=== PATIENT | female | born 1965 | race Caucasian/White ===

== ENCOUNTER 2019-05-23 10:05 | Inpatient (IN) | payer MEDICARE, SELFPAY ==
[2019-05-23] VITALS (11 sets, daily range): BP systolic 124–138; BP diastolic 55–76; PULSE 79–94; RESP 16–20; TEMP 36.2–36.9; O2SAT 94–99; BMI 19.8
--- NOTE | ~2019-05-23 | XR_ITS ---
EXAMINATION: XR chest 2V DATE: 05/23/2019 12:27 INDICATION: Shortness of breath and cough TECHNIQUE: AP and lateral views of the chest are obtained. COMPARISON: 10/05/2017 FINDINGS: There are minimal airspace opacities of the right middle lobe. Calcified pulmonary nodules and calcified bilateral hilar and mediastinal lymph nodes are consistent with old granulomatous disea se. There is no pleural effusion or pneumothorax. The cardiomediastinal silhouette is normal. There i s mild thoracic spondylosis. IMPRESSION: 1. Right middle lobe airspace opacity, consistent with atelectasis versus pneumonia. Reviewed, dictated and finalized at location A. WARE ENGINEERING MANAGER IMPRESSION: 1. Right middle lobe airspace opacity, consistent with atelectasis versus pneum onia.
--- NOTE | ~2019-05-23 | CT_ITS ---
EXAMINATION: CT chest w con EXAM DATE: 05/24/2019 16:55 INDICATION: COPD, shortness of breath. Airspace disease. TECHNIQUE: Spiral CT of the chest following intravenous injection of 75 mL Omnipaque 350. Axial, cor onal and sagittal images were reviewed. Coronal maximum intensity pixel images of chest reviewed. T he dose-length product (DLP) for this examination was 130.42 mGy-cm. The exposure was tailored accor ding to patient size (auto mA exposure control), and iterative reconstruction (ASIR) was used as grecia tional dose reduction technique. Comparison is made to prior examination from 11/07/2017. FINDINGS: There is severe emphysema and moderate hyperinflation. There is persistent right infrahila r ovoid mass, probably chronic reactive lymph node with multiple calcifications in this and other nor mal-sized bilateral hilar and mediastinal lymph nodes, from prior granulomatous process. There is rig ht lower lobe scarring, which resolved pneumonia which was present on prior examination. There are n o pleural or pericardial effusions. Tracheobronchial tree is patent. No central pulmonary emboli. T here is no pneumothorax. Heart normal in size. There is mild coronary arterial calcification, art erial sclerosis. Upper abdomen is unremarkable. There is mild thoracic spondylosis without osteobl astic or osteolytic lesions identified. IMPRESSION: 1. Chronic post infectious sequela including enlarged right infrahilar lymph node. 2. Severe emphysema. Moderate hyperinflation. Reviewed, dictated and finalized at location A. H PLANER TENDER IMPRESSION: 1. Chronic post infectious sequela including enlarged right infrahilar lymph n ode. 2. Severe emphysema. Moderate hyperinflation.
--- NOTE | 2019-05-23 10:34 | ECG_ITS ---
Measurements Intervals [place] Rate: 78 P: 72 SD: 122 QRS: 87 QRSD: 91 T: 19 QT: 354 QTc: 405 Interpretive Statements SINUS RHYTHM FREQUENT ATRIAL PREMATURE COMPLEXES DELAYED PRECORDIAL R/S TRANSITION BORDERLINE ST-T WAVE ABNORMALITY- INF/LAT LEADS BASELINE ARTIFACT- I, II, III, AVR, AVL, AVF, V5-V6 ABNORMAL ECG Electronically Signed On 05-23-2019 11:10:21 ACCESS CLERK by Thad Rea D.O.
--- NOTE | 2019-05-23 11:09 | ED.SOB ---
HPI - SOB/Dyspnea General Chief Complaint: Shortness of Breath/Dyspnea Stated Complaint: sob Time Seen by Provider: 05/23/19 10:16 Source: patient and family Mode of arrival: ambulatory Limitations: no limitations History of Present Illness HPI Narrative: Pt is a 53 y/o female, with a H/O DM and COPD, who presents to the ED with c/o SOB that has worsened in the last week. Pt states that she has had a cold for the last week and she went to see her PCP, Dr. Morales today. While she was at her PCP's office, she had a breathing treatment that alleviated her SOB, but her PCP recommended she come to the ED for further care. Pt reports a persistent cough with no phlegm production. She states she has chronic orthopnea and she is normally on 6L home O2. Pt notes that she is not able to increase her O2 intake because her O2 tank does not go any higher. Pt has been using her nebulizer and inhaler at home with no relief. She also notes that her BS has been fluctuating between 300-21. She notes that she has been having recent low BS. Pt is normally able to walk around the house without being SOB and now she cannot walk more than 25 feet. Per daughter, pt has been undergoing a lot of stress with moving recently. Pt is around multiple dogs. She states that she had mal odorous urine last week, but she denies dysuria or frequency. Pt states that she quit smoking 6 months ago and recently started smoking again. She denies fever, chills, sweats, ABD pain, CP, chest pressure, or N/V. MD elicited complaint: shortness of breath Pertinent past history: COPD Onset (ago): week(s) (1) Timing: constant Exacerbating factors: lying flat and movement Relieving factors: nothing Known history of: COPD and diabetes Associated symptoms: cough Treatment prior to arrival: oxygen Related Data Home oxygen amount: other (6L home O2) Home Medications Medication Instructions Recorded Confirmed atorvastatin 40 mg tablet 40 mg PO DAILY 04/10/19 04/11/19 blood sugar diagnostic #10 each 04/10/19 04/11/19 fluticasone 250 mcg-salmeterol 50 1 inhalation INHALATION BID 04/10/19 04/11/19 mcg/dose blistr powdr for inhalation insulin aspart U-100 100 unit/mL 5 unit SUB-Q TID 04/10/19 04/11/19 (3 mL) subcutaneous pen insulin degludec 200 unit/mL (3 20 unit SUB-Q DAILY 04/10/19 04/11/19 mL) subcutaneous pen ipratropium 0.5 mg-albuterol 3 mg 3 ml INHALATION QID PRN 04/10/19 04/11/19 (2.5 mg base)/3 mL nebulization soln lancets 28 gauge #25 each 04/10/19 04/11/19 levothyroxine 100 mcg tablet 100 mcg PO DAILY 04/10/19 04/11/19 lisinopril 10 mg tablet 10 mg PO DAILY 04/10/19 04/11/19 pen needle, diabetic 33 gauge x #100 each 04/10/19 04/11/19 1/ trazodone 50 mg tablet 50 mg PO DAILY tablet 04/10/19 04/11/19 Allergies Allergy/AdvReac Type Severity Reaction Status Date / Time metformin AdvReac Intermediate Diarrhea Verified 05/23/19 10:20 Review of Systems Review of Systems: All systems reviewed & are unremarkable except as noted in HPI and below Constitutional: Constitutional: Denies chills, Denies fever(s) and Denies other (sweats) Cardiovascular: Cardiovascular: Denies chest pain, Reports orthopnea (chronic) and Denies other (chest pressure) Respiratory: Respiratory: Reports cough and Reports dyspnea Gastrointestinal: Gastrointestinal: Denies nausea and Denies vomiting Genitourinary: Genitourinary: Denies nocturia, Denies dysuria and Denies other (mal odorous urine) [facility] Past Medical History Medical History (Updated 05/23/19 @ 14:36 by Kamran Steen MD) Anxiety Arthritis Asthma Atypical chest pain Bilateral wrist pain Compression fracture COPD (chronic obstructive pulmonary disease) COPD exacerbation COPD with exacerbation Depression Ganglion cyst HLD (hyperlipidemia) HTN (hypertension) Hypoglycemia IDDM (insulin dependent diabetes mellitus) Knee fracture, right On home O2 Pain in left wrist Pilonidal cyst Pneumonia Smoking addiction
[2019-05-23] MEDS: IPRATROPIUM BR 0.02% INH SOLN 0.5 MG/2.5 ML VIAL INHALATION ×2 (11:51→19:16)
[2019-05-23] MEDS: ALBUTEROL SULFATE NEB 2.5 MG/0.5 ML INH 5 MG INHALATION ×2 (11:51→19:16)
[2019-05-23 12:08] LABS: Alveolar/Arterial O2 Gradient 180.5 mmHg; Base Excess ABG 0.2 mEq/l (+/-2.0); Carboxyhemoglobin 2.5 % THb (0-2.0); Fractional Inspired Oxygen 44 %; HCO3 ABG 26.5 mEq/l (22.0-26.0); Methemoglobin ABG 0.1 %THb (0-1.5); Oxygen Content ABG 17.2 %vol (16.0-22.0); Oxygen Saturation ABG 94.6 % (95.0-100.0); Oxyhemoglobin 92.6 % THb (90.0-100.0); PCO2 ABG 49.3 mmHg (35.0-45.0); PO2 FiO2 Ratio Arterial Blood 1.75 %; Reduced Hemoglobin 4.8 %THb (0-5.0); Total Hemoglobin 13.2 g/dL (12.0-18.0); pH ABG 7.348 (7.350-7.450)
[2019-05-23 12:09] LABS: Device NASAL CANNULA; Site Drawn LEFT BRACHIAL
[2019-05-23 12:12] LABS: Basophils Percent Auto 0.8 % (0.2-1.2); Eosinophils Absolute Auto 0.1 K/mm3 (0-0.3); Eosinophils Percent Auto 2.6 % (0-4.4); Hematocrit 42.5 % (37.0-47.0); Hemoglobin 13.6 g/dL (12.0-15.0); Immature Granulocyte Absolute 0.02 K/mm3 (0.00-0.031); Immature Granulocyte Percent A 0.4 % (0-0.5); Lymphocytes Absolute Auto 0.81 K/mm3 (0.9-3.2); Mean Corpuscular Hemoglobin 30.6 pg (26-34); Mean Corpuscular Volume 95.5 fl (80-100); Mean Platelet Volume 11.9 fl (7.4-10.4); Monocytes Absolute Auto 0.7 K/mm3 (0.1-0.6); Monocytes Percent Auto 14.2 % (2.6-8.5); Neutrophils Absolute Auto 3.4 K/mm3 (1.3-6.7); Platelet Count Result 153 k/mm3 (150-375); Red Blood Count 4.45 M/mm3 (4.2-5.4); Red Cell Distribution Width 12.3 % (11.5-14.5); White Blood Count 5.1 K/mm3 (4.5-10.0)
[2019-05-23 12:25] LABS: Blood Urea Nitrogen 13 mg/dL (7-17); Calcium 9.3 mg/dL (8.4-10.2); Carbon Dioxide 32 mmol/L (22-30); Chloride 100 mmol/L (98-107); Estimated Glomerular Filt Rate > 60; Glucose 110 mg/dL (65-105); Potassium 3.3 mmol/L (3.4-5.0); Sodium 141 mmol/L (137-145)
[2019-05-23] MEDS: methylPREDNISolone SOD SUCC 125 MG VIAL IV PUSH (13:35)
[2019-05-23 13:40] LABS: Lactic Acid Reflex 0.9 mmol/L (0.7-2.1)
--- NOTE | 2019-05-23 15:55 | ADMGEN ---
This patient, Beatrice Espinoza, was admitted to [facility] Surg Room 303-01. Patient/family oriented to hospital policies and general routines including ID bracelet, bed and alarms, visiting hours, pain management, procedures, bathroom and other care routines, personal items, smoking policy, room service/diet, and visiting hours. Valuables list has been completed. Information on how to activate the Rapid Response Team has been discussed. Patient/Family are encouraged to report perceived risks to care and to ask questions if they do not understand what they are told or what they should do.
[2019-05-23 17:55] LABS: Alveolar/Arterial O2 Gradient 157.8 mmHg; Base Excess ABG 1.9 mEq/l (+/-2.0); Carboxyhemoglobin 1.3 % THb (0-2.0); Device NASAL CANNULA; Fractional Inspired Oxygen 40 %; HCO3 ABG 28.1 mEq/l (22.0-26.0); Methemoglobin ABG 0.4 %THb (0-1.5); Modified Allen's Test Pass; Oxygen Content ABG 17.6 %vol (16.0-22.0); Oxygen Saturation ABG 93.4 % (95.0-100.0); Oxyhemoglobin 91.8 % THb (90.0-100.0); PO2 ABG 69.9 mmHg (80.0-100.0); PO2 FiO2 Ratio Arterial Blood 1.75 %; Reduced Hemoglobin 6.5 %THb (0-5.0); Site Drawn RIGHT RADIAL; Total Hemoglobin 13.6 g/dL (12.0-18.0); pH ABG 7.367 (7.350-7.450)
[2019-05-23] MEDS: methylPREDNISolone SOD SUCC 125 MG VIAL 60 MG IV PUSH (19:10)
[2019-05-23 19:18] LABS: Glucose Point of Care 302 (65-105)
--- NOTE | 2019-05-23 21:45 | PM.IMHP ---
H&P: HPI History of Present Illness Chief complaint: Shortness of breath. Narrative: Beatrice Espinoza is a 53 year old female smoker with COPD, chronic respiratory failure with hypoxia, and type 1 diabetes who presented to the emergency department earlier this morning from her primary care provider's office for evaluation of shortness of breath. She is on 6 liters nasal cannula at home, but goes on to say that sometime she is able to go out to the grocery store without even bring her oxygen. Over the past week or so, she and several members of her family have had upper respiratory symptoms. She notes mild sinus congestion, postnasal drip, and cough that is rarely productive. At time she coughs so hard that she feels as though she might pass out. She has also had progressive dyspnea on lesser and lesser exertion. She has used her nebulizer 3 times per day, but unfortunately continues to feel short of breath even when getting about the home. She made appointment today with Dr. Morales, and he was concerned about her respiratory status (patient reportedly in tripod position with labored breathing) and directed her to the emergency department. She has since received Solu-Medrol and nebulizers with some improvement. At the time my evaluation, she is able to speak in full sentences. She reports chills but has not had fever or sweats. She will occasionally have some chest heaviness 1 really short of breath, but this improves after nebulizers. She has not had nausea, vomiting, or diarrhea. Of note, she also reports that her glucose has been running as high as 300, but has been as low as 21 recently. Review of Systems Review of Systems: Narrative: Twelve systems were reviewed with pertinent positives and negatives as per HPI. No headache or neck ache. Upper respiratory symptoms as detailed above. She denies palpitations and racing heart. No orthopnea, PND, or edema. No history of venous thromboembolism. She reports that she is a brittle diabetic, with glucose is ranging between 21 and 300 over the past couple of weeks. She has not had blurry vision, polyuria, or polydipsia. Except as documented, all other systems were reviewed and are negative. [facility] Past Medical History Medical History (Updated 05/23/19 @ 22:36 by Zahraa Wood PA-C) Arthritis Chronic respiratory failure with hypoxia, on home oxygen therapy COPD with asthma Coronary artery disease With reported myocardial infarction in 1999 requiring stent. Depression with anxiety Hyperlipidemia Hypertension Hypothyroidism Insulin dependent diabetes mellitus Recent hemoglobin A1c was reportedly somewhere around 8. Diabetes is complicated by retinopathy and gastroparesis. Tobacco abuse Surgical History Surgical History (Updated 05/23/19 @ 22:33 by Zahraa Wood PA-C) Status post arthroscopy of right knee Status post section Family History Family History Mother Family history of alcoholism Family history of congestive heart failure, Onset Age: 70 Family history of osteoporosis Family history of chronic obstructive pulmonary disease Grandparent Family history of Alzheimer's disease, Onset Age: 90 Hypertension, Onset Age: 80 Sibling Hypertension, Onset Age: 53 Family history of alcoholism Family history of malignant neoplasm Patient's sister is in good health Father Hypertension, Onset Age: 79 Family history of thyroid disease Family history of cataracts Malignant neoplasm of prostate Other Diabetes mellitus Family history of arthritis Social History Social History (Updated 05/23/19 @ 22:33 by Zahraa Wood PA-C) Social History: The patient lives in [place] with her son and [id number]. She designates her ovvzrlgd-ef-sne, Michelle, as her surrogate decision maker and she wishes to be a full code. She has smoked up to 1 and half pa
[2019-05-23 22:37] LABS: Glucose Point of Care 437 (65-105)
[2019-05-24] VITALS (16 sets, daily range): BP systolic 96–143; BP diastolic 56–60; PULSE 65–115; RESP 18–22; TEMP 36.7–37.6; O2SAT 92–100
[2019-05-24] MEDS: POTASSIUM CHLORIDE 20 MEQ TABLET 40 MEQ PO (00:07)
[2019-05-24] MEDS: INSULIN ASPART (*BKC) 100 UNITS/ML 6 UNITS SUB-Q (00:08)
[2019-05-24] MEDS: CLONAZEPAM 0.5 MG TAB PO ×2 (00:08→21:08)
[2019-05-24] MEDS: ATORVASTATIN 40 MG TABLET PO ×2 (00:11→21:07)
[2019-05-24] MEDS: ALBUTEROL SULFATE NEB 2.5 MG/0.5 ML INH 5 MG INHALATION ×4 (01:28→20:12)
[2019-05-24] MEDS: IPRATROPIUM BR 0.02% INH SOLN 0.5 MG/2.5 ML VIAL INHALATION ×4 (01:28→20:12)
[2019-05-24] MEDS: LEVOTHYROXINE SODIUM 100 MCG TABLET PO ×2 (06:23→21:07)
[2019-05-24] MEDS: lisinopriL 10 MG TABLET PO ×2 (06:23→21:06)
[2019-05-24 06:25] LABS: Hematocrit 37.5 % (37.0-47.0); Hemoglobin 11.9 g/dL (12.0-15.0); Mean Corpuscular HGB Conc 31.7 g/dl (32-36); Mean Corpuscular Hemoglobin 30.4 pg (26-34); Mean Corpuscular Volume 95.7 fl (80-100); Mean Platelet Volume 11.4 fl (7.4-10.4); Platelet Count Result 149 k/mm3 (150-375); Red Blood Count 3.92 M/mm3 (4.2-5.4); Red Cell Distribution Width 12.3 % (11.5-14.5); White Blood Count 3.1 K/mm3 (4.5-10.0)
[2019-05-24 06:40] LABS: Blood Urea Nitrogen 23 mg/dL (7-17); Calcium 8.6 mg/dL (8.4-10.2); Carbon Dioxide 30 mmol/L (22-30); Chloride 100 mmol/L (98-107); Estimated CRCL calculation 82 ml/min; Estimated Glomerular Filt Rate > 60; Glucose 281 mg/dL (65-105); Magnesium 2.2 mg/dL (1.6-2.3); Potassium 4.3 mmol/L (3.4-5.0); Sodium 136 mmol/L (137-145)
[2019-05-24 08:15] LABS: Glucose Point of Care 288 (65-105)
[2019-05-24] MEDS: INSULIN GLARGINE (*BKC) 100 UNITS/ML 20 UNITS SUB-Q (09:07)
[2019-05-24] MEDS: INSULIN ASPART (*BKC) 100 UNITS/ML SUB-Q ×4 (09:08→18:04)
[2019-05-24] MEDS: predniSONE 20 MG TABLET 40 MG PO (09:15)
[2019-05-24 12:09] LABS: Glucose Point of Care 192 (65-105)
--- NOTE | 2019-05-24 12:26 | PM.CNPUL ---
Assessment and Plan Assessment and plan (1) COPD (chronic obstructive pulmonary disease): Qualifiers: COPD type: COPD with acute lower respiratory infection Qualified Code(s): J44.0 - Chronic obstructive pulmonary disease with (acute) lower respiratory infection Code(s): J44.9 - Chronic obstructive pulmonary disease, unspecified Status: Acute Assessment and Plan: COPD exacerbation due to recent URI and ongoing tobacco abuse. I don't see clear pneumonic infiltrates on CXR. Wonder whether this may be scar tissue. - I've ordered non contrast CT chest - agree with current treatment of antibiotics, systemic steroids and nebulized bronchodilators. - If CT chest shows no clear pneumonia, will consider discontinuing antibiotics as symptoms seem mostly viral. History of Present Illness History of Present Illness Consult date: 05/24/19 Reason for consult: dyspnea and cough Chief complaint: Shortness of breath. Narrative: 53 y/o female with COPD, 1 pack/day smoker, HTN, hypothyroidism presents with runny nose, increase dyspnea, cough productive of clear sputum and loose stools. Her grandson had URI symptoms about one week ago and then other members of the house developed same symptoms including her herself. Review of Systems Review of Systems: All systems reviewed & are unremarkable except as noted in HPI and below PMFSH Past Medical History Medical History (Updated 05/23/19 @ 22:36 by Zahraa Wood PA-C) Arthritis Chronic respiratory failure with hypoxia, on home oxygen therapy COPD with asthma Coronary artery disease With reported myocardial infarction in 1999 requiring stent. Depression with anxiety Hyperlipidemia Hypertension Hypothyroidism Insulin dependent diabetes mellitus Recent hemoglobin A1c was reportedly somewhere around 8. Diabetes is complicated by retinopathy and gastroparesis. Tobacco abuse Surgical History Surgical History (Updated 05/23/19 @ 22:33 by Zahraa Wood PA-C) Status post arthroscopy of right knee Status post section Family History Family History Mother Family history of alcoholism Family history of congestive heart failure, Onset Age: 70 Family history of osteoporosis Family history of chronic obstructive pulmonary disease Grandparent Family history of Alzheimer's disease, Onset Age: 90 Hypertension, Onset Age: 80 Sibling Hypertension, Onset Age: 53 Family history of alcoholism Family history of malignant neoplasm Patient's sister is in good health Father Hypertension, Onset Age: 79 Family history of thyroid disease Family history of cataracts Malignant neoplasm of prostate Other Diabetes mellitus Family history of arthritis Social History Social History (Updated 05/23/19 @ 22:33 by Zahraa Wood PA-C) Social History: The patient lives in [place] with her son and [id number]. She designates her wrumufwg-nl-gzo, Michelle, as her surrogate decision maker and she wishes to be a full code. She has smoked up to 1 and half packs of cigarettes per day for many years. She has quit for as long as 6 months, but picked it up again due to stress. No alcohol or drug abuse. Smoking packs per day: 1.5 Smoking cigarettes per day: 30.0 Years smoked: 37 Smoking pack-years: 55.50 Smoking status: Current every day smoker Tobacco type: cigarettes Second hand tobacco smoke exposure: Yes Alcohol intake: never Substance use: never Gender identity (if verbalized by the patient): Female Spiritual care concerns: No Agree to blood products: Yes Meds Home Medications and Allergies Home Medications Medication Instructions Recorded Confirmed Type albuterol sulfate 90 mcg/actuation 2 puff INHALATION Q4H #54 gm 03/18/19 05/23/19 Rx aerosol inhaler atorvastatin 40 mg tablet 40 mg PO HS 04/10/19
--- NOTE | 2019-05-24 16:21 | P.PNIM_ITS ---
Progress Note: A&P Assessment and Plan (1) COPD with exacerbation: Code(s): J44.1 - Chronic obstructive pulmonary disease with (acute) exacerbation Status: Acute Assessment and Plan: * 05/24/19 16:21 Patient is a 53-year-old male with history of COPD chronic respiratory failure on home oxygen patient is 6 L with exertion patient had been complaining of upper respiratory symptoms with cough congestion and shortness of breath and wheezing patient was seen by her primary physician and was sent to emergency department for further evaluation patient had ABG done showed hypoxia but there was no hypercapnia unfortunately patient still smokes patient was started on Solu-Medrol updraft be aided Pulmicort and Rocephin and azithromycin possible community-acquired pneumonia patient had history of type 1 diabetes and to prevent hyperglycemia patient is being treated with a low-dose prednisone will continue to monitor, patient denies any chest pain palpitation fever or chills (2) Community acquired pneumonia: Qualifiers: Laterality: right Lung location: middle lobe of lung Qualified Code(s): J18.9 - Pneumonia, unspecified organism Code(s): J18.9 - Pneumonia, unspecified organism Status: Acute Assessment and Plan: * She has been started on azithromycin and ceftriaxone empirically. * Sputum to be attempted for culture. (3) Tobacco abuse: Code(s): Z72.0 - Tobacco use Status: Acute Assessment and Plan: Exterminator Helper discussed with the patient to stop smoking and offered acute inpatient however patient refused (4) Acute and chronic respiratory failure: Code(s): J96.20 - Acute and chronic respiratory failure, unspecified whether with hypoxia or hypercapnia Status: Acute Assessment and Plan: * Now at baseline oxygen requirement. * Repeat ABG shows compensated hypercarbia. (5) Insulin dependent diabetes mellitus: Code(s): E11.9 - Type 2 diabetes mellitus without complications; Z79.4 - intermediate manager (current) use of insulin Status: Acute Assessment and Plan: * With hyperglycemia secondary to steroids. * Initiate sliding scale insulin, Accu-Cheks, and hypoglycemic protocol. * Continue basal insulin. (6) Hypokalemia: Code(s): E87.6 - Hypokalemia Status: Acute Assessment and Plan: * Will replace potassium and monitor. Time Spent With Patient Time with patient: 15 - 25 minutes Subjective Date/time seen: 05/24/19 16:21 Patient is a 53-year-old male with history of COPD chronic respiratory failure on home oxygen patient is 6 L with exertion patient had been complaining of upper respiratory symptoms with cough congestion and shortness of breath and wheezing patient was seen by her primary physician and was sent to emergency department for further evaluation patient had ABG done showed hypoxia but there was no hypercapnia unfortunately patient still smokes patient was started on Solu-Medrol updraft be aided Pulmicort and doxycycline to cover for atypicals, patient had history of type 1 diabetes and
--- NOTE | 2019-05-24 16:21 | PM.IMPN ---
Progress Note: A&P Assessment and Plan (1) COPD with exacerbation: Code(s): J44.1 - Chronic obstructive pulmonary disease with (acute) exacerbation Status: Acute Assessment and Plan: 05/24/19 16:21 Patient is a 53-year-old male with history of COPD chronic respiratory failure on home oxygen patient is 6 L with exertion patient had been complaining of upper respiratory symptoms with cough congestion and shortness of breath and wheezing patient was seen by her primary physician and was sent to emergency department for further evaluation patient had ABG done showed hypoxia but there was no hypercapnia unfortunately patient still smokes patient was started on Solu-Medrol updraft be aided Pulmicort and Rocephin and azithromycin possible community-acquired pneumonia patient had history of type 1 diabetes and to prevent hyperglycemia patient is being treated with a low-dose prednisone will continue to monitor, patient denies any chest pain palpitation fever or chills (2) Community acquired pneumonia: Qualifiers: Laterality: right Lung location: middle lobe of lung Qualified Code(s): J18.9 - Pneumonia, unspecified organism Code(s): J18.9 - Pneumonia, unspecified organism Status: Acute Assessment and Plan: She has been started on azithromycin and ceftriaxone empirically. Sputum to be attempted for culture. (3) Tobacco abuse: Code(s): Z72.0 - Tobacco use Status: Acute Assessment and Plan: Tooth Cutter Contact Wheel discussed with the patient to stop smoking and offered acute inpatient however patient refused (4) Acute and chronic respiratory failure: Code(s): J96.20 - Acute and chronic respiratory failure, unspecified whether with hypoxia or hypercapnia Status: Acute Assessment and Plan: Now at baseline oxygen requirement. Repeat ABG shows compensated hypercarbia. (5) Insulin dependent diabetes mellitus: Code(s): E11.9 - Type 2 diabetes mellitus without complications; Z79.4 - [facility] (current) use of insulin Status: Acute Assessment and Plan: With hyperglycemia secondary to steroids. Initiate sliding scale insulin, Accu-Cheks, and hypoglycemic protocol. Continue basal insulin. (6) Hypokalemia: Code(s): E87.6 - Hypokalemia Status: Acute Assessment and Plan: Will replace potassium and monitor. Time Spent With Patient Time with patient: 15 - 25 minutes Subjective Date/time seen: 05/24/19 16:21 Patient is a 53-year-old male with history of COPD chronic respiratory failure on home oxygen patient is 6 L with exertion patient had been complaining of upper respiratory symptoms with cough congestion and shortness of breath and wheezing patient was seen by her primary physician and was sent to emergency department for further evaluation patient had ABG done showed hypoxia but there was no hypercapnia unfortunately patient still smokes patient was started on Solu-Medrol updraft be aided Pulmicort and doxycycline to cover for atypicals, patient had history of type 1 diabetes and to prevent hyperglycemia patient is being treated with a low-dose prednisone will continue to monitor, patient denies any chest pain palpitation fever or chills Review of Systems Review of Systems: All systems reviewed & are unremarkable except as noted in HPI and below Exam Narrative: Exam Narrative: Patient appears chron
[2019-05-24] MEDS: BENZONATATE 100 MG CAPSULE 200 MG PO (18:06)
[2019-05-24 18:09] LABS: Glucose Point of Care 215 (65-105)
[2019-05-24] MEDS: BUDESONIDE RESPULE NEB 0.5 MG/2 ML AMP INHALATION (20:12)
[2019-05-24 21:15] LABS: Glucose Point of Care 272 (65-105)
[2019-05-25] VITALS (18 sets, daily range): BP systolic 117–125; BP diastolic 55–71; PULSE 61–85; RESP 20; TEMP 36.7–37.4; O2SAT 94–100
[2019-05-25] MEDS: ALBUTEROL SULFATE NEB 2.5 MG/0.5 ML INH 5 MG INHALATION ×4 (01:55→20:04)
[2019-05-25] MEDS: IPRATROPIUM BR 0.02% INH SOLN 0.5 MG/2.5 ML VIAL INHALATION ×4 (01:55→20:04)
[2019-05-25 06:18] LABS: Hematocrit 36.1 % (37.0-47.0); Hemoglobin 11.5 g/dL (12.0-15.0); Immature Platelet Fraction Pct 4.1 % (0.9-11.2); Mean Corpuscular HGB Conc 31.9 g/dl (32-36); Mean Corpuscular Hemoglobin 30.6 pg (26-34); Mean Platelet Volume 11.2 fl (7.4-10.4); Platelet Count Result 134 k/mm3 (150-375); Red Blood Count 3.76 M/mm3 (4.2-5.4); Red Cell Distribution Width 12.3 % (11.5-14.5); White Blood Count 3.8 K/mm3 (4.5-10.0)
[2019-05-25 06:44] LABS: Blood Urea Nitrogen 14 mg/dL (7-17); Calcium 8.4 mg/dL (8.4-10.2); Carbon Dioxide 35 mmol/L (22-30); Chloride 99 mmol/L (98-107); Estimated CRCL calculation 82 ml/min; Estimated Glomerular Filt Rate > 60; Glucose 145 mg/dL (65-105); Potassium 3.7 mmol/L (3.4-5.0); Sodium 138 mmol/L (137-145)
[2019-05-25] MEDS: BUDESONIDE RESPULE NEB 0.5 MG/2 ML AMP INHALATION ×2 (08:40→20:04)
[2019-05-25] MEDS: INSULIN ASPART (*BKC) 100 UNITS/ML SUB-Q ×3 (08:53→18:00)
[2019-05-25] MEDS: predniSONE 20 MG TABLET 40 MG PO (08:55)
[2019-05-25 08:56] LABS: Glucose Point of Care 82 (65-105)
[2019-05-25] MEDS: INSULIN GLARGINE (*BKC) 100 UNITS/ML 20 UNITS SUB-Q (08:57)
--- NOTE | 2019-05-25 10:59 | PM.PNPUL ---
Progress Note: A&P Assessment and Plan (1) COPD (chronic obstructive pulmonary disease): Qualifiers: COPD type: COPD with acute lower respiratory infection Qualified Code(s): J44.0 - Chronic obstructive pulmonary disease with (acute) lower respiratory infection Code(s): J44.9 - Chronic obstructive pulmonary disease, unspecified Status: Acute Assessment and Plan: COPD exacerbation due recent viral URI. No convincing evidence of acute bacterial pneumonia - Will discontinue antibiotics - continue sytemic steroids for seven days then discontinue without taper - continue nebulized pulmicort 0.5 mg bid - continue duonebs Q6h scheduled - PT/OT and patient will consider outpatient pulmonary rehab - needs to wear home O2 20/11 Time Spent With Patient Time with patient: 25 - 35 minutes Subjective Date/time seen: 05/25/19 10:59 Interval history: Pt is still short of breath with minimal exertion but denies productive cough, fever, chills or sweats. I viewed her CT chest and the RLL changes appear to be scarring from a pneumonia in October 2017 when compared to that CT scan. I don't see evidence of acute [place] Review of Systems Review of Systems: All systems reviewed & are unremarkable except as noted in HPI and below Exam Const: General: comfortable and no acute distress HENMT: Mouth: Yes moist mucous membranes Neck: Neck: supple and no JVD Resp: Auscultation: crackles (right posterior inspiratory) and diminished lung sounds Cardio: Rate: regular rate Rhythm: regular rhythm GI: Auscultation: normal bowel sounds Neuro: Speech: normal speech Extrem: General: normal to inspection, no edema and no pedal edema Psych: Mental Status: mental status grossly normal Affect: normal affect Objective Data Vital Signs Vital Signs: Vital Signs - 24 hr 05/24/19 12:00 05/24/19 14:00 05/24/19 14:10 Temperature 36.7 C Pulse Rate 72 102 H 80 Respiratory Rate 22 H 20 Blood Pressure 143/59 H Pulse Oximetry 94 05/24/19 16:00 05/24/19 20:00 05/24/19 20:13 Temperature Pulse Rate 72 71 69 Respiratory Rate 20 Blood Pressure Pulse Oximetry 95 05/24/19 20:28 05/24/19 21:39 05/25/19 00:00 Temperature 37.6 C H Pulse Rate 71 115 H 63 Respiratory Rate 20 20 Blood Pressure 96/56 L Pulse Oximetry 95 05/25/19 01:56 05/25/19 02:03 05/25/19 04:00 Temperature Pulse Rate 62 64 62 Respiratory Rate 20 20 Blood Pressure Pulse Oximetry 05/25/19 06:00 05/25/19 08:40 05/25/19 08:56 Temperature 37.4 C Pulse Rate 61 68 72 Respiratory Rate 20 20 20 Blood Pressure 119/63 Pulse Oximetry 100 94 Intake/Output Intake/Output: Intake & Output 05/22/19 05/23/19 05/24/19 05/25/19 23:59 23:59 23:59 23:59 Intake Total 1000 1770 300 Output Total 300 1800 450 Balance 700 -30 -150 Meds/Results Medications: Active Medications Generic Name Dose Route Start Last Admin Trade Name Freq PRN Reason Stop Dose Admin Acetaminophen 650 mg 05/23/19 14:06 Tylenol Tablet PO Q4H PRN Mild Pain (1-3) or Fever Albuterol 5 mg 05/23/19 20:00 05/25/19 08:39 Albuterol Sulf Neb 2.5mg/0.5ml INHALATION 5 mg Q6HRT PAULY Administration Atorvastatin Calcium 40 mg 05/23/19 23:40 05/24/19 21:07 Lipitor PO 40 mg HS PAULY Administration Budesonide 0.5 mg 05/24/19 20:00 05/25/19 08:40 Pulmicort Respule Neb INHALATION 0.5 mg Q12HRT PAULY Administration Clonazepam 0.5 mg 05/24/19 21:00 05/24/19 21:08 Klonopin Tablet PO 0.5 mg HS PAULY Administration Dextrose 12.5 gm 05/23/19 22:39 Dextrose 50% Syringe IV PUSH PRN PRN Hypoglycemia Protocol Glucagon 1 mg 05/23/19 22:39 Glucagon For Inj IM PRN PRN Hypoglycemia Protocol Glucose 15 gm 05/23/19 22:39 Glutose 15 PO PRN PRN Hypoglycemia Protocol Guaifenesin 600 mg 05/23/19 23:40 05/25/19 08:56 Mucinex 12
[2019-05-25 12:19] LABS: Glucose Point of Care 65 (65-105)
--- NOTE | 2019-05-25 12:39 | PM.IMPN ---
Progress Note: A&P Assessment and Plan (1) COPD with exacerbation: Code(s): J44.1 - Chronic obstructive pulmonary disease with (acute) exacerbation Status: Acute Assessment and Plan: Patient is a 53-year-old male with history of COPD chronic respiratory failure on home oxygen patient is 6 L with exertion patient had been complaining of upper respiratory symptoms with cough congestion and shortness of breath and wheezing patient was seen by her primary physician and was sent to emergency department for further evaluation patient had ABG done showed hypoxia but there was no hypercapnia unfortunately patient still smokes patient was started on Solu-Medrol updraft be aided Pulmicort and Rocephin and azithromycin possible community-acquired pneumonia patient has history of type 1 diabetes and to prevent hyperglycemia patient is being treated with a low-dose prednisone patient is seen by media manager does not suspect pneumonia antibiotics are stopped, recommended to continue prednisone total of 7 days, and have a PT OT evaluate the patient, patient is feeling little better compared to when she arrived see denies any chest pain not a short of breath as when she arrived denies any fever or chills (2) Community acquired pneumonia: Qualifiers: Laterality: right Lung location: middle lobe of lung Qualified Code(s): J18.9 - Pneumonia, unspecified organism Code(s): J18.9 - Pneumonia, unspecified organism Status: Acute Assessment and Plan: Patient seen by media manager does not suspect patient has a pneumonia most likely upper respiratory infection antibiotics were stopped (3) Tobacco abuse: Code(s): Z72.0 - Tobacco use Status: Acute Assessment and Plan: Feather Boner discussed with the patient to stop smoking and offered acute inpatient however patient refused (4) Acute and chronic respiratory failure: Code(s): J96.20 - Acute and chronic respiratory failure, unspecified whether with hypoxia or hypercapnia Status: Acute Assessment and Plan: Now at baseline oxygen requirement. Repeat ABG shows compensated hypercarbia. (5) Insulin dependent diabetes mellitus: Code(s): E11.9 - Type 2 diabetes mellitus without complications; Z79.4 - meat and seafood clerk (current) use of insulin Status: Acute Assessment and Plan: With hyperglycemia secondary to steroids. Initiate sliding scale insulin, Accu-Cheks, and hypoglycemic protocol. Continue basal insulin. (6) Hypokalemia: Code(s): E87.6 - Hypokalemia Status: Acute Assessment and Plan: Will replace potassium and monitor. Subjective Date/time seen: 05/25/19 12:39 05/24/19 16:21 Patient is a 53-year-old male with history of COPD chronic respiratory failure on home oxygen patient is 6 L with exertion patient had been complaining of upper respiratory symptoms with cough congestion and shortness of breath and wheezing patient was seen by her primary physician and was sent to emergency department for further evaluation patient had ABG done showed hypoxia but there was no hypercapnia unfortunately patient still smokes patient was started on Solu-Medrol updraft be aided Pulmicort and Rocephin and azithromycin possible community-acquired pneumonia patient has history of type 1 diabetes and to prevent hyperglycemia patient is being treated with a low-dose prednisone patient i
[2019-05-25 16:40] LABS: Glucose Point of Care 242 (65-105)
[2019-05-25] MEDS: CLONAZEPAM 0.5 MG TAB PO (20:54)
[2019-05-25] MEDS: GUAIFENESIN 200 MG/10 ML UDC 600 MG PO (20:54)
[2019-05-25] MEDS: lisinopriL 10 MG TABLET PO (20:54)
[2019-05-25] MEDS: ACETAMINOPHEN 325 MG TABLET 650 MG PO (20:54)
[2019-05-25] MEDS: LEVOTHYROXINE SODIUM 100 MCG TABLET PO (20:54)
[2019-05-25] MEDS: ATORVASTATIN 40 MG TABLET PO (20:55)
[2019-05-25 21:24] LABS: Glucose Point of Care 253 (65-105)
[2019-05-26] VITALS (20 sets, daily range): BP systolic 108–124; BP diastolic 62–70; PULSE 57–99; RESP 16–20; TEMP 36.6–37.1; O2SAT 86–100
[2019-05-26] MEDS: ALBUTEROL SULFATE NEB 2.5 MG/0.5 ML INH 5 MG INHALATION ×3 (02:04→15:01)
[2019-05-26] MEDS: IPRATROPIUM BR 0.02% INH SOLN 0.5 MG/2.5 ML VIAL INHALATION ×3 (02:05→15:00)
[2019-05-26 06:27] LABS: Hematocrit 36.2 % (37.0-47.0); Hemoglobin 11.6 g/dL (12.0-15.0); Immature Platelet Fraction Pct 4.4 % (0.9-11.2); Mean Corpuscular Hemoglobin 30.3 pg (26-34); Mean Corpuscular Volume 94.5 fl (80-100); Mean Platelet Volume 11.2 fl (7.4-10.4); Platelet Count Result 123 k/mm3 (150-375); Red Blood Count 3.83 M/mm3 (4.2-5.4); Red Cell Distribution Width 12.2 % (11.5-14.5); White Blood Count 3.3 K/mm3 (4.5-10.0)
[2019-05-26 06:39] LABS: Blood Urea Nitrogen 14 mg/dL (7-17); Calcium 8.4 mg/dL (8.4-10.2); Carbon Dioxide 37 mmol/L (22-30); Chloride 100 mmol/L (98-107); Estimated CRCL calculation 82 ml/min; Estimated Glomerular Filt Rate > 60; Glucose 156 mg/dL (65-105); Potassium 3.5 mmol/L (3.4-5.0); Sodium 140 mmol/L (137-145)
[2019-05-26 07:51] LABS: Glucose Point of Care 120 (65-105)
[2019-05-26] MEDS: GUAIFENESIN 200 MG/10 ML UDC 600 MG PO (08:32)
[2019-05-26] MEDS: PANTOPRAZOLE 40 MG TABLET PO (08:32)
[2019-05-26] MEDS: predniSONE 20 MG TABLET 40 MG PO (08:32)
[2019-05-26] MEDS: INSULIN GLARGINE (*BKC) 100 UNITS/ML 20 UNITS SUB-Q (08:35)
[2019-05-26] MEDS: POTASSIUM CHLORIDE 20 MEQ PACKET (FOR LIQUID) 40 MEQ PO (08:39)
[2019-05-26] MEDS: INSULIN ASPART (*BKC) 100 UNITS/ML SUB-Q ×4 (09:47→17:21)
[2019-05-26 12:59] LABS: Glucose Point of Care 96 (65-105)
--- NOTE | 2019-05-26 13:27 | PM.PNPUL ---
Progress Note: A&P Assessment and Plan (1) COPD (chronic obstructive pulmonary disease): Qualifiers: COPD type: COPD with acute lower respiratory infection Qualified Code(s): J44.0 - Chronic obstructive pulmonary disease with (acute) lower respiratory infection Code(s): J44.9 - Chronic obstructive pulmonary disease, unspecified Status: Acute Assessment and Plan: COPD exacerbation due recent viral URI. No convincing evidence of acute bacterial pneumonia -OK to go homne today. - off antibiotics - continue sytemic steroids for seven days total then discontinue without taper - continue nebulized pulmicort 0.5 mg bid - continue duonebs Q6h scheduled - PT/OT and patient; will consider outpatient pulmonary rehab - needs to wear home O2 20/11; home O2 evaluation today- -Her last name was Parrish, recently changed with divorce. Will look up old records i [facility]. (2) Chronic respiratory failure with hypoxia, on home oxygen therapy: Code(s): J96.11 - Chronic respiratory failure with hypoxia; Z99.81 - Dependence on supplemental oxygen Status: Acute Assessment and Plan: She was on 6 L/min before admission, and is on same now. She has now been in the office for a pulmonary visit in a while, last saw Dr. Peterson. Her sat is 96% sitting in bed wearing 6 L/min so this can be weaned. She says that she has O2 sat meter on her phone. I am not familiar with this type of oximeter. Will have a Home O2 eval before she leaves to see what she needs at rest and how much with exertion. She can follow up in 1-2 weeks in the office. Subjective Date/time seen: 05/26/19 13:27 Interval history: Pt is still short of breath with minimal exertion but denies productive cough, fever, chills or sweats. She feels better, and wants to go home. Her [id number] is a GRADUATE STUDIES DEAN, will assist with her care. CT chest shows RLL changes that appear to be scarring from a pneumonia in October 2017. There is no acute change. She is able to walk to the bathroom. On 6 L/min sat is running 92-96%. She may not need 6 L/min; will check Home O2 eval before she goes home. Review of Systems Review of Systems: All systems reviewed & are unremarkable except as noted in HPI and below Exam Const: General: comfortable and no acute distress HENMT: Mouth: Yes moist mucous membranes Neck: Neck: supple and no JVD Resp: Auscultation: no rhonchi, no wheezes and diminished lung sounds Other: crackles have resolved Cardio: Rate: regular rate Rhythm: regular rhythm Heart sounds: no murmurs GI: Auscultation: normal bowel sounds Neuro: Speech: normal speech Extrem: General: normal to inspection, no edema and no pedal edema Psych: Mental Status: mental status grossly normal Affect: normal affect Objective Data Vital Signs Vital Signs: Vital Signs - 24 hr 05/25/19 13:55 05/25/19 14:00 05/25/19 14:06 Temperature 36.7 C Pulse Rate 80 78 85 Respiratory Rate 20 20 20 Blood Pressure 117/55 L Pulse Oximetry 100 05/25/19 16:00 05/25/19 20:05 05/25/19 20:10 Temperature Pulse Rate 73 73 73 Respiratory Rate 20 20 Blood Pressure Pulse Oximetry 97 05/25/19 20:18 05/25/19 22:00 05/25/19 22:54 Temperature 36.8 C Pulse Rate 74 85 70 Respiratory Rate 20 20 Blood Pressure 125/71 Pulse Oximetry 95 05/26/19 00:00 05/26/19 02:05 05/26/19 02:11 Temperature Pulse Rate 66 60 63 Respiratory Rate 20 20 Blood Pressure Pulse Oximetry 05/26/19 04:00 05/26/19 06:00 05/26/19 08:27 Temperature 36.6 C Pulse Rate 71 70 57 L Respiratory Rate 20 16 Blood Pressure 124/68 108/62 Pulse Oximetry 100 99 05/26/19 08:38 05/26/19 08:49 Temperature Pulse Rate 68 63 Respiratory Rate 20 20 Blood Pressure Pulse Oximetry 95 Intake/Output Intake/Output: Intake & Output 05/23/19 05/24/19 05/25/19 05/26/19 23:59 23:59 23:59 23:59 Intake Total 1000 1770 1230 730 Output Total 300 1800 950
--- NOTE | 2019-05-26 16:07 | HOMEO2EVAL ---
Home Oxygen Evaluation RC: Home Oxygen (O2) Evaluation Start: 05/26/19 13:48 Freq: ONCE Status: Active Protocol: RPE Activity Type Activity Date Activity User E-Sign Co-Sign Detail Recorded Client Recorded Date Recorded By Document 05/26/19 15:48 KRM [email or web address] 05/26/19 16:07 KRM Document 05/26/19 15:49 [email or web address] [email or web address] 05/26/19 16:07 KRM Document 05/26/19 15:50 KRM [email or web address] 05/26/19 16:07 KRM Document 05/26/19 15:51 KRM [email or web address] 05/26/19 16:07 KRM Document 05/26/19 15:54 KRM [email or web address] 05/26/19 16:07 KRM Document 05/26/19 15:55 KRM [email or web address] 05/26/19 16:07 KRM Document 05/26/19 15:56 KRM [email or web address] 05/26/19 16:07 KRM Document 05/26/19 16:05 KRM [email or web address] 05/26/19 16:07 KRM 05/26/19 05/26/19 05/26/19 15:48 15:49 15:50 Home O2 Evaluation Test Phase Resting Resting Resting Oxygen Delivery Room Air Nasal Cannula Nasal Cannula Oxygen Flow Rate (L/min) 1 2 Pulse Oximetry (90-100 %) 86 L 86 L 87 L Pulse Rate (60-100 beats/min) 83 80 82 Activity Tolerance Ambulation Distance (feet) Treatment Charges O2 Evaluation 05/26/19 05/26/19 05/26/19 15:51 15:54 15:55 Home O2 Evaluation Test Phase Resting Exercise Exercise Oxygen Delivery Nasal Cannula Nasal Cannula Nasal Cannula Oxygen Flow Rate (L/min) 3 3 4 Pulse Oximetry (90-100 %) 91 87 L 87 L Pulse Rate (60-100 beats/min) 81 81 99 Activity Tolerance Good Good Ambulation Distance (feet) Treatment Charges 05/26/19 05/26/19 15:56 16:05 Home O2 Evaluation Test Phase Exercise Resting Oxygen Delivery Nasal Cannula Nasal Cannula Oxygen Flow Rate (L/min) 5 3 Pulse Oximetry (90-100 %) 98 91 Pulse Rate (60-100 beats/min) 89 88 Activity Tolerance Good Ambulation Distance (feet) 200 Treatment Charges
--- NOTE | 2019-05-26 16:17 | PCRCNOTE ---
HOME O2 EVALUATION DONE. O2 NEEDS DECREASED TO 3LPM AT REST AND 5 WITH ACTIVITY. PT. IS A CURRENT PT. OF [facility]. FAXED UPDATED ORDER TO [facility].
[2019-05-26 17:17] LABS: Glucose Point of Care 330 (65-105)
--- NOTE | 2019-05-26 17:27 | PM.DS ---
DS: Diagnosis Admitting Diagnosis Admitting Diagnosis: Chronic obstructive pulmonary disease with (acute) exacerbation Patient with hx of severe COPD and chronic respitory failure is requiring 3 L of oxygen at rest and 5 L oxygen with exertion Discharge Diagnosis (1) COPD with exacerbation: Code(s): J44.1 - Chronic obstructive pulmonary disease with (acute) exacerbation Status: Acute Assessment and Plan: Patient is a 53-year-old male with history of COPD chronic respiratory failure on home oxygen patient is 6 L with exertion patient had been complaining of upper respiratory symptoms with cough congestion and shortness of breath and wheezing patient was seen by her primary physician and was sent to emergency department for further evaluation patient had ABG done showed hypoxia but there was no hypercapnia unfortunately patient still smokes patient was started on Solu-Medrol updraft be aided Pulmicort and Rocephin and azithromycin possible community-acquired pneumonia patient has history of type 1 diabetes and to prevent hyperglycemia patient is being treated with a low-dose prednisone patient is seen by manager division does not suspect pneumonia antibiotics are stopped, recommended to continue prednisone total of 7 days, and have a PT OT evaluate the patient, patient is feeling little better compared to when she arrived see denies any chest pain not a short of breath as when she arrived denies any fever or chills (2) Community acquired pneumonia: Qualifiers: Laterality: right Lung location: middle lobe of lung Qualified Code(s): J18.9 - Pneumonia, unspecified organism Code(s): J18.9 - Pneumonia, unspecified organism Status: Acute Assessment and Plan: Patient seen by manager division does not suspect patient has a pneumonia most likely upper respiratory infection antibiotics were stopped (3) Tobacco abuse: Code(s): Z72.0 - Tobacco use Status: Acute Assessment and Plan: Software Packaging Engineer discussed with the patient to stop smoking and offered acute inpatient however patient refused (4) Acute and chronic respiratory failure: Code(s): J96.20 - Acute and chronic respiratory failure, unspecified whether with hypoxia or hypercapnia Status: Acute Assessment and Plan: Now at baseline oxygen requirement. Repeat ABG shows compensated hypercarbia. (5) Insulin dependent diabetes mellitus: Code(s): E11.9 - Type 2 diabetes mellitus without complications; Z79.4 - long term care pharmacist (current) use of insulin Status: Acute Assessment and Plan: With hyperglycemia secondary to steroids. Initiate sliding scale insulin, Accu-Cheks, and hypoglycemic protocol. Continue basal insulin. (6) Hypokalemia: Code(s): E87.6 - Hypokalemia Status: Acute Assessment and Plan: Will replace potassium and monitor. DS: Summary Hospital Course Reason for hospitalization: The patient is 53 years old female, who was transferred [place] [facility] [place]. The patient was in the ER of [facility] [place] with complaints of having shortness of breath, cough, and chills going on for the last few days. According to the patient, the patient was discharged from [facility] on 05/26/2019. The patient was given medication to take home, but according to the patient that she was taking medication, but she did not get jenise
--- NOTE | 2019-05-26 18:23 | PC.NURSE ---
Patient left at 1740 via wheel chair and POV. Patient received flu shot and was transported home by family.
== END 2019-05-26 17:40 | disposition home or self-care (01) | DRG 190 ==
LOC: ANHED 14:23 → ANH3MEDSUR 14:36
PROVIDERS: Physician Assistant; Admitting Provider Internal Medicine; Emergency Provider Emergency Medicine; PCP Internal Medicine; Visit Provider Family Medicine
DX: J44.1 Chronic obstructive pulmonary disease with (acute) exacerbation (principal); J96.21 Acute and chronic respiratory failure with hypoxia; J96.22 Acute and chronic respiratory failure with hypercapnia; J06.9 Acute upper respiratory infection, unspecified; E10.65 Type 1 diabetes mellitus with hyperglycemia; T38.0X5A Adverse effect of glucocorticoids and synthetic analogues, initial encounter; E10.319 Type 1 diabetes mellitus with unspecified diabetic retinopathy without macular edema; E87.6 Hypokalemia; E78.5 Hyperlipidemia, unspecified; I10 Essential (primary) hypertension; F41.8 Other specified anxiety disorders; E03.9 Hypothyroidism, unspecified; M19.90 Unspecified osteoarthritis, unspecified site; F17.210 Nicotine dependence, cigarettes, uncomplicated; Z23 Encounter for immunization; Z99.81 Dependence on supplemental oxygen; Z79.4 Long term (current) use of insulin; I25.2 Old myocardial infarction
CPT/HCPCS: 36415; 36600; 71046; 71260; 80048; 82375; 82805; 83050; 83605; 83735; 85025; 85027; 85055; 87040; 87804; 90471; 90686; 93005; 94618; 94640; 94668; 96365; 96375; 96376; 99285; A9270; G0008; G0378; J0456; J0696; J1815; J2930; J7512; Q9967

== ENCOUNTER 2019-05-27 22:15 | Emergency (ER) | payer MEDICARE, SELFPAY ==
[2019-05-27] VITALS (7 sets, daily range): BP systolic 122–186; BP diastolic 72–92; PULSE 86–118; RESP 20–24; TEMP 36.2–36.7; O2SAT 93–100
--- NOTE | ~2019-05-27 | XR_ITS ---
XR chest 1V portable 05/27/2019 22:57 Indication: Shortness of breath Procedure: AP portable chest Comparison: 05/23/2019 Findings: Heart size is normal. There is hyperinflation, compatible with emphysema. Bibasilar airspac e disease. Small pleural effusions. No pneumothorax. Heart size normal. There is evidence for chronic granulomatous disease. Impression: 1: Bibasilar airspace disease which may represent atelectasis, pneumonia or edema. 2: Emphysema. 3: Possible small effusions. Reviewed, dictated and finalized at location A. [facility] Impression: 1: Bibasilar airspace disease which may represent atelectasis, pneumonia or aftab ma. 2: Emphysema. 3: Possible small effusions.
--- NOTE | 2019-05-27 22:23 | ECG_ITS ---
Measurements Intervals [place] Rate: 96 P: [place]: 0 QRS: 93 QRSD: 82 T: 61 QT: 326 QTc: 413 Interpretive Statements SINUS RHYTHM BORDERLINE ST ABNORMALITY- INFERIOR LEADS BASELINE ARTIFACT- I, II, AVR, AVL, AVF, V1-V6 BORDERLINE ECG Electronically Signed On 05-28-2019 7:15:27 [employer]OLESALE DI[employer]OND BROKER by Thad Rea D.O.
[2019-05-27] MEDS: IPRATROPIUM 0.5 MG/ALBUTEROL SULFATE 2.5 MG AMPUL.NEB 3 ML INHALATION ×3 (22:26→23:06)
[2019-05-27] MEDS: methylPREDNISolone SOD SUCC 125 MG VIAL IV PUSH (22:26)
[2019-05-27 22:54] LABS: Basophils Absolute Auto 0.02 K/mm3 (0.00-0.10); Basophils Percent Auto 0.4 % (0.0-1.0); Eosinophils Absolute Auto 0.06 K/mm3 (0.02-0.50); Eosinophils Percent Auto 1.2 % (1.0-6.0); Hematocrit 40.6 % (35.0-49.0); Hemoglobin 13.4 g/dL (12.0-15.0); Immature Granulocyte Absolute 0.01 K/mm3 (0.00-0.00); Immature Granulocyte Percent A 0.2 % (0.0-0.0); Lymphocytes Absolute Auto 1.67 K/mm3 (1.10-4.50); Lymphocytes Percent Auto 33.9 % (18.0-42.0); Monocytes Absolute Auto 0.45 K/mm3 (0.10-0.90); Monocytes Percent Auto 9.1 % (2.0-11.0); Neutrophils Absolute Auto 2.7 K/mm3 (1.7-7.2); Neutrophils Percent Auto 55.2 % (50.0-70.0); Platelet Count Result 144 K/mm3 (150-420); Red Blood Count 4.32 M/mm3 (4.20-5.40); Red Cell Distribution Width 11.9 % (11.6-14.4); White Blood Count 4.9 K/mm3 (4.8-10.8)
[2019-05-27 22:57] LABS: HCO3 ABG 31.1 mmol/L (23-29); Oxygen Content ABG 19.4 %vol (16.0-22.0); Oxygen Saturation ABG 99.2 % (95-97); PCO2 ABG 64.1 mmHg (35-45); PO2 ABG 206.2 mmHg (80-90); Total Hemoglobin 13.9 g/dL
[2019-05-27 22:58] LABS: Modified Allen's Test Pass; Site Drawn LEFT RADIAL
[2019-05-27 22:59] LABS: Device NON-REBREATHER MASK
--- NOTE | 2019-05-27 23:06 | ED.SOB ---
HPI - SOB/Dyspnea General Chief Complaint: Shortness of Breath/Dyspnea Stated Complaint: amb Source: patient and EMS Mode of arrival: ambulatory Limitations: no limitations History of Present Illness HPI Narrative: 53-year-old female presents with increased shortness of breath has a history of COPD was brought in by EMS with difficulty of breathing was given nebulizer treatment with DuoNebs and started on a non-rebreather prior to arrival. Patient a short of breath with decreased breath sounds with some no audible wheezing no cough, with some chest tightness. Patient is a smoker and continues to smoke after she was discharged from [facility] on 05/26, of the patient was seen in the hospital arm for the last 4 to 5 days had a pulmonary consult. Patient is also a diabetic and on insulin. Denies some chest pain currently no fever or chills no diarrhea constipation no abdominal pain. Other patient was discharged with some her arm inhalers and oral steroids. MD elicited complaint: shortness of breath, cough and anxiety Pertinent past history: COPD Onset (ago): hour(s) Context: recent illness Severity: similar to previous episodes Exacerbating factors: coughing and inspiration Relieving factors: oxygen, rest and bronchodilators Known history of: COPD Associated symptoms: wheezing Treatment prior to arrival: oxygen and bronchodilator Related Data Home Medications Medication Instructions Recorded Confirmed atorvastatin 40 mg tablet 40 mg PO HS 04/10/19 05/27/19 blood sugar diagnostic #10 each 04/10/19 05/27/19 fluticasone 250 mcg-salmeterol 50 1 inhalation INHALATION BID 04/10/19 05/27/19 mcg/dose blistr powdr for inhalation insulin aspart U-100 100 unit/mL 5 unit SUB-Q TID 04/10/19 05/27/19 (3 mL) subcutaneous pen insulin degludec 200 unit/mL (3 20 unit SUB-Q DAILY 04/10/19 05/27/19 mL) subcutaneous pen ipratropium 0.5 mg-albuterol 3 mg 3 ml INHALATION TID PRN 04/10/19 05/27/19 (2.5 mg base)/3 mL nebulization soln lancets 28 gauge #25 each 04/10/19 05/27/19 levothyroxine 100 mcg tablet 100 mcg PO DAILY 04/10/19 05/27/19 lisinopril 10 mg tablet 10 mg PO HS 04/10/19 05/27/19 pen needle, diabetic 33 gauge x #100 each 04/10/19 05/27/19 1/4 trazodone 50 mg tablet 25 mg PO HS PRN tablet 04/10/19 05/27/19 clonazepam [Klonopin] 0.5 mg PO HS 05/23/19 05/27/19 Allergies Allergy/AdvReac Type Severity Reaction Status Date / Time metformin AdvReac Intermediate Diarrhea Verified 05/23/19 10:20 Review of Systems Review of Systems: All systems reviewed & are unremarkable except as noted in HPI and below PMFSH Past Medical History Medical History Arthritis Chronic respiratory failure with hypoxia, on home oxygen therapy COPD with asthma Coronary artery disease With reported myocardial infarction in 1999 requiring stent. Depression with anxiety Hyperlipidemia Hypertension Hypothyroidism Insulin dependent diabetes mellitus Recent hemoglobin A1c was reportedly somewhere around 8. Diabetes is complicated by retinopathy and gastroparesis. Tobacco abuse Surgical History Surgical History Status post arthroscopy of right knee Status post section Family History Family History Mother Family history of alcoholism Family history of congestive heart failure, Onset Age: 70 Family history of osteoporosis Family history of chronic obstructive pulmonary disease Grandparent Family history of Alzheimer's disease, Onset Age: 90 Hypertension, Onset Age: 80 Sibling Hypertension, Onset Age: 53 Family history of alcoholism Family history of malignant neoplasm Patient's sister is in good health Father Hypertension, Onset Age: 79 Family history of thyroid disease Family history of cataracts
--- NOTE | 2019-05-27 23:08 | PC.NURSE ---
Report to gopal BAUTISTA
--- NOTE | 2019-05-27 23:09 | PC.NURSE ---
Dr. Ge requesting to speak with hospitalist at [facility]. smoke jumper supervisor Silvia contacted and requested to have hospitalist contact [facility]. smoke jumper supervisor questioning why we are unable to keep patient at our facility and if we were full, this RN explained that patient needs a higher level of care that we are not able to provide. smoke jumper supervisor advised that patient is in respiratory distress and is minimally improving and will need at least an intermediate unit as requested by Dr. Ge. smoke jumper supervisor advised that patient would not be transfered unstable after being questioned about status of transfering patient.
[2019-05-27 23:10] LABS: BNP 48.1 pg/mL (0-100)
[2019-05-27] MEDS: LORAZEPAM INJ 2 MG/ML VIAL 0.5 MG IV PUSH (23:10)
[2019-05-27 23:15] LABS: Alanine Aminotransferase 29 U/L (14-59); Albumin Level 3.6 g/dL (3.4-5.0); Alkaline Phosphatase 91 U/L (46-116); Anion Gap 7.2 mmol/L (7-16); Aspartate Amino Transferase 21 U/L (15-37); Bilirubin,Total 0.3 mg/dL (0.00-1.00); Blood Urea Nitrogen 17 mg/dL (7-18); Calcium 8.7 mg/dL (8.5-10.1); Carbon Dioxide 36 mmol/L (21-32); Chloride 106 mmol/L (98-108); Estimated CRCL calculation 56 ml/min; Estimated Glomerular Filt Rate > 60; Glucose 217 mg/dL (70-99); Osmolality Calculated 308 mOsm/kg (285-295); Potassium 4.2 mmol/L (3.5-5.1); Sodium 145 mmol/L (136-145); Troponin I 0.04 ng/mL (0.00-0.056)
[2019-05-27 23:21] LABS: D Dimer 0.45 mg/L (0.19-0.50)
--- NOTE | 2019-05-27 23:21 | PC.NURSE ---
Dr. Ge speaking with Dr. RODRIGUEZ, hospitalist at [facility]. Dr. Rodriguez accepting, requests to observe patient for 30 minutes prior to transfer.
--- NOTE | 2019-05-27 23:29 | PCDIET ---
Pt. resting p given Ativan and 4th neb tx. Much improved lung air movement noted and pt. reports feeling less anxious and easier to breathe. VSS, Spo2 100% on simple mask c HR 107, STach on monitor. Pt. resting c eyes closed and occasional loose cough noted at this time.
--- NOTE | 2019-05-28 | PC.NURSE ---
Pt. continues to rest comfortably, no distress at this time, resting c eyes closed, call paged to [facility] for transfer. VSS.
--- NOTE | 2019-05-28 00:19 | PC.NURSE ---
Report given to [facility] for pt. transfer. PT. transferred stable condition and still reports feeling better and breathing much easier.
== END 2019-05-28 00:20 | disposition short-term general hospital (02) ==
PROVIDERS: Emergency Provider Emergency Medicine
DX: J44.1 Chronic obstructive pulmonary disease with (acute) exacerbation (principal); I25.10 Atherosclerotic heart disease of native coronary artery without angina pectoris; E78.5 Hyperlipidemia, unspecified; I10 Essential (primary) hypertension; E03.9 Hypothyroidism, unspecified; E11.9 Type 2 diabetes mellitus without complications; Z79.4 Long term (current) use of insulin; F17.200 Nicotine dependence, unspecified, uncomplicated
CPT/HCPCS: 36415; 36600; 71045; 80053; 82805; 83735; 83880; 84484; 85025; 85380; 93005; 96365; 96375; 99284; 99285; J0696; J2060; J2930

== ENCOUNTER 2019-05-28 01:34 | Inpatient (IN) | payer MEDICARE, MEDICAID, SELFPAY ==
[2019-05-28] VITALS (21 sets, daily range): BP systolic 109–139; BP diastolic 54–72; PULSE 67–103; RESP 20–22; TEMP 36.3–37.1; O2SAT 92–100; BMI 19.8
--- NOTE | ~2019-05-28 | XR_ITS ---
EXAMINATION: XR chest 2V DATE: 05/28/2019 09:13 INDICATION: Respiratory distress. TECHNIQUE: Frontal and lateral views of the chest were obtained. COMPARISON: Chest single view 05/27/2019, chest CT 05/24/2019 FINDINGS: The lungs are hyperexpanded, consistent with emphysema. There is mild scarring at the junct ion of right mid and lower lung zones. Calcified calcified bilateral lung nodules and calcified hilar lymph nodes are consistent with old granulomatous disease. No pleural effusion or pneumothorax. The heart size is normal. IMPRESSION: 1. Severe emphysema. Reviewed, dictated and finalized at location A. NTER MACHINE IMPRESSION: 1. Severe emphysema.
--- NOTE | 2019-05-28 01:10 | ADMGEN ---
This patient, Beatrice Espinoza, was admitted to IMU Room 231-01. Patient/family oriented to hospital policies and general routines including ID bracelet, bed and alarms, visiting hours, pain management, procedures, bathroom and other care routines, personal items, smoking policy, room service/diet, and visiting hours. Valuables list has been completed. Information on how to activate the Rapid Response Team has been discussed. Patient/Family are encouraged to report perceived risks to care and to ask questions if they do not understand what they are told or what they should do.
[2019-05-28] MEDS: IPRATROPIUM BR 0.02% INH SOLN 0.5 MG/2.5 ML VIAL INHALATION ×4 (02:12→20:40)
[2019-05-28] MEDS: ALBUTEROL SULFATE NEB 2.5 MG/0.5 ML INH INHALATION ×4 (02:13→20:39)
[2019-05-28 02:43] LABS: Hematocrit 37.6 % (37.0-47.0); Hemoglobin 12.3 g/dL (12.0-15.0); Mean Corpuscular HGB Conc 32.7 g/dl (32-36); Mean Corpuscular Hemoglobin 31.1 pg (26-34); Mean Corpuscular Volume 94.9 fl (80-100); Platelet Count Result 141 k/mm3 (150-375); Red Blood Count 3.96 M/mm3 (4.2-5.4); Red Cell Distribution Width 12.1 % (11.5-14.5); White Blood Count 7.5 K/mm3 (4.5-10.0)
[2019-05-28] MEDS: levoFLOXacin 500 MG/D5W 100 ML 500 MG/100 ML BAG 100 MG IVPB ×2 (02:50→23:35)
[2019-05-28 02:52] LABS: Blood Urea Nitrogen 20 mg/dL (7-17); Calcium 8.5 mg/dL (8.4-10.2); Carbon Dioxide 34 mmol/L (22-30); Chloride 99 mmol/L (98-107); Estimated CRCL calculation 82 ml/min; Estimated Glomerular Filt Rate > 60; Glucose 327 mg/dL (65-105); Potassium 4.4 mmol/L (3.4-5.0); Sodium 138 mmol/L (137-145)
--- NOTE | 2019-05-28 03:14 | HP_ITS ---
DATE OF SERVICE: CHIEF COMPLAINT: Shortness of breath. HISTORY OF PRESENT ILLNESS: The patient is 53 years old female, who was transferred from [facility]. The patient was in the ER of [facility] with complaints of having shortness of breath, cough, and chills going on for the last few days. According to the patient, the patient was discharged from [facility] on 05/26/2019. The patient was given medication to take home, but according to the patient that she was taking medication, but she did not get better, so she came to the emergency room of the [facility] where she was evaluated for shortness of breath and was later transferred to [facility] for further treatment. At the present time, the patient complained of having mild shortness of breath and cough. No fever, no chills. No chest pain. REVIEW OF SYSTEMS: Positive for shortness of breath and cough. All other 10 review of systems were reviewed with the patient and found to be negative. HOME MEDICATIONS: Include: 1. Atorvastatin. 2. Fluticasone. 3. Insulin. 4. Ipratropium inhaler. 5. . 6. Levothyroxine. 7. Lisinopril. 8. Trazodone. 9. Clonazepam. ALLERGIES: THE PATIENT IS ALLERGIC TO METFORMIN, IT CAUSES DIARRHEA. PAST MEDICAL HISTORY: 1. Arthritis. 2. COPD. 3. Asthma. 4. Coronary artery disease. 5. Depression. 6. Anxiety. 7. Hyperlipidemia. 8. Hypertension. 9. Hypothyroidism. 10. Insulin-dependent diabetes. SURGICAL HISTORY: Arthroscopy of the right knee and C section. FAMILY HISTORY: Mother is . Grand parents are . Sibling has hypertension. Father had hypertension. SOCIAL HISTORY: The patient lives in [place] with her son and [id number]. Smokes 1-1/2 pack per day for the last 20 years. She quit smoking about 6 months ago, but then starts using smoking again few days ago. No alcohol. PHYSICAL EXAMINATION: VITAL SIGNS: At the time of admission include blood pressure is 186/88, respiratory rate 22, temperature 36.7, pulse rate 96. Pulse ox 100% on 2L. HEENT: Pupils equally reacting to light. NECK: No JVD. No bruit. LUNGS: Air entry decreased. Expiratory wheezing present. HEART: S1 and S2. Rate and rhythm regular with no murmurs. ABDOMEN: Soft, nontender. Bowel sounds positive. No hepatosplenomegaly. EXTREMITIES: No cyanosis, clubbing, or edema. CLIENT SUPPORT ADMINISTRATOR: Alert and oriented x3. No neuro focal deficits. IMPORTANT LAB DATA: WBC count is 4.9, hemoglobin 13.8, platelet count is 144. CMP is pending. ABG shows 7.3 pH. Oxygen 206, CO2 is 64. Chest x-ray is not available for review at the present time. ASSESSMENT: 1. Acute exacerbation of chronic obstructive pulmonary disease. 2. Acute respiratory failure with hypoxia. 3. Bronchitis worse with pneumonia. 4. History of insulin-dependent diabetes. 5. History of hypertension. 6. History of smoking. PLAN: 1. Admit. 2. IV antibiotics, IV steroids. 3. Nebulizer treatment. 4. Oxygen. 5. Continue home medications. 6. IV antibiotics. 7. The patient should stay for more than 2 days in the hospital. 8. The patient is full code at the present time. 9. Further evaluation and treatment of the patient will be done according to the lab data available and recommended by specialist. Suzy I MT: Jan BLANK
--- NOTE | 2019-05-28 03:14 | HP_ITS ---
DATE OF SERVICE: CHIEF COMPLAINT: Shortness of breath. HISTORY OF PRESENT ILLNESS: The patient is 53 years old female, who was transferred from [facility]. The patient was in the ER of [facility] with complaints of having shortness of breath, cough, and chills going on for the last few days. According to the patient, the patient was discharged from [facility] on 05/26/2019. The patient was given medication to take home, but according to the patient that she was taking medication, but she did not get better, so she came to the emergency room of the [facility] where she was evaluated for shortness of breath and was later transferred to [facility] for further treatment. At the present time, the patient complained of having mild shortness of breath and cough. No fever, no chills. No chest pain. REVIEW OF SYSTEMS: Positive for shortness of breath and cough. All other 10 review of systems were reviewed with the patient and found to be negative. HOME MEDICATIONS: Include: 1. Atorvastatin. 2. Fluticasone. 3. Insulin. 4. Ipratropium inhaler. 5. . 6. Levothyroxine. 7. Lisinopril. 8. Trazodone. 9. Clonazepam. ALLERGIES: THE PATIENT IS ALLERGIC TO METFORMIN, IT CAUSES DIARRHEA. PAST MEDICAL HISTORY: 1. Arthritis. 2. COPD. 3. Asthma. 4. Coronary artery disease. 5. Depression. 6. Anxiety. 7. Hyperlipidemia. 8. Hypertension. 9. Hypothyroidism. 10. Insulin-dependent diabetes. SURGICAL HISTORY: Arthroscopy of the right knee and C section. FAMILY HISTORY: Mother is . Grand parents are . Sibling has hypertension. Father had hypertension. SOCIAL HISTORY: The patient lives in [place] with her son and [id number]. Smokes 1-1/2 pack per day for the last 20 years. She quit smoking about 6 months ago, but then starts using smoking again few days ago. No alcohol. PHYSICAL EXAMINATION: VITAL SIGNS: At the time of admission include blood pressure is 186/88, respiratory rate 22, temperature 36.7, pulse rate 96. Pulse ox 100% on 2L. HEENT: Pupils equally reacting to light. NECK: No JVD. No bruit. LUNGS: Air entry decreased. Expiratory wheezing present. HEART: S1 and S2. Rate and rhythm regular with no murmurs. ABDOMEN: Soft, nontender. Bowel sounds positive. No hepatosplenomegaly. EXTREMITIES: No cyanosis, clubbing, or edema. LOG RAFT WORKER: Alert and oriented x3. No neuro focal deficits. IMPORTANT LAB DATA: WBC count is 4.9, hemoglobin 13.8, platelet count is 144. CMP is pending. ABG shows 7.3 pH. Oxygen 206, CO2 is 64. Chest x-ray is not available for review at the present time. ASSESSMENT: 1. Acute exacerbation of chronic obstructive pulmonary disease. 2. Acute respiratory failure with hypoxia. 3. Bronchitis worse with pneumonia. 4. History of insulin-dependent diabetes. 5. History of hypertension. 6. History of smoking. PLAN: 1. Admit. 2. IV antibiotics, IV steroids. 3. Nebulizer treatment. 4. Oxygen. 5. Continue home medications. 6. IV antibiotics. 7. The patient should stay for more than 2 days in the hospital. 8. The patient is full code at the present time. 9. Further evaluation and treatment of the patient will be done according to the lab data available and recommended by specialist. Suzy I MT: Jan
[2019-05-28] MEDS: methylPREDNISolone SOD SUCC 125 MG VIAL IV PUSH (05:34)
[2019-05-28 08:53] LABS: Glucose Point of Care 394 (65-105)
[2019-05-28] MEDS: INSULIN ASPART (*BKC) 100 UNITS/ML SUB-Q ×2 (09:20→16:31)
[2019-05-28] MEDS: PANTOPRAZOLE 40 MG TABLET PO (09:20)
[2019-05-28 12:29] LABS: Glucose 482 mg/dL (65-105)
--- NOTE | 2019-05-28 12:38 | PM.IMPN ---
Progress Note: A&P Assessment and Plan (1) Insulin dependent diabetes mellitus: Code(s): E11.9 - Type 2 diabetes mellitus without complications; Z79.4 - emt intermediate (current) use of insulin Status: Acute Assessment and Plan: Sugars are runing high likley due to steroids reduce steroid dosing. Continue medium dose correcting sliding scale (2) Acute and chronic respiratory failure: Code(s): J96.20 - Acute and chronic respiratory failure, unspecified whether with hypoxia or hypercapnia Status: Acute Assessment and Plan: Pt is on oxygen continue to monitor (3) Chronic respiratory failure with hypoxia, on home oxygen therapy: Code(s): J96.11 - Chronic respiratory failure with hypoxia; Z99.81 - Dependence on supplemental oxygen Status: Acute Assessment and Plan: Pt has home oxygen and home nebulisers at home (4) Tobacco abuse: Code(s): Z72.0 - Tobacco use Status: Acute Assessment and Plan: Ongoing tobacco use, adviced to quit (5) COPD with exacerbation: Code(s): J44.1 - Chronic obstructive pulmonary disease with (acute) exacerbation Status: Acute Assessment and Plan: Cxr shows severe emphysema no pneumonia pt has readmitted with resp symptoms has a wet cough cover with iv levaquin. Subjective Date/time seen: 05/28/19 12:38 Interval history: Patient is a 53-year-old male with history of COPD chronic respiratory failure on home oxygen patient is 6 L with exertion patient had been complaining of upper respiratory symptoms with cough congestion and shortness of breath and wheezing patient, recent discharge. Transferred from [facility]. The patient was in the ER of [facility] with complaints of having shortness of breath, cough, and chills going on for the last few days. Review of Systems Respiratory: Respiratory: Reports chest congestion, Reports cough, Reports dyspnea, Reports dyspnea on exertion and Reports wheezing Exam Narrative: Exam Narrative: Narrative: Exam Narrative: Patient appears chronically ill older than her age Const: General: comfortable and no acute distress HENMT: General nose exam: Normal nares present Mouth: Yes moist mucous membranes Eyes: General: appearance normal, both eyes and all related structures Sclera: sclerae normal Neck: Neck: supple Resp: Other: Bilateral poor air entry with harsh breath sounds Cardio: Rate: regular rate Rhythm: regular rhythm GI: Auscultation: normal bowel sounds Skin: General skin exam: normal color and no rashes or lesions noted Neuro: Speech: normal speech Sensory Exam: normal sensation Extrem: General: normal to inspection Psych: Affect: Anxious affect present Objective Data Vital Signs Vital Signs: Vital Signs - 24 hr 05/28/19 00:50 05/28/19 00:58 05/28/19 02:00 Temperature 36.6 C Pulse Rate 103 H 99 82 Respiratory Rate 22 H Blood Pressure 123/58 L Pulse Oximetry 98 05/28/19 03:51 05/28/19 04:00 05/28/19 06:00 Temperature 36.5 C Pulse Rate 90 85 82 Respiratory Rate 20 Blood Pressure 109/72 Pulse Oximetry 100 05/28/19 08:00 05/28/19 08:22 05/28/19 08:35 Temperature 36.3 C L Pulse Rate 90 82 85 Respiratory Rate 22 H 20 20 Blood Pressure 139/71 Pulse Oximetry 99 05/28/19 10:00 Temperature Pulse Rate 92 Respiratory Rate Blood Pressure Pulse Oximetry Intake/Output Intake/Output: Intake & Output 05/25/19 05/26/19 05/27/19 05/28/19 23:59 23:59 23:59 23:59 Intake Total 700 Balance 700 Meds/Results Medications: Active Medications Generic Name Dose Route Start Last Admin Trade Name Freq PRN Reason Stop Dose Admin Albuterol 2.5 mg 05/28/19 02:00 05/28/19 08:22 Albuterol Sulf Neb 2.5mg/0.5ml INHALATION 2.5 mg Q6HRT PAULY Administration Dextrose 12.5 gm 05/28/19 01:22 Dextrose 50% Syringe IV PUSH PRN PRN Hypoglycemia
[2019-05-28 12:52] LABS: Glucose Point of Care > 500 (65-105)
[2019-05-28] MEDS: INSULIN ASPART (*BKC) 100 UNITS/ML 8 UNITS SUB-Q (13:04)
[2019-05-28 16:19] LABS: Glucose Point of Care 305 (65-105)
[2019-05-28] MEDS: methylPREDNISolone SOD SUCC 125 MG VIAL 60 MG IV PUSH ×2 (17:53→23:35)
[2019-05-28 20:39] LABS: Glucose Point of Care 352 (65-105)
[2019-05-28] MEDS: CLONAZEPAM 0.5 MG TAB PO (21:08)
[2019-05-28] MEDS: lisinopriL 10 MG TABLET PO (21:08)
[2019-05-28] MEDS: ATORVASTATIN 40 MG TABLET PO (21:08)
[2019-05-28] MEDS: INSULIN GLARGINE (*BKC) 100 UNITS/ML 20 UNITS SUB-Q (21:09)
[2019-05-29] VITALS (19 sets, daily range): BP systolic 117–151; BP diastolic 51–78; PULSE 59–88; RESP 18–20; TEMP 36.2–37.1; O2SAT 93–100
[2019-05-29] MEDS: ALBUTEROL SULFATE NEB 2.5 MG/0.5 ML INH INHALATION ×4 (02:35→21:10)
[2019-05-29] MEDS: IPRATROPIUM BR 0.02% INH SOLN 0.5 MG/2.5 ML VIAL INHALATION ×4 (02:35→21:10)
[2019-05-29] MEDS: methylPREDNISolone SOD SUCC 125 MG VIAL 60 MG IV PUSH ×2 (06:31→12:52)
[2019-05-29] MEDS: LEVOTHYROXINE SODIUM 100 MCG TABLET PO (06:32)
[2019-05-29 08:46] LABS: Glucose Point of Care 315 (65-105)
[2019-05-29] MEDS: PANTOPRAZOLE 40 MG TABLET PO (08:57)
[2019-05-29] MEDS: INSULIN ASPART (*BKC) 100 UNITS/ML SUB-Q (08:59)
[2019-05-29 13:01] LABS: Glucose Point of Care 463 (65-105)
[2019-05-29] MEDS: INSULIN ASPART (*BKC) 100 UNITS/ML 8 UNITS SUB-Q (13:14)
--- NOTE | 2019-05-29 16:54 | PM.IMPN ---
Progress Note: A&P Assessment and Plan (1) Insulin dependent diabetes mellitus: Code(s): E11.9 - Type 2 diabetes mellitus without complications; Z79.4 - intermediate project manager (current) use of insulin Status: Acute Assessment and Plan: Sugars are runing high likley due to steroids reduce steroid dosing. Continue medium dose correcting sliding scale (2) Acute and chronic respiratory failure: Code(s): J96.20 - Acute and chronic respiratory failure, unspecified whether with hypoxia or hypercapnia Status: Acute Assessment and Plan: Pt is on oxygen continue to monitor (3) Chronic respiratory failure with hypoxia, on home oxygen therapy: Code(s): J96.11 - Chronic respiratory failure with hypoxia; Z99.81 - Dependence on supplemental oxygen Status: Acute Assessment and Plan: Pt has home oxygen and home nebulisers at home (4) Tobacco abuse: Code(s): Z72.0 - Tobacco use Status: Acute Assessment and Plan: Ongoing tobacco use, adviced to quit (5) COPD with exacerbation: Code(s): J44.1 - Chronic obstructive pulmonary disease with (acute) exacerbation Status: Acute Assessment and Plan: Cxr shows severe emphysema no pneumonia pt has readmitted with resp symptoms has a wet cough cover with iv levaquin. Subjective Date/time seen: 05/29/19 16:54 Interval history: Patient is a 53-year-old male with history of COPD chronic respiratory failure on home oxygen patient is 6 L with exertion patient had been complaining of upper respiratory symptoms with cough congestion and shortness of breath and wheezing patient, recent discharge. Transferred from [facility]. The patient was in the ER of [facility] with complaints of having shortness of breath, cough, and chills going on for the last few days. Continue IV steroids, iv Abx and nebuliser treatments. Review of Systems Review of Systems: All systems reviewed & are unremarkable except as noted in HPI and below Cardiovascular: Cardiovascular: Reports dyspnea and Reports dyspnea on exertion Respiratory: Respiratory: Reports chest congestion, Reports cough, Reports dyspnea, Reports dyspnea on exertion and Reports wheezing Allergic/Immunologic: Allergic/Immunologic: Reports wheezing Exam Narrative: Exam Narrative: Narrative: Exam Narrative: Patient appears chronically ill older than her age Const: General: comfortable and no acute distress HENMT: General nose exam: Normal nares present Mouth: Yes moist mucous membranes Eyes: General: appearance normal, both eyes and all related structures Sclera: sclerae normal Neck: Neck: supple Resp: Other: Bilateral poor air entry with harsh breath sounds Cardio: Rate: regular rate Rhythm: regular rhythm GI: Auscultation: normal bowel sounds Skin: General skin exam: normal color and no rashes or lesions noted Neuro: Speech: normal speech Sensory Exam: normal sensation Extrem: General: normal to inspection Psych: Affect: Anxious affect present Objective Data Vital Signs Vital Signs: Vital Signs - 24 hr 05/28/19 18:00 05/28/19 19:47 05/28/19 20:00 Temperature 37.1 C Pulse Rate 74 87 82 Respiratory Rate 20 Blood Pressure 123/54 L Pulse Oximetry 100 93 05/28/19 20:41 05/28/19 20:54 05/28/19 22:00 Temperature Pulse Rate 89 84 86 Respiratory Rate 20 20 Blood Pressure Pulse Oximetry 92 05/29/19 00:00 05/29/19 01:41 05/29/19 02:35 Temperature 36.6 C Pulse Rate 67 63 64 Respiratory Rate 20 18 Blood Pressure 145/75 H Pulse Oximetry 98 05/29/19 02:44 05/29/19 03:26 05/29/19 03:29 Temperature 36.2 C L Pulse Rate 66 62 62 Respiratory Rate 18 20 Blood Pressure 151/69 H Pulse Oximetry 100 100 05/29/19 05:23 05/29/19 08:00 05/29/19 08:15 Temperature 36.6 C Pulse Rate 60 66 67 Respiratory Rate 20 20 Blood Pressure 117/53 L Pulse Oximetry 93 05/29/19
[2019-05-29 18:10] LABS: Glucose Point of Care > 500 (65-105)
[2019-05-29] MEDS: INSULIN ASPART (*BKC) 100 UNITS/ML 10 UNITS SUB-Q (18:32)
[2019-05-29 20:00] LABS: Glucose Point of Care 453 (65-105)
[2019-05-29] MEDS: INSULIN ASPART (*BKC) 100 UNITS/ML 6 UNITS SUB-Q (20:36)
[2019-05-29] MEDS: INSULIN GLARGINE (*BKC) 100 UNITS/ML 20 UNITS SUB-Q (20:37)
[2019-05-29] MEDS: ATORVASTATIN 40 MG TABLET PO (20:38)
[2019-05-29] MEDS: CLONAZEPAM 0.5 MG TAB PO (20:39)
[2019-05-29] MEDS: lisinopriL 10 MG TABLET PO (20:39)
[2019-05-29 21:07] LABS: Glucose Point of Care 414 (65-105)
[2019-05-30] VITALS (16 sets, daily range): BP systolic 138–163; BP diastolic 63–78; PULSE 52–93; RESP 16–20; TEMP 36.1–36.4; O2SAT 96–100
[2019-05-30] MEDS: methylPREDNISolone SOD SUCC 40 MG VIAL IV PUSH ×4 (00:08→22:10)
[2019-05-30] MEDS: levoFLOXacin 500 MG/D5W 100 ML 500 MG/100 ML BAG 100 MG IVPB (00:08)
[2019-05-30] MEDS: IPRATROPIUM BR 0.02% INH SOLN 0.5 MG/2.5 ML VIAL INHALATION ×4 (02:11→20:47)
[2019-05-30] MEDS: ALBUTEROL SULFATE NEB 2.5 MG/0.5 ML INH INHALATION ×4 (02:11→20:46)
[2019-05-30] MEDS: LEVOTHYROXINE SODIUM 100 MCG TABLET PO (06:00)
[2019-05-30 08:35] LABS: Glucose Point of Care 297 (65-105)
[2019-05-30] MEDS: PANTOPRAZOLE 40 MG TABLET PO (08:54)
[2019-05-30] MEDS: INSULIN ASPART (*BKC) 100 UNITS/ML SUB-Q ×3 (08:54→22:11)
[2019-05-30 13:03] LABS: Glucose Point of Care 323 (65-105)
--- NOTE | 2019-05-30 14:35 | PC.NURSE ---
This patient, Beatrice Espinoza, was transferred to [[id number]] on 05/30/19 at 1435. Personal belongings sent with patient. Belongings list checked and signed with receiving [ ]. Report given to [Sally RN]. Appropriate documentation sent with patient.
--- NOTE | 2019-05-30 14:37 | PC.NURSE ---
This patient, Beatrice Espinoza, was received from [facility] on 05/30/19 at 1437. Personal belongings list checked and signed. Patient/family oriented to unit policies and routines.
--- NOTE | 2019-05-30 16:29 | PM.IMPN ---
Progress Note: A&P Assessment and Plan (1) Insulin dependent diabetes mellitus: Code(s): E11.9 - Type 2 diabetes mellitus without complications; Z79.4 - superintendent container terminal (current) use of insulin Status: Acute Assessment and Plan: Sugars are runing high likley due to steroids, steroid dosing reduced last night. Continue medium dose correcting sliding scale, hopeful discharge tomorrow (2) Acute and chronic respiratory failure: Code(s): J96.20 - Acute and chronic respiratory failure, unspecified whether with hypoxia or hypercapnia Status: Acute Assessment and Plan: Pt is on oxygen continue to monitor back to her baseline. Hopeful discharge tomorrow. (3) Chronic respiratory failure with hypoxia, on home oxygen therapy: Code(s): J96.11 - Chronic respiratory failure with hypoxia; Z99.81 - Dependence on supplemental oxygen Status: Acute Assessment and Plan: Pt has home oxygen and home nebulisers at home (4) Tobacco abuse: Code(s): Z72.0 - Tobacco use Status: Acute Assessment and Plan: Ongoing tobacco use, adviced to quit (5) COPD with exacerbation: Code(s): J44.1 - Chronic obstructive pulmonary disease with (acute) exacerbation Status: Acute Assessment and Plan: Cxr shows severe emphysema no pneumonia pt has readmitted with resp symptoms has a wet cough cover with iv levaquin. Subjective Date/time seen: 05/30/19 16:29 Interval history: Patient is a 53-year-old male with history of COPD chronic respiratory failure on home oxygen patient is 6 L with exertion patient had been complaining of upper respiratory symptoms with cough congestion and shortness of breath and wheezing patient, recent discharge. Transferred from [facility]. The patient was in the ER of [facility] with complaints of having shortness of breath, cough, and chills going on for the last few days. Continue IV steroids, iv Abx and nebuliser treatments. Pt is improving down to 4 liters of oxyge which is her baseline Review of Systems Review of Systems: All systems reviewed & are unremarkable except as noted in HPI and below Respiratory: Respiratory: Reports cough, Reports excessive phlegm production, Reports dyspnea and Reports wheezing Exam Narrative: Exam Narrative: Narrative: Exam Narrative: Patient appears chronically ill older than her age Const: General: comfortable and no acute distress HENMT: General nose exam: Normal nares present Mouth: Yes moist mucous membranes Eyes: General: appearance normal, both eyes and all related structures Sclera: sclerae normal Neck: Neck: supple Resp: Other: Bilateral poor air entry no added sounds or wheezes Cardio: Rate: regular rate Rhythm: regular rhythm GI: Auscultation: normal bowel sounds Skin: General skin exam: normal color and no rashes or lesions noted Neuro: Speech: normal speech Sensory Exam: normal sensation Extrem: General: normal to inspection Psych: Affect: Anxious affect present Objective Data Vital Signs Vital Signs: Vital Signs - 24 hr 05/29/19 18:00 05/29/19 20:00 05/29/19 21:10 Temperature 36.9 C Pulse Rate 83 88 81 Respiratory Rate 20 18 Blood Pressure 127/51 L Pulse Oximetry 98 98 05/29/19 21:19 05/29/19 22:00 05/30/19 00:00 Temperature 36.4 C Pulse Rate 77 69 62 Respiratory Rate 18 20 Blood Pressure 139/63 Pulse Oximetry 100 05/30/19 02:00 05/30/19 02:11 05/30/19 02:22 Temperature Pulse Rate 67 80 93 Respiratory Rate 20 20 Blood Pressure Pulse Oximetry 05/30/19 03:56 05/30/19 06:00 05/30/19 08:00 Temperature 36.1 C L Pulse Rate 63 65 52 L Respiratory Rate 20 Blood Pressure 147/78 H Pulse Oximetry 100 100 05/30/19 08:07 05/30/19 09:28 05/30/19 09:37 Temperature 36.1 C L Pulse Rate 64 69 65 Respiratory Rate 20 20 20 Blood Pressure 163/71 H Pulse Oximetry 96 100 05/30/19
[2019-05-30] MEDS: INSULIN ASPART (*BKC) 100 UNITS/ML 10 UNITS SUB-Q (18:30)
[2019-05-30 18:59] LABS: Glucose Point of Care 435 (65-105)
[2019-05-30] MEDS: lisinopriL 10 MG TABLET PO (21:13)
[2019-05-30] MEDS: CLONAZEPAM 0.5 MG TAB PO (21:13)
[2019-05-30] MEDS: ATORVASTATIN 40 MG TABLET PO (21:13)
[2019-05-30] MEDS: INSULIN GLARGINE (*BKC) 100 UNITS/ML 20 UNITS SUB-Q (21:14)
[2019-05-30 21:26] LABS: Glucose Point of Care 355 (65-105)
[2019-05-31] VITALS (11 sets, daily range): BP systolic 130–157; BP diastolic 61–75; PULSE 51–88; RESP 18–20; TEMP 36.4–37.7; O2SAT 96–100
[2019-05-31] MEDS: levoFLOXacin 500 MG/D5W 100 ML 500 MG/100 ML BAG 100 MG IVPB (00:39)
[2019-05-31] MEDS: IPRATROPIUM BR 0.02% INH SOLN 0.5 MG/2.5 ML VIAL INHALATION ×3 (03:06→15:22)
[2019-05-31] MEDS: ALBUTEROL SULFATE NEB 2.5 MG/0.5 ML INH INHALATION ×3 (03:06→15:22)
[2019-05-31] MEDS: LEVOTHYROXINE SODIUM 100 MCG TABLET PO (05:51)
[2019-05-31] MEDS: methylPREDNISolone SOD SUCC 40 MG VIAL IV PUSH (05:51)
[2019-05-31 06:29] LABS: Hematocrit 36.8 % (37.0-47.0); Hemoglobin 12.2 g/dL (12.0-15.0); Mean Corpuscular HGB Conc 33.2 g/dl (32-36); Mean Corpuscular Hemoglobin 30.7 pg (26-34); Mean Corpuscular Volume 92.7 fl (80-100); Mean Platelet Volume 11.5 fl (7.4-10.4); Platelet Count Result 179 k/mm3 (150-375); Red Blood Count 3.97 M/mm3 (4.2-5.4); Red Cell Distribution Width 11.9 % (11.5-14.5); White Blood Count 7.7 K/mm3 (4.5-10.0)
[2019-05-31 06:38] LABS: Blood Urea Nitrogen 17 mg/dL (7-17); Calcium 8.5 mg/dL (8.4-10.2); Carbon Dioxide 32 mmol/L (22-30); Chloride 98 mmol/L (98-107); Estimated CRCL calculation 100 ml/min; Estimated Glomerular Filt Rate > 60; Glucose 244 mg/dL (65-105); Potassium 3.8 mmol/L (3.4-5.0); Sodium 136 mmol/L (137-145)
[2019-05-31] MEDS: PANTOPRAZOLE 40 MG TABLET PO (08:11)
[2019-05-31 08:46] LABS: Glucose Point of Care 218 (65-105)
[2019-05-31] MEDS: INSULIN ASPART (*BKC) 100 UNITS/ML SUB-Q ×2 (08:46→17:57)
--- NOTE | 2019-05-31 12:49 | PM.IMPN ---
Progress Note: A&P Assessment and Plan (1) Insulin dependent diabetes mellitus: Code(s): E11.9 - Type 2 diabetes mellitus without complications; Z79.4 - tank terminal gauger (current) use of insulin Status: Acute Assessment and Plan: Sugars are running high likely due to steroids. Continue medium dose correcting sliding scale, hopeful discharge sunday, chest still feels tight today (2) Acute and chronic respiratory failure: Code(s): J96.20 - Acute and chronic respiratory failure, unspecified whether with hypoxia or hypercapnia Status: Acute Assessment and Plan: Pt is on oxygen continue to monitor back to her baseline. Hopeful discharge sunday. (3) Chronic respiratory failure with hypoxia, on home oxygen therapy: Code(s): J96.11 - Chronic respiratory failure with hypoxia; Z99.81 - Dependence on supplemental oxygen Status: Acute Assessment and Plan: Pt has home oxygen and home nebulisers at home already (4) Tobacco abuse: Code(s): Z72.0 - Tobacco use Status: Acute Assessment and Plan: Ongoing tobacco use, adviced to quit (5) COPD with exacerbation: Code(s): J44.1 - Chronic obstructive pulmonary disease with (acute) exacerbation Status: Acute Assessment and Plan: Cxr shows severe emphysema no pneumonia pt has readmitted with resp symptoms has a wet cough cover with iv levaquin. Bc appear negative to date, pt covered as she had a wet cough on admission and chest congestion. Subjective Date/time seen: 05/31/19 12:49 Interval history: Patient is a 53-year-old male with history of COPD chronic respiratory failure on home oxygen patient is 6 L with exertion patient had been complaining of upper respiratory symptoms with cough congestion and shortness of breath and wheezing patient, recent discharge. Transferred from [facility]. The patient was in the ER of [facility] with complaints of having shortness of breath, cough, and chills going on for the last few days. Continue IV steroids, iv Abx and nebuliser treatments. Pt is improving down to 4 liters of oxyge which is her baseline, hopeful discharge tomorrow Review of Systems Review of Systems: All systems reviewed & are unremarkable except as noted in HPI and below Cardiovascular: Cardiovascular: Reports dyspnea and Reports dyspnea on exertion Respiratory: Respiratory: Reports cough, Reports dyspnea and Reports dyspnea on exertion Exam Narrative: Exam Narrative: Narrative: Exam Narrative: Patient appears chronically ill older than her age Const: General: comfortable and no acute distress HENMT: General nose exam: Normal nares present Mouth: Yes moist mucous membranes Eyes: General: appearance normal, both eyes and all related structures Sclera: sclerae normal Neck: Neck: supple Resp: Other: Bilateral poor air entry no added sounds or wheezes Cardio: Rate: regular rate Rhythm: regular rhythm GI: Auscultation: normal bowel sounds Skin: General skin exam: normal color and no rashes or lesions noted Neuro: Speech: normal speech Sensory Exam: normal sensation Extrem: General: normal to inspection Psych: Affect: Anxious affect present Objective Data Vital Signs Vital Signs: Vital Signs - 24 hr 05/30/19 14:13 05/30/19 14:22 05/30/19 20:48 Temperature Pulse Rate 89 92 87 Respiratory Rate 20 20 20 Blood Pressure Pulse Oximetry 97 05/30/19 20:58 05/31/19 00:00 05/31/19 03:06 Temperature 36.9 C Pulse Rate 86 72 88 Respiratory Rate 20 18 20 Blood Pressure 148/61 H Pulse Oximetry 96 05/31/19 03:17 05/31/19 06:04 05/31/19 09:42 Temperature 36.4 C Pulse Rate 86 51 L Respiratory Rate 20 20 Blood Pressure 157/75 H Pulse Oximetry 97 98 05/31/19 09:43 05/31/19 09:51 Temperature Pulse Rate 81 84 Respiratory Rate 20 20 Blood Pressure Pulse Oximetry Intake/Output Intake/Output: Intake
[2019-05-31] MEDS: methylPREDNISolone SOD SUCC 40 MG VIAL 20 MG IV PUSH ×2 (13:12→20:53)
[2019-05-31 13:20] LABS: Glucose Point of Care 426 (65-105)
[2019-05-31] MEDS: INSULIN ASPART (*BKC) 100 UNITS/ML 10 UNITS SUB-Q (13:46)
[2019-05-31 17:58] LABS: Glucose Point of Care 365 (65-105)
[2019-05-31 17:58] LABS: Glucose Point of Care 464 (65-105)
[2019-05-31] MEDS: lisinopriL 10 MG TABLET PO (20:52)
[2019-05-31] MEDS: CLONAZEPAM 0.5 MG TAB PO (20:52)
[2019-05-31] MEDS: ATORVASTATIN 40 MG TABLET PO (20:52)
[2019-05-31] MEDS: INSULIN GLARGINE (*BKC) 100 UNITS/ML 20 UNITS SUB-Q (20:54)
[2019-05-31 21:22] LABS: Glucose Point of Care 423 (65-105)
[2019-05-31] MEDS: INSULIN ASPART (*BKC) 100 UNITS/ML 6 UNITS SUB-Q (21:36)
--- NOTE | 2019-05-31 22:52 | PCRCNOTE ---
Pt refused tx, she was in shower checked X 3
[2019-06-01] VITALS (7 sets, daily range): BP systolic 154; BP diastolic 70; PULSE 72–97; RESP 16–20; TEMP 36.4; O2SAT 60–98
[2019-06-01] MEDS: levoFLOXacin 500 MG/D5W 100 ML 500 MG/100 ML BAG 100 MG IVPB (00:43)
[2019-06-01] MEDS: ALBUTEROL SULFATE NEB 2.5 MG/0.5 ML INH INHALATION ×3 (02:43→13:57)
[2019-06-01] MEDS: IPRATROPIUM BR 0.02% INH SOLN 0.5 MG/2.5 ML VIAL INHALATION ×3 (02:43→13:57)
[2019-06-01 05:17] LABS: Hematocrit 36.5 % (37.0-47.0); Hemoglobin 11.9 g/dL (12.0-15.0); Mean Corpuscular HGB Conc 32.6 g/dl (32-36); Mean Corpuscular Hemoglobin 30.5 pg (26-34); Mean Corpuscular Volume 93.6 fl (80-100); Mean Platelet Volume 11.8 fl (7.4-10.4); Platelet Count Result 178 k/mm3 (150-375); Red Cell Distribution Width 12.1 % (11.5-14.5); White Blood Count 7.5 K/mm3 (4.5-10.0)
[2019-06-01 05:35] LABS: Blood Urea Nitrogen 24 mg/dL (7-17); Calcium 8.5 mg/dL (8.4-10.2); Carbon Dioxide 32 mmol/L (22-30); Chloride 98 mmol/L (98-107); Estimated CRCL calculation 100 ml/min; Estimated Glomerular Filt Rate > 60; Glucose 344 mg/dL (65-105); Sodium 135 mmol/L (137-145)
[2019-06-01] MEDS: LEVOTHYROXINE SODIUM 100 MCG TABLET PO (05:52)
[2019-06-01] MEDS: methylPREDNISolone SOD SUCC 40 MG VIAL 20 MG IV PUSH (05:52)
[2019-06-01] MEDS: PANTOPRAZOLE 40 MG TABLET PO (08:19)
[2019-06-01] MEDS: INSULIN ASPART (*BKC) 100 UNITS/ML SUB-Q (08:22)
[2019-06-01 08:40] LABS: Glucose Point of Care 289 (65-105)
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
[2019-06-01 12:31] LABS: Glucose Point of Care 407 (65-105)
[2019-06-01] MEDS: INSULIN ASPART (*BKC) 100 UNITS/ML 10 UNITS SUB-Q (12:42)
== END 2019-06-01 15:02 | disposition home or self-care (01) | DRG 189 ==
LOC: ANHIMU 21:52 → ANH2MED 05-30 21:04 → ANHIMU 06-04 11:46
PROVIDERS: Admitting Provider Internal Medicine; PCP Internal Medicine; Visit Provider Family Medicine
DX: J96.21 Acute and chronic respiratory failure with hypoxia (principal); J43.9 Emphysema, unspecified; E11.9 Type 2 diabetes mellitus without complications; M19.90 Unspecified osteoarthritis, unspecified site; I25.10 Atherosclerotic heart disease of native coronary artery without angina pectoris; I10 Essential (primary) hypertension; E78.5 Hyperlipidemia, unspecified; E03.9 Hypothyroidism, unspecified; F41.8 Other specified anxiety disorders; F17.210 Nicotine dependence, cigarettes, uncomplicated; Z79.4 Long term (current) use of insulin; Z99.81 Dependence on supplemental oxygen
CPT/HCPCS: 36415; 71046; 80048; 82947; 85027; 87040; 94640; A9270; J1644; J1815; J1956; J2920; J2930

== ENCOUNTER 2019-06-14 13:10 | Emergency (ER) | payer MEDICARE, MEDICAID, SELFPAY ==
[2019-06-14] VITALS (9 sets, daily range): BP systolic 116–153; BP diastolic 64–85; PULSE 68–77; RESP 13–20; TEMP 36.3–36.8; O2SAT 91–100
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
--- NOTE | 2019-06-14 13:40 | PC.NURSE ---
Patient on face tent oxygen of 8 liters to provide 35% fiO2 per respiratory therapy
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
[2019-06-14 14:23] LABS: Base Excess ABG 1.8 mEq/l (+/-2.0); Carboxyhemoglobin 1.8 % THb (0-2.0); Fractional Inspired Oxygen 35 %; HCO3 ABG 27.7 mEq/l (22.0-26.0); Methemoglobin ABG 0.1 %THb (0-1.5); Oxygen Saturation ABG 96.8 % (95.0-100.0); Oxyhemoglobin 94.9 % THb (90.0-100.0); PCO2 ABG 48.2 mmHg (35.0-45.0); PO2 ABG 91.5 mmHg (80.0-100.0); PO2 FiO2 Ratio Arterial Blood 2.61 %; Reduced Hemoglobin 3.2 %THb (0-5.0); Total Hemoglobin 13.4 g/dL (12.0-18.0); pH ABG 7.377 (7.350-7.450)
[2019-06-14 14:24] LABS: Device OTHER DEVICE; Modified Allen's Test Pass; Site Drawn RIGHT RADIAL
[2019-06-14 14:27] LABS: Basophils Percent Auto 0.4 % (0.2-1.2); Eosinophils Percent Auto 0.8 % (0-4.4); Hematocrit 42.5 % (37.0-47.0); Hemoglobin 13.6 g/dL (12.0-15.0); Immature Granulocyte Absolute 0.02 K/mm3 (0.00-0.031); Immature Granulocyte Percent A 0.4 % (0-0.5); Immature Platelet Fraction Pct 3.9 % (0.9-11.2); Lymphocytes Absolute Auto 0.96 K/mm3 (0.9-3.2); Lymphocytes Percent Auto 19.1 % (18.3-44.2); Mean Corpuscular Hemoglobin 30.4 pg (26-34); Mean Corpuscular Volume 94.9 fl (80-100); Mean Platelet Volume 11.2 fl (7.4-10.4); Monocytes Absolute Auto 0.5 K/mm3 (0.1-0.6); Monocytes Percent Auto 9.8 % (2.6-8.5); Neutrophils Absolute Auto 3.5 K/mm3 (1.3-6.7); Neutrophils Percent Auto 69.5 % (45.5-73.1); Platelet Count Result 108 k/mm3 (150-375); Red Blood Count 4.48 M/mm3 (4.2-5.4); Red Cell Distribution Width 13.2 % (11.5-14.5)
[2019-06-14 14:37] LABS: Alanine Aminotransferase 26 U/L (4-35); Albumin Level 3.7 g/dL (3.5-5.1); Alkaline Phosphatase 99 U/L (38-126); Aspartate Amino Transferase 28 U/L (14-36); Bilirubin,Total 0.5 mg/dL (0.2-1.3); Blood Urea Nitrogen 14 mg/dL (7-17); Calcium 8.4 mg/dL (8.4-10.2); Carbon Dioxide 28 mmol/L (22-30); Chloride 99 mmol/L (98-107); Estimated CRCL calculation 82 ml/min; Estimated Glomerular Filt Rate > 60; Glucose 230 mg/dL (65-105); Potassium 3.8 mmol/L (3.4-5.0); Sodium 136 mmol/L (137-145)
[2019-06-14] MEDS: TETANUS,DIPHTHERIA,AC PERTUSSIS ADULT 0.5 ML (ADACEL) IM (14:58)
--- NOTE | 2019-06-14 15:49 | PC.NURSE ---
[facility] declined transfer - only ER to Er transfers [facility] declined transfer - No ALS truck [facility] accepted transfer/[facility]
== END 2019-06-14 16:27 | disposition short-term general hospital (02) ==
PROVIDERS: Emergency Provider General Practice; PCP Internal Medicine
DX: T20.212A Burn of second degree of left ear [any part, except ear drum], initial encounter (principal); T20.24XA Burn of second degree of nose (septum), initial encounter; T20.22XA Burn of second degree of lip(s), initial encounter; T31.0 Burns involving less than 10% of body surface; Z23 Encounter for immunization; F17.210 Nicotine dependence, cigarettes, uncomplicated; Z99.81 Dependence on supplemental oxygen; J43.9 Emphysema, unspecified; M19.90 Unspecified osteoarthritis, unspecified site; J96.11 Chronic respiratory failure with hypoxia; I25.10 Atherosclerotic heart disease of native coronary artery without angina pectoris; I25.2 Old myocardial infarction; Z95.5 Presence of coronary angioplasty implant and graft; E78.5 Hyperlipidemia, unspecified; I10 Essential (primary) hypertension; E03.9 Hypothyroidism, unspecified; E11.319 Type 2 diabetes mellitus with unspecified diabetic retinopathy without macular edema; E11.43 Type 2 diabetes mellitus with diabetic autonomic (poly)neuropathy; K31.84 Gastroparesis; Z79.4 Long term (current) use of insulin; F41.8 Other specified anxiety disorders; X04.XXXA Exposure to ignition of highly flammable material, initial encounter
CPT/HCPCS: 36415; 36600; 71045; 80053; 82375; 82805; 83050; 85025; 85055; 90471; 90715; 99285; A9270

== ENCOUNTER 2019-12-26 12:25 | Outpatient (CLI) | payer MEDICARE, SELFPAY ==
--- NOTE | ~2019-12-26 | US_ITS ---
EXAMINATION: US venous doppler [facility] DATE: 12/26/2019 13:10 INDICATION: Left lower limb swelling. TECHNIQUE: Grayscale ultrasound images without and with compression and Doppler ultrasound images of the left lower extremity veins were obtained. COMPARISON: None. FINDINGS: The visualized portions of left common femoral vein, profunda (deep) femoral vein, femoral vein, popl iteal vein, peroneal veins, posterior tibial veins, and greater saphenous vein outflow are patent. IMPRESSION: 1. No deep venous thrombosis. Reviewed, dictated and finalized at location B.
== END 2019-12-26 12:26 | disposition home or self-care (01) ==
PROVIDERS: PCP Internal Medicine; Visit Provider Internal Medicine
DX: M79.89 Other specified soft tissue disorders (principal)
CPT/HCPCS: 93971

== ENCOUNTER 2020-02-09 12:06 | Emergency (ER) | payer MEDICARE, SELFPAY ==
--- NOTE | ~2020-02-09 | XR_ITS ---
EXAMINATION: XR chest 2V DATE: 02/09/2020 13:55 INDICATION: Altered mental status. TECHNIQUE: Frontal and lateral views of the chest were obtained. COMPARISON: Chest single view 06/14/2019, chest CT 05/24/2019 FINDINGS: The lungs are hyperexpanded, consistent with emphysema. Calcified bilateral lung nodules an d calcified hilar and mediastinal lymph nodes are consistent with old granulomatous disease. No pleur al effusion or pneumothorax. The heart size is normal. IMPRESSION: 1. Emphysema. Reviewed, dictated and finalized at location A. IMPRESSION: 1. Emphysema.
[2020-02-09 12:10] VITALS: BP 136/71; PULSE 59; RESP 15; TEMP 36.4; O2SAT 96
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
--- NOTE | 2020-02-09 12:27 | ECG_ITS ---
Measurements Intervals [place] Rate: 58 P: 79 SC: 142 QRS: 91 QRSD: 105 T: 79 QT: 457 QTc: 449 Interpretive Statements SINUS BRADYCARDIA ATRIAL PREMATURE COMPLEXES RIGHT AXIS DEVIATION DELAYED PRECORDIAL R/S TRANSITION BORDERLINE T WAVE ABNORMALITY- HIGH LATERAL LEADS BASELINE ARTIFACT- I, II, III, AVR, AVL, AVF, V1-V6 BORDERLINE ECG Electronically Signed On 02-09-2020 13:28:46 CDT by Thad Rea D.O.
[2020-02-09 12:43] LABS: Basophils Absolute Auto 0.05 K/mm3 (0.00-0.10); Basophils Percent Auto 0.9 % (0.0-1.0); Eosinophils Absolute Auto 0.12 K/mm3 (0.02-0.50); Eosinophils Percent Auto 2.1 % (1.0-6.0); Hematocrit 51.3 % (35.0-49.0); Hemoglobin 16.5 g/dL (12.0-15.0); Immature Granulocyte Absolute 0.01 K/mm3 (0.00-0.00); Immature Granulocyte Percent A 0.2 % (0.0-0.0); Lymphocytes Absolute Auto 1.38 K/mm3 (1.10-4.50); Lymphocytes Percent Auto 23.7 % (18.0-42.0); Mean Corpuscular HGB Conc 32.2 g/dL (32.0-36.0); Mean Corpuscular Hemoglobin 30.7 pg (27.0-31.0); Mean Corpuscular Volume 95.4 fL (78.0-102.0); Mean Platelet Volume 11.5 fl (9.2-11.8); Monocytes Absolute Auto 0.37 K/mm3 (0.10-0.90); Monocytes Percent Auto 6.4 % (2.0-11.0); Neutrophils Absolute Auto 3.9 K/mm3 (1.7-7.2); Neutrophils Percent Auto 66.7 % (50.0-70.0); Platelet Count Result 166 K/mm3 (150-420); Red Blood Count 5.38 M/mm3 (4.20-5.40); Red Cell Distribution Width 12.2 % (11.6-14.4); White Blood Count 5.8 K/mm3 (4.8-10.8)
[2020-02-09 12:56] LABS: Add Urine Microscopic? YES; Appearance Urine Clear (Clear); Bilirubin Urine Negative (Negative); Blood Urine Negative (Negative); Color Urine Yellow (Yellow); Glucose Urine UA Trace (Negative); Ketones Urine Negative (Negative); Leukocyte Esterase Ur Trace (Negative); Nitrate Urine Negative (Negative); Protein Urine Trace (Negative); Specific Grav Ur 1.025 (1.010-1.020)
[2020-02-09 12:58] LABS: Glucose Point of Care 93 (65-105)
[2020-02-09 13:00] LABS: Alanine Aminotransferase 22 U/L (14-59); Albumin Level 3.5 g/dL (3.4-5.0); Alkaline Phosphatase 105 U/L (46-116); Anion Gap 5 mmol/L (8-16); Aspartate Amino Transferase 13 U/L (15-37); Bilirubin,Total 0.3 mg/dL (0.00-1.00); Blood Urea Nitrogen 15 mg/dL (7-18); Calcium 8.8 mg/dL (8.5-10.1); Carbon Dioxide 31 mmol/L (21-32); Chloride 106 mmol/L (98-108); Estimated Glomerular Filt Rate > 60; Glucose 74 mg/dL (70-99); Osmolality Calculated 293 mOsm/kg (285-295); Potassium 3.8 mmol/L (3.5-5.1); Sodium 142 mmol/L (136-145); Total Protein 6.9 g/dL (6.4-8.2); Troponin I 0.05 ng/mL (0.00-0.056)
[2020-02-09 13:03] LABS: Bacteria Urine None seen /hpf; RBC Urine 0-2 /hpf (0-2); Squamous Epithelial Cell Urine Rare /hpf (Few); WBC Urine 0-3 /hpf (0-3)
[2020-02-09 14:03] LABS: Glucose Point of Care 83 (65-105)
[2020-02-09 15:45] VITALS: BP 115/70; PULSE 60; O2SAT 100
[2020-02-09 15:46] LABS: Glucose Point of Care 115 (65-105)
[2020-02-09 16:10] VITALS: BP 108/59
== END 2020-02-09 16:10 | disposition home or self-care (01) ==
PROVIDERS: Emergency Provider Emergency Medicine; PCP Internal Medicine
DX: E11.649 Type 2 diabetes mellitus with hypoglycemia without coma (principal); Z79.4 Long term (current) use of insulin
CPT/HCPCS: 36415; 71046; 80053; 81001; 84484; 85025; 93005; 99284

== ENCOUNTER 2020-07-16 11:48 | Outpatient (CLI) | payer MEDICARE, SELFPAY | END 2020-07-16 11:49 | disposition home or self-care (01) | LOC: ANHCOVIDVC 11:48 | PROVIDERS: PCP Internal Medicine | DX: Z23 Encounter for immunization (principal) | CPT/HCPCS: 0001A; 91300 ==

== ENCOUNTER 2020-08-06 11:40 | Outpatient (CLI) | payer MEDICARE, SELFPAY | END 2020-08-06 11:41 | disposition home or self-care (01) | LOC: ANHCOVIDVC 11:40 | PROVIDERS: PCP Internal Medicine | DX: Z23 Encounter for immunization (principal) | CPT/HCPCS: 0002A; 91300 ==

== ENCOUNTER 2020-09-09 21:59 | Emergency (ER) | payer MEDICARE, SELFPAY ==
--- NOTE | ~2020-09-09 | CT_ITS ---
EXAMINATION: CT abdomen pelvis w con EXAM DATE: 09/09/2020 23:27 INDICATION: Right-sided abdominal pain. Symptoms one week. Nausea TECHNIQUE: Spiral CT of the abdomen and pelvis was performed following intravenous injection of 100 m L Omnipaque 350. Axial, coronal and sagittal images of the abdomen and pelvis were reviewed. The do se-length product (DLP) for this examination was 162.36 mGy-cm. The exposure was tailored according to patient size (auto mA exposure control), and iterative reconstruction (ASIR) was used as additiona l dose reduction technique. There is prior noncontrast PET/CT from 2018 for correlation FINDINGS: There is paucity of intra-abdominal fat which decreases sensitivity for acute intra-abdomin al processes. There is also generalized mild diffuse body wall edema and also intra-abdominal mesente heron edema. There is some induration in the left side of the abdominal subcutaneous fat, could be inje ction site. The liver, spleen, adrenal glands and pancreas are unremarkable. Gallbladder is unremarkable. No bi liary obstruction. Portal and splenic veins are patent. Kidneys enhance symmetrically. There is no hydronephrosis. The uterus is anteverted and morphologically normal. The bladder is unremarkable . There is no retroperitoneal or pelvic lymphadenopathy. There is moderate to severe aortic arteri osclerosis, proper extensive for patient's age. The iliac and common femoral arteries are relatively free of plaque. Probable identification of a normal appendix. There is no evidence of obstruction of this. 2 The sto mach and small bowel are unremarkable. There is moderate to large amount of colonic stool. No free intraperitoneal gas. The heart is normal in size. There are no pericardial or pleural effusions. There is moderate basilar emphysema. There are scattered basilar granulomata. Several small bilater al femoral bone islands. No suspicious bone findings. Compared to PET/CT 2018, generalized fat stran ding has increased. IMPRESSION: 1. Moderate to large amount of colonic stool, consider constipation. 2. Generalized fat stranding and posterior intra-abdominal fat limiting sensitivity. No acute findin gs suspected. 3. Moderate basilar emphysema. Reviewed, dictated and finalized at location G. IMPRESSION: 1. Moderate to large amount of colonic stool, consider constipation. 2. Generalized fat stranding and posterior intra-abdominal fat limiting sensit ivity. No acute findings suspected. 3. Moderate basilar emphysema.
[2020-09-09 22:01] VITALS: BP 135/80; PULSE 91; RESP 20; TEMP 37; O2SAT 94
[2020-09-09 22:33] VITALS: BP 123/83; O2SAT 97
[2020-09-09 22:47] LABS: Basophils Absolute Auto 0.1 K/mm3 (0.0-0.1); Basophils Percent Auto 0.9 % (0.2-1.2); Eosinophils Absolute Auto 0.1 K/mm3 (0-0.3); Eosinophils Percent Auto 1.1 % (0-4.4); Hematocrit 46.9 % (37.0-47.0); Hemoglobin 15.9 g/dL (12.0-15.0); Immature Granulocyte Absolute 0.02 K/mm3 (0.00-0.031); Immature Granulocyte Percent A 0.3 % (0-0.5); Lymphocytes Absolute Auto 1.45 K/mm3 (0.9-3.2); Lymphocytes Percent Auto 21.9 % (18.3-44.2); Mean Corpuscular HGB Conc 33.9 g/dl (32-36); Mean Corpuscular Hemoglobin 30.5 pg (26-34); Mean Corpuscular Volume 89.8 fl (80-100); Mean Platelet Volume 11.1 fl (7.4-10.4); Monocytes Absolute Auto 0.4 K/mm3 (0.1-0.6); Monocytes Percent Auto 6.3 % (2.6-8.5); Neutrophils Absolute Auto 4.6 K/mm3 (1.3-6.7); Neutrophils Percent Auto 69.5 % (45.5-73.1); Platelet Count Result 196 k/mm3 (150-375); Red Blood Count 5.22 M/mm3 (4.2-5.4); Red Cell Distribution Width 12.3 % (11.5-14.5); White Blood Count 6.6 K/mm3 (4.5-10.0)
[2020-09-09] MEDS: SODIUM CHLORIDE 0.9% IV 1,000 ML 999 ML IV CONT (22:52)
[2020-09-09] MEDS: ONDANSETRON INJ 4 MG/2 ML VIAL IV PUSH (22:52)
[2020-09-09] MEDS: KETOROLAC 30 MG/ML VIAL (*BKC) IV PUSH (22:55)
[2020-09-09] MEDS: MORPHINE SULFATE (*CRX) 4 MG/ML INJ IV PUSH (22:56)
--- NOTE | 2020-09-09 22:56 | PC.NURSE ---
pt unable to void at this time, urine cup at bedside
[2020-09-09 23:00] LABS: Alanine Aminotransferase 19 U/L (4-35); Albumin Level 4.4 g/dL (3.5-5.1); Alkaline Phosphatase 82 U/L (38-126); Anion Gap 2 mmol/L (8-16); Aspartate Amino Transferase 22 U/L (14-36); Bilirubin,Total 0.6 mg/dL (0.2-1.3); Blood Urea Nitrogen 13 mg/dL (7-17); Calcium 9.6 mg/dL (8.4-10.2); Carbon Dioxide 34 mmol/L (22-30); Chloride 98 mmol/L (98-107); Estimated CRCL calculation 90 ml/min; Estimated Glomerular Filt Rate > 60; Glucose 208 mg/dL (65-105); Lipase 13 U/L (23-300); Potassium 4.3 mmol/L (3.4-5.0); Sodium 134 mmol/L (137-145)
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
[2020-09-09 23:31] VITALS: BP 140/74
[2020-09-09 23:39] LABS: Add Urine Microscopic? YES; Appearance Urine Cloudy (Clear); Bacteria Urine Trace /hpf; Bilirubin Urine Negative (Negative); Blood Urine Negative (Negative); Color Urine Yellow (Yellow); Glucose Urine UA Negative (Negative); Ketones Urine Trace mg/dL (Negative); Leukocyte Esterase Ur 3+ LEU/UL (Negative); Mucus Urine Few /lpf; Nitrate Urine Negative (Negative); Protein Urine 1+ mg/dL (Negative); Specific Grav Ur 1.016 (1.001-1.035); Squamous Epithelial Cell Urine Many /hpf (Few); WBC Urine 51-75 /hpf
[2020-09-09 23:46] VITALS: BP 133/73; O2SAT 93
--- NOTE | 2020-09-09 23:51 | PC.NURSE ---
Respiratory to room at this time.
[2020-09-09] MEDS: ALBUTEROL SULFATE NEB 2.5 MG/0.5 ML INH 5 MG INHALATION (23:53)
[2020-09-09 23:54] VITALS: PULSE 74; RESP 20
[2020-09-10 00:01] VITALS: BP 155/90; O2SAT 100
[2020-09-10 00:16] VITALS: BP 141/72; O2SAT 96
[2020-09-10] MEDS: MAGNESIUM CITRATE 300 ML BTL PO (00:29)
[2020-09-10 00:35] VITALS: BP 182/76; PULSE 79; RESP 18; O2SAT 94
== END 2020-09-10 00:41 | disposition home or self-care (01) ==
PROVIDERS: Emergency Provider Emergency Medicine; PCP Internal Medicine
DX: N39.0 Urinary tract infection, site not specified (principal); K59.00 Constipation, unspecified; R10.84 Generalized abdominal pain; J96.11 Chronic respiratory failure with hypoxia; Z99.81 Dependence on supplemental oxygen; J44.9 Chronic obstructive pulmonary disease, unspecified; I25.10 Atherosclerotic heart disease of native coronary artery without angina pectoris; I25.2 Old myocardial infarction; E78.5 Hyperlipidemia, unspecified; I10 Essential (primary) hypertension; E03.9 Hypothyroidism, unspecified; F17.210 Nicotine dependence, cigarettes, uncomplicated; Z95.5 Presence of coronary angioplasty implant and graft; M19.90 Unspecified osteoarthritis, unspecified site
CPT/HCPCS: 36415; 74177; 80053; 81001; 83605; 83690; 85025; 87086; 94640; 96361; 96374; 96375; 99284; A9270; J1885; J2270; J2405; J7030; Q9967

== ENCOUNTER 2021-02-13 12:48 | Emergency (ER) | payer MEDICARE, SELFPAY ==
--- NOTE | ~2021-02-13 | CT_ITS ---
EXAMINATION: CT brain wo con DATE: 02/13/2021 13:28 INDICATION: Altered mental status TECHNIQUE: Computed tomography (CT) of the head was performed without intravenous contrast. The dose- length product was 605.33 mGy-cm. Automated exposure control and iterative reconstruction technique w ere employed. COMPARISON: CT dated 05/28/2016 FINDINGS: Subtle hypodensity right parietal lobe, most likely age-indeterminate infarction. No ventri culomegaly or midline shift. Basilar cisterns are patent. Paranasal sinuses and mastoids are pneumati zed. Midline sagittal images are unremarkable. IMPRESSION: 1. Subtle hypodensity right parietal lobe, suspicious for age-indeterminate infarction. Recommend cor relation with MRI. Reviewed, dictated and finalized at location A. IMPRESSION: 1. Subtle hypodensity right parietal lobe, suspicious for age-indeterminate inf arction. Recommend correlation with MRI.
--- NOTE | ~2021-02-13 | CT_ITS ---
EXAMINATION: CT facial bones wo con DATE: 02/13/2021 13:28 INDICATION: Facial contusion TECHNIQUE: Computed tomography (CT) of the facial bones was performed without intravenous contrast. T he dose-length product was 267.48 mGy-cm. COMPARISON: CT dated 12/25/2011 FINDINGS: There is an old nasal fractures. There is right frontal scalp hematoma. No acute fracture, subluxation or dislocation orbits are intact. Mild degenerative changes of the temporomandibular join ts. Rightward nasal septal deviation. There are bilateral xiao bullosa. Moderate cervical spondylos is. There is an old fracture of the left lamina papyracea. IMPRESSION: 1. No acute maxillofacial fracture. Reviewed, dictated and finalized at location A.
--- NOTE | ~2021-02-13 | XR_ITS ---
XR chest 1V portable 02/13/2021 13:28 Indication: Altered mental status Procedure: AP portable chest Comparison: Comparison to multiple prior studies sequentially, with oldest reviewed study dated 05/27. Findings: Heart size normal. There are multiple calcified granulomas of the lung and mediastinum. The lungs are hyperinflated which is consistent with, but not diagnostic of chronic obstructive pulmonar y disease. No focal air space disease, pulmonary edema, pleural effusion or suspected pneumothorax. Impression: 1: No acute cardiopulmonary disease. Reviewed, dictated and finalized at location A. Impression: 1: No acute cardiopulmonary disease.
--- NOTE | 2021-02-13 12:57 | ECG_ITS ---
Measurements Intervals [place] Rate: 65 P: 78 VT: 120 QRS: 88 QRSD: 98 T: -76 QT: 437 QTc: 455 Interpretive Statements SINUS RHYTHM ATRIAL PREMATURE COMPLEXES VOLTAGE CRITERIA FOR LVH ST-T WAVE ABNORMALITY IN INFERIOR LEADS- CONSIDER ISCHEMIA BASELINE ARTIFACT- I, II, III, V1-V6 ABNORMAL ECG Electronically Signed On 02-14-2021 7:47:48 CDT by Thad Rea D.O.
[2021-02-13] MEDS: SODIUM CHLORIDE 0.9% IV 1,000 ML 999 ML (12:59)
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
[2021-02-13 13:11] VITALS: BP 136/90; PULSE 66; RESP 20; TEMP 36.4; O2SAT 90
[2021-02-13 13:41] VITALS: BP 127/77; PULSE 55; RESP 20; O2SAT 95
[2021-02-13 13:58] LABS: Base Excess ABG 1.8 mmol/L (0-2); HCO3 ABG 27.5 mmol/L (23-29); Oxygen Content ABG 19.7 %vol (16.0-22.0); Oxygen Saturation ABG 92.5 % (95-97); Oxyhemoglobin 91.5 % (94-100); PCO2 ABG 46.5 mmHg (35-45); PO2 ABG 67.5 mmHg (80-90); Total Hemoglobin 15.3 g/dL (12.0-18.0); pH ABG 7.39 (7.35-7.45)
[2021-02-13 14:10] LABS: Glucose Point of Care 58 mg/dl (65-105)
[2021-02-13 14:10] LABS: Glucose Point of Care 50 mg/dl (65-105)
[2021-02-13 14:13] LABS: Basophils Absolute Auto 0.01 K/mm3 (0.00-0.10); Basophils Percent Auto 0.1 % (0.0-1.0); Eosinophils Absolute Auto 0.01 K/mm3 (0.02-0.50); Eosinophils Percent Auto 0.1 % (1.0-6.0); Hemoglobin 15.8 g/dL (12.0-15.0); Immature Granulocyte Absolute 0.04 K/mm3 (0.00-0.00); Immature Granulocyte Percent A 0.4 % (0.0-0.0); Lymphocytes Percent Auto 11.3 % (18.0-42.0); Mean Corpuscular HGB Conc 32.9 g/dL (32.0-36.0); Mean Corpuscular Hemoglobin 30.9 pg (27.0-31.0); Mean Corpuscular Volume 93.8 fL (78.0-102.0); Monocytes Absolute Auto 0.84 K/mm3 (0.10-0.90); Monocytes Percent Auto 8.7 % (2.0-11.0); Neutrophils Absolute Auto 7.7 K/mm3 (1.7-7.2); Neutrophils Percent Auto 79.4 % (50.0-70.0); Platelet Count Result 204 K/mm3 (150-420); Red Blood Count 5.12 M/mm3 (4.20-5.40); Red Cell Distribution Width 12.5 % (11.6-14.4); White Blood Count 9.7 K/mm3 (4.8-10.8)
[2021-02-13 14:15] LABS: Device ROOM AIR; Modified Allen's Test Pass; Site Drawn RIGHT RADIAL
[2021-02-13] MEDS: DEXTROSE 5%/0.9% SOD CHL 1,000 ML 150 ML IV CONT (14:25)
[2021-02-13 14:33] VITALS: BP 124/65; PULSE 68; RESP 22; O2SAT 100
[2021-02-13 14:36] LABS: INR 1.1; Prothrombin Time 11.4 Seconds (9.50-12.10)
[2021-02-13 14:49] LABS: Add Urine Microscopic? YES; Appearance Urine Clear (Clear); Bilirubin Urine 1+ (Negative); Blood Urine Negative (Negative); Color Urine Yellow (Yellow); Glucose Urine UA Trace (Negative); Ketones Urine 1+ (Negative); Leukocyte Esterase Ur 2+ LEU/UL (Negative); Nitrate Urine Negative (Negative); Protein Urine Trace (Negative); Specific Grav Ur 1.025 (1.010-1.020); Urobilinogen Urine 0.2 mg/dL (0.2-1.0)
[2021-02-13 14:54] LABS: Bacteria Urine 2+ /hpf; RBC Urine 0-2 /hpf (0-2); Squamous Epithelial Cell Urine None seen /hpf (Few); WBC Urine 51-75 /hpf (0-3)
[2021-02-13 14:54] LABS: Glucose Point of Care 94 mg/dl (65-105)
--- NOTE | 2021-02-13 14:56 | ED.AMS ---
HPI - Altered Mental Status General Source: EMS Mode of arrival: EMS Limitations: altered mental status History of Present Illness HPI narrative: 55-year-old woman with a history of type 1 diabetes and COPD with chronic respiratory failure brought to the emergency department after she was found at home barely responsive by police who were called to check on her dogs. Her blood sugar at the scene was 68. She was disheveled, incontinent of stool, and minimally responsive. She was able to only give her name and date of . Patient denies having chest pain, vomiting, shortness of breath, abdominal pain, fever, cough, cold symptoms and diarrhea. She cannot describe how she came to have contusions on her right brow and cheek. MD complaint: altered mental status Onset (ago): unknown Severity: severe Consistency of symptoms: waxing and waning Context: diabetes Associated symptoms: denies other symptoms Related Data Allergies Allergy/AdvReac Type Severity Reaction Status Date / Time metformin AdvReac Intermediate Diarrhea Verified 02/13/21 13:24 Review of Systems Review of Systems: All systems reviewed & are unremarkable except as noted in HPI and below ROS unobtainable: Yes other (Limited due to mental status.) Constitutional: Constitutional: Reports chills, Denies fever(s) and Reports weakness ENT: Denies nasal congestion and Denies sore throat Cardiovascular: Cardiovascular: Denies chest pain and Denies radiating jaw, neck or arm pain Respiratory: Respiratory: Denies cough and Denies dyspnea Gastrointestinal: Gastrointestinal: Denies abdominal pain, Denies diarrhea, Denies nausea and Denies vomiting Genitourinary: Genitourinary: Denies dysuria Musculoskeletal: Musculoskeletal: Denies back pain, Denies arthralgias and Denies joint swelling Integumentary/Breasts: Skin/Breast: Denies pruritus Neurologic: Denies syncope and Denies headache(s) [facility] Past Medical History Medical History (Updated 02/13/21 @ 22:52 by Pradeep Keenan MD) Arthritis Chronic respiratory failure with hypoxia, on home oxygen therapy COPD with asthma Coronary artery disease Reported myocardial infarction in 1999 requiring stent. Depression with anxiety Hyperlipidemia Hypertension Hypothyroidism Insulin dependent diabetes mellitus Complicated by diabetic retinopathy and gastroparesis. Hemoglobin A1c was 8.3% on 02/13/2021. Tobacco abuse Surgical History Surgical History Status post arthroscopy of right knee Status post section Family History Family History Mother Family history of alcoholism Family history of congestive heart failure, Onset Age: 70 Family history of osteoporosis Family history of chronic obstructive pulmonary disease Grandparent Family history of Alzheimer's disease, Onset Age: 90 Hypertension, Onset Age: 80 Sibling Hypertension, Onset Age: 53 Family history of alcoholism Family history of malignant neoplasm Patient's sister is in good health Father Hypertension, Onset Age: 79 Family history of thyroid disease Family history of cataracts Malignant neoplasm of prostate Other Diabetes mellitus Family history of arthritis Social History Social History (Updated 02/13/21 @ 22:45 by Zahraa Wood PA-C) Social History: Surrogate decision maker: Tiera Montgomery (sister) or Ho Espinoza (son). Code status: Full code. Smoking packs per day: 1.5 Smoking cigarettes per day: 30.0 Years smoked: 40 Smoking pack-years: 60.00 Smoking status: Current every day smoker Tobacco type: cigarettes Second hand tobacco smoke exposure: Yes Alcohol intake: never Substance use: never Additional living arrangements comments: Patient reports that she is currently living with her aunt though this cannot be verified. Additional
[2021-02-13 14:59] LABS: Alanine Aminotransferase 41 U/L (14-59); Albumin Level 3.2 g/dL (3.4-5.0); Alkaline Phosphatase 87 U/L (46-116); Anion Gap 11 mmol/L (8-16); Aspartate Amino Transferase 81 U/L (15-37); Bilirubin,Total 0.6 mg/dL (0.00-1.00); Blood Urea Nitrogen 47 mg/dL (7-18); CRP < 0.5 mg/dL (0.0-0.9); Calcium 8.8 mg/dL (8.5-10.1); Carbon Dioxide 30 mmol/L (21-32); Chloride 107 mmol/L (98-108); Estimated Glomerular Filt Rate > 60; Glucose 66 mg/dL (70-99); Lactic Acid Reflex 2.2 mmol/L (0.4-2.0); Osmolality Calculated 316 mOsm/kg (285-295); Potassium 3.8 mmol/L (3.5-5.1); Sodium 148 mmol/L (136-145); Total Protein 6.3 g/dL (6.4-8.2)
[2021-02-13 15:02] LABS: Troponin I 2124.7 ng/L (0.00-60.4)
[2021-02-13 15:06] LABS: Amphetamine Screen Urine Negative (Negative); Barbiturate Screen Urine Negative (Negative); Benzodiazepines Screen Urine Negative (Negative); Cannabinoid Screen Urine Negative (Negative); Cocaine Screen Urine Negative (Negative); Methadone Screen Urine Negative (Negative); Opiate Screen Urine Negative (Negative); Phencyclidine Screen Urine Negative (Negative)
--- NOTE | 2021-02-13 15:18 | ECG_ITS ---
Measurements Intervals Evans Rate: 77 P: 80 WV: 118 QRS: 90 QRSD: 93 T: -74 QT: 431 QTc: 491 Interpretive Statements SINUS RHYTHM WITH SHORT WV INTERVAL ATRIAL COUPLET AND ATRIAL PREMATURE COMPLEXES ST-T WAVE ABNORMALITY IN INFERIOR LEADS- CONSIDER ISCHEMIA BASELINE ARTIFACT- I, II, III, AVR, AVL, AVF, V1-V6 ABNORMAL ECG Electronically Signed On 02-14-2021 7:46:41 CDT by Thad Rea D.O.
[2021-02-13 15:30] VITALS: BP 118/56; PULSE 67; RESP 22; O2SAT 97
[2021-02-13] MEDS: ENOXAPARIN 40 MG/0.4 ML SYRINGE SUB-Q (15:35)
[2021-02-13] MEDS: ASPIRIN 81 MG CHEWABLE TABLET 324 MG PO (15:36)
[2021-02-13 15:46] LABS: SARS-CoV-2 RNA PCR Negative (Negative)
[2021-02-13 15:58] LABS: Glucose Point of Care 144 mg/dl (65-105)
[2021-02-13 16:23] LABS: Creatine Kinase > 1000 U/L (26-192)
[2021-02-13 16:30] VITALS: BP 98/56; PULSE 73; RESP 20; O2SAT 97
[2021-02-13 17:10] VITALS: BP 105/55; PULSE 65; RESP 20; TEMP 36.7; O2SAT 98
--- NOTE | 2021-02-13 17:11 | PC.NURSE ---
1700 NIH SCORE OF 2
[2021-02-13 17:12] LABS: Reflex Lactic Acid Yes or No Add Lactic
[2021-02-13 17:58] LABS: Lactic Acid 1.2 mmol/L (0.4-2.0)
== END 2021-02-13 17:51 | disposition short-term general hospital (02) ==
LOC: CHSED 12:52
PROVIDERS: Emergency Provider Emergency Medicine
DX: R94.02 Abnormal brain scan (principal); E16.2 Hypoglycemia, unspecified; I21.4 Non-ST elevation (NSTEMI) myocardial infarction; N30.00 Acute cystitis without hematuria; Z20.822 Contact with and (suspected) exposure to COVID-19; I10 Essential (primary) hypertension; E03.9 Hypothyroidism, unspecified; E10.9 Type 1 diabetes mellitus without complications; Z79.4 Long term (current) use of insulin; J44.9 Chronic obstructive pulmonary disease, unspecified; F17.200 Nicotine dependence, unspecified, uncomplicated
CPT/HCPCS: 36415; 36600; 70450; 70486; 71045; 80053; 80307; 81001; 82550; 82805; 82948; 83605; 84484; 85025; 85610; 85730; 86140; 87040; 87086; 87147; 87186; 93005; 96361; 96365; 96372; 99285; A9270; C9803; J0696; J1650; J7030; J7042; J7070; U0003; U0005

== ENCOUNTER 2021-02-13 18:31 | Inpatient (IN) | payer MEDICARE, SELFPAY ==
--- NOTE | ~2021-02-13 | MR_ITS ---
EXAMINATION: MR brain/brain stem wo/w con DATE: 02/15/2021 07:38 INDICATION: Cerebrovascular accident. TECHNIQUE: Magnetic resonance imaging (MRI) of the brain and brainstem was performed without and with 9 mL MultiHance intravenous contrast. Sequences included sagittal and axial T1-weighted FSE, axial d iffusion-weighted FS EPI, axial T2*-weighted GRE, axial T2-weighted FLAIR Propeller, and axial T2-rosmeary ghted Propeller. Postcontrast sequences included axial, sagittal, and coronal T1-weighted FSE. Appare nt diffusion coefficient (ADC) maps were created. COMPARISON: Head CT 02/13/2021 FINDINGS: There are scattered areas of nonspecific increased T2-weighted signal intensity in the cere bral white matter. There is no intracranial hemorrhage, acute infarction, or abnormal intracranial ma ss lesion. There is an old lacunar infarct in left thalamus. There is diffuse pachymeningeal enhancem ent. The ventricles are normal in size. The orbits are normal. There is mild mucosal thickening in th e ethmoid sinuses. The mastoid air cells are normal. IMPRESSION: 1. Old lacunar infarct in left thalamus. 2. Mild nonspecific cerebral white matter disease, which likely represents chronic small vessel ische claudia disease. 3. Diffuse pachymeningeal enhancement. This finding is most commonly secondary to prior lumbar punctu re or spine surgery and may persist for years. Less common etiologies include meningitis or intracran ial hypotension. Reviewed, dictated and finalized at location A. IMPRESSION: 1. Old lacunar infarct in left thalamus. 2. Mild nonspecific cerebral white matter disease, which likely represents property analyst brandt small vessel ischemic disease. 3. Diffuse pachymeningeal enhancement. This finding is most commonly secondary to prior lumbar puncture or spine surgery and may persist for years. Less commo n etiologies include meningitis or intracranial hypotension.
--- NOTE | ~2021-02-13 | US_ITS ---
EXAMINATION: US carotid duplex BI DATE: 02/14/2021 16:29 INDICATION: CVA TECHNIQUE: Grayscale, color Doppler, and pulsed Doppler images of the cervical carotid arteries were obtained. The degree of vessel stenosis is placed in one of the following categories: normal, <50%, 5 0-69%, >=70% but less than near-occlusion, near-occlusion, or total occlusion. Note that percent sten osis relative to normal distal artery lumen diameter is indirectly measured from velocity measurement s as described by Isma, et al. Radiology 2003; 229:340-346. Notes: Normal: Peak systolic velocity <125 centimeters/sec and no plaque <50%. Peak systolic velocity <125 ( EDV <40; ICA/CCA PSV ratio <2.0; used these factors only a tandem lesions or low cardiac output or co ntralateral disease) 50-69 %: PSV 125-230 (EDV 40-100; ratio 2-4) >= 70% but less than near occlusion: PSV greater than 230 (EDV > 100; ratio> 4.0) Near Occlusion: PSV that is variable; markedly narrowed lumen Occlusion: Absent flow on color/spectral Doppler and no lumen on dunn scale. COMPARISON: None. FINDINGS: RIGHT: The right common carotid artery (CCA) peak systolic velocity (PSV) is 56 cm/s. The right internal car otid artery (ICA) PSV is 93 cm/s. The right ICA end-diastolic velocity (EDV) is 18 cm/s. The right IC A/CCA PSV ratio is 1.7. The external carotid artery (ECA) PSV is 56 cm/s. There is antegrade flow in the right vertebral artery. LEFT: The left CCA PSV is 67 cm/s. The left ICA PSV is 93 cm/s. The left ICA EDV is 30 cm/s. The left ICA/C CA PSV ratio is 1.5. The ECA PSV is 127 cm/s. There is antegrade flow in the left vertebral artery. IMPRESSION: 1. Less than 50% stenosis in the right internal carotid artery by sonographic criteria. 2. Less than 50% stenosis in the left internal carotid artery by sonographic criteria. Reviewed, dictated and finalized at location B. IMPRESSION: 1. Less than 50% stenosis in the right internal carotid artery by sonographic tiffanie gutierrez. 2. Less than 50% stenosis in the left internal carotid artery by sonographic ludwin rider.
[2021-02-13 18:31] VITALS: O2SAT 99
[2021-02-13 18:40] VITALS: BP 111/58; PULSE 54; RESP 14; TEMP 33.4; O2SAT 99
--- NOTE | 2021-02-13 19:00 | PM.IMHP ---
H&P: HPI History of Present Illness Date/Time: 02/13/21 19:00 Chief Complaint: CVA, elevated troponin. Narrative: This is a 55-year-old female with chronic respiratory failure on home oxygen, COPD, hypothyroidism, and insulin-dependent diabetes who is being directly admitted to the IMU [place] [facility] [place] was found to have an elevated troponin and evidence suggestive of a right parietal lobe infarction on brain CT. The patient is confused and seems to be suffering from expressive aphasia. As such she is not able to provide an accurate history and thus the following history is supplemented via a review of her electronic medical records as well as discussions with her sister via phone. The patient was brought to the hospital after she was found minimally responsive in her home by police, who were called to do a welfare check as her dogs were reportedly running around the neighborhood unsupervised. EMS was summoned and on their arrival she had a glucose of 68, appeared disheveled, and was incontinent of stool. Her vital signs were stable on arrival to the emergency department. She was noted to have abrasions and contusions on the right side of her face and she was sent for imaging. Face CT showed no acute maxillofacial fracture however she was noted to have a subtle hypodensity in the right parietal lobe suspicious for age-indeterminate infarction. Chest x-ray showed no acute cardiopulmonary disease. Urine drug screen was negative. Significant labs include elevated sodium, BUN, troponin, and creatinine kinase. Transfer was initiated to [facility] for higher level of care including consultation with Neurology tomorrow. At the time my evaluation the patient is alert and attempts to answer questions and follow commands. She cannot provide any meaningful history. Review of Systems Review of Systems: A complete review of systems was attempted though extremely limited as the patient did not even remember being transferred to the hospital via ambulance. At this time she denies headache, vertigo, diplopia, fever, chills, sweats, chest pain, shortness of breath, nausea, abdominal pain, vomiting, diarrhea, and dysuria. She denies focal weakness and paresthesias. She does not recall how she thought the contusions and abrasions on the right side of her face. In fact she did not even remember the ambulance ride after being at the hospital for less than 30 minutes. [facility] Past Medical History Medical History Arthritis Chronic respiratory failure with hypoxia, on home oxygen therapy COPD with asthma Coronary artery disease Reported myocardial infarction in 1999 requiring stent. Depression with anxiety Hyperlipidemia Hypertension Hypothyroidism Insulin dependent diabetes mellitus Complicated by diabetic retinopathy and gastroparesis. Hemoglobin A1c was 8.3% on 02/13/2021. Tobacco abuse Surgical History Surgical History Status post arthroscopy of right knee Status post section Family History Family History Mother Family history of alcoholism Family history of congestive heart failure, Onset Age: 70 Family history of osteoporosis Family history of chronic obstructive pulmonary disease Grandparent Family history of Alzheimer's disease, Onset Age: 90 Hypertension, Onset Age: 80 Sibling Hypertension, Onset Age: 53 Family history of alcoholism Family history of malignant neoplasm Patient's sister is in good health Father Hypertension, Onset Age: 79 Family history of thyroid disease Family history of cataracts Malignant neoplasm of prostate Other Diabetes mellitus Family history of arthritis Social History Social History (Updated 02/13/21 @ 22:45 by Zahraa Wood PA-C)
[2021-02-13 19:03] LABS: Glucose Point of Care 185 mg/dl (65-105)
[2021-02-13 19:06] LABS: Basophils Percent Auto 0.2 % (0.2-1.2); Eosinophils Percent Auto 0.1 % (0-4.4); Hematocrit 46.2 % (37.0-47.0); Hemoglobin 15.1 g/dL (12.0-15.0); Immature Granulocyte Absolute 0.03 K/mm3 (0.00-0.031); Immature Granulocyte Percent A 0.3 % (0-0.5); Lymphocytes Absolute Auto 1.36 K/mm3 (0.9-3.2); Lymphocytes Percent Auto 13.3 % (18.3-44.2); Mean Corpuscular HGB Conc 32.7 g/dl (32-36); Mean Corpuscular Hemoglobin 31.1 pg (26-34); Mean Corpuscular Volume 95.1 fl (80-100); Mean Platelet Volume 10.7 fl (7.4-10.4); Monocytes Percent Auto 9.6 % (2.6-8.5); Neutrophils Absolute Auto 7.9 K/mm3 (1.3-6.7); Neutrophils Percent Auto 76.5 % (45.5-73.1); Platelet Count Result 195 k/mm3 (150-375); Red Blood Count 4.86 M/mm3 (4.2-5.4); Red Cell Distribution Width 12.7 % (11.5-14.5); White Blood Count 10.3 K/mm3 (4.5-10.0)
--- NOTE | 2021-02-13 19:14 | PC.NURSE ---
Patient admitted from [facility] at 18:16. Patient was unkempt and disoriented with slurred speech. Seizure precautions were initiated as well as vital signs and a blood glucose.
[2021-02-13 19:18] LABS: Alanine Aminotransferase 40 U/L (4-35); Albumin Level 3.8 g/dL (3.5-5.1); Alkaline Phosphatase 82 U/L (38-126); Anion Gap 5 mmol/L (8-16); Aspartate Amino Transferase 89 U/L (14-36); Bilirubin,Total 0.6 mg/dL (0.2-1.3); Blood Urea Nitrogen 48 mg/dL (7-17); Carbon Dioxide 31 mmol/L (22-30); Chloride 103 mmol/L (98-107); Creatine Kinase 882 U/L (30-135); Estimated Glomerular Filt Rate > 60; Glucose 206 mg/dL (65-110); Magnesium 1.9 mg/dL (1.6-2.3); Potassium 3.7 mmol/L (3.4-5.0); Sodium 139 mmol/L (137-145)
[2021-02-13 19:20] LABS: Ammonia < 9 umol/L (9-30)
[2021-02-13 19:34] VITALS: BP 103/55; PULSE 63; RESP 18; TEMP 36.8; O2SAT 99
[2021-02-13 20:00] VITALS: PULSE 63; O2SAT 100
[2021-02-13] MEDS: SODIUM CHLORIDE 0.45% 1,000 ML 100 ML IV CONT (20:37)
[2021-02-13 21:22] LABS: Free T4 Free Thyroxine Reflex 1.31 ng/dL (0.78-2.19)
[2021-02-13 21:49] LABS: Hemoglobin A1C 8.3 % (<5.7)
[2021-02-13 22:00] VITALS: PULSE 67
[2021-02-13 22:06] LABS: Troponin I 0.112 ng/mL (0.000-0.034)
[2021-02-13 22:29] LABS: Total Triiodothyronine (T3) 0.49 NG/ML (0.97-1.69)
[2021-02-13 22:33] VITALS: BMI 15.9
[2021-02-13 23:39] VITALS: BP 130/89; PULSE 79; RESP 20; TEMP 36.6; O2SAT 96
[2021-02-14] VITALS (21 sets, daily range): BP systolic 123–151; BP diastolic 57–70; PULSE 63–98; RESP 16–26; TEMP 36.3–36.8; O2SAT 68–100; BMI 18.0
[2021-02-14] MEDS: ALBUTEROL SULFATE NEB 2.5 MG/0.5 ML INH INHALATION (00:13)
[2021-02-14] MEDS: IPRATROPIUM BR 0.02% INH SOLN 0.5 MG/2.5 ML VIAL INHALATION (00:13)
[2021-02-14 01:07] LABS: Glucose Point of Care 163 mg/dl (65-105)
[2021-02-14 04:41] LABS: Hemoglobin 14.5 g/dL (12.0-15.0); Mean Corpuscular Hemoglobin 30.5 pg (26-34); Mean Corpuscular Volume 92.6 fl (80-100); Mean Platelet Volume 11.2 fl (7.4-10.4); Platelet Count Result 194 k/mm3 (150-375); Red Blood Count 4.75 M/mm3 (4.2-5.4); Red Cell Distribution Width 12.6 % (11.5-14.5); White Blood Count 8.2 K/mm3 (4.5-10.0)
[2021-02-14 04:53] LABS: Alanine Aminotransferase 39 U/L (4-35); Albumin Level 3.7 g/dL (3.5-5.1); Alkaline Phosphatase 78 U/L (38-126); Anion Gap 3 mmol/L (8-16); Aspartate Amino Transferase 73 U/L (14-36); Bilirubin,Total 0.5 mg/dL (0.2-1.3); Blood Urea Nitrogen 42 mg/dL (7-17); Calcium 8.9 mg/dL (8.4-10.2); Carbon Dioxide 33 mmol/L (22-30); Chloride 102 mmol/L (98-107); Cholesterol 139 mg/dL (0-200); Creatine Kinase 531 U/L (30-135); Estimated CRCL calculation 80 ml/min; Estimated Glomerular Filt Rate > 60; Glucose 151 mg/dL (65-110); HDL Direct 50 mg/dL; Potassium 3.6 mmol/L (3.4-5.0); Sodium 138 mmol/L (137-145); Triglycerides 138 mg/dL (<150)
[2021-02-14 05:03] LABS: LDL Cholesterol Direct 66 mg/dL
[2021-02-14 05:07] LABS: Troponin I 0.103 ng/mL (0.000-0.034)
[2021-02-14] MEDS: SODIUM CHLORIDE 0.9% IV 1,000 ML 100 ML IV CONT (06:38)
[2021-02-14] MEDS: ASPIRIN 81 MG ENTERIC TABLET PO (08:51)
[2021-02-14 09:46] LABS: Glucose Point of Care 116 mg/dl (65-105)
--- NOTE | 2021-02-14 11:05 | PM.IMPN ---
Progress Note: A&P Assessment and Plan (1) Encephalopathy: Code(s): G93.40 - Encephalopathy, unspecified Status: Acute Assessment and Plan: The patient presented to the emergency department at the [facility] [place] via [place] from home after she was found confused and disheveled at her home. She remains confused however some of this may very well be related to probable right parietal lobe infarction noted on brain CT. Last known normal was evening 02/10 from when anyone talked to her or when she last talked on the phone. Talked to Naseer Neurologist about starting Anticoagulation- He recommends ASA 81 mg daily and Lovenox 40 mg for DVT prophylaxis, then once patient is close to discharge will discontinue Lovenox and switch to Plavix for 6 weeks. Brain MRI, carotid Doppler ultrasounds which are pending Appreciate Neurology input. Bedside swallow was normal, regular diet and thin liquids. Initiate aspiration and fall precautions. Will Consult Speech for Aphasia and communication work up. Continue monitoring Neurochecks. (2) Cerebrovascular accident: Code(s): I63.9 - Cerebral infarction, unspecified Status: Acute Assessment and Plan: See encephalopathy (3) Elevated troponin: Code(s): R77.8 - Other specified abnormalities of plasma proteins Status: Acute Assessment and Plan: Elevated Troponins at 0.120- trending down to 0.103. Denies any chest pain. Telemetry showed NSR rate 66 bpm without any signs of arrhythmia. Compared EKG on arrival 02/13/21 to 05/23/19- showing short [place] interval, PAC couplets and ST-T wave abnormality consider ischemia I, II, III, AVR, AVL, AVF and V1-V6. Pending Echocardiogram results Will consult Cardiololgy to rule out acute cardiac issue. (4) Insulin dependent diabetes mellitus: Code(s): E11.9 - Type 2 diabetes mellitus without complications; Z79.4 - superintendent terminal (current) use of insulin Status: Chronic Assessment and Plan: She is a DM type 1 and son states she is Brittle with multiple issues with Hypoglycemia over the last few months with last episode 1-2 weeks ago with glucose of 34. HgbA1c 8.3%. Continue glucose checks ACHS. Initiate sliding scale insulin and hypoglycemic protocol. (5) Chronic respiratory failure with hypoxia, on home oxygen therapy: Code(s): J96.11 - Chronic respiratory failure with hypoxia; Z99.81 - Dependence on supplemental oxygen Status: Acute Assessment and Plan: She is at her baseline oxygen requirement with no evidence of COPD exacerbation. Son states the patient does still smoke and we will encourage smoking cessation when her mentation improves. (6) Hypertension: Code(s): I10 - Essential (primary) hypertension Status: Chronic Assessment and Plan: BP stable at this time while on IV fluids. Have not restarted home medications since the nurse has not finished her Med Rec. (7) Rhabdomyolysis: Code(s): M62.82 - Rhabdomyolysis Status: Acute Assessment and Plan: On exam she is dry with evidence of pre renal azotemia on labs thus she will be hydrated. CK was elevated >1000 and today with IV fluids improved to 531. Will decrease IV fluids at this time and monitor fluid status. Recheck CK in the AM. (8) Coronary artery disease: Code(s): I25.10 - Atherosclerotic heart disease of gal[place] coronary artery without angina pectoris Status: Chronic Assessment and Plan: Not complaining of Chest pain, but elevated troponins. Will talk to Cardiology about consultation. (9) Hypothyroidism: Code(s): E03.9 - Hypothyroidism, unspecified Status: Chronic Assessment and Plan: Continue levothyroxine (10) Tobacco abuse: Code(s): Z72.0 - Tobacco use Status: Acute (11) Elevated LFTs: Code(s): R79.89 - Other specified abnormal findings of blood chemistr
--- NOTE | 2021-02-14 14:00 | PCSTNOTE ---
Please refer to the Bedside Swallow Evaluation in the EMR. Please note, silent aspiration cannot be ruled out at bedside.
[2021-02-14 14:23] LABS: Glucose Point of Care 152 mg/dl (65-105)
[2021-02-14 18:07] LABS: Glucose Point of Care 154 mg/dl (65-105)
--- NOTE | 2021-02-14 18:36 | ECHO_ITS ---
Patient Info Name: Beatrice Espinoza Age: 55 years : 1965 Gender: Female Ht: 61 in Wt: 110 lbs BSA: 1.47 m2 HR: 68 bpm BP: 141 / 61 mmHg Heart Rhythm: Sinus Rhythm Exam Date: 02/14/2021 11:04 AM Exam Location: [facility] Pulmonary Patient Status: Inpatient Admit Date: 02/13/2021 Staff Ordering Physician: Zahraa Wood PA-C Grain Trader: Italo Vasquez RDCS, RT Attending Provider: Laura Trimble PA-C Referring Physician: Nina AVILA; Exam Type: CA echo doppler w bubble study Study Info Indications I63.219 - Cerebral infarction due to unspecified occlusion or stenosis of unspecified vertebral arteries Complete two-dimensional, color flow and Doppler transthoracic echocardiogram is performed. Strain analysis performed. Summary 1. Complete two-dimensional, color flow and Doppler transthoracic echocardiogram is performed. 2. Normal left and right ventricular systolic function. 3. No significant valvular abnormality. 4. 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 5. Evidence of color Doppler flow compatible with a shunt at the level of the atrial septum. 6. Agitated saline contrast positive for shunt. 7. Patent foramen ovale appears to be present based on the Doppler and saline contrast information. Left Ventricle Left ventricular chamber dimension is normal. Left ventricular systolic function is normal, estimated at 60-65%. The left ventricular diastolic function is normal. Right Ventricle Right ventricular chamber dimension is normal. Left Atria Left atrial chamber dimension is normal. Right Atria Right atrial chamber dimension is normal. Atrial Septum Suspected patent foramen ovale visualized by agitated saline imaging. Aortic Valve The aortic valve is normal. Pulmonic Valve The pulmonic valve is not well visualized. Mitral Valve The mitral valve has normal leaflets. Tricuspid Valve The tricuspid valve leaflets are normal. Pericardium/Pleural The pericardium appears normal. Aorta The aortic root size at the sinus of Valsalva is normal. Left Ventricular Outflow Tract Name Value Normal LVOT 2D LVOT Diameter 2.0 cm LVOT Doppler LVOT Peak Gradient 3 mmHg LVOT Mean Gradient 2 mmHg LVOT VTI 17 cm LVOT VTI/AV VTI Ratio 0.7 LVOT Stroke Volume 53 ml LVOT CO 3.3 l/min LVOT CI 2.3 l/min/m2 Mitral Valve Name Value Normal MV Doppler MV Decel [place] 495 cm/s2 MV PHT 45 ms MV Area (PHT) 4.9 cm2 4.0-5.0 MV Diastolic Function
[2021-02-14] MEDS: SODIUM CHLORIDE 0.9% IV 1,000 ML 50 ML IV CONT (18:37)
[2021-02-14] MEDS: SALINE 0.65% NAS SOLN 44 ML BTL 1 SPRAY NASAL (20:24)
[2021-02-14] MEDS: ATORVASTATIN 40 MG TABLET PO (20:24)
[2021-02-14] MEDS: DOCUSATE SODIUM 100 MG CAPSULE PO (20:24)
[2021-02-14] MEDS: clonazePAM (*CRX) 0.5 MG TABLET PO (20:29)
[2021-02-15] VITALS (18 sets, daily range): BP systolic 134–167; BP diastolic 63–80; PULSE 67–80; RESP 16–18; TEMP 36.3–36.8; O2SAT 92–100
[2021-02-15 00:08] LABS: Glucose Point of Care 257 mg/dl (65-105)
[2021-02-15 05:26] LABS: Basophils Percent Auto 0.3 % (0.2-1.2); Eosinophils Percent Auto 0.6 % (0-4.4); Hematocrit 38.5 % (37.0-47.0); Hemoglobin 12.7 g/dL (12.0-15.0); Immature Granulocyte Absolute 0.02 K/mm3 (0.00-0.031); Immature Granulocyte Percent A 0.3 % (0-0.5); Lymphocytes Absolute Auto 0.84 K/mm3 (0.9-3.2); Mean Corpuscular Volume 90.8 fl (80-100); Mean Platelet Volume 10.1 fl (7.4-10.4); Monocytes Absolute Auto 0.5 K/mm3 (0.1-0.6); Monocytes Percent Auto 8.2 % (2.6-8.5); Neutrophils Percent Auto 77.6 % (45.5-73.1); Platelet Count Result 166 k/mm3 (150-375); Red Blood Count 4.24 M/mm3 (4.2-5.4); Red Cell Distribution Width 12.2 % (11.5-14.5); White Blood Count 6.5 K/mm3 (4.5-10.0)
[2021-02-15 05:52] LABS: Alanine Aminotransferase 36 U/L (4-35); Albumin Level 2.9 g/dL (3.5-5.1); Alkaline Phosphatase 73 U/L (38-126); Anion Gap 3 mmol/L (8-16); Aspartate Amino Transferase 48 U/L (14-36); Bilirubin,Total 0.4 mg/dL (0.2-1.3); Blood Urea Nitrogen 20 mg/dL (7-17); Calcium 8.1 mg/dL (8.4-10.2); Carbon Dioxide 30 mmol/L (22-30); Chloride 108 mmol/L (98-107); Creatine Kinase 242 U/L (30-135); Estimated CRCL calculation 97 ml/min; Estimated Glomerular Filt Rate > 60; Glucose 225 mg/dL (65-110); Potassium 3.3 mmol/L (3.4-5.0); Sodium 141 mmol/L (137-145)
[2021-02-15] MEDS: LEVOTHYROXINE SODIUM 100 MCG TABLET PO (06:39)
[2021-02-15 07:14] LABS: Hepatitis B Surface Antigen Negative (Negative)
[2021-02-15 07:22] LABS: HAV RESULT Negative (Negative); Hepatitis B Core IgM Result Negative (Negative)
[2021-02-15 07:32] LABS: Hepatitis C Virus Antibody Negative (Negative)
[2021-02-15] MEDS: ASPIRIN 81 MG ENTERIC TABLET PO (08:17)
[2021-02-15] MEDS: ENOXAPARIN 40 MG/0.4 ML SYRINGE SUB-Q (08:17)
[2021-02-15] MEDS: DOCUSATE SODIUM 100 MG CAPSULE PO ×2 (08:17→20:40)
[2021-02-15] MEDS: ESCITALOPRAM OXALATE 10 MG TABLET PO (08:17)
--- NOTE | 2021-02-15 08:47 | PM.CNCAR ---
Assessment and Plan Assessment and plan (1) Rhabdomyolysis: Code(s): M62.82 - Rhabdomyolysis Status: Acute Assessment and Plan: 55-year-old female with past medical history of ? CAD; hypertension, type 1 diabetes mellitus, history of DKA, COPD with chronic respiratory failure on home oxygen, hypothyroidism, heavy tobacco abuse ; history of noncompliance. patient brought to hospital with altered mental status. She was found to have significantly elevated CK levels after being immobilized for an unknown duration of time . CK levels are trending downwards. She was also found to have minimal troponin elevation which is essentially flat and likely not related ACS . Patient does not have any ongoing symptoms of myocardial ischemia. Her echocardiogram showed normal LV systolic function; atrial septal aneurysm with right to left shunt. Patient's MRI shows old CVA. At this time, recommend antiplatelet treatment with either aspirin or clopidogrel. Patient's with atrial septal aneurysm with PFO are at higher risk for CVA. Her candidacy for percutaneous closure will need to be determined as an outpatient . She will also likely need outpatient CLINT for further delineation of the atrial septal defect , before consideration for any percutaneous closure. Patient was advised to follow up as an outpatient . Appointment will be made for her. (2) Insulin dependent diabetes mellitus: Code(s): E11.9 - Type 2 diabetes mellitus without complications; Z79.4 - residential (current) use of insulin Status: Chronic Assessment and Plan: Management as per primary team and Endocrinology. (3) Encephalopathy: Code(s): G93.40 - Encephalopathy, unspecified Status: Acute Assessment and Plan: Mental status has improved. (4) Cerebrovascular accident: Code(s): I63.9 - Cerebral infarction, unspecified Status: Acute Assessment and Plan: MRI shows old CVA. Incidental finding of atrial septal aneurysm with right to left shunt on echocardiogram. Management as an outpatient. (5) Chronic respiratory failure with hypoxia, on home oxygen therapy: Code(s): J96.11 - Chronic respiratory failure with hypoxia; Z99.81 - Dependence on supplemental oxygen Status: Acute Assessment and Plan: Supplemental oxygen. Smoking cessation. (6) Tobacco abuse: Code(s): Z72.0 - Tobacco use Status: Acute Assessment and Plan: Patient states that she has recently quit tobacco. She was advised to continue to abstain from smoking. History of Present Illness History of Present Illness Consult date/time: 02/15/21 08:47 DATE OF CONSULT: 02/15/2021 REASON FOR CONSULT: Elevated troponin, EKG changes, CVA REQUESTING PHYSICIAN:Laura Trimble PA-C CHIEF COMPLAINT: Brought with altered mental status HPI: 55-year-old female with past medical history of ? CAD; hypertension, type 1 diabetes mellitus, history of DKA, COPD with chronic respiratory failure on home oxygen, hypothyroidism, heavy tobacco abuse ; history of noncompliance. Patient was transferred from [facility] to [facility] on 02/13/2021 after she was found at home barely responsive by police who were called to check on her dogs. Her blood sugar at the scene was reportedly 68. She was reported to be disheveled, incontinent of stool, and minimally responsive. her mental status during hospitalization has improved. On evaluation today, patient was sitting upright in the chair. She denied any ongoing chest pain or shortness of breath at rest. At baseline, patient states that she gets short of breath with mild activity. She states that she is on 4 L of oxygen at home. She has not had regular follow-up with her physicians as an outpatient. She was last seen by me in April 2017 when she presented with chest pain. At that time, she had MPI which was negative for ischemia. Brain MRI flakita
[2021-02-15 09:32] LABS: Glucose Point of Care 200 mg/dl (65-105)
--- NOTE | 2021-02-15 10:56 | PCDIET ---
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 Nutrition Goal: Patient to meet estimated nutritional needs. Consult received. Goal in progress. Diet has advanced to regular, diabetic, with thin liquids. 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 Patient only eating small amounts of food here. Does not care for it and believes everything provided is low fat. 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 Agreeable to try peanut butter and jelly sandwich for lunch. Refuses all oral supplements and is not agreeable to try. Patient declined education at this time. Says she controls blood sugars on her own . Discussed that HgbA1C of 8.3% indicates blood glucose levels have been running higher than desirable. Last recorded weight is 47.6 kg which is stable with last review. Bowel Motility: No documented BM as of yet. Labs Reviewed: Glu (225), BUN (20), Cr (0.4), K (3.3), Alb (2.9), Oriana Ca (8.98) Meds Noted: Lipitor, Symbicort, Rocephin, Klonopin, Novolog, Colace, Synthroid, NS at 50mL/hr Additional Notes: Right lower eye with abrasion but no pressure sores documented. Will continue to monitor with same goal. Nutrition Monitoring and Evaluation: Follow up every 3 days.
[2021-02-15] MEDS: INSULIN ASPART (*BKC) 100 UNITS/ML SUB-Q ×2 (12:29→16:29)
[2021-02-15 13:11] LABS: Glucose Point of Care 249 mg/dl (65-105)
[2021-02-15] MEDS: POTASSIUM CHLORIDE 20 MEQ TABLET 40 MEQ PO (14:18)
--- NOTE | 2021-02-15 15:04 | PM.IMPN ---
Progress Note: A&P Assessment and Plan (1) Encephalopathy: Code(s): G93.40 - Encephalopathy, unspecified Status: Acute Assessment and Plan: The patient presented to the emergency department at the [facility] via EMS from home after she was found confused and disheveled at her home. She remains confused however is improving. Was originally thought to be related to probable right parietal lobe infarction noted on brain CT, however brain MRI shows the followin. Old lacunar infarct in left thalamus. 2. Mild nonspecific cerebral white matter disease, which likely represents chronic small vessel ischemic disease. 3. Diffuse pachymeningeal enhancement. This finding is most commonly secondary to prior lumbar puncture or spine surgery and may persist for years. Less common etiologies include meningitis or intracranial hypotension. Dr. Mcdaniels Neurologist was consulted yesterday and recommended starting Anticoagulation- He recommends ASA 81 mg daily and Lovenox 40 mg for DVT prophylaxis, then once patient is close to discharge will discontinue Lovenox and switch to Plavix for 6 weeks. Appreciate neuro recommendations pending brain MRI and persistent confusion. No signs of meningitis at this time. Carotid Doppler ultrasound negative Bedside swallow was normal, regular diet and thin liquids. Initiate aspiration and fall precautions. Will Consult Speech for Aphasia and communication work up. Continue monitoring Neurochecks. (2) Cerebrovascular accident: Code(s): I63.9 - Cerebral infarction, unspecified Status: Acute Assessment and Plan: See encephalopathy (3) Elevated troponin: Code(s): R77.8 - Other specified abnormalities of plasma proteins Status: Acute Assessment and Plan: Elevated Troponins at 0.120- trending down to 0.103. Denies any chest pain. Telemetry showed NSR rate 66 bpm without any signs of arrhythmia. Compared EKG on arrival 02/13/21 to 05/23/19- showing short ME interval, PAC couplets and ST-T wave abnormality consider ischemia I, II, III, AVR, AVL, AVF and V1-V6. Echocardiogram shows 1. Complete two-dimensional, color flow and Doppler transthoracic echocardiogram is performed. 2. Normal left and right ventricular systolic function. 3. No significant valvular abnormality. 4. 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 5. Evidence of color Doppler flow compatible with a shunt at the level of the atrial septum. 6. Agitated saline contrast positive for shunt. 7. Patent foramen ovale appears to be present based on the Doppler and saline contrast information. Cardiology Dr. Zarate recommends antiplatelet treatment with either aspirin or clopidogrel. Patient with atrial septal aneurysm with PFO are at higher risk for CVA. Her candidacy for percutaneous closure will need to be determined as an outpatient . She will also likely need outpatient CLINT for further delineation of the atrial septal defect , before consideration for any percutaneous closure. Patient was advised to follow up as an outpatient . Appointment will be made for her. (4) Insulin dependent diabetes mellitus: Code(s): E11.9 - Type 2 diabetes mellitus without complications; Z79.4 - half-way (current) use of insulin Status: Chronic Assessment and Plan: She is a DM type 1 and son states she is Brittle with multiple issues with Hypoglycemia over the last few months with last episode 1-2 weeks ago with glucose of 34. HgbA1c 8.3%. Continue glucose checks ACHS. Initiate sliding scale insulin and hypoglycemic protocol. (5) Chronic respiratory failure with hypoxia, on home oxygen therapy: Code(s): J96.11 - Chronic respiratory failure with hypoxia; Z99.81 - Dependence on supplemental oxygen Status: Acute Assessment and Plan: She is at her baseline oxygen requirement with no evidence of CO
--- NOTE | 2021-02-15 16:32 | WPDNEURCNPN ---
Assessment and Plan Additional Plan considering the month medical problem with no acute pathology on the CT scan of the head except the subtle hypodensity of the right parietal lobe MRI of the brain will be obtained while her medical problems are being taken care, and on the anticoagulation therapy in the past which considering the echocardiogram was okay but again after the MRI of the brain further adjustment will be made Consult date: 02/15/21 Time Seen: 12:00 HPI: Beatrice Espinoza is a 55 year old female has been admitted to the [facility] through the emergency room for the complaints of possible stroke with elevated troponin. Patient carries the a dish in diagnosis of 1. COPD home oxygen dependent for the chronic respiratory failure 2. Hypothyroidism 3. Insulin-dependent diabetes mellitus she was directly admitted to IMU from the emergency room after she was found with an elevated troponin and findings suggestive of a right parietal lobe infarction on the CT scan of the brain. Additionally patient has been noted leak confused with expressive aphasia and was unable to provide any accurate history she was found minimally responsive in her home by the police were called to do a welfare check as her dogs were reportedly running around the neighborhood unsupervised EMS was summoned and on the arrival she had a glucose of 68 appeared disheveled and incontinent of stool she was noted to have abrasions and contusions on the right side of her face and she was sent for imaging face CT scan revealed no acute maxillofacial fracture however she was found to have hypodensity in the right parietal lobe suspicion for undetermined age is stroke or else infarction she was found to have negative chest x-ray negative drug screen on the urine she was transferred to the [facility] for the higher level of care. Additional history of arthritis coronary artery disease with [place] in 1999 requiring stent placement, anxiety with depression, hypertension, hypothyroidism, and insulin-dependent diabetes mellitus which has been complicated by the retinopathy, gastroparesis and most recent hemoglobin A1c of 8.3 she also has history of tobacco abuse , addition she has undergone arthroscopy of the right knee, medications particularly included atorvastatin 40 mg daily clonazepam 0.5 mg HS with the cited low prime 10 mg daily insulin lisinopril. Her most recent lab are stable though her blood sugar is running high toxicology was negative, serology was negative as well for hepatitis and starts COVID her MRI documented left thalamic old infarct, no nonspecific white matter disease with diffuse patchy and 100s min which was attributed to the previous lumbar puncture or spine surgery but also could be compatible with meningitis or intracranial hypotension, echocardiogram documented redundant aneurysmal segment of the mid interatrial septum and Doppler flow with a shunt at the level of atrial septum agitated saline contrast was positive for shunt findings suggestive of the patent foramen ovale, Doppler study of the carotid with less than 50% stenosis Review of Systems Review of Systems: All systems reviewed & are unremarkable except as noted in HPI and below PMFSH Past Medical History Medical History Arthritis Chronic respiratory failure with hypoxia, on home oxygen therapy COPD with asthma Coronary artery disease Reported myocardial infarction in 1999 requiring stent. Depression with anxiety Hyperlipidemia Hypertension Hypothyroidism Insulin dependent diabetes mellitus Complicated by diabetic retinopathy and gastroparesis. Hemoglobin A1c was 8.3% on 02/13/2021. Tobacco abuse Surgical History Surgical History Status post arthroscopy of right knee Status post section Family History Family History Mother Family
[2021-02-15 17:13] LABS: Glucose Point of Care 288 mg/dl (65-105)
[2021-02-15 20:38] LABS: Glucose Point of Care 159 mg/dl (65-105)
[2021-02-15] MEDS: clonazePAM (*CRX) 0.5 MG TABLET PO (20:40)
[2021-02-15] MEDS: ATORVASTATIN 40 MG TABLET PO (20:40)
[2021-02-15] MEDS: INSULIN GLARGINE (*BKC) 100 UNITS/ML SUB-Q (20:40)
[2021-02-15] MEDS: lisinopriL 10 MG TABLET PO (20:40)
[2021-02-16] VITALS (14 sets, daily range): BP systolic 124–167; BP diastolic 67–90; PULSE 60–82; RESP 12–20; TEMP 36.4–37.1; O2SAT 91–100
[2021-02-16 05:17] LABS: Alanine Aminotransferase 31 U/L (4-35); Albumin Level 2.8 g/dL (3.5-5.1); Alkaline Phosphatase 72 U/L (38-126); Anion Gap 1 mmol/L (8-16); Aspartate Amino Transferase 38 U/L (14-36); Bilirubin,Total 0.4 mg/dL (0.2-1.3); Blood Urea Nitrogen 11 mg/dL (7-17); Calcium 8.1 mg/dL (8.4-10.2); Carbon Dioxide 31 mmol/L (22-30); Chloride 109 mmol/L (98-107); Creatine Kinase 153 U/L (30-135); Estimated CRCL calculation 124 ml/min; Estimated Glomerular Filt Rate > 60; Glucose 116 mg/dL (65-110); Potassium 3.7 mmol/L (3.4-5.0); Sodium 141 mmol/L (137-145)
[2021-02-16] MEDS: LEVOTHYROXINE SODIUM 100 MCG TABLET PO (05:53)
[2021-02-16 07:50] LABS: Glucose Point of Care 114 mg/dl (65-105)
[2021-02-16] MEDS: ESCITALOPRAM OXALATE 10 MG TABLET PO (08:15)
[2021-02-16] MEDS: ENOXAPARIN 40 MG/0.4 ML SYRINGE SUB-Q (08:15)
[2021-02-16] MEDS: ASPIRIN 81 MG ENTERIC TABLET PO (08:15)
[2021-02-16] MEDS: DOCUSATE SODIUM 100 MG CAPSULE PO ×2 (08:16→21:17)
[2021-02-16 09:02] LABS: Basophils Percent Auto 0.4 % (0.2-1.2); Eosinophils Absolute Auto 0.2 K/mm3 (0-0.3); Eosinophils Percent Auto 3.2 % (0-4.4); Hematocrit 41.5 % (37.0-47.0); Hemoglobin 13.8 g/dL (12.0-15.0); Immature Granulocyte Absolute 0.01 K/mm3 (0.00-0.031); Immature Granulocyte Percent A 0.2 % (0-0.5); Lymphocytes Absolute Auto 1.67 K/mm3 (0.9-3.2); Lymphocytes Percent Auto 35.6 % (18.3-44.2); Mean Corpuscular HGB Conc 33.3 g/dl (32-36); Mean Corpuscular Hemoglobin 30.5 pg (26-34); Mean Corpuscular Volume 91.8 fl (80-100); Mean Platelet Volume 10.4 fl (7.4-10.4); Monocytes Absolute Auto 0.5 K/mm3 (0.1-0.6); Neutrophils Absolute Auto 2.4 K/mm3 (1.3-6.7); Neutrophils Percent Auto 50.6 % (45.5-73.1); Platelet Count Result 171 k/mm3 (150-375); Red Blood Count 4.52 M/mm3 (4.2-5.4); Red Cell Distribution Width 12.1 % (11.5-14.5); White Blood Count 4.7 K/mm3 (4.5-10.0)
[2021-02-16 09:16] LABS: Lactic Acid Reflex 0.6 mmol/L (0.7-2.1)
[2021-02-16 09:21] LABS: CRP < 0.5 mg/dL (<1.0)
[2021-02-16 09:28] LABS: Ammonia < 9 umol/L (9-30)
[2021-02-16 10:36] LABS: Alveolar/Arterial O2 Gradient 126.8 mmHg; Base Excess ABG 3.9 mEq/l (+/-2.0); Fractional Inspired Oxygen 32 %; HCO3 ABG 29.5 mEq/l (22.0-26.0); Oxygen Content ABG 17.5 %vol (16.0-22.0); PCO2 ABG 47.8 mmHg (35.0-45.0); PO2 FiO2 Ratio Arterial Blood 1.42 %; Total Hemoglobin 14.9 g/dL (12.0-18.0); pH ABG 7.408 (7.350-7.450)
[2021-02-16 10:39] LABS: Modified Allen's Test Pass; Oxygen Saturation ABG 81.3 % (95.0-100.0); PO2 ABG 45.4 mmHg (80.0-100.0); Site Drawn RIGHT RADIAL
[2021-02-16 10:40] LABS: Device NASAL CANNULA
[2021-02-16] MEDS: FOLIC ACID 0.4 MG TABLET PO ×2 (11:30→11:31)
[2021-02-16] MEDS: THIAMINE HCL 100 MG TABLET PO ×2 (11:30→11:31)
[2021-02-16 13:25] LABS: Glucose Point of Care 164 mg/dl (65-105)
[2021-02-16] MEDS: guaiFENesin 12 HR 600 MG TABCR PO ×2 (16:19→21:17)
--- NOTE | 2021-02-16 16:31 | PM.IMPN ---
Progress Note: A&P Assessment and Plan (1) Encephalopathy: Code(s): G93.40 - Encephalopathy, unspecified Status: Acute Assessment and Plan: The patient presented to the emergency department at the [facility] via EMS from home after she was found confused and disheveled at her home. She remains confused however is improving. Was originally thought to be related to probable right parietal lobe infarction noted on brain CT, however brain MRI shows the followin. Old lacunar infarct in left thalamus. 2. Mild nonspecific cerebral white matter disease, which likely represents chronic small vessel ischemic disease. 3. Diffuse pachymeningeal enhancement. This finding is most commonly secondary to prior lumbar puncture or spine surgery and may persist for years. Less common etiologies include meningitis or intracranial hypotension. Dr. Mcdaniels Neurologist was consulted yesterday and recommended starting Anticoagulation- He recommends ASA 81 mg daily and Lovenox 40 mg for DVT prophylaxis, then once patient is close to discharge will discontinue Lovenox and switch to Plavix for 6 weeks. Appreciate neuro recommendations pending brain MRI and persistent confusion. No signs of meningitis at this time. Carotid Doppler ultrasound negative Bedside swallow was normal, regular diet and thin liquids. Initiate aspiration and fall precautions. Will Consult Speech for Aphasia and communication work up. Continue monitoring Neurochecks. -Dr Mcdaniels neurology reiterates no acute CVA. He is not concerned with the MRI findings. States pt should continue asa and 6 weeks of plavix on discharge. -Pt w/ positive blood cultures. While infection could be source of confusion, seems less likely with no fever, tachycardia, or leukocytosis. CRP also WNL. Will recheck labs and draw new blood cultures to rule out contamination. She is retaining some CO2 w/ PCO2 of 47.8, however this appears chronic and thought less likely to be causing AMS. PO2 was 45 however respiratory thought there was some venous blood in the sample which could have skewed results. Pt denies sob, lungs CTA bilaterally. She is on 2-4L NC throughout the day, unclear what her baseline is as she is an unreliable historian. (2) Elevated troponin: Code(s): R77.8 - Other specified abnormalities of plasma proteins Status: Acute Assessment and Plan: Elevated Troponins at 0.120- trending down to 0.103. Denies any chest pain. Telemetry showed NSR rate 66 bpm without any signs of arrhythmia. Compared EKG on arrival 02/13/21 to 05/23/19- showing short CO interval, PAC couplets and ST-T wave abnormality consider ischemia I, II, III, AVR, AVL, AVF and V1-V6. Echocardiogram shows 1. Complete two-dimensional, color flow and Doppler transthoracic echocardiogram is performed. 2. Normal left and right ventricular systolic function. 3. No significant valvular abnormality. 4. 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 5. Evidence of color Doppler flow compatible with a shunt at the level of the atrial septum. 6. Agitated saline contrast positive for shunt. 7. Patent foramen ovale appears to be present based on the Doppler and saline contrast information. Cardiology Dr. Zarate recommends antiplatelet treatment with either aspirin or clopidogrel. Patient with atrial septal aneurysm with PFO are at higher risk for CVA. Her candidacy for percutaneous closure will need to be determined as an outpatient . She will also likely need outpatient CLINT for further delineation of the atrial septal defect , before consideration for any percutaneous closure. Patient was advised to follow up as an outpatient . Appointment will be made for her. (3) Insulin dependent diabetes mellitus: Code(s): E11.9 - Type 2 diabetes mellitus without complications; Z79.4 - [facility]PC (current) use of insulin Status: Chronic
[2021-02-16 16:52] LABS: Glucose Point of Care 263 mg/dl (65-105)
[2021-02-16] MEDS: INSULIN ASPART (*BKC) 100 UNITS/ML SUB-Q (17:45)
[2021-02-16 20:38] LABS: Glucose Point of Care 155 mg/dl (65-105)
[2021-02-16] MEDS: lisinopriL 10 MG TABLET PO (21:17)
[2021-02-16] MEDS: ATORVASTATIN 40 MG TABLET PO (21:17)
[2021-02-16] MEDS: clonazePAM (*CRX) 0.5 MG TABLET PO (21:17)
[2021-02-16] MEDS: INSULIN GLARGINE (*BKC) 100 UNITS/ML SUB-Q (21:18)
[2021-02-17] VITALS (21 sets, daily range): BP systolic 107–129; BP diastolic 49–73; PULSE 57–92; RESP 14–20; TEMP 36.5–37.1; O2SAT 85–100
[2021-02-17 05:06] LABS: Hematocrit 38.9 % (37.0-47.0); Hemoglobin 13.1 g/dL (12.0-15.0); Mean Corpuscular HGB Conc 33.7 g/dl (32-36); Mean Corpuscular Hemoglobin 30.5 pg (26-34); Mean Corpuscular Volume 90.7 fl (80-100); Mean Platelet Volume 10.1 fl (7.4-10.4); Platelet Count Result 157 k/mm3 (150-375); Red Blood Count 4.29 M/mm3 (4.2-5.4); Red Cell Distribution Width 12.3 % (11.5-14.5); White Blood Count 4.5 K/mm3 (4.5-10.0)
[2021-02-17 05:22] LABS: Lactic Acid Reflex 0.6 mmol/L (0.7-2.1)
[2021-02-17 05:22] LABS: Alveolar/Arterial O2 Gradient 82.1 mmHg; Base Excess ABG 6.5 mEq/l (+/-2.0); Fractional Inspired Oxygen 36 %; HCO3 ABG 32.4 mEq/l (22.0-26.0); Oxygen Saturation ABG 98.2 % (95.0-100.0); Oxyhemoglobin 97.3 % THb (90.0-100.0); PCO2 ABG 51.4 mmHg (35.0-45.0); PO2 FiO2 Ratio Arterial Blood 3.19 %; Site Drawn RIGHT RADIAL; Total Hemoglobin 13.8 g/dL (12.0-18.0); pH ABG 7.417 (7.350-7.450)
[2021-02-17 05:23] LABS: Device NASAL CANNULA; Modified Allen's Test Pass
[2021-02-17 05:42] LABS: Anion Gap -2 mmol/L (8-16); Blood Urea Nitrogen 12 mg/dL (7-17); Calcium 8.4 mg/dL (8.4-10.2); Carbon Dioxide 38 mmol/L (22-30); Chloride 105 mmol/L (98-107); Estimated CRCL calculation 97 ml/min; Estimated Glomerular Filt Rate > 60; Glucose 44 mg/dL (65-110); Potassium 3.7 mmol/L (3.4-5.0); Sodium 141 mmol/L (137-145)
[2021-02-17] MEDS: GLUCOSE ORAL GEL 15 GM OF GLUCSE IN 37.5 GM TUBE PO (05:49)
[2021-02-17] MEDS: LEVOTHYROXINE SODIUM 100 MCG TABLET PO (05:49)
[2021-02-17 06:14] LABS: Glucose Point of Care 91 mg/dl (65-105)
[2021-02-17 07:32] LABS: Rapid Plasma Reagin Non-Reactive (NonReactive)
[2021-02-17 08:51] LABS: Glucose Point of Care 219 mg/dl (65-105)
[2021-02-17] MEDS: ENOXAPARIN 40 MG/0.4 ML SYRINGE SUB-Q (09:04)
[2021-02-17] MEDS: ESCITALOPRAM OXALATE 10 MG TABLET PO (09:04)
[2021-02-17] MEDS: ASPIRIN 81 MG ENTERIC TABLET PO (09:04)
[2021-02-17] MEDS: THIAMINE HCL 100 MG TABLET PO (09:04)
[2021-02-17] MEDS: FOLIC ACID 0.4 MG TABLET PO (09:04)
[2021-02-17] MEDS: INSULIN ASPART (*BKC) 100 UNITS/ML SUB-Q (09:06)
--- NOTE | 2021-02-17 10:49 | PCDIET ---
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 Nutrition Goal: Patient to meet estimated nutritional needs. Goal in progress. Patient consumed average of 70% of recorded meals from 02/15/21, but professional nursing assistant reports patient only ate a bite or two at breakfast today. Patient responds to most questions with ew or gross and is not convinced we are sending her regular food (believes everything is low fat). Wants to go home now. Revisited supplements and patient stated she would try only if chocolate flavor. Recommend adding Glucerna Shake (220kcal, 10g protein) TID for now and continuing diabetic diet. Last recorded weight is 47.6 kg which is unchanged. Bowel Motility: Last documented BM on 02/14/21 x 1. Labs Reviewed: Cr (0.4) Meds Noted: Thiamine, Synthroid, Prinivil, Lipitor, Symbicort, Klonopin, Colace, Folic Acid, Novolog, Atrovent Additional Notes: Bruising/abrasion to face. No other documented skin breakdown. Will continue to monitor with same goal. Nutrition Monitoring and Evaluation: Follow up every 5 days.
--- NOTE | 2021-02-17 11:32 | PC.NURSE ---
On 02/17/21, the student, [Torie Maurer], provided care and completed [facility] documentation on this patient. I have reviewed the student's documentation and agree with the findings.
--- NOTE | 2021-02-17 11:48 | PCPTNOTE ---
Patient stated that she was feeling tired this morning and would want to try again later. Nursing stated that her blood sugar was low. Will check back with pt after lunch.
[2021-02-17 12:38] LABS: Glucose Point of Care 91 mg/dl (65-105)
--- NOTE | 2021-02-17 14:46 | PM.IMPN ---
Progress Note: A&P Assessment and Plan (1) Encephalopathy: Code(s): G93.40 - Encephalopathy, unspecified Status: Acute Assessment and Plan: The patient presented to the emergency department at the [facility] via EMS from home after she was found confused and disheveled at her home. She remains confused however is improving. Was originally thought to be related to probable right parietal lobe infarction noted on brain CT, however brain MRI shows the followin. Old lacunar infarct in left thalamus. 2. Mild nonspecific cerebral white matter disease, which likely represents chronic small vessel ischemic disease. 3. Diffuse pachymeningeal enhancement. This finding is most commonly secondary to prior lumbar puncture or spine surgery and may persist for years. Less common etiologies include meningitis or intracranial hypotension. Dr. Mcdaniels Neurologist was consulted yesterday and recommended starting Anticoagulation- He recommends ASA 81 mg daily and Lovenox 40 mg for DVT prophylaxis, then once patient is close to discharge will discontinue Lovenox and switch to Plavix for 6 weeks. Appreciate neuro recommendations pending brain MRI and persistent confusion. No signs of meningitis at this time. Carotid Doppler ultrasound negative Bedside swallow was normal, regular diet and thin liquids. Initiate aspiration and fall precautions. Will Consult Speech for Aphasia and communication work up. Continue monitoring Neurochecks. -Dr Mcdaniels neurology reiterates no acute CVA. He is not concerned with the MRI findings. States pt should continue asa and 6 weeks of plavix on discharge. -Pt w/ positive blood cultures. While infection could be source of confusion, seems less likely with no fever, tachycardia, or leukocytosis. CRP also WNL. Will recheck labs and draw new blood cultures to rule out contamination. She is retaining some CO2 w/ PCO2 of 47.8, however this appears chronic and thought less likely to be causing AMS. PO2 was 45 however respiratory thought there was some venous blood in the sample which could have skewed results. Pt denies sob, lungs CTA bilaterally. She is on 2-4L NC throughout the day, unclear what her baseline is as she is an unreliable historian. 02/17/21 Repeat blood cultures preliminary report no growth. No fever, tachycardia, or leukocytosis. ABG chronic findings, stable from prior. Pt was noted to be hyperglycemic this morning at 44. Upon further chart review, she was also hypoglycemic on arrival to the ED at 66. She also saw her pcp in September and her Tresiba was increased by 8 units at that time. The following month October she saw him again and she reported her BS had dropped to 29 that morning but it looks as if her insulin dose was left the same. Pt could potentially be having recurrent hypoglycemic episodes overnight which could be contributing to her confusion. Will switch glucose monitoring to q4hr and stop Lantus. Continue to monitor glucose and mental status. (2) Elevated troponin: Code(s): R77.8 - Other specified abnormalities of plasma proteins Status: Acute Assessment and Plan: Elevated Troponins at 0.120- trending down to 0.103. Denies any chest pain. Telemetry showed NSR rate 66 bpm without any signs of arrhythmia. Compared EKG on arrival 02/13/21 to 05/23/19- showing short VT interval, PAC couplets and ST-T wave abnormality consider ischemia I, II, III, AVR, AVL, AVF and V1-V6. Echocardiogram shows 1. Complete two-dimensional, color flow and Doppler transthoracic echocardiogram is performed. 2. Normal left and right ventricular systolic function. 3. No significant valvular abnormality. 4. 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 5. Evidence of color Doppler flow compatible with a shunt at the level of the atrial septum. 6. Agitated saline contrast positive for shunt. 7. Patent foramen ovale appear
[2021-02-17 16:25] LABS: Glucose Point of Care 84 mg/dl (65-105)
[2021-02-17] MEDS: ATORVASTATIN 40 MG TABLET PO (20:34)
[2021-02-17] MEDS: DOCUSATE SODIUM 100 MG CAPSULE PO (20:34)
[2021-02-17] MEDS: clonazePAM (*CRX) 0.5 MG TABLET PO (20:34)
[2021-02-17] MEDS: lisinopriL 10 MG TABLET PO (20:35)
[2021-02-17] MEDS: SODIUM CHLORIDE NASAL GEL 14.1 GM 1 APPLIC NASAL (20:35)
[2021-02-17] MEDS: guaiFENesin 12 HR 600 MG TABCR PO (20:35)
[2021-02-18] VITALS (21 sets, daily range): BP systolic 109–141; BP diastolic 61–72; PULSE 61–79; RESP 16–24; TEMP 36.1–36.7; O2SAT 91–100
[2021-02-18] LABS: Glucose Point of Care 285 mg/dl (65-105)
[2021-02-18 00:20] LABS: Glucose Point of Care 336 mg/dl (65-105)
[2021-02-18 04:37] LABS: Glucose Point of Care 292 mg/dl (65-105)
[2021-02-18 05:03] LABS: Alveolar/Arterial O2 Gradient 79.8 mmHg; Base Excess ABG 6.4 mEq/l (+/-2.0); Fractional Inspired Oxygen 28 %; HCO3 ABG 32.8 mEq/l (22.0-26.0); Oxygen Content ABG 17.1 %vol (16.0-22.0); Oxygen Saturation ABG 88.3 % (95.0-100.0); Oxyhemoglobin 88.8 % THb (90.0-100.0); PCO2 ABG 54.5 mmHg (35.0-45.0); PO2 ABG 55.5 mmHg (80.0-100.0); PO2 FiO2 Ratio Arterial Blood 1.98 %; Total Hemoglobin 13.7 g/dL (12.0-18.0); pH ABG 7.397 (7.350-7.450)
[2021-02-18 05:04] LABS: Device NASAL CANNULA; Modified Allen's Test Pass; Site Drawn RIGHT RADIAL
[2021-02-18 05:32] LABS: Hemoglobin 12.9 g/dL (12.0-15.0); Mean Corpuscular HGB Conc 33.1 g/dl (32-36); Mean Corpuscular Hemoglobin 31.3 pg (26-34); Mean Corpuscular Volume 94.7 fl (80-100); Mean Platelet Volume 11.1 fl (7.4-10.4); Platelet Count Result 134 k/mm3 (150-375); Red Blood Count 4.12 M/mm3 (4.2-5.4); Red Cell Distribution Width 12.2 % (11.5-14.5); White Blood Count 5.1 K/mm3 (4.5-10.0)
[2021-02-18 05:48] LABS: Anion Gap 1 mmol/L (8-16); Blood Urea Nitrogen 15 mg/dL (7-17); Calcium 8.3 mg/dL (8.4-10.2); Carbon Dioxide 35 mmol/L (22-30); Chloride 101 mmol/L (98-107); Estimated CRCL calculation 89 ml/min; Estimated Glomerular Filt Rate > 60; Glucose 304 mg/dL (65-110); Potassium 4.1 mmol/L (3.4-5.0); Sodium 137 mmol/L (137-145)
[2021-02-18] MEDS: LEVOTHYROXINE SODIUM 100 MCG TABLET PO (06:27)
[2021-02-18 07:21] LABS: Add Urine Microscopic? YES; Appearance Urine Cloudy (Clear); Bilirubin Urine Negative (Negative); Blood Urine 1+ (Negative); Color Urine Yellow (Yellow); Glucose Urine UA 3+ mg/dL (Negative); Ketones Urine Trace mg/dL (Negative); Leukocyte Esterase Ur Negative LEU/UL (Negative); Mucus Urine Rare /lpf; Nitrate Urine Negative (Negative); Protein Urine Negative (Negative); RBC Urine 21-50 /hpf (0-2); Specific Grav Ur 1.027 (1.001-1.035); Squamous Epithelial Cell Urine Rare /hpf (Few); Urobilinogen Urine Negative mg/dL (<2.0)
[2021-02-18 07:52] LABS: Glucose Point of Care 314 mg/dl (65-105)
[2021-02-18] MEDS: INSULIN ASPART (*BKC) 100 UNITS/ML SUB-Q ×2 (08:45→18:17)
[2021-02-18] MEDS: ASPIRIN 81 MG ENTERIC TABLET PO (08:46)
[2021-02-18] MEDS: ENOXAPARIN 40 MG/0.4 ML SYRINGE SUB-Q (08:47)
[2021-02-18] MEDS: THIAMINE HCL 100 MG TABLET PO (08:47)
[2021-02-18] MEDS: ESCITALOPRAM OXALATE 10 MG TABLET PO (08:47)
[2021-02-18] MEDS: guaiFENesin 12 HR 600 MG TABCR PO ×2 (08:47→21:41)
[2021-02-18] MEDS: FOLIC ACID 0.4 MG TABLET PO (08:47)
[2021-02-18] MEDS: DOCUSATE SODIUM 100 MG CAPSULE PO ×2 (08:47→21:41)
--- NOTE | 2021-02-18 11:30 | PM.IMPN ---
Progress Note: A&P Assessment and Plan (1) Encephalopathy: Code(s): G93.40 - Encephalopathy, unspecified Status: Acute Assessment and Plan: The patient presented to the emergency department at the [facility] via EMS from home after she was found confused and disheveled at her home. She remains confused however is improving. Was originally thought to be related to probable right parietal lobe infarction noted on brain CT, however brain MRI shows the followin. Old lacunar infarct in left thalamus. 2. Mild nonspecific cerebral white matter disease, which likely represents chronic small vessel ischemic disease. 3. Diffuse pachymeningeal enhancement. This finding is most commonly secondary to prior lumbar puncture or spine surgery and may persist for years. Less common etiologies include meningitis or intracranial hypotension. Dr. Mcdaniels Neurologist was consulted yesterday and recommended starting Anticoagulation- He recommends ASA 81 mg daily and Lovenox 40 mg for DVT prophylaxis, then once patient is close to discharge will discontinue Lovenox and switch to Plavix for 6 weeks. Appreciate neuro recommendations pending brain MRI and persistent confusion. No signs of meningitis at this time. Carotid Doppler ultrasound negative Bedside swallow was normal, regular diet and thin liquids. Initiate aspiration and fall precautions. Will Consult Speech for Aphasia and communication work up. Continue monitoring Neurochecks. -Dr Mcdaniels neurology reiterates no acute CVA. He is not concerned with the MRI findings. States pt should continue asa and 6 weeks of plavix on discharge. -Pt w/ positive blood cultures. While infection could be source of confusion, seems less likely with no fever, tachycardia, or leukocytosis. CRP also WNL. Will recheck labs and draw new blood cultures to rule out contamination. She is retaining some CO2 w/ PCO2 of 47.8, however this appears chronic and thought less likely to be causing AMS. PO2 was 45 however respiratory thought there was some venous blood in the sample which could have skewed results. Pt denies sob, lungs CTA bilaterally. She is on 2-4L NC throughout the day, unclear what her baseline is as she is an unreliable historian. 02/17/21 Repeat blood cultures preliminary report no growth. No fever, tachycardia, or leukocytosis. ABG chronic findings, stable from prior. Pt was noted to be hyperglycemic this morning at 44. Upon further chart review, she was also hypoglycemic on arrival to the ED at 66. She also saw her pcp in September and her Tresiba was increased by 8 units at that time. The following month October she saw him again and she reported her BS had dropped to 29 that morning but it looks as if her insulin dose was left the same. Pt could potentially be having recurrent hypoglycemic episodes overnight which could be contributing to her confusion. Will switch glucose monitoring to q4hr and stop Lantus. Continue to monitor glucose and mental status. 02/18/21 Slightly less confused today, A/Ox2. Demanding to go home today. Her blood sugar did not drop below 84 last night after stopping her Lantus. I had an at length conversation this morning with Tierakrishna Montgomery, the patient's sister, who said this has happened many times over the years to Ms. Espinoza. She apparently has been having intermittent hypoglycemic episodes for many years and that at times she can be confused for up to 1-2 weeks after having an episode. She further notes that whenever this happens to this patient they call her confuzzled. The patient used to live with sister x7 years at which time her sister would monitor her medications and check her blood sugar every 4 hours. Approximately 1 year ago patient went to live alone after her and since that time her sister will facetime video chat her most days to make sure she is taking her medications appropriately. Sister further states th
[2021-02-18 11:57] LABS: Glucose Point of Care 166 mg/dl (65-105)
--- NOTE | 2021-02-18 15:56 | PC.NURSE ---
Addendum entered by Abbey Louis RN 02/18/21 16:16: Entered in error under wrong patient. Original Note: [id number] message left for JONES Borjas to telephone MICHELE Potter. Telephoned to notify of 7 beat run of V-Tach with rolling to left side.
[2021-02-18 16:30] LABS: Glucose Point of Care 309 mg/dl (65-105)
[2021-02-18 20:27] LABS: Glucose Point of Care 205 mg/dl (65-105)
[2021-02-18] MEDS: clonazePAM (*CRX) 0.5 MG TABLET PO (21:41)
[2021-02-18] MEDS: ATORVASTATIN 40 MG TABLET PO (21:41)
[2021-02-18] MEDS: lisinopriL 10 MG TABLET PO (21:42)
[2021-02-18] MEDS: SODIUM CHLORIDE NASAL GEL 14.1 GM 1 APPLIC NASAL (21:42)
[2021-02-19] VITALS (18 sets, daily range): BP systolic 105–142; BP diastolic 58–69; PULSE 56–97; RESP 16–23; TEMP 36.4–37.6; O2SAT 88–98
[2021-02-19 00:56] LABS: Glucose Point of Care 191 mg/dl (65-105)
[2021-02-19 04:44] LABS: Glucose Point of Care 221 mg/dl (65-105)
[2021-02-19 05:27] LABS: Alveolar/Arterial O2 Gradient 102.7 mmHg; Base Excess ABG 5.4 mEq/l (+/-2.0); Device OTHER DEVICE; Fractional Inspired Oxygen 32 %; Oxygen Content ABG 16.8 %vol (16.0-22.0); Oxygen Saturation ABG 93.4 % (95.0-100.0); Oxyhemoglobin 92.7 % THb (90.0-100.0); PCO2 ABG 49.6 mmHg (35.0-45.0); PO2 ABG 67.4 mmHg (80.0-100.0); PO2 FiO2 Ratio Arterial Blood 2.11 %; Site Drawn LEFT BRACHIAL; Total Hemoglobin 12.9 g/dL (12.0-18.0); pH ABG 7.414 (7.350-7.450)
[2021-02-19] MEDS: LEVOTHYROXINE SODIUM 100 MCG TABLET PO (06:40)
[2021-02-19 06:48] LABS: Hematocrit 37.3 % (37.0-47.0); Hemoglobin 12.3 g/dL (12.0-15.0); Immature Platelet Fraction Pct 5.2 % (0.9-11.2); Mean Corpuscular Hemoglobin 31.1 pg (26-34); Mean Corpuscular Volume 94.4 fl (80-100); Mean Platelet Volume 10.9 fl (7.4-10.4); Platelet Count Result 139 k/mm3 (150-375); Red Blood Count 3.95 M/mm3 (4.2-5.4)
[2021-02-19 07:01] LABS: Anion Gap -1 mmol/L (8-16); Blood Urea Nitrogen 15 mg/dL (7-17); Calcium 8.2 mg/dL (8.4-10.2); Carbon Dioxide 36 mmol/L (22-30); Chloride 101 mmol/L (98-107); Estimated CRCL calculation 111 ml/min; Estimated Glomerular Filt Rate > 60; Glucose 250 mg/dL (65-110); Potassium 4.2 mmol/L (3.4-5.0); Sodium 136 mmol/L (137-145)
[2021-02-19 08:24] LABS: Glucose Point of Care 256 mg/dl (65-105)
--- NOTE | 2021-02-19 09:01 | P.PNIM_ITS ---
Progress Note: A&P Assessment and Plan (1) Encephalopathy: Code(s): G93.40 - Encephalopathy, unspecified Status: Acute Assessment and Plan: The patient presented to the emergency department at the [facility] via EMS from home after she was found confused and disheveled at her home. * She remains confused however is improving. Was originally thought to be related to probable right parietal lobe infarction noted on brain CT, however brain MRI shows the followin. Old lacunar infarct in left thalamus. 2. Mild nonspecific cerebral white matter disease, which likely represents chronic small vessel ischemic disease. 3. Diffuse pachymeningeal enhancement. This finding is most commonly secondary to prior lumbar puncture or spine surgery and may persist for years. Less common etiologies include meningitis or intracranial hypotension. * Dr. Mcdaniels Neurologist was consulted yesterday and recommended starting Anticoagulation- He recommends ASA 81 mg daily and Lovenox 40 mg for DVT prophylaxis, then once patient is close to discharge will discontinue Lovenox and switch to Plavix for 6 weeks. Appreciate neuro recommendations pending brain MRI and persistent confusion. No signs of meningitis at this time. * Carotid Doppler ultrasound negative * Bedside swallow was normal, regular diet and thin liquids. Initiate aspiration and fall precautions. * Will Consult Speech for Aphasia and communication work up. * Continue monitoring Neurochecks. -Dr Mcdaniels neurology reiterates no acute CVA. He is not concerned with the MRI findings. States pt should continue asa and 6 weeks of plavix on discharge. -Pt w/ positive blood cultures. While infection could be source of confusion, seems less likely with no fever, tachycardia, or leukocytosis. CRP also WNL. Will recheck labs and draw new blood cultures to rule out contamination. She is retaining some CO2 w/ PCO2 of 47.8, however this appears chronic and thought less likely to be causing AMS. PO2 was 45 however respiratory thought there was some venous blood in the sample which could have skewed results. Pt denies sob, lungs CTA bilaterally. She is on 2-4L NC throughout the day, unclear what her baseline is as she is an unreliable historian. 02/17/21 Repeat blood cultures preliminary report no growth. No fever, tachycardia, or leukocytosis. ABG chronic findings, stable from prior. Pt was noted to be hy perglycemic this morning at 44. Upon further chart review, she was also hypoglycemic on arrival to the ED at 66. She also saw her pcp in September and her Tresiba was increased by 8 units at that time. The following month October she saw him again and she reported her BS had dropped to 29 that morning but it looks as if her insulin dose was left the same. Pt could potentially be having recurrent hypoglycemic episodes overnight which could be contributing to her confusion. Will switch glucose monitoring to q4hr and stop Lantus. Continue to monitor glucose and mental status. 02/18/21 Slightly less confused today, A/Ox2. Demanding to go home today. Her blood sugar did not drop below 84 last night after stopping her Lantus. I had an at length conversation this morning with Tiera Montgomery, the patient's sister, who said this has happened many times over the years to Ms. Espinoza. She apparently has been having intermittent hypoglycemic episodes for many years and that at times she can be confused for up to 1-2 weeks after having an episode. She further notes that whenever this happens to this patient they call her confuzzled. The patient used to live with sister x7 years at which time her sister would monitor her medicat
[2021-02-19] MEDS: DOCUSATE SODIUM 100 MG CAPSULE PO ×2 (09:23→19:42)
[2021-02-19] MEDS: ASPIRIN 81 MG ENTERIC TABLET PO (09:24)
[2021-02-19] MEDS: ESCITALOPRAM OXALATE 10 MG TABLET PO (09:24)
[2021-02-19] MEDS: THIAMINE HCL 100 MG TABLET PO (09:24)
[2021-02-19] MEDS: ENOXAPARIN 40 MG/0.4 ML SYRINGE SUB-Q (09:24)
[2021-02-19] MEDS: guaiFENesin 12 HR 600 MG TABCR PO ×2 (09:24→19:43)
[2021-02-19] MEDS: FOLIC ACID 0.4 MG TABLET PO (09:25)
[2021-02-19] MEDS: INSULIN ASPART (*BKC) 100 UNITS/ML SUB-Q ×2 (09:30→18:42)
[2021-02-19 12:16] LABS: Glucose Point of Care 206 mg/dl (65-105)
--- NOTE | 2021-02-19 18:05 | PC.NURSE ---
This patient, Beatrice Espinoza, was received from [ ] on 02/19/21 at 1805. Patient/family oriented to unit policies and routines
[2021-02-19 18:10] LABS: Glucose Point of Care 275 mg/dl (65-105)
--- NOTE | 2021-02-19 18:31 | PCDIET ---
This patient, Beatrice Espinoza, was transferred to [[facility] ] on 02/19/21 at 1747. Personal belongings sent with patient. Report given to [Alvina ]. Appropriate documentation sent with patient.
[2021-02-19] MEDS: clonazePAM (*CRX) 0.5 MG TABLET PO (19:41)
[2021-02-19] MEDS: ATORVASTATIN 40 MG TABLET PO (19:42)
[2021-02-19] MEDS: lisinopriL 10 MG TABLET PO (19:43)
[2021-02-19] MEDS: SODIUM CHLORIDE NASAL GEL 14.1 GM 1 APPLIC NASAL (19:43)
[2021-02-19 23:57] LABS: Glucose Point of Care 170 mg/dl (65-105)
[2021-02-20 05:21] VITALS: BP 139/80; PULSE 76; RESP 16; TEMP 36.4; O2SAT 95
[2021-02-20] MEDS: LEVOTHYROXINE SODIUM 100 MCG TABLET PO (06:40)
[2021-02-20 08:00] VITALS: O2SAT 93
[2021-02-20 08:06] VITALS: O2SAT 93
[2021-02-20 08:12] LABS: Glucose Point of Care 236 mg/dl (65-105)
[2021-02-20] MEDS: INSULIN ASPART (*BKC) 100 UNITS/ML SUB-Q (08:27)
[2021-02-20] MEDS: guaiFENesin 12 HR 600 MG TABCR PO (08:28)
[2021-02-20] MEDS: ESCITALOPRAM OXALATE 10 MG TABLET PO (08:28)
[2021-02-20] MEDS: ASPIRIN 81 MG ENTERIC TABLET PO (08:28)
[2021-02-20] MEDS: DOCUSATE SODIUM 100 MG CAPSULE PO (08:28)
[2021-02-20] MEDS: THIAMINE HCL 100 MG TABLET PO (08:28)
[2021-02-20] MEDS: FOLIC ACID 0.4 MG TABLET PO (08:28)
[2021-02-20] MEDS: ENOXAPARIN 40 MG/0.4 ML SYRINGE SUB-Q (08:29)
--- NOTE | 2021-02-20 10:41 | PM.DS ---
DS: Admitting Diagnosis Discharge Date 02/20/21 Admitting Diagnosis acute metabolic encephalopathy DS: Discharge Diagnosis Discharge Diagnosis (1) Encephalopathy: Code(s): G93.40 - Encephalopathy, unspecified Status: Acute Assessment and Plan: The patient presented to the emergency department at the [facility] via EMS from home after she was found confused and disheveled at her home. She remains confused however is improving. Was originally thought to be related to probable acute right parietal lobe infarction noted on brain CT, however brain MRI shows the followin. Old lacunar infarct in left thalamus. 2. Mild nonspecific cerebral white matter disease, which likely represents chronic small vessel ischemic disease. 3. Diffuse pachymeningeal enhancement. This finding is most commonly secondary to prior lumbar puncture or spine surgery and may persist for years. Less common etiologies include meningitis or intracranial hypotension. Dr. Mcdaniels Neurologist was consulted yesterday and recommended starting Anticoagulation- He recommends ASA 81 mg daily and Lovenox 40 mg for DVT prophylaxis, then once patient is close to discharge will discontinue Lovenox and switch to Plavix for 6 weeks. Appreciate neuro recommendations pending brain MRI and persistent confusion. No signs of meningitis at this time. Carotid Doppler ultrasound negative Bedside swallow was normal, regular diet and thin liquids. Initiate aspiration and fall precautions. Will Consult Speech for Aphasia and communication work up. Continue monitoring Neurochecks. -Dr Mcdaniels neurology reiterates no acute CVA. MRI with OLD lacunar infarct left thalamus. He is not concerned with the MRI findings. States pt should continue asa and 6 weeks of plavix on discharge. -Pt w/ positive blood cultures. While infection could be source of confusion, seems less likely with no fever, tachycardia, or leukocytosis. CRP also WNL. Will recheck labs and draw new blood cultures to rule out contamination. She is retaining some CO2 w/ PCO2 of 47.8, however this appears chronic and thought less likely to be causing AMS. PO2 was 45 however respiratory thought there was some venous blood in the sample which could have skewed results. Pt denies sob, lungs CTA bilaterally. She is on 2-4L NC throughout the day, unclear what her baseline is as she is an unreliable historian. 02/17/21 Repeat blood cultures preliminary report no growth. No fever, tachycardia, or leukocytosis. ABG chronic findings, stable from prior. Pt was noted to be hypoglycemic this morning at 44. Upon further chart review, she was also hypoglycemic on arrival to the ED at 66. She also saw her pcp in September and her Tresiba was increased by 8 units at that time. The following month October she saw him again and she reported her BS had dropped to 29 that morning but it looks as if her insulin dose was left the same. Pt could potentially be having recurrent hypoglycemic episodes overnight which could be contributing to her confusion. Will switch glucose monitoring to q4hr and stop Lantus. Continue to monitor glucose and mental status. 02/18/21 Slightly less confused today, A/Ox2. Demanding to go home today. Her blood sugar did not drop below 84 last night after stopping her Lantus. I had an at length conversation this morning with Tiera Montgomery, the patient's sister, who said this has happened many times over the years to Ms. Espinoza. She apparently has been having intermittent hypoglycemic episodes for many years and that at times she can be confused for up to 1-2 weeks after having an episode. She further notes that whenever this happens to this patient they call her confuzzled. The patient used to live with sister x7 years at which time her sister would monitor her medications and check her blood sugar every 4 hours. Approximately 1 year ago patient went to live alone after her
[2021-02-20 11:40] VITALS: PULSE 77; O2SAT 95
[2021-02-20 12:00] LABS: Glucose Point of Care 161 mg/dl (65-105)
[2021-02-20 12:02] VITALS: PULSE 76; O2SAT 92
[2021-02-20 12:04] VITALS: PULSE 75; O2SAT 94
== END 2021-02-20 14:45 | disposition home health service (06) | DRG 638 ==
LOC: ANHIMU 02-15 11:40 → ANH2MED 02-20 11:38 → ANHIMU 02-23 12:35
PROVIDERS: Internal Medicine; Physician Assistant; Admitting Provider Internal Medicine; PCP Internal Medicine; Visit Provider Physician Assistant
DX: E10.65 Type 1 diabetes mellitus with hyperglycemia (principal); J96.11 Chronic respiratory failure with hypoxia; M62.82 Rhabdomyolysis; R47.01 Aphasia; R64 Cachexia; Z68.1 Body mass index [BMI] 19.9 or less, adult; E10.649 Type 1 diabetes mellitus with hypoglycemia without coma; E10.319 Type 1 diabetes mellitus with unspecified diabetic retinopathy without macular edema; R79.89 Other specified abnormal findings of blood chemistry; E03.9 Hypothyroidism, unspecified; I25.10 Atherosclerotic heart disease of native coronary artery without angina pectoris; I10 Essential (primary) hypertension; J44.9 Chronic obstructive pulmonary disease, unspecified; M19.90 Unspecified osteoarthritis, unspecified site; F41.8 Other specified anxiety disorders; E78.5 Hyperlipidemia, unspecified; F17.210 Nicotine dependence, cigarettes, uncomplicated; Z79.4 Long term (current) use of insulin; Z99.81 Dependence on supplemental oxygen; I25.2 Old myocardial infarction; S00.81XA Abrasion of other part of head, initial encounter; S00.83XA Contusion of other part of head, initial encounter; X58.XXXA Exposure to other specified factors, initial encounter; E10.43 Type 1 diabetes mellitus with diabetic autonomic (poly)neuropathy; K31.84 Gastroparesis
CPT/HCPCS: 36415; 36600; 70553; 80048; 80053; 80061; 80074; 81001; 82140; 82550; 82607; 82805; 82948; 83036; 83605; 83735; 84145; 84439; 84443; 84480; 84484; 85025; 85027; 85055; 86140; 86592; 87040; 87086; 92507; 92523; 92610; 93306; 93880; 94618; 94640; 96375; 97110; 97116; 97162; 97166; 97530; 97535; A9270; A9577; J0696; J1650; J1815; J7030

== ENCOUNTER 2021-02-21 16:46 | Inpatient (IN) | payer MEDICARE, SELFPAY ==
[2021-02-21] VITALS (18 sets, daily range): BP systolic 92–118; BP diastolic 54–69; PULSE 66–79; RESP 14–31; TEMP 37.1; O2SAT 94–100
--- NOTE | ~2021-02-21 | XR_ITS ---
EXAMINATION: XR barium swallow modified DATE: 02/22/2021 09:26 INDICATION: Possible aspiration pneumonia TECHNIQUE: Modified barium esophagram was performed by myself to administered fluoroscopy, in conjun ction with speech pathologist who administered barium in varying consistencies as per speech patholog ist documentation. This was recorded on tape. A single fluoroscopic spot image was recorded. The DAP for this procedure was 1.192 Gycm2. Fluoroscopy exposure time was 1.6 minutes. FINDINGS: Oral stage: Adequate function. Pharyngeal phase: Adequate function. Laryngeal penetration: None. Aspiration: None. Laryngeal sensitivity: Present. IMPRESSION: Normal modified barium swallow. Please refer to speech pathologist findings and specific feeding recommendations. Reviewed, dictated and finalized at location A.
--- NOTE | ~2021-02-21 | CT_ITS ---
EXAMINATION: CT BRAIN W/O DATE: 02/21/2021 18:52 INDICATION: Altered mental status TECHNIQUE: Computed tomography (CT) of the head was performed without intravenous contrast. The dose- length product was 605.33 mGy-cm. The mA was adjusted according to patient size. Iterative reconstruc tion technique was employed. COMPARISON: No prior studies for comparison. FINDINGS: Normal brain parenchymal volume for age. Normal dunn-white differentiation. No acute intrac ranial hemorrhage, infarction, mass or mass effect. There is an old fracture deformity of the left la ayaka papyracea. Small chronic right parietal hypodensity, likely old infarction. No ventriculomegaly or midline shift. Midline sagittal images demonstrate a normal corpus callosum, c raniovertebral junction and sella turcica. Basilar cisterns are patent. Paranasal sinuses and mastoids are pneumatized. No depressed skull fractures. IMPRESSION: 1. No acute intracranial abnormality. No significant change. Reviewed, dictated and finalized at location A.
--- NOTE | ~2021-02-21 | XR_ITS ---
XR chest 1V portable 02/21/2021 18:45 Indication: Altered mental status. Dyspnea. Procedure: AP portable chest Comparison: Comparison to multiple prior studies sequentially, with oldest reviewed study dated 05/28. Findings: Patchy bilateral infiltrates of the mid and lower lung zones. Possible small effusions. No pneumothorax. No acute osseous abnormality. Heart size is normal. Impression: 1: Patchy bilateral infiltrates of the mid and lower lungs, compatible with pneumonia. Reviewed, dictated and finalized at location A. Impression: 1: Patchy bilateral infiltrates of the mid and lower lungs, compatible with pne umonia.
--- NOTE | ~2021-02-21 | MR_ITS ---
EXAMINATION: MR brain/brain stem wo/w con EXAM DATE: 02/22/2021 10:25 INDICATION: Persistent altered mental status. TECHNIQUE: Magnetic resonance imaging (MRI) of the brain/brain stem obtained without contrast. Sagit soy T1, axial diffusion, gradient echo (T2*), T1, T2, FLAIR sequences obtained. Patient was then inj ected with 9 cc intravenous Multihance contrast. Axial and coronal postcontrast T1 weighted sequences obtained. Comparison is made to prior examination from 02/15/2021. FINDINGS: There is mild microangiopathy. There are no areas of restricted diffusion to suggest acute infarction. There is no acute hemorrhage seen on the T2*, a hemosiderin sensitive sequence. No intr aparenchymal brain mass. The ventricles are normal in size. There are no extra-axial collections. F low voids are seen in the cerebral arteries on the T2-weighted sequences consistent with their expect ed patency. The orbits are unremarkable. Soft tissue is unremarkable. Previously seen in thin pachymeningeal enhancement is less conspicuous on this examination, has alton l appearance today and not likely clinically significant finding. There are no areas of abnormal enha ncement on the post contrast images. IMPRESSION: 1. Mild microangiopathy. 2. Normalization of previously suspected minimal thin pachymeningeal enhancement. Reviewed, dictated and finalized at location B. IMPRESSION: 1. Mild microangiopathy. 2. Normalization of previously suspected minimal thin pachymeningeal enhanceme nt.
--- NOTE | ~2021-02-21 | US_ITS ---
EXAMINATION: US venous doppler [facility] DATE: 02/22/2021 09:53 INDICATION: Lower limb swelling. TECHNIQUE: Grayscale ultrasound images without and with compression and Doppler ultrasound images of the bilateral lower extremity veins were obtained. COMPARISON: Ultrasound 12/26/2019 FINDINGS: The visualized portions of right common femoral vein, profunda (deep) femoral vein, femoral vein, pop liteal vein, peroneal veins, posterior tibial veins, and greater saphenous vein outflow are patent. The visualized portions of left common femoral vein, profunda femoral vein, femoral vein, popliteal v ein, peroneal veins, posterior tibial veins, and greater saphenous vein outflow are patent. IMPRESSION: 1. No deep venous thrombosis. Reviewed, dictated and finalized at location A.
[2021-02-21 16:55] LABS: Glucose Point of Care 290 mg/dl (65-105)
--- NOTE | 2021-02-21 17:28 | PCCCNOTE ---
Care Coordination spoke with pt. Pt's son Ho not present at this time, pt states she thinks he is coming. EMS brought her. Pt states she thinks she fell. She thinks her son Ho is calling [facility] to request a reconsideration for SNF. Pt unable to make decisions and said to talk with Ho when he arrives.
--- NOTE | 2021-02-21 17:59 | ECG_ITS ---
Measurements Intervals [place] Rate: 75 P: 61 UT: 141 QRS: 88 QRSD: 82 T: 30 QT: 396 QTc: 443 Interpretive Statements SINUS RHYTHM ATRIAL PREMATURE COMPLEXES BORDERLINE R WAVE PROGRESSION, ANTERIOR LEADS BORDERLINE ECG Electronically Signed On 02-21-2021 22:53:30 CDT by Thad Rea D.O.
[2021-02-21 18:24] LABS: Basophils Percent Auto 0.5 % (0.2-1.2); Eosinophils Percent Auto 0.5 % (0-4.4); Hematocrit 40.2 % (37.0-47.0); Hemoglobin 13.2 g/dL (12.0-15.0); Immature Granulocyte Absolute 0.02 K/mm3 (0.00-0.031); Immature Granulocyte Percent A 0.3 % (0-0.5); Lymphocytes Absolute Auto 1.26 K/mm3 (0.9-3.2); Lymphocytes Percent Auto 16.6 % (18.3-44.2); Mean Corpuscular HGB Conc 32.8 g/dl (32-36); Mean Corpuscular Hemoglobin 31.3 pg (26-34); Mean Corpuscular Volume 95.3 fl (80-100); Mean Platelet Volume 10.9 fl (7.4-10.4); Monocytes Percent Auto 13.3 % (2.6-8.5); Neutrophils Absolute Auto 5.2 K/mm3 (1.3-6.7); Neutrophils Percent Auto 68.8 % (45.5-73.1); Platelet Count Result 176 k/mm3 (150-375); Red Blood Count 4.22 M/mm3 (4.2-5.4); Red Cell Distribution Width 12.1 % (11.5-14.5); White Blood Count 7.6 K/mm3 (4.5-10.0)
--- NOTE | 2021-02-21 18:24 | PCCCNOTE ---
Spoke with son Ho [phone] who states his mother is to unstable to be at home alone and he feels she needs therapy somewhere. He requested facility close by so they can visit. Agreed to [facility] or anywhere close by. Ho states he has to go to work that we can talk with his finance Sonia [phone] about progress of care. Ho states he almost would like a 2nd opinion from her last admission as she has only been declining the last month. Spoke to about plan and he states he has just ordered tests and they have not been done yet therefore unsure if she will need admission.
--- NOTE | 2021-02-21 18:26 | ED.GENADULT ---
HPI - General Adult General Chief complaint: Altered Mental Status Stated complaint: AMS Time Seen by Provider: 02/21/21 17:30 Source: patient History of Present Illness HPI narrative: Patient is a 55 y/o female brought in by EMS for several altered mental status. Patient is not sure how long this has been going on. There is no known alleviating or exacerbating factor. She has no headache. She was recently admitted for stroke. She states that she is on home O2 for COPD. Related Data Home Medications Medication Instructions Recorded Confirmed escitalopram oxalate 10 mg PO DAILY 02/14/21 02/21/21 glucagon (human recombinant) 1 mg SUBCUT PRN PRN 02/14/21 02/21/21 Allergies Allergy/AdvReac Type Severity Reaction Status Date / Time metformin AdvReac Intermediate Diarrhea Verified 02/21/21 19:01 Review of Systems Constitutional: Constitutional: Denies chills, Denies fever(s), Denies headache(s) and Denies weakness Eyes: Eyes: Denies blurry vision ENT: Denies headache(s) and Denies neck pain Cardiovascular: Cardiovascular: Denies chest pain and Denies dyspnea Respiratory: Respiratory: Denies cough and Denies dyspnea Gastrointestinal: Gastrointestinal: Denies abdominal pain, Denies diarrhea, Denies nausea and Denies vomiting Genitourinary: Genitourinary: Denies hematuria and Denies dysuria Musculoskeletal: Musculoskeletal: Denies back pain and Denies neck pain Neurologic: Reports confusion, Denies headache(s) and Denies weakness PMF Past Medical History Medical History Arthritis Chronic respiratory failure with hypoxia, on home oxygen therapy COPD with asthma Coronary artery disease Reported myocardial infarction in 1999 requiring stent. Depression with anxiety Hyperlipidemia Hypertension Hypothyroidism Insulin dependent diabetes mellitus Complicated by diabetic retinopathy and gastroparesis. Hemoglobin A1c was 8.3% on 02/13/2021. Tobacco abuse Surgical History Surgical History Status post arthroscopy of right knee Status post section Family History Family History Mother Family history of alcoholism Family history of congestive heart failure, Onset Age: 70 Family history of osteoporosis Family history of chronic obstructive pulmonary disease Grandparent Family history of Alzheimer's disease, Onset Age: 90 Hypertension, Onset Age: 80 Sibling Hypertension, Onset Age: 53 Family history of alcoholism Family history of malignant neoplasm Patient's sister is in good health Father Hypertension, Onset Age: 79 Family history of thyroid disease Family history of cataracts Malignant neoplasm of prostate Other Diabetes mellitus Family history of arthritis Social History Social History (Updated 02/22/21 @ 02:56 by Janny Ledbetter DO) Social History: Surrogate decision maker: Tiera Montgomery (sister) or Ho Espinoza (son). Code status: Full code. Smoking packs per day: 1.5 Smoking cigarettes per day: 30.0 Years smoked: 40 Smoking pack-years: 60.00 Smoking status: Former smoker Tobacco type: cigarettes Second hand tobacco smoke exposure: Yes Alcohol intake: never Substance use: never Additional living arrangements comments: Patient lives at home alone. Additional occupation/education comments: Disabled. Spiritual care concerns: No Exam Const: General: no acute distress and ill appearing Orientation/consciousness: oriented to person and confusion HENMT: Head: normocephalic Ears: external ears normal General nose exam: Normal external nose present Eyes: General: appearance normal, both eyes and all related structures Conjunctivae: conjunctivae normal Neck: Neck: normal visual inspection and full ROM Chest: Chest palpation & inspect
[2021-02-21 18:32] LABS: Alanine Aminotransferase 25 U/L (4-35); Albumin Level 3.3 g/dL (3.5-5.1); Alkaline Phosphatase 90 U/L (38-126); Anion Gap 11 mmol/L (8-16); Aspartate Amino Transferase 20 U/L (14-36); Bilirubin,Total 0.7 mg/dL (0.2-1.3); Blood Urea Nitrogen 13 mg/dL (7-17); Calcium 8.9 mg/dL (8.4-10.2); Carbon Dioxide 25 mmol/L (22-30); Chloride 100 mmol/L (98-107); Estimated CRCL calculation 94 ml/min; Estimated Glomerular Filt Rate > 60; Glucose 325 mg/dL (65-110); Potassium 4.4 mmol/L (3.4-5.0); Sodium 136 mmol/L (137-145)
[2021-02-21 18:41] LABS: Alveolar/Arterial O2 Gradient 67.7 mmHg; Base Excess ABG 1.5 mEq/l (+/-2.0); Fractional Inspired Oxygen 28 %; HCO3 ABG 27.2 mEq/l (22.0-26.0); Oxygen Content ABG 17.5 %vol (16.0-22.0); Oxygen Saturation ABG 94.9 % (95.0-100.0); Oxyhemoglobin 93.9 % THb (90.0-100.0); PCO2 ABG 47.3 mmHg (35.0-45.0); PO2 ABG 76.1 mmHg (80.0-100.0); PO2 FiO2 Ratio Arterial Blood 2.72 %; Total Hemoglobin 13.2 g/dL (12.0-18.0); pH ABG 7.378 (7.350-7.450)
[2021-02-21 18:42] LABS: Site Drawn LEFT BRACHIAL
--- NOTE | 2021-02-21 18:42 | PCCCNOTE ---
Faxed request to [facility] for SNF emergency appeal [phone].
[2021-02-21 18:43] LABS: Device NASAL CANNULA
--- NOTE | 2021-02-21 18:55 | PCCCNOTE ---
Faxed referral to [facility].
--- NOTE | 2021-02-21 19:03 | PC.NURSE ---
Pt is alert to self. Pt keeps stating that the year is 1985 and does not know where she is. She will not open her eyes but responds verbally to her name and questions. Pt unable to follow 2 step commands.
[2021-02-21 19:23] LABS: Add Urine Microscopic? YES; Appearance Urine Cloudy (Clear); Bacteria Urine Trace /hpf; Bilirubin Urine Negative (Negative); Blood Urine 3+ (Negative); Color Urine Yellow (Yellow); Glucose Urine UA 3+ mg/dL (Negative); Ketones Urine 2+ mg/dL (Negative); Leukocyte Esterase Ur Negative LEU/UL (Negative); Mucus Urine Rare /lpf; Nitrate Urine Negative (Negative); Protein Urine Negative (Negative); RBC Urine 51-75 /hpf (0-2); Urobilinogen Urine Negative mg/dL (<2.0); WBC Urine 0-3 /hpf
[2021-02-21 19:28] LABS: Specific Grav Ur 1.032 (1.001-1.035)
[2021-02-21 19:36] LABS: HIV 1/2 Ab P24 Ag Result Negative (Negative)
[2021-02-21] MEDS: SODIUM CHLORIDE 0.9% IV 1,000 ML 999 ML IV CONT (19:39)
--- NOTE | 2021-02-21 19:39 | PC.NURSE ---
Assumed care of pt at this time, pt is alert and VSS. Discussed POC.
[2021-02-21 19:43] LABS: Amphetamine Screen Urine Negative (Negative); Barbiturate Screen Urine Negative (Negative); Benzodiazepines Screen Urine Negative (Negative); Cannabinoid Screen Urine Negative (Negative); Cocaine Screen Urine Negative (Negative); Methadone Screen Urine Negative (Negative); Opiate Screen Urine Negative (Negative); Phencyclidine Screen Urine Negative (Negative)
[2021-02-21 21:03] LABS: Glucose CSF 225 mg/dL (40-70); Total Protein CSF 49 mg/dL (12-60)
[2021-02-21 21:24] LABS: CSF source CSF
[2021-02-21 21:25] LABS: Appearance CSF Clear (Clear); Color CSF Colorless (Colorless); Nucleated Cell CSF 12 /uL (0-5); Red Blood Cell CSF 12 (0-2)
[2021-02-21 21:38] LABS: Lymphocytes CSF 80 % (40-80); Monocytes CSF 20 % (15-45); Neutrophils CSF 0 % (0-6)
[2021-02-21] MEDS: AMPICILLIN SULB 3 GM/NS 100 ML 3 GM/100 ML VIAL IVPB (22:45)
[2021-02-22] VITALS (14 sets, daily range): BP systolic 102–117; BP diastolic 48–53; PULSE 64–82; RESP 14–18; TEMP 36.1–36.8; O2SAT 94–98; BMI 17.7
--- NOTE | 2021-02-22 00:09 | ADMGEN ---
This patient, Beatrice Espinoza, was admitted to Medical Room 244-. Patient/family oriented to hospital policies and general routines including ID bracelet, bed and alarms, visiting hours, pain management, procedures, bathroom and other care routines, personal items, smoking policy, room service/diet, and visiting hours. Information on how to activate the Rapid Response Team has been discussed. Patient/Family are encouraged to report perceived risks to care and to ask questions if they do not understand what they are told or what they should do.
[2021-02-22] MEDS: SODIUM CHLORIDE 0.9% IV 1,000 ML 125 ML IV CONT ×2 (00:19→08:15)
--- NOTE | 2021-02-22 02:26 | PM.IMHP ---
H&P: HPI History of Present Illness Date/Time: 02/22/21 02:26 Chief Complaint: Altered mental status Narrative: The 55-year-old female with past medical history of CVA, chronic respiratory failure on home oxygen, COPD, hypothyroidism, and insulin-dependent diabetes who presented to the ER from home via EMS due to reported altered mental status. The patient had previously been at our facility 02/13/2021 through 02/20/2021 due to similar symptoms. The patient was initially thought to have possible CVA but MRI demonstrated old lacunar infarct in the left thalamus and nonspecific cerebral white matter disease. There was some diffuse parenchymal meningeal enhancement with Radiology commenting that it could be seen with prior lumbar puncture or spine surgery may persist for years. Less common etiologies include meningitis and intracranial hypotension. The patient was evaluated by Neurology during her last visit it was felt her imaging findings were not clinically significant. During her hospital stay she did have multiple episodes of hypoglycemia despite eliminating the patient's long-acting insulin therapy. Family had reported that the patient had difficult to control diabetes and required frequent Accu-Cheks and adjustments in insulin. She had previously lived with her sister who provided the scare but approximately 1 year ago the patient went to live alone. The patient has frequent episodes of hypoglycemia in the family reported the patient will sometimes in remain confused for 1-2 weeks after hypoglycemic events. Staff was concerned about the patient being discharged home alone and was concerned about patient being able to manage her own medications. Both rehab in correction placement were attempted however patient's insurance would not cover these facilities. Family did not have the financial capability to cover the facilities out of pocket. Thusly the patient was discharged home with home health and follow-up with [facility]. With communication to family that the patient should no longer be living alone or managing her own medications. The patient's son works 50 hours a week and patient's sister was talking to the patient via video chats. Patient's son was reportedly working out the logistics to provide more consistent care. Blood culture during her last hospitalization grew out coag-negative staph but repeat blood cultures were negative and the result was thought to be due to contamination. Patient's UA initially on presentation last time was thought to be suspicious for UTI but urine culture was also negative. She was evaluated by speech therapy and had a bedside swallow demonstrated no evidence of aspiration. She had a COVID PCR performed went was negative on 02/13/2021. Today when the patient presents to the ER the patient was again alert and oriented to person and place but did not know the year. Her current exam she is alert oriented to person, date of and fact that she is in the hospital. She does not know the month and states the years 2065. She does know the name of the president. She states that she was brought into the ER because they thought there were issues with her sugars. Patient's sugars were modestly high on arrival to the ER. She states that she took her insulin at home but she is on reliable historian. The exact symptoms patient was having that resulted in EMS being called her not available. The EMS run she does not present on the patient's chart. Patient's family did not arrive with her to the hospital and were reportedly on reachable. ER physician contacted the neurologist who recommended LP to look for AFB or fungal infection that could result in chronic infection. Lumbar puncture was largely unremarkable with colorless fluid, 12 RBCs, 12 nucleated cells and glucose of 225. No neutrophils were noted and total protein was normal. Patient's UA demonstrated significant glucose and 2+ ketones. Patient's serum glucos
[2021-02-22 02:55] LABS: EDCOVIDSCREEN Negative (Negative)
[2021-02-22] MEDS: ALBUTEROL SULFATE (*SP) AEROSOL 1 PUFF 2 PUFF INHALATION ×6 (03:43→23:57)
[2021-02-22] MEDS: LEVOTHYROXINE SODIUM 100 MCG TABLET PO (05:45)
[2021-02-22] MEDS: AMPICILLIN SULB 3 GM/NS 100 ML 3 GM/100 ML VIAL IVPB ×4 (05:45→23:17)
[2021-02-22] MEDS: CLOPIDOGREL BISULFATE 75 MG TABLET PO (07:59)
[2021-02-22] MEDS: ASPIRIN 81 MG ENTERIC TABLET PO (07:59)
[2021-02-22] MEDS: ESCITALOPRAM OXALATE 10 MG TABLET PO (07:59)
[2021-02-22 08:07] LABS: Glucose Point of Care 286 mg/dl (65-105)
[2021-02-22] MEDS: INSULIN ASPART (*BKC) 100 UNITS/ML SUB-Q ×2 (08:15→11:42)
--- NOTE | 2021-02-22 09:22 | PCSTNOTE ---
Please refer to the Modified Barium Swallow Evaluation in the EMR.
[2021-02-22 11:39] LABS: Glucose Point of Care 260 mg/dl (65-105)
--- NOTE | 2021-02-22 16:37 | WPDNEUROPN ---
Progress Note: A&P Additional Plan at present she is being treated for the possible pneumonia along with the concern about the aspiration her neurological examination otherwise is unchanged from the previous hospitalization and also the spinal fluid studies are not a consistent with any chronic infections and the radiology report has been reviewed and Subjective Date/time seen: 02/22/21 16:37 55 years old right-handed female has been readmitted to [facility] for the complaints of change in the mental status with the ongoing diagnosis of cerebrovascular accident 2. Chronic respiratory failure on home oxygen 3. COPD 4. Hypothyroidism 5. Insulin-dependent diabetes mellitus she presented to the ER via EMS due to the reported change in the mental status she was just admitted to hospital on 02/13 due to dural discharged on February 20, 2021 due to the similar symptom initial MRI revealed her to have old lacunar infarct in the left thalamus and nonspecific white matter disease along with the patchy parenchymal meningeal enhancement the radiology commencing that it could be seen with prior lumbar puncture spine surgery may persist for years and less common etiologies included meningitis or intracranial hypotension during the hospitalization last time she had multiple episodes of hypoglycemia despite element adding the long-acting insulin therapy patient's family had difficulties in controlling the diabetes required frequent Accu-Cheks and adjustment in the insulin but about a year ago patient went to live alone and she has frequent episodes of hypoglycemia patient's son works 50 hours a week and sister was talking to the patient via video chadts ER physician had consulted me I had advised the spinal tap the fluid was colorless 12 RBCs 12 nucleated cells and glucose of 225 but no neutrophils total protein in the CSF was normal serum glucose was 325. routine lab has revealed no leukocytosis hemoglobin is 13.2, continues to have high blood sugar UA normal, toxicology screen negative, and serologies negative for SARS-CoV-2, repeat MRI has shown mild microangiopathy normalization of previously suspected minimal thin patchy meningeal enhancement Review of Systems Review of Systems: All systems reviewed & are unremarkable except as noted in HPI and below Exam Narrative: examination revealed her to be awake alerted with thin body poor dentition head normocephalic with no cranial bruit ear nose throat examination normal neck supple with no cervical bruit no thyromegaly no lymphadenopathy heart regular with no murmur lungs clear to auscultation abdomen is soft with no organomegaly neurological is she is awake alert oriented x3 speech nor dysphasic not dysarthric pupils round regular feels the vision full extraocular full face symmetrical tongue midline motor examination revealed her to have generalized weakness in the upper and lower extremities with sluggish reflexes downgoing plantar responses Objective Data Vital Signs Vital Signs: Vital Signs - 24 hr 02/21/21 16:51 02/21/21 16:58 02/21/21 17:00 Temperature 37.1 C Pulse Rate 71 69 70 Respiratory Rate 15 16 17 Blood Pressure 95/61 L 95/61 L 92/55 L Pulse Oximetry 98 99 99 02/21/21 17:01 02/21/21 17:15 02/21/21 17:16 Temperature Pulse Rate 69 73 73 Respiratory Rate 14 31 H 21 H Blood Pressure 94/56 L Pulse Oximetry 99 99 99 02/21/21 17:30 02/21/21 17:31 02/21/21 17:45 Temperature Pulse Rate 76 70 69 Respiratory Rate 23 H 25 H 16 Blood Pressure 102/54 L 97/59 L Pulse Oximetry 99 99 100 02/21/21 17:46 02/21/21 18:21 02/21/21 18:30 Temperature Pulse Rate 69 74 76 Respiratory Rate 18 22 H 15 Blood Pressure Pulse Oximetry 99 97 94 02/21/21 18:52 02/21/21 19:22 02/21/21 20:35 Temperature Pulse Rate 66 68 73 Respiratory Rate 19 17 Blood Pressure 109/59 L 118/64 Pulse Oximetry 95 97 02/21/21 21:32 02/21/21 23:04 02/21/21 23:45 Temperature Pulse Rate 67 7
[2021-02-22 16:49] LABS: Glucose Point of Care 166 mg/dl (65-105)
--- NOTE | 2021-02-22 17:11 | PM.IMPN ---
Progress Note: A&P Assessment and Plan (1) Acute encephalopathy: Code(s): G93.40 - Encephalopathy, unspecified Status: Acute Assessment and Plan: Pt was admitted for AMS which seems to be improving but she continues to be dysphasic -MRI brain 02/15 showed: Diffuse pachymeningeal enhancement. This finding is most commonly secondary to prior lumbar puncture or spine surgery and may persist for years. Less common etiologies include meningitis or intracranial hypotension. She had no recent sx or LP at this time. When she came back to the ER with continued AMS she underwent an LP 02/21 which showed a few total nucleated cells and high protein. Further labs and gram stain are pending. I repeated the MRI today which showed resolution of this previous abnormality. -drug screen, cbc, cmp, UA, COVID, b12, tsh, RPR, blood culture show no cause for concern -doubt PNA causing her AMS but could be a factor -neurology consulted, await results of further testing. (2) Pneumonia: Qualifiers: Pneumonia type: due to unspecified organism Laterality: bilateral Lung location: unspecified part of lung Qualified Code(s): J18.9 - Pneumonia, unspecified organism Code(s): J18.9 - Pneumonia, unspecified organism Status: Acute Assessment and Plan: CXR showing patchy bilateral infiltrates of the mid and lower lungs, compatible with pneumonia -continue unasyn -pt unable to tell me if she has been having symptoms (3) Diabetes mellitus with hyperglycemia: Qualifiers: Diabetes mellitus type: type 2 Diabetes mellitus half-way insulin use: with terminal press operator use Qualified Code(s): E11.65 - Type 2 diabetes mellitus with hyperglycemia; Z79.4 - long term acute care registered nurse (current) use of insulin Code(s): E11.65 - Type 2 diabetes mellitus with hyperglycemia Status: Acute Assessment and Plan: Last glucose 166 -continue SSI -pt has a hx of hypoglycemia and will need help with medications at d/c (4) Chronic respiratory failure with hypoxia, on home oxygen therapy: Code(s): J96.11 - Chronic respiratory failure with hypoxia; Z99.81 - Dependence on supplemental oxygen Status: Acute Assessment and Plan: On home o2 settings (5) Multiple episodes of hypoglycemia: Code(s): E16.2 - Hypoglycemia, unspecified Status: Acute Assessment and Plan: Doing well during this stay -will need help with her medications after discharge (6) Vaginal discharge: Code(s): N89.8 - Other specified noninflammatory disorders of vagina Status: Acute Assessment and Plan: Noted by nursing staff -will consult PACKAGING MECHANIC -unable to perform thorough exam at bedside, will defer to PACKAGING MECHANIC and I appreciate their recommendations Additional Plan last stay Echo showed: Evidence of color Doppler flow compatible with a shunt at the level of the atrial septum. 6. Agitated saline contrast positive for shunt. 7. Patent foramen ovale appears to be present based on the Doppler and saline contrast information. LE u/s shows no DVT continue aspirin and plavix Time Spent With Patient Time with patient: 25 - 35 minutes Subjective Date/time seen: 02/22/21 17:11 Interval history: Pt is a 55 y/o female here for PNA and AMS. Pt was seen today and states she is having issues with her speech. She mentions that her words are not coming out right even though she knows what she wants to say. She has no neck pain, facial pain, cp, sob, weakness, numbness/tingling, abd pain or fevers. RN states pt has been having foul vaginal discharge. Pt denies such. Review of Systems Review of Systems: All systems reviewed & are unremarkable except as noted in HPI and below Exam Narrative: General: Well developed well nourished patient in NAD HEENT: normocephalic, ecchymosis to the right eye. dry mucus membranes Neck: supple in all directions. negative [place] Neuro: Alert and or
[2021-02-22] MEDS: ATORVASTATIN 40 MG TABLET PO (21:00)
[2021-02-22] MEDS: clonazePAM (*CRX) 0.5 MG TABLET PO (21:00)
[2021-02-22] MEDS: lisinopriL 10 MG TABLET PO (21:00)
[2021-02-22] MEDS: SODIUM CHLORIDE 0.9% IV 1,000 ML 75 ML IV CONT (21:00)
[2021-02-22 21:53] LABS: Glucose Point of Care 232 mg/dl (65-105)
[2021-02-23] VITALS (12 sets, daily range): BP systolic 117–154; BP diastolic 51–72; PULSE 61–78; RESP 18; TEMP 36.1–36.8; O2SAT 94–100; BMI 17.7
[2021-02-23] MEDS: ALBUTEROL SULFATE (*SP) AEROSOL 1 PUFF 2 PUFF INHALATION ×5 (04:02→20:23)
[2021-02-23 05:44] LABS: Hematocrit 34.9 % (37.0-47.0); Hemoglobin 11.5 g/dL (12.0-15.0); Mean Corpuscular Hemoglobin 30.6 pg (26-34); Mean Corpuscular Volume 92.8 fl (80-100); Platelet Count Result 166 k/mm3 (150-375); Red Blood Count 3.76 M/mm3 (4.2-5.4); Red Cell Distribution Width 12.3 % (11.5-14.5); White Blood Count 6.3 K/mm3 (4.5-10.0)
[2021-02-23 05:53] LABS: Anion Gap 10 mmol/L (8-16); Blood Urea Nitrogen 11 mg/dL (7-17); Calcium 8.3 mg/dL (8.4-10.2); Carbon Dioxide 22 mmol/L (22-30); Chloride 106 mmol/L (98-107); Estimated CRCL calculation 84 ml/min; Estimated Glomerular Filt Rate > 60; Glucose 297 mg/dL (65-110); Potassium 3.3 mmol/L (3.4-5.0); Sodium 138 mmol/L (137-145)
[2021-02-23] MEDS: AMPICILLIN SULB 3 GM/NS 100 ML 3 GM/100 ML VIAL IVPB ×3 (05:56→18:06)
[2021-02-23] MEDS: LEVOTHYROXINE SODIUM 100 MCG TABLET PO (05:56)
[2021-02-23 07:38] LABS: Glucose Point of Care 263 mg/dl (65-105)
[2021-02-23] MEDS: INSULIN ASPART (*BKC) 100 UNITS/ML SUB-Q ×3 (09:36→18:06)
[2021-02-23] MEDS: ESCITALOPRAM OXALATE 10 MG TABLET PO (09:38)
[2021-02-23] MEDS: ASPIRIN 81 MG ENTERIC TABLET PO (09:38)
[2021-02-23] MEDS: CLOPIDOGREL BISULFATE 75 MG TABLET PO (09:38)
[2021-02-23 11:14] LABS: Glucose Point of Care 294 mg/dl (65-105)
[2021-02-23] MEDS: SODIUM CHLORIDE 0.9% IV 1,000 ML 75 ML IV CONT (11:52)
--- NOTE | 2021-02-23 12:42 | WPDNEUROPN ---
Subjective Date/time seen: 02/23/21 12:42 Objective Data Vital Signs Vital Signs: Vital Signs - 24 hr 02/22/21 14:10 02/22/21 16:00 02/22/21 20:00 Temperature 36.3 C L Pulse Rate 66 68 67 Respiratory Rate 14 Blood Pressure 117/51 L Pulse Oximetry 98 94 02/22/21 20:08 02/22/21 20:18 02/22/21 23:59 Temperature 36.1 C L Pulse Rate 75 70 78 Respiratory Rate 18 Blood Pressure 112/48 L Pulse Oximetry 95 94 02/23/21 00:00 02/23/21 04:00 02/23/21 04:04 Temperature Pulse Rate 70 61 61 Respiratory Rate Blood Pressure Pulse Oximetry 02/23/21 04:23 02/23/21 08:00 02/23/21 08:25 Temperature 36.1 C L Pulse Rate 65 70 62 Respiratory Rate 18 Blood Pressure 117/51 L Pulse Oximetry 100 94 96 Intake/Output Intake/Output: Intake & Output 02/20/21 02/21/21 02/22/21 02/23/21 23:59 23:59 23:59 23:59 Intake Total 1100 2525 1390 Output Total 900 Balance 1100 1625 1390 Meds/Results Medications: Active Medications Generic Name Dose Route Start Last Admin Trade Name Freq PRN Reason Stop Dose Admin Albuterol 2 puff 02/22/21 04:00 02/23/21 11:30 Albuterol Sulfate (*Sp) Aerosol 1 Puff INHALATION 2 puff Q4HRT PAULY Administration Aspirin 81 mg 02/22/21 09:00 02/23/21 09:38 Aspirin 81 Mg Enteric Tablet PO 81 mg QAM PAULY Administration Atorvastatin Calcium 40 mg 02/22/21 21:00 02/22/21 21:00 Atorvastatin 40 Mg Tablet PO 40 mg HS PAULY Administration Budesonide/Formoterol Fumarate 2 puff 02/22/21 08:00 02/23/21 08:23 Budesonide/Form 80-4.5 Mcg (*Sp) INHALATION 2 puff Q12HRT PALUY Administration Clonazepam 0.5 mg 02/22/21 21:00 02/22/21 21:00 Clonazepam (*Crx) 0.5 Mg Tablet PO 0.5 mg HS PAULY Administration Clopidogrel Bisulfate 75 mg 02/22/21 09:00 02/23/21 09:38 Clopidogrel Bisulfate 75 Mg Tablet PO 75 mg DAILY PAULY Administration Dextrose 12.5 gm 02/22/21 02:23 Dextrose 50% 25 Gm/50 Ml Syringe IV PUSH PRN PRN Hypoglycemia Protocol Escitalopram Oxalate 10 mg 02/22/21 09:00 02/23/21 09:38 Escitalopram Oxalate 10 Mg Tablet PO 10 mg DAILY PAULY Administration Glucagon 1 mg 02/22/21 02:23 Glucagon For Inj 1 Mg Vial IM PRN PRN Hypoglycemia Protocol Glucose 15 gm 02/22/21 02:23 Glucose Oral Gel 15 Gm Of Glucse In 37.5 Gm Tube PO PRN PRN Hypoglycemia Protocol Ampicillin Sodium/Sulbactam Sodium 3 gm in 100 mls @ 200 mls/hr 02/22/21 06:00 02/23/21 11:45 Unasyn 3 Gm/Ns 100 Ml IVPB 200 mls/hr Q6H PAULY Administration Sodium Chloride 1,000 mls @ 75 mls/hr 02/21/21 22:45 02/23/21 11:52 Normal Saline Iv IV CONT 75 mls/hr .[id number] PAULY Administration Dextrose 1,000 mls @ 100 mls/hr 02/22/21 02:23 Dextrose 5% 1,000 Ml IVPB PRN PRN Hypoglycemia Protocol Insulin Aspart 3 - 6 units 02/22/21 08:00 02/23/21 11:46 Insulin Aspart (*Bkc) 100 Units/Ml SUB-Q 4 units TIDWM PAULY Administration Protocol Levothyroxine Sodium 100 mcg 02/22/21 06:30 02/23/21 05:56 Levothyroxine Sodium 100 Mcg Tablet PO 100 mcg DAILY@0630 PAULY Administration Lisinopril 10 mg 02/22/21 21:00 02/22/21 21:00 Lisinopril 10 Mg Tablet PO 10 mg HS PAULY Administration Radiology Results: ITS Impressions Chest X-Ray 02/21/21 18:50 Impression: 1: Patchy bilateral infiltrates of the mid and lower lungs, compatible with pneumonia. Head CT 02/21/21 19:00 IMPRESSION: 1. No acute intracranial abnormality. No significant change. Modified Barium Swallow 02/22/21 09:34 IMPRESSION: Normal modified barium swallow. Please refer to speech pathologist findings and specific feeding recommendations. Venous Doppler Study 02/22/21 09:54 IMPRESSION: 1. No deep venous thrombosis. Brain MRI 02/22/21 10:26 IMPRESSION: 1. Mild microangiopathy. 2. Normalization of previously suspected minimal t
--- NOTE | 2021-02-23 13:19 | WPDCN ---
Assessment and Plan Assessment and plan (1) Vaginal discharge: Code(s): N89.8 - Other specified noninflammatory disorders of vagina Status: Acute Assessment and Plan: most likely secondary to atrophic vagina and there may be a secondary infection based on the odor of the discharge. Vaginal swab for Wet prep, gonorrhea chlamydia and bacteria performed today. She would benefit in the future from vaginal estrogen if she is able to use this. I will treat with doxycycline empirically for nonspecific vaginitis. I anticipate this will help with the discharge and odor. will await further treatment based on the culture results. Pap smear was performed today patient did not tolerate it well. HPI Data of Consult Date/Time: 02/23/21 13:19 Requesting Physician: Azul Bullard PA-C Primary Care Provider: Fernando Morales MD Consult Narrative Narrative: Beatrice Espinoza is a 55 year old menopausal female admitted for altered mental status.Her history is also significant for poor control diabetes. During this admission a nurse had visualize a large amount of discharge vaginally. The patient states she has had a discharge for approximately 6 days. She does have vaginal itching. She has not been sexually active in over 6 years. She denies ever doing hormone replacement therapy. She states her last Pap smear was many years ago. She denies lower pelvic pain or discomfort. She denied vaginal bleeding. She had a CT of the abdomen pelvis in August which are reviewed and there were no concerning findings with the pelvic organs. Review of Systems Review of Systems: All systems reviewed & are unremarkable except as noted in HPI and below Constitutional: Constitutional: Reports as per HPI and Reports no additional constitutional complaints Cardiovascular: Cardiovascular: Reports no additional cardiovascular complaints Respiratory: Respiratory: Reports no additional respiratory complaints Gastrointestinal: Gastrointestinal: Reports no additional gastrointestinal complaints Genitourinary: Genitourinary: Reports no additional female genitourinary complaints, Reports vaginal discharge, Reports vaginal odor and Reports vaginal pruritus Musculoskeletal: Musculoskeletal: Reports no additional musculoskeletal complaints Psychiatric: Psychiatric: Reports no additional psychiatric complaints PMFSH Past Medical History Medical History Arthritis Chronic respiratory failure with hypoxia, on home oxygen therapy COPD with asthma Coronary artery disease Reported myocardial infarction in 1999 requiring stent. Depression with anxiety Hyperlipidemia Hypertension Hypothyroidism Insulin dependent diabetes mellitus Complicated by diabetic retinopathy and gastroparesis. Hemoglobin A1c was 8.3% on 02/13/2021. Tobacco abuse Surgical History Surgical History Status post arthroscopy of right knee Status post section Family History Family History Mother Family history of alcoholism Family history of congestive heart failure, Onset Age: 70 Family history of osteoporosis Family history of chronic obstructive pulmonary disease Grandparent Family history of Alzheimer's disease, Onset Age: 90 Hypertension, Onset Age: 80 Sibling Hypertension, Onset Age: 53 Family history of alcoholism Family history of malignant neoplasm Patient's sister is in good health Father Hypertension, Onset Age: 79 Family history of thyroid disease Family history of cataracts Malignant neoplasm of prostate Other Diabetes mellitus Family history of arthritis Social History Social History Social History: Surrogate decision maker: Tiera Montgomery (sister) or Ho Espinoza (son
--- NOTE | 2021-02-23 13:39 | PC.NURSE ---
pt's son, Ho, called wanting an update. I answered his questions including but not limited to pt's current status and rehab v. acute care facilities.
--- NOTE | 2021-02-23 14:43 | PM.IMPN ---
Progress Note: A&P Assessment and Plan (1) Acute encephalopathy: Code(s): G93.40 - Encephalopathy, unspecified Status: Acute Assessment and Plan: Pt was admitted for AMS which seems to be improving but she continues to be dysphasic -MRI brain 02/15 showed: Diffuse pachymeningeal enhancement. This finding is most commonly secondary to prior lumbar puncture or spine surgery and may persist for years. Less common etiologies include meningitis or intracranial hypotension. She had no recent sx or LP at this time. When she came back to the ER with continued AMS she underwent an LP 02/21 which showed a few total nucleated cells and high protein. Further labs and gram stain are pending. I repeated the MRI today which showed resolution of this previous abnormality. -drug screen, cbc, cmp, UA, COVID, b12, tsh, RPR, blood culture show no cause for concern -doubt PNA causing her AMS but could be a factor -neurology consulted, await results of further testing. patient remains clinically stable discussed with neurologist patient had a spinal tap and there was no significant pathology or source of infection will continue to monitor patient is waiting for placement pending insurance authorization, patient wants to go home has no new complaint (2) Pneumonia: Qualifiers: Laterality: bilateral Lung location: unspecified part of lung Pneumonia type: due to unspecified organism Qualified Code(s): J18.9 - Pneumonia, unspecified organism Code(s): J18.9 - Pneumonia, unspecified organism Status: Acute Assessment and Plan: CXR showing patchy bilateral infiltrates of the mid and lower lungs, compatible with pneumonia -continue unasyn -pt unable to tell me if she has been having symptoms (3) Diabetes mellitus with hyperglycemia: Qualifiers: Diabetes mellitus ad terminal makeup operator insulin use: with ad terminal makeup operator use Diabetes mellitus type: type 2 Qualified Code(s): E11.65 - Type 2 diabetes mellitus with hyperglycemia; Z79.4 - ad terminal makeup operator (current) use of insulin Code(s): E11.65 - Type 2 diabetes mellitus with hyperglycemia Status: Acute Assessment and Plan: Last glucose 166 -continue SSI -pt has a hx of hypoglycemia and will need help with medications at d/c (4) Chronic respiratory failure with hypoxia, on home oxygen therapy: Code(s): J96.11 - Chronic respiratory failure with hypoxia; Z99.81 - Dependence on supplemental oxygen Status: Acute Assessment and Plan: On home o2 settings (5) Multiple episodes of hypoglycemia: Code(s): E16.2 - Hypoglycemia, unspecified Status: Acute Assessment and Plan: Doing well during this stay -will need help with her medications after discharge (6) Vaginal discharge: Code(s): N89.8 - Other specified noninflammatory disorders of vagina Status: Acute Assessment and Plan: Noted by nursing staff -will consult EMBOSSING TOOLSETTER -unable to perform thorough exam at bedside, will defer to EMBOSSING TOOLSETTER and I appreciate their recommendations Additional Plan last stay Echo showed: Evidence of color Doppler flow compatible with a shunt at the level of the atrial septum. 6. Agitated saline contrast positive for shunt. 7. Patent foramen ovale appears to be present based on the Doppler and saline contrast information. LE u/s shows no DVT continue aspirin and plavix Subjective Date/time seen: 02/23/21 14:43 Pt was admitted for AMS which seems to be improving but she continues to be dysphasic -MRI brain 02/15 showed: Diffuse pachymeningeal enhancement. This finding is most commonly secondary to prior lumbar puncture or spine surgery and may persist for years. Less common etiologies include meningitis or intracranial hypotension. She had no recent sx or LP at this time. When she came back to the ER with continued AMS she underwent an LP 02/21 which showed a few total nucleated cells and high protein. Further
--- NOTE | 2021-02-23 16:23 | WPDNEUROPN ---
Progress Note: A&P Additional Plan home today, his spinal fluid studies normal Subjective Date/time seen: 02/23/21 16:23 55 years old right-handed female was admitted to [facility] through the emergency room for the complaints of increasing confusion with history of documented abnormal MRI raising the possibility of the patchy involvement of the meningitis secondary to unclear etiology patient brought to the emergency room for further evaluation his spinal tap was done in the emergency room to make sure there is no evidence of chronic inflammation or carcinomatosis, repeat MRI revealed the normalization the previously suspected minimal thin patchy meningeal enhancement only micro angiopathy was documented, his spinal fluid were crystal clear with only 12 RBCs 12 nucleated cells 0 neutrophils 80% lymphocyte 80% monocytes and glucose were 225 with protein only 49 patient has been feeling well, considering that we do not need to intervene any further patient will be discharged today we discussed with Dr. Gutierres Objective Data Vital Signs Vital Signs: Vital Signs - 24 hr 02/22/21 20:00 02/22/21 20:08 02/22/21 20:18 Temperature 36.1 C L Pulse Rate 67 75 70 Respiratory Rate 18 Blood Pressure 112/48 L Pulse Oximetry 94 95 94 02/22/21 23:59 02/23/21 00:00 02/23/21 04:00 Temperature Pulse Rate 78 70 61 Respiratory Rate Blood Pressure Pulse Oximetry 02/23/21 04:04 02/23/21 04:23 02/23/21 08:00 Temperature 36.1 C L Pulse Rate 61 65 70 Respiratory Rate 18 Blood Pressure 117/51 L Pulse Oximetry 100 94 02/23/21 08:25 02/23/21 14:00 Temperature 36.6 C Pulse Rate 62 74 Respiratory Rate 18 Blood Pressure 138/62 Pulse Oximetry 96 100 Intake/Output Intake/Output: Intake & Output 02/20/21 02/21/21 02/22/21 02/23/21 23:59 23:59 23:59 23:59 Intake Total 1100 2525 1390 Output Total 900 525 Balance 1100 1625 865 Meds/Results Medications: Active Medications Generic Name Dose Route Start Last Admin Trade Name Freq PRN Reason Stop Dose Admin Albuterol 2 puff 02/22/21 04:00 02/23/21 15:41 Albuterol Sulfate (*Sp) Aerosol 1 Puff INHALATION 2 puff Q4HRT PAULY Administration Aspirin 81 mg 02/22/21 09:00 02/23/21 09:38 Aspirin 81 Mg Enteric Tablet PO 81 mg QAM PAULY Administration Atorvastatin Calcium 40 mg 02/22/21 21:00 02/22/21 21:00 Atorvastatin 40 Mg Tablet PO 40 mg HS PAULY Administration Budesonide/Formoterol Fumarate 2 puff 02/22/21 08:00 02/23/21 08:23 Budesonide/Form 80-4.5 Mcg (*Sp) INHALATION 2 puff Q12HRT PAULY Administration Clonazepam 0.5 mg 02/22/21 21:00 02/22/21 21:00 Clonazepam (*Crx) 0.5 Mg Tablet PO 0.5 mg HS PAULY Administration Clopidogrel Bisulfate 75 mg 02/22/21 09:00 02/23/21 09:38 Clopidogrel Bisulfate 75 Mg Tablet PO 75 mg DAILY PAULY Administration Dextrose 12.5 gm 02/22/21 02:23 Dextrose 50% 25 Gm/50 Ml Syringe IV PUSH PRN PRN Hypoglycemia Protocol Doxycycline Hyclate 100 mg 02/23/21 21:00 Doxycycline Hyclate 100 Mg Tablet PO Q12HR PAULY Escitalopram Oxalate 10 mg 02/22/21 09:00 02/23/21 09:38 Escitalopram Oxalate 10 Mg Tablet PO 10 mg DAILY PAULY Administration Glucagon 1 mg 02/22/21 02:23 Glucagon For Inj 1 Mg Vial IM PRN PRN Hypoglycemia Protocol Glucose 15 gm 02/22/21 02:23 Glucose Oral Gel 15 Gm Of Glucse In 37.5 Gm Tube PO PRN PRN Hypoglycemia Protocol Ampicillin Sodium/Sulbactam Sodium 3 gm in 100 mls @ 200 mls/hr 02/22/21 06:00 02/23/21 11:45 Unasyn 3 Gm/Ns 100 Ml IVPB 200 mls/hr Q6H PAULY Administration Sodium Chloride 1,000 mls @ 75 mls/hr 02/21/21 22:45 02/23/21 11:52 Normal Saline Iv IV CONT 75 mls/hr .[id number] PAULY Administration Dextrose 1,000 mls @ 100 mls/hr 02/22/21 02:23 Dextrose 5% 1,000 Ml IVPB PRN PRN Hypoglycemia Protocol Insulin Aspart 3 - 6
[2021-02-23 16:32] LABS: Glucose Point of Care 257 mg/dl (65-105)
[2021-02-23] MEDS: ATORVASTATIN 40 MG TABLET PO (21:19)
[2021-02-23] MEDS: clonazePAM (*CRX) 0.5 MG TABLET PO (21:19)
[2021-02-23] MEDS: DOXYCYCLINE HYCLATE 100 MG TABLET PO (21:19)
[2021-02-23] MEDS: lisinopriL 10 MG TABLET PO (21:20)
[2021-02-24] VITALS (9 sets, daily range): BP systolic 116–131; BP diastolic 56–71; PULSE 69–84; RESP 18–20; TEMP 36.6; O2SAT 93–99
[2021-02-24] MEDS: ALBUTEROL SULFATE (*SP) AEROSOL 1 PUFF 2 PUFF INHALATION ×5 (00:39→16:04)
[2021-02-24] MEDS: AMPICILLIN SULB 3 GM/NS 100 ML 3 GM/100 ML VIAL IVPB ×3 (00:52→11:14)
[2021-02-24] MEDS: INSULIN ASPART (*BKC) 100 UNITS/ML 8 UNITS SUB-Q (01:09)
[2021-02-24 01:13] LABS: Glucose Point of Care 340 mg/dl (65-105)
[2021-02-24 01:14] LABS: Glucose Point of Care 344 mg/dl (65-105)
[2021-02-24] MEDS: SODIUM CHLORIDE 0.9% IV 1,000 ML 75 ML IV CONT (06:10)
[2021-02-24] MEDS: LEVOTHYROXINE SODIUM 100 MCG TABLET PO (06:11)
[2021-02-24 08:10] LABS: Glucose Point of Care 242 mg/dl (65-105)
[2021-02-24] MEDS: INSULIN ASPART (*BKC) 100 UNITS/ML SUB-Q ×3 (08:23→16:49)
[2021-02-24] MEDS: DOXYCYCLINE HYCLATE 100 MG TABLET PO (08:24)
[2021-02-24] MEDS: ESCITALOPRAM OXALATE 10 MG TABLET PO (08:24)
[2021-02-24] MEDS: ASPIRIN 81 MG ENTERIC TABLET PO (08:24)
[2021-02-24] MEDS: CLOPIDOGREL BISULFATE 75 MG TABLET PO (08:24)
[2021-02-24 08:41] LABS: Basophils Percent Auto 0.8 % (0.2-1.2); Eosinophils Absolute Auto 0.2 K/mm3 (0-0.3); Eosinophils Percent Auto 3.1 % (0-4.4); Hematocrit 35.2 % (37.0-47.0); Hemoglobin 11.9 g/dL (12.0-15.0); Immature Granulocyte Absolute 0.02 K/mm3 (0.00-0.031); Immature Granulocyte Percent A 0.4 % (0-0.5); Lymphocytes Absolute Auto 1.26 K/mm3 (0.9-3.2); Lymphocytes Percent Auto 24.5 % (18.3-44.2); Mean Corpuscular HGB Conc 33.8 g/dl (32-36); Mean Corpuscular Hemoglobin 31.2 pg (26-34); Mean Corpuscular Volume 92.4 fl (80-100); Mean Platelet Volume 10.3 fl (7.4-10.4); Monocytes Absolute Auto 0.5 K/mm3 (0.1-0.6); Monocytes Percent Auto 9.9 % (2.6-8.5); Neutrophils Absolute Auto 3.2 K/mm3 (1.3-6.7); Neutrophils Percent Auto 61.3 % (45.5-73.1); Platelet Count Result 159 k/mm3 (150-375); Red Blood Count 3.81 M/mm3 (4.2-5.4); Red Cell Distribution Width 12.5 % (11.5-14.5); White Blood Count 5.2 K/mm3 (4.5-10.0)
[2021-02-24 08:58] LABS: Anion Gap 4 mmol/L (8-16); Blood Urea Nitrogen 5 mg/dL (7-17); Calcium 7.7 mg/dL (8.4-10.2); Carbon Dioxide 28 mmol/L (22-30); Chloride 105 mmol/L (98-107); Estimated CRCL calculation 107 ml/min; Estimated Glomerular Filt Rate > 60; Glucose 267 mg/dL (65-110); Potassium 3.3 mmol/L (3.4-5.0); Sodium 137 mmol/L (137-145)
--- NOTE | 2021-02-24 10:45 | P.CDI_ITS ---
CDI Query Clarification Request -Acute Encephalopathy has been documented Please clarify type of encephalopathy: * Metabolic * Toxic * Hepatic * Hypertensive * Other * Unable to determine <Candice Renteria RN - Last Filed: 02/24/21 10:47> Clarified Diagnosis (1) Acute encephalopathy: Code(s): G93.40 - Encephalopathy, unspecified <Candice Renteria RN - Last Filed: 02/24/21 10:47> Status: Acute <Candice Renteria RN - Last Filed: 02/24/21 10:47> Assessment and Plan: Acute encephalopathy most likely 2/2 metabolic <Scottie Astorga MD - Last Filed: 02/27/21 12:30>
[2021-02-24 11:48] LABS: Glucose Point of Care 224 mg/dl (65-105)
--- NOTE | 2021-02-24 11:56 | WPDNEUROPN ---
Progress Note: A&P Additional Plan her MRI on February 15, 2021 had documented old lacunar infarct left thalamus with patchy meningeal irritation which has cleared on the repeat MRI on February 22, 2021 Doppler study of the veins is normal and x-ray chest February 21, 2021 documented patchy bilateral infiltration a bit and lower lungs compatible with pneumonia for which she is being treated and treatment will be continued as such Subjective Date/time seen: 02/24/21 11:[age] years old right-handed female admitted to [facility] through the emergency room for the complaints of increasing confusion with history of documented abnormal MRI raising the possibility of patchy involvement of the meningitis is spinal tap was done in the emergency room which revealed no evidence of abnormal cytology or chronic infection patient had routine blood workup is not significant, PTT and INR are normal low as the APTT chemistry revealed her to have only potassium of 3.3 sugar 225 calcium 7.7 UA with 3+ E glucose and spinal fluid studies are not remarkable also MRI documented clearance of the patchy meningitis Review of Systems Review of Systems: All systems reviewed & are unremarkable except as noted in HPI and below Exam Narrative: remains awake alert though obviously chronically ill head normocephalic with no cranial bruits neck supple with no meningeal signs ear nose throat examination normal heart regular with no murmur lungs clear with no rhonchi or crepitation abdomen is soft and neurologic she is awake alert follow the verbal commands there is no focal motor deficit reflexes sluggish but symmetrical plantars are downgoing Objective Data Vital Signs Vital Signs: Vital Signs - 24 hr 02/23/21 12:00 02/23/21 14:00 02/23/21 16:00 Temperature 36.6 C Pulse Rate 75 74 77 Respiratory Rate 18 Blood Pressure 138/62 Pulse Oximetry 100 02/23/21 19:56 02/23/21 20:07 02/23/21 20:27 Temperature 36.8 C Pulse Rate 78 74 Respiratory Rate 18 Blood Pressure 154/72 H Pulse Oximetry 100 94 96 02/24/21 00:00 02/24/21 03:54 02/24/21 04:00 Temperature 36.6 C Pulse Rate 80 74 73 Respiratory Rate 18 Blood Pressure 116/56 L Pulse Oximetry 99 02/24/21 08:28 02/24/21 08:46 Temperature Pulse Rate Respiratory Rate Blood Pressure Pulse Oximetry 93 93 Intake/Output Intake/Output: Intake & Output 02/21/21 02/22/21 02/23/21 02/24/21 23:59 23:59 23:59 23:59 Intake Total 1100 2525 2320 1490 Output Total 256 606 9819 Balance 1100 1625 1495 190 Meds/Results Medications: Active Medications Generic Name Dose Route Start Last Admin Trade Name Freq PRN Reason Stop Dose Admin Albuterol 2 puff 02/22/21 04:00 02/24/21 08:45 Albuterol Sulfate (*Sp) Aerosol 1 Puff INHALATION 2 puff Q4HRT PAULY Administration Aspirin 81 mg 02/22/21 09:00 02/24/21 08:24 Aspirin 81 Mg Enteric Tablet PO 81 mg QAM PAULY Administration Atorvastatin Calcium 40 mg 02/22/21 21:00 02/23/21 21:19 Atorvastatin 40 Mg Tablet PO 40 mg HS PAULY Administration Budesonide/Formoterol Fumarate 2 puff 02/22/21 08:00 02/24/21 08:45 Budesonide/Form 80-4.5 Mcg (*Sp) INHALATION 2 puff Q12HRT PAULY Administration Clonazepam 0.5 mg 02/22/21 21:00 02/23/21 21:19 Clonazepam (*Crx) 0.5 Mg Tablet PO 0.5 mg HS PAULY Administration Clopidogrel Bisulfate 75 mg 02/22/21 09:00 02/24/21 08:24 Clopidogrel Bisulfate 75 Mg Tablet PO 75 mg DAILY PAULY Administration Dextrose 12.5 gm 02/22/21 02:23 Dextrose 50% 25 Gm/50 Ml Syringe IV PUSH PRN PRN Hypoglycemia Protocol Doxycycline Hyclate 100 mg 02/23/21 21:00 02/24/21 08:24 Doxycycline Hyclate 100 Mg Tablet PO 100 mg Q12HR PAULY Administration Escitalopram Oxalate 10 mg 02/22/21 09:00 02/24/21 08:24 Escitalopram Oxalate 10 Mg Tablet PO 10 mg DAILY PAULY Administration Glucagon 1 mg 02/22/21 02:23 Glucagon For Inj 1
--- NOTE | 2021-02-24 14:19 | PM.DS ---
DS: Admitting Diagnosis Discharge Date 02/24/2021 Admitting Diagnosis Chief Complaint: Altered mental status DS: Discharge Diagnosis Discharge Diagnosis (1) Acute encephalopathy: Code(s): G93.40 - Encephalopathy, unspecified Status: Acute Assessment and Plan: Pt was admitted for AMS which seems to be improving but she continues to be dysphasic -MRI brain 02/15 showed: Diffuse pachymeningeal enhancement. This finding is most commonly secondary to prior lumbar puncture or spine surgery and may persist for years. Less common etiologies include meningitis or intracranial hypotension. She had no recent sx or LP at this time. When she came back to the ER with continued AMS she underwent an LP 02/21 which showed a few total nucleated cells and high protein. Further labs and gram stain are pending. I repeated the MRI today which showed resolution of this previous abnormality. -drug screen, cbc, cmp, UA, COVID, b12, tsh, RPR, blood culture show no cause for concern -doubt PNA causing her AMS but could be a factor -neurology consulted, await results of further testing. patient remains clinically stable discussed with neurologist patient had a spinal tap and there was no significant pathology or source of infection will continue to monitor patient is waiting for placement pending insurance authorization, patient wants to go home has no new complaint (2) Pneumonia: Qualifiers: Pneumonia type: due to unspecified organism Laterality: bilateral Lung location: unspecified part of lung Qualified Code(s): J18.9 - Pneumonia, unspecified organism Code(s): J18.9 - Pneumonia, unspecified organism Status: Acute Assessment and Plan: CXR showing patchy bilateral infiltrates of the mid and lower lungs, compatible with pneumonia -continue unasyn -pt unable to tell me if she has been having symptoms (3) Diabetes mellitus with hyperglycemia: Qualifiers: Diabetes mellitus type: type 2 Diabetes mellitus terminal clerk insulin use: with terminal clerk use Qualified Code(s): E11.65 - Type 2 diabetes mellitus with hyperglycemia; Z79.4 - senior care (current) use of insulin Code(s): E11.65 - Type 2 diabetes mellitus with hyperglycemia Status: Acute Assessment and Plan: Last glucose 166 -continue SSI -pt has a hx of hypoglycemia and will need help with medications at d/c (4) Chronic respiratory failure with hypoxia, on home oxygen therapy: Code(s): J96.11 - Chronic respiratory failure with hypoxia; Z99.81 - Dependence on supplemental oxygen Status: Acute Assessment and Plan: On home o2 settings (5) Multiple episodes of hypoglycemia: Code(s): E16.2 - Hypoglycemia, unspecified Status: Acute Assessment and Plan: Doing well during this stay -will need help with her medications after discharge (6) Vaginal discharge: Code(s): N89.8 - Other specified noninflammatory disorders of vagina Status: Acute Assessment and Plan: Noted by nursing staff -will consult ACID PUMP OPERATOR -unable to perform thorough exam at bedside, will defer to ACID PUMP OPERATOR and I appreciate their recommendations DS: Summary Hospital Course Reason for hospitalization: Chief Complaint: Altered mental status Narrative: The 55-year-old female with past medical history of CVA, chronic respiratory failure on home oxygen, COPD, hypothyroidism, and insulin-dependent diabetes who presented to the ER from home via EMS due to reported altered mental status. The patient had previously been at our facility 02/13/2021 through 02/20/2021 due to similar symptoms. The patient was initially thought to have possible CVA but MRI demonstrated old lacunar infarct in the left thalamus and nonspecific cerebral white matter disease. There was some diffuse parenchymal meningeal enhancement with Radiology commenting that it could be seen with prior lumbar puncture or spine surgery may per
[2021-02-24 15:05] LABS: EDCOVIDSCREEN Negative (Negative)
--- NOTE | 2021-02-24 15:47 | PM.GYNPNOP ---
STATE APPELLATE CLERK - A/P Assessment and plan (1) Vaginal discharge: Code(s): N89.8 - Other specified noninflammatory disorders of vagina Status: Acute Assessment and Plan: Recommend her to be sent home with Doxycycline 100mg po q 12 hour for 7 days upon discharge. Time Spent With Patient Time: Total time spent is greater than 50% in coordination of care (as documented) at patient's floor/unit and/or counseling patient: Time with patient: less than 15 minutes STATE APPELLATE CLERK- PN:Subj Post-Op Subjective Date/time seen: 02/24/21 15:47 Interval history: Pt is a 55 y/o female here for PNA and AMS. Pt was seen today and states she is having issues with her speech. She mentions that her words are not coming out right even though she knows what she wants to say. She has no neck pain, facial pain, cp, sob, weakness, numbness/tingling, abd pain or fevers. RN states pt has been having foul vaginal discharge. Pt denies such. I performed on the patient today the correct swabs that were sent for vaginitis, wet preg, gc/chl. The swabs collected from yesterday were not the right swabs. Patient tolerated well. STATE APPELLATE CLERK - PN: Obj Data Vital Signs Vital Signs: Vital Signs - 24 hr 02/23/21 16:00 02/23/21 19:56 02/23/21 20:07 Temperature 98.3 F Pulse Rate 77 78 74 Respiratory Rate 18 Blood Pressure 154/72 H Pulse Oximetry 100 94 02/23/21 20:27 02/24/21 00:00 02/24/21 03:54 Temperature 98 F Pulse Rate 80 74 Respiratory Rate 18 Blood Pressure 116/56 L Pulse Oximetry 96 99 02/24/21 04:00 02/24/21 08:00 02/24/21 08:28 Temperature Pulse Rate 73 69 Respiratory Rate Blood Pressure Pulse Oximetry 93 02/24/21 08:46 02/24/21 12:00 02/24/21 13:50 Temperature 98 F Pulse Rate 84 71 Respiratory Rate 20 Blood Pressure 131/71 Pulse Oximetry 93 99 Intake/Output Intake/Output: Intake & Output 02/21/21 02/22/21 02/23/21 02/24/21 23:59 23:59 23:59 23:59 Intake Total 1100 2525 2320 1590 Output Total 614 283 3628 Balance 1100 1625 1495 290 Meds/Results Medications: Active Medications Generic Name Dose Route Start Last Admin Trade Name Freq PRN Reason Stop Dose Admin Albuterol 2 puff 02/22/21 04:00 02/24/21 13:55 Albuterol Sulfate (*Sp) Aerosol 1 Puff INHALATION 2 puff Q4HRT PAULY Administration Aspirin 81 mg 02/22/21 09:00 02/24/21 08:24 Aspirin 81 Mg Enteric Tablet PO 81 mg QAM PAULY Administration Atorvastatin Calcium 40 mg 02/22/21 21:00 02/23/21 21:19 Atorvastatin 40 Mg Tablet PO 40 mg HS PAULY Administration Budesonide/Formoterol Fumarate 2 puff 02/22/21 08:00 02/24/21 08:45 Budesonide/Form 80-4.5 Mcg (*Sp) INHALATION 2 puff Q12HRT PAULY Administration Clonazepam 0.5 mg 02/22/21 21:00 02/23/21 21:19 Clonazepam (*Crx) 0.5 Mg Tablet PO 0.5 mg HS PAULY Administration Clopidogrel Bisulfate 75 mg 02/22/21 09:00 02/24/21 08:24 Clopidogrel Bisulfate 75 Mg Tablet PO 75 mg DAILY PAULY Administration Dextrose 12.5 gm 02/22/21 02:23 Dextrose 50% 25 Gm/50 Ml Syringe IV PUSH PRN PRN Hypoglycemia Protocol Doxycycline Hyclate 100 mg 02/23/21 21:00 02/24/21 08:24 Doxycycline Hyclate 100 Mg Tablet PO 100 mg Q12HR PAULY Administration Escitalopram Oxalate 10 mg 02/22/21 09:00 02/24/21 08:24 Escitalopram Oxalate 10 Mg Tablet PO 10 mg DAILY PAULY Administration Glucagon 1 mg 02/22/21 02:23 Glucagon For Inj 1 Mg Vial IM PRN PRN Hypoglycemia Protocol Glucose 15 gm 02/22/21 02:23 Glucose Oral Gel 15 Gm Of Glucse In 37.5 Gm Tube PO PRN PRN Hypoglycemia Protocol Ampicillin Sodium/Sulbactam Sodium 3 gm in 100 mls @ 200 mls/hr 02/22/21 06:00 02/24/21 11:44 Unasyn 3 Gm/Ns 100 Ml IVPB Infused Q6H PAULY Infusion Sodium Chloride 1,000 mls @ 75 mls/hr 02/21/21 22:45 02/24/21 06:10 Normal Saline Iv IV CONT 75 mls/hr .[id number] PAULY Administration Dextros
[2021-02-24 16:28] LABS: Glucose Point of Care 224 mg/dl (65-105)
[2021-02-25 10:35] LABS: Herpes Simplex Type 1 DNA PCR Detected (Not Detected); Herpes Simplex Type 2 DNA PCR Not Detected (Not Detected)
[2021-02-25 13:06] LABS: VDRL Quantitative CSF Nonreactive (Nonreactive)
[2021-02-25 23:53] LABS: Cryptococcus Antigen Not Detected (Not Detected); Cryptococcus Specimen Source CSF
[2021-03-02 14:40] LABS: Albumin, CSF 22.5 mg/dL (8.0-42.0); Albumin, Serum 3.2 g/dL (3.5-5.2); IgG Index, CSF 0.45 (<0.66); IgG, CSF 2.6 mg/dL (0.8-7.7); Immunoglobulin G, Serum 826 mg/dL (600-1640); Myelin Basic Protein, CSF <2.0 mcg/L (2.0-4.0)
== END 2021-02-24 19:10 | DRG 194 ==
LOC: ANHED 18:42 → ANH2MED 23:17
PROVIDERS: Obstetrics & Gynecology; Physician Assistant; Admitting Provider Internal Medicine; Emergency Provider Emergency Medicine; PCP Internal Medicine; Visit Provider Family Medicine
DX: J18.9 Pneumonia, unspecified organism (principal); J96.11 Chronic respiratory failure with hypoxia; J44.0 Chronic obstructive pulmonary disease with (acute) lower respiratory infection; G93.40 Encephalopathy, unspecified; Z20.822 Contact with and (suspected) exposure to COVID-19; E11.65 Type 2 diabetes mellitus with hyperglycemia; E11.43 Type 2 diabetes mellitus with diabetic autonomic (poly)neuropathy; E11.319 Type 2 diabetes mellitus with unspecified diabetic retinopathy without macular edema; K31.84 Gastroparesis; N89.8 Other specified noninflammatory disorders of vagina; I10 Essential (primary) hypertension; E03.9 Hypothyroidism, unspecified; I25.10 Atherosclerotic heart disease of native coronary artery without angina pectoris; F41.8 Other specified anxiety disorders; E78.5 Hyperlipidemia, unspecified; I25.2 Old myocardial infarction; Z78.0 Asymptomatic menopausal state; Z79.4 Long term (current) use of insulin; Z79.899 Other long term (current) drug therapy; Z86.73 Personal history of transient ischemic attack (TIA), and cerebral infarction without residual deficits; Z87.891 Personal history of nicotine dependence; Z95.5 Presence of coronary angioplasty implant and graft; Z99.81 Dependence on supplemental oxygen
CPT/HCPCS: 36415; 36600; 62270; 70450; 70553; 71045; 80048; 80053; 80307; 81001; 82040; 82042; 82784; 82805; 82945; 82948; 83873; 83916; 84157; 85025; 85027; 86403; 86592; 86703; 87015; 87040; 87070; 87075; 87102; 87116; 87205; 87206; 87426; 87491; 87529; 87591; 87808; 89051; 92611; 93005; 93970; 94640; 96361; 96365; 96366; 97110; 97162; 97165; 97535; 99285; A9270; A9577; C9803; G0378; G0432; J0295; J1815; J7030

== ENCOUNTER 2021-03-08 07:58 | Inpatient (IN) | payer MEDICARE, SELFPAY ==
[2021-03-08] VITALS (14 sets, daily range): BP systolic 85–116; BP diastolic 43–73; PULSE 60–94; RESP 13–27; TEMP 36–36.9; O2SAT 98–100; BMI 17.3
--- NOTE | ~2021-03-08 | CT_ITS ---
EXAMINATION: CT brain wo con DATE: 03/08/2021 08:56 INDICATION: Altered mental status. TECHNIQUE: Computed tomography (CT) of the head was performed without intravenous contrast. The mA wa s adjusted according to patient size. Iterative reconstruction technique was employed. The dose-lengt h product was 529.67 mGy-cm. COMPARISON: Head CT 02/21/2021, brain MRI 02/22/2021 FINDINGS: There are scattered areas of low attenuation in the cerebral white matter. There is no intr acranial hemorrhage, acute infarction, or abnormal intracranial mass lesion. The ventricles are alton l in size. There is an old blowout fracture of medial wall of left orbit. The mastoid air cells are n ormal. IMPRESSION: 1. Stable mild nonspecific cerebral white matter disease, which likely represents chronic small vesse l ischemic disease. Reviewed, dictated and finalized at location A. RVISOR DISPLAY FABRICATION IMPRESSION: 1. Stable mild nonspecific cerebral white matter disease, which likely represen ts chronic small vessel ischemic disease.
--- NOTE | ~2021-03-08 | US_ITS ---
EXAMINATION: US abdomen limited EXAM DATE: 03/08/2021 17:48 INDICATION: Elevated liver function tests. TECHNIQUE: Multiple grayscale and Doppler images of the abdomen right upper quadrant were obtained (b y a technologist who performed the scan) and subsequently reviewed. There is no prior study for vidal farr. FINDINGS: The pancreatic head and body are normal in appearance. The pancreatic tail is not visualized. The l iver has normal echogenicity and contour. There are no focal liver lesions identified. There is no evidence of intrahepatic biliary duct dilation. Portal venous flow was seen in the hepatopedal, nor mal direction and has normal Doppler waveform. No right-sided hydronephrosis. Common bile duct measures 4 mm, which is normal. The gallbladder wall is normal in thickness, with ex pected amount of distention. No sonographic evidence of pericholecystic fluid. There is no cholelit hiases. Technologist performing exam reports patient did not demonstrate sonographic Vasquez's sign. Please note that this sign is less reliable in patients who have received pain medication. IMPRESSION: Unremarkable abdominal ultrasound exam. Reviewed, dictated and finalized at location A. A BUTTER FILTER OPERATOR
--- NOTE | ~2021-03-08 | XR_ITS ---
EXAMINATION: XR chest 1V INDICATION: Transient alteration of awareness TECHNIQUE: AP view of the chest is obtained. COMPARISON: 02/21/2021 FINDINGS: The lungs are free of acute opacities. There is no pleural effusion or pneumothorax. The ca rdiomediastinal silhouette is normal. Calcified pulmonary nodules and calcified bilateral hilar and m ediastinal lymph nodes are consistent with old granulomatous disease. IMPRESSION: 1. No acute cardiopulmonary abnormality. Reviewed, dictated and finalized at location B. GER CAR
[2021-03-08 08:08] LABS: Glucose Point of Care > 500 mg/dl (65-105)
--- NOTE | 2021-03-08 08:17 | ECG_ITS ---
Measurements Intervals [place] Rate: 90 P: 92 RI: 125 QRS: 91 QRSD: 93 T: -2 QT: 356 QTc: 437 Interpretive Statements SINUS RHYTHM RIGHT AXIS DEVIATION ST-T WAVE ABNORMALITY IN INFERIOR LEADS- CONSIDER ISCHEMIA BASELINE ARTIFACT- I, II, III, AVR, AVF, V1-V6 ABNORMAL ECG Electronically Signed On 03-08-2021 8:37:25 COLOR MAKING SUPERVISOR by Thad Rea D.O.
[2021-03-08] MEDS: SODIUM CHLORIDE 0.9% IV 1,000 ML 999 ML IV CONT ×4 (08:38→15:20)
[2021-03-08 08:40] LABS: Alveolar/Arterial O2 Gradient 72.8 mmHg; Base Excess ABG -14.2 mEq/l (+/-2.0); Carboxyhemoglobin 0.2 % THb (0-2.0); Fractional Inspired Oxygen 28 %; HCO3 ABG 12.1 mEq/l (22.0-26.0); Methemoglobin ABG 0.4 %THb (0-1.5); Oxygen Content ABG 16.3 %vol (16.0-22.0); Oxygen Saturation ABG 95.6 % (95.0-100.0); Oxyhemoglobin 95.2 % THb (90.0-100.0); PCO2 ABG 30.1 mmHg (35.0-45.0); PO2 ABG 91.3 mmHg (80.0-100.0); PO2 FiO2 Ratio Arterial Blood 3.26 %; Reduced Hemoglobin 4.2 %THb (0-5.0); Total Hemoglobin 12.1 g/dL (12.0-18.0)
[2021-03-08 08:41] LABS: Basophils Percent Auto 0.3 % (0.2-1.2); Hemoglobin 12.1 g/dL (12.0-15.0); Immature Granulocyte Absolute 0.08 K/mm3 (0.00-0.031); Immature Granulocyte Percent A 0.8 % (0-0.5); Lymphocytes Absolute Auto 0.71 K/mm3 (0.9-3.2); Lymphocytes Percent Auto 7.2 % (18.3-44.2); Mean Corpuscular Hemoglobin 30.6 pg (26-34); Mean Corpuscular Volume 98.5 fl (80-100); Mean Platelet Volume 11.5 fl (7.4-10.4); Monocytes Absolute Auto 0.7 K/mm3 (0.1-0.6); Monocytes Percent Auto 6.6 % (2.6-8.5); Neutrophils Absolute Auto 8.5 K/mm3 (1.3-6.7); Neutrophils Percent Auto 85.1 % (45.5-73.1); Platelet Count Result 322 k/mm3 (150-375); Red Blood Count 3.96 M/mm3 (4.2-5.4); Red Cell Distribution Width 14.1 % (11.5-14.5); White Blood Count 9.9 K/mm3 (4.5-10.0)
[2021-03-08 08:42] LABS: pH ABG 7.222 (7.350-7.450)
[2021-03-08 08:43] LABS: Device NASAL CANNULA; Site Drawn LEFT BRACHIAL
[2021-03-08 08:46] LABS: Lactic Acid Reflex 1.6 mmol/L (0.7-2.1)
[2021-03-08 08:47] LABS: Ammonia < 9 umol/L (9-30); Ethanol < 10 mg/dL (<10)
[2021-03-08 08:51] LABS: Prothrombin Time 13.1 Seconds (11.1-14.7)
[2021-03-08 08:52] LABS: Partial Thromboplastin Time 21.5 SECONDS (22.3-36.8)
[2021-03-08 09:16] LABS: Troponin I 0.014 ng/mL (0.000-0.034)
[2021-03-08 09:27] LABS: Alanine Aminotransferase 83 U/L (4-35); Albumin Level 3.4 g/dL (3.5-5.1); Alkaline Phosphatase 197 U/L (38-126); Anion Gap 28 mmol/L (8-16); Aspartate Amino Transferase 74 U/L (14-36); Bilirubin,Total 0.5 mg/dL (0.2-1.3); Blood Urea Nitrogen 29 mg/dL (7-17); Calcium 8.8 mg/dL (8.4-10.2); Carbon Dioxide 13 mmol/L (22-30); Chloride 97 mmol/L (98-107); Estimated Glomerular Filt Rate 52; Magnesium 2.1 mg/dL (1.6-2.3); Potassium 5.6 mmol/L (3.4-5.0); Sodium 138 mmol/L (137-145)
[2021-03-08 09:31] LABS: Glucose 797 mg/dL (65-110)
[2021-03-08 09:38] LABS: Add Urine Microscopic? YES; Appearance Urine Cloudy (Clear); Bilirubin Urine Negative (Negative); Blood Urine 3+ (Negative); Color Urine Yellow (Yellow); Glucose Urine UA 3+ mg/dL (Negative); Ketones Urine 1+ mg/dL (Negative); Leukocyte Esterase Ur Negative LEU/UL (Negative); Mucus Urine Rare /lpf; Nitrate Urine Negative (Negative); Protein Urine 2+ mg/dL (Negative); RBC Urine >75 /hpf (0-2); Specific Grav Ur 1.018 (1.001-1.035); Squamous Epithelial Cell Urine Occasional /hpf (Few); Urobilinogen Urine Negative mg/dL (<2.0); WBC Urine 16-20 /hpf
[2021-03-08] MEDS: INSULIN HUMAN REGULAR (*BKC) 100 UNITS/ML IV PUSH (09:56)
[2021-03-08 09:57] LABS: Phosphorus 6.4 mg/dL (2.5-4.5)
[2021-03-08] MEDS: INSULIN HUMAN REGULAR (*BKC) 100 UNITS in SODIUM CHLORIDE 0.9% IV 99 ML 14.7 UNITS IV CONT (10:00)
--- NOTE | 2021-03-08 10:55 | ED.AMS ---
HPI - Altered Mental Status General Chief Complaint: Altered Mental Status Stated Complaint: AMS, low BP Time Seen by Provider: 03/08/21 08:00 Source: EMS Mode of arrival: EMS Limitations: altered mental status History of Present Illness HPI narrative: This is a 55 year old female with Diabetes Mellitus, hypothyroid, hypertension who presents for evaluation of altered mental status. Patient was found by EMS reponsive to verbal stimuli. She was also found to have blood sugar greater than 500. Patient has been in and out of the hospital over the past month for confusion and altered mental status. It is suspected she may have had a stroke per EMS so she was sent rehab. Related Data Home Medications Medication Instructions Recorded Confirmed escitalopram oxalate 10 mg PO DAILY 02/14/21 02/21/21 glucagon (human recombinant) 1 mg SUBCUT PRN PRN 02/14/21 02/21/21 acyclovir 800 mg PO DAILY 03/08/21 acyclovir 800 mg PO QID 03/08/21 aspirin [Adult Aspirin EC Low 03/08/21 Strength] Allergies Allergy/AdvReac Type Severity Reaction Status Date / Time metformin AdvReac Intermediate Diarrhea Verified 03/08/21 08:13 Review of Systems Review of Systems: ROS unobtainable: Yes unobtainable due to mental status PMFSH Past Medical History Medical History Arthritis Chronic respiratory failure with hypoxia, on home oxygen therapy COPD with asthma Coronary artery disease Reported myocardial infarction in 1999 requiring stent. Depression with anxiety Hyperlipidemia Hypertension Hypothyroidism Insulin dependent diabetes mellitus Complicated by diabetic retinopathy and gastroparesis. Hemoglobin A1c was 8.3% on 02/13/2021. Tobacco abuse Surgical History Surgical History Status post arthroscopy of right knee Status post section Family History Family History Mother Family history of alcoholism Family history of congestive heart failure, Onset Age: 70 Family history of osteoporosis Family history of chronic obstructive pulmonary disease Grandparent Family history of Alzheimer's disease, Onset Age: 90 Hypertension, Onset Age: 80 Sibling Hypertension, Onset Age: 53 Family history of alcoholism Family history of malignant neoplasm Patient's sister is in good health Father Hypertension, Onset Age: 79 Family history of thyroid disease Family history of cataracts Malignant neoplasm of prostate Other Diabetes mellitus Family history of arthritis Social History Social History (Updated 03/08/21 @ 15:00 by Lexy Bhatt NP) Social History: Surrogate decision maker: Tiera Montgomery (sister) or Ho Espinoza (son). Patient currently in a rehab facility. Code status: Full code. Smoking packs per day: 1.5 Smoking cigarettes per day: 30.0 Years smoked: 40 Smoking pack-years: 60.00 Smoking status: Unknown if ever smoked Tobacco type: cigarettes Second hand tobacco smoke exposure: Yes Alcohol intake: unknown Substance use: unknown Substance use type: does not use Additional living arrangements comments: Patient lives at home alone. Additional occupation/education comments: Disabled. Spiritual care concerns: No Exam Const: General: no acute distress and ill appearing Nutritional Appearance: thin Limitations: altered mental status HENMT: Head: normocephalic and atraumatic Face and sinus: face symmetric Eyes: Pupils: Equal, round and reactive pupils present Resp: Effort & Inspection: normal respiratory effort and no retractions Auscultation: clear to auscultation bilaterally Cardio: Rate: regular rate Rhythm: regular rhythm Heart sounds: no murmurs GI: GI Palp: Yes Soft to palpation, No Tenderness to palpation present (GI) and No Guarding d
[2021-03-08 11:05] LABS: Glucose Point of Care > 500 mg/dl (65-105)
[2021-03-08 12:07] LABS: Glucose Point of Care 410 mg/dl (65-105)
[2021-03-08] MEDS: SODIUM CHLORIDE 0.9% IV 1,000 ML 150 ML IV CONT (12:24)
[2021-03-08 13:03] LABS: Hemoglobin A1C 8.9 % (<5.7)
[2021-03-08 13:09] LABS: Glucose Point of Care 462 mg/dl (65-105)
--- NOTE | 2021-03-08 13:41 | ADMGEN ---
This patient, Beatrice Espinoza, was admitted to Intensive Care Unit-5. Patient/family oriented to hospital policies and general routines including ID bracelet, bed and alarms, visiting hours, pain management, procedures, bathroom and other care routines, personal items, smoking policy, room service/diet, and visiting hours. Information on how to activate the Rapid Response Team has been discussed. Patient/Family are encouraged to report perceived risks to care and to ask questions if they do not understand what they are told or what they should do.
[2021-03-08 14:15] LABS: Glucose Point of Care 367 mg/dl (65-105)
--- NOTE | 2021-03-08 14:50 | PM.IMHP ---
H&P: HPI History of Present Illness Date/Time: 03/08/21 14:50 this is a 55-year-old female patient who has a history of diabetes, hypothyroidism and hypertension. The patient came to the emergency room to be evaluated for altered mental status. Patient was found by EMS to be responsive after verbal stimuli. Patient's blood sugar was over 500. (The patient was just discharged from here on 02/24/2021 with her chief complaint of altered mental status she had a drug screen and COVID and blood cultures that show no cause for concern. Neurology saw the patient at that time. She also had MRI that showed diffuse pachymeningeal enhancement. This prompted a lumbar puncture and a repeat MRI showed resolution of the abnormal results last MRI. The patient was discharged to [facility]) The patient's pH was noted to be 7.222 under ABG with a CO2 of 30.1. Potassium 5.6. Creatinine 1.1. BUN 29. GFR 52. Her blood sugar was noted to be 797. It is now down at 367. hemoglobin A1c was 8.9. Be help was 14.7. Anion gap is 28. The patient was given IV fluids, IV insulin and started on the DKA protocol. The accounts clerk had been consulted and the patient was admitted to intensive care unit as inpatient on the date of service of 03/08/2021. Chief Complaint: Lethargy Review of Systems Review of Systems: ROS unobtainable: Yes unobtainable due to mental status PMFSH Past Medical History Medical History Arthritis Chronic respiratory failure with hypoxia, on home oxygen therapy COPD with asthma Coronary artery disease Reported myocardial infarction in 1999 requiring stent. Depression with anxiety Hyperlipidemia Hypertension Hypothyroidism Insulin dependent diabetes mellitus Complicated by diabetic retinopathy and gastroparesis. Hemoglobin A1c was 8.3% on 02/13/2021. Tobacco abuse Surgical History Surgical History Status post arthroscopy of right knee Status post section Family History Family History Mother Family history of alcoholism Family history of congestive heart failure, Onset Age: 70 Family history of osteoporosis Family history of chronic obstructive pulmonary disease Grandparent Family history of Alzheimer's disease, Onset Age: 90 Hypertension, Onset Age: 80 Sibling Hypertension, Onset Age: 53 Family history of alcoholism Family history of malignant neoplasm Patient's sister is in good health Father Hypertension, Onset Age: 79 Family history of thyroid disease Family history of cataracts Malignant neoplasm of prostate Other Diabetes mellitus Family history of arthritis Social History Social History (Updated 03/08/21 @ 15:00 by Lexy Bhatt NP) Social History: Surrogate decision maker: Tiera Montgomery (sister) or Ho Espinoza (son). Patient currently in a rehab facility. Code status: Full code. Smoking packs per day: 1.5 Smoking cigarettes per day: 30.0 Years smoked: 40 Smoking pack-years: 60.00 Smoking status: Unknown if ever smoked Tobacco type: cigarettes Second hand tobacco smoke exposure: Yes Alcohol intake: unknown Substance use: unknown Substance use type: does not use Additional living arrangements comments: Patient lives at home alone. Additional occupation/education comments: Disabled. Spiritual care concerns: No Meds Home Medications and Allergies Home Medications Medication Instructions Recorded Confirmed Type atorvastatin 40 mg tablet 40 mg PO HS #90 tablet 06/07/20 02/21/21 Rx budesonide-formoterol HFA 80 2 puff INHALATION Q12H #10.2 gm 08/23/20 02/21/21 Rx mcg-4.5 mcg/actuation aerosol inhaler clonazepam 0.5 mg tablet 0.5 mg PO HS #30 tablet 09/28/20 02/21/21 Rx levothyroxine 100 mcg tablet 100 mcg PO DAILY #90
[2021-03-08 15:12] LABS: Glucose Point of Care 373 mg/dl (65-105)
--- NOTE | 2021-03-08 15:19 | WPDCNINT ---
Assessment and Plan Assessment and plan (1) DKA (diabetic ketoacidosis): Code(s): E11.10 - Type 2 diabetes mellitus with ketoacidosis without coma Status: Acute Assessment and Plan: Patient presented from the [facility] with altered mental status, hyperglycemia with blood sugars in the ED of 797 with elevated beta hydroxybutyrate, a anion gap of 28 and CO2 of 13. -was given 3 L of IV fluids, started on insulin infusion -on my examination her mucous membranes were dry, will give additional IV fluid bolus -may have ice chips if awake -otherwise NPO (2) Acute encephalopathy: Code(s): G93.40 - Encephalopathy, unspecified Status: Acute Assessment and Plan: Encephalopathy could be related to DKA, herpes encephalitis as her CSF herpes PCR was positive on 02/21/2021 -continue acyclovir IV -will monitor mental status once DKA resolved (3) Hypothyroidism: Code(s): E03.9 - Hypothyroidism, unspecified Status: Chronic Assessment and Plan: Continue levothyroxine (4) Elevated LFTs: Code(s): R79.89 - Other specified abnormal findings of blood chemistry Status: Acute Assessment and Plan: Could be related to hypovolemia, will obtain hepatitis panel, and right upper quadrant ultrasound (5) Insulin dependent diabetes mellitus: Code(s): E11.9 - Type 2 diabetes mellitus without complications; Z79.4 - shelter (current) use of insulin Status: Chronic Assessment and Plan: -hemoglobin A1c on this admission is 8.9 Patient on insulin at snf Additional Plan Code status: Full code Critical care time spent: 42 minutes This dictation may have been done utilizing a voice recognition system. Attempts have been made to correct errors. However, there may be uncorrected grammatical, spelling, and recognition errors present. Due to a high probability of clinically significant, life threatening deterioration, the patient required my highest level of preparedness to intervene emergently and I personally spent this critical care time directly and personally managing the patient. This critical care time included obtaining a history; examining the patient; pulse oximetry; ordering and review of studies; arranging urgent treatment with development of a management plan; evaluation of patient's response to treatment; frequent reassessment; and discussions with other providers. It was exclusive of separately billable procedures and treating other patients and teaching time. Please see Assessment and Plan section and the rest of the note for further information on patient assessment and treatment [employer] Turning [employer] Consult Note Consult date: 03/08/21 HPI: Beatrice Espinoza is a 55 year old female with past medical history of chronic respiratory failure on home oxygen, history of COPD, coronary artery disease status post NM in 1999 requiring a stent, history of depression and anxiety, hyperlipidemia, essential hypertension, hypothyroidism, diabetes presented the ED on 03/08/2021 with altered mental status. In the ED patient was found to have a blood sugar of 797, with an anion gap of 28, CO2 of 13 and a beta hydroxybutyrate of 14.70. Patient has elevated LFTs, hemoglobin A1c of 8.9, lactic of 1.6. Patient was given 3 L IV fluid bolus in the ED and started on insulin infusion and transfer the ICU for further management. Patient was recently admitted to the hospital and discharged on 02/24/2021 for altered mental status and was found to have CSF PCR positive for herpes and was started on acyclovir at the snf. Patient seen and examined the ICU, opens her eyes to name, gives one-word answers, denies any chest pain, shortness of breath, abdominal pain, nausea vomiting at this time. Blood pressures are borderline, will give additional IV fluid bolus. Urine is dark colored, patient's heart rate is in the 60s and she is on room air with 100% FiO2 Review of Systems Review of Syst
[2021-03-08 15:33] LABS: Anion Gap 10 mmol/L (8-16); Blood Urea Nitrogen 28 mg/dL (7-17); Calcium 8.1 mg/dL (8.4-10.2); Carbon Dioxide 23 mmol/L (22-30); Chloride 109 mmol/L (98-107); Estimated CRCL calculation 57 ml/min; Estimated Glomerular Filt Rate > 60; Glucose 334 mg/dL (65-110); Potassium 3.6 mmol/L (3.4-5.0); Sodium 142 mmol/L (137-145)
[2021-03-08] MEDS: INSULIN HUMAN REGULAR (*BKC) 100 UNITS in SODIUM CHLORIDE 0.9% IV 99 ML 14.9 UNITS IV CONT (16:10)
[2021-03-08 16:15] LABS: Glucose Point of Care 309 mg/dl (65-105)
[2021-03-08 16:36] LABS: Hepatitis B Surface Antigen Negative (Negative)
[2021-03-08 16:41] LABS: HAV RESULT Negative (Negative); Hepatitis B Core IgM Result Negative (Negative)
[2021-03-08 16:53] LABS: Hepatitis C Virus Antibody Negative (Negative)
[2021-03-08 17:14] LABS: Glucose Point of Care 218 mg/dl (65-105)
[2021-03-08 17:52] LABS: Anion Gap 4 mmol/L (8-16); Blood Urea Nitrogen 27 mg/dL (7-17); Calcium 7.9 mg/dL (8.4-10.2); Carbon Dioxide 26 mmol/L (22-30); Chloride 112 mmol/L (98-107); Estimated CRCL calculation 67 ml/min; Estimated Glomerular Filt Rate > 60; Glucose 207 mg/dL (65-110); Potassium 3.4 mmol/L (3.4-5.0); Sodium 142 mmol/L (137-145)
[2021-03-08 18:09] LABS: Glucose Point of Care 210 mg/dl (65-105)
[2021-03-08] MEDS: INSULIN GLARGINE (*BKC) 100 UNITS/ML 35 UNITS SUB-Q (18:36)
[2021-03-08] MEDS: ENOXAPARIN 40 MG/0.4 ML SYRINGE SUB-Q (20:48)
[2021-03-08 23:06] LABS: Glucose Point of Care 85 mg/dl (65-105)
[2021-03-09] VITALS (31 sets, daily range): BP systolic 78–141; BP diastolic 45–76; PULSE 64–83; RESP 12–18; TEMP 34.6–37; O2SAT 95–100; BMI 19.0
[2021-03-09 01:23] LABS: Glucose Point of Care 149 mg/dl (65-105)
[2021-03-09 01:23] LABS: Glucose Point of Care < 20 mg/dl (65-105)
[2021-03-09] MEDS: SODIUM CHLORIDE 0.9% IV 1,000 ML 999 ML IV CONT (01:26)
[2021-03-09 01:39] LABS: Basophils Percent Auto 0.4 % (0.2-1.2); Eosinophils Percent Auto 0.2 % (0-4.4); Hematocrit 32.4 % (37.0-47.0); Hemoglobin 10.7 g/dL (12.0-15.0); Immature Granulocyte Absolute 0.06 K/mm3 (0.00-0.031); Immature Granulocyte Percent A 0.5 % (0-0.5); Lymphocytes Absolute Auto 1.39 K/mm3 (0.9-3.2); Lymphocytes Percent Auto 12.6 % (18.3-44.2); Mean Corpuscular Hemoglobin 31.1 pg (26-34); Mean Corpuscular Volume 94.2 fl (80-100); Mean Platelet Volume 10.6 fl (7.4-10.4); Monocytes Absolute Auto 1.4 K/mm3 (0.1-0.6); Neutrophils Absolute Auto 8.1 K/mm3 (1.3-6.7); Neutrophils Percent Auto 73.3 % (45.5-73.1); Platelet Count Result 243 k/mm3 (150-375); Red Blood Count 3.44 M/mm3 (4.2-5.4); Red Cell Distribution Width 14.6 % (11.5-14.5)
[2021-03-09 01:50] LABS: Lactic Acid Reflex 0.7 mmol/L (0.7-2.1)
--- NOTE | 2021-03-09 01:51 | PC.NURSE ---
0050Temp noted 94.1 axillary. Patient cool to touch. Karl hugger applied.
--- NOTE | 2021-03-09 01:54 | PC.NURSE ---
0105 blood glucose checked and glucometer read lo . 1 amp of d50 given ivp and stat labs ordered. 0120 blood glucose re check at 149 0125 bp 74/45 1 liter of NS bolus started. 0130 Temp sensing luo inserted 0140 Dr. Carroll updated on patient condition. new orders received
[2021-03-09 02:22] LABS: Glucose Point of Care 101 mg/dl (65-105)
[2021-03-09 02:33] LABS: Alanine Aminotransferase 58 U/L (4-35); Albumin Level 2.2 g/dL (3.5-5.1); Alkaline Phosphatase 126 U/L (38-126); Anion Gap 3 mmol/L (8-16); Aspartate Amino Transferase 38 U/L (14-36); Bilirubin,Total 0.3 mg/dL (0.2-1.3); Blood Urea Nitrogen 27 mg/dL (7-17); CRP 0.7 mg/dL (<1.0); Calcium 7.5 mg/dL (8.4-10.2); Carbon Dioxide 29 mmol/L (22-30); Chloride 112 mmol/L (98-107); Estimated CRCL calculation 82 ml/min; Estimated Glomerular Filt Rate > 60; Glucose 126 mg/dL (65-110); Lactate Dehydrogenase 446 U/L (313-618); Lipase 19 U/L (23-300); Magnesium 1.7 mg/dL (1.6-2.3); Phosphorus 2.7 mg/dL (2.5-4.5); Potassium 2.9 mmol/L (3.4-5.0); Sodium 144 mmol/L (137-145)
[2021-03-09 02:53] LABS: Glucose Point of Care 68 mg/dl (65-105)
[2021-03-09] MEDS: DEXTROSE 5% 1,000 ML 1,000 ML 100 ML IVPB ×2 (03:02→13:40)
[2021-03-09 03:35] LABS: Glucose Point of Care 117 mg/dl (65-105)
--- NOTE | 2021-03-09 03:48 | PC.NURSE ---
0335 Dr. Carroll informed of decreased urine output and accuchek of 68. orders received.
[2021-03-09] MEDS: hetaSTARCH 6%/NACL 500 ML 250 ML IV CONT (04:04)
[2021-03-09 04:20] LABS: Glucose Point of Care 110 mg/dl (65-105)
[2021-03-09 05:01] LABS: Glucose Point of Care 108 mg/dl (65-105)
[2021-03-09 06:07] LABS: Glucose Point of Care 96 mg/dl (65-105)
[2021-03-09 06:53] LABS: Glucose Point of Care 95 mg/dl (65-105)
[2021-03-09 08:03] LABS: Glucose Point of Care 93 mg/dl (65-105)
[2021-03-09] MEDS: FLUTICASONE/SALMETEROL 115-21 MCG INHALER 1 PUFF 2 PUFF INHALATION ×2 (09:08→19:48)
--- NOTE | 2021-03-09 09:35 | WPDINTPN ---
Progress Note: A&P Assessment and Plan (1) Hypoglycemia: Code(s): E16.2 - Hypoglycemia, unspecified Status: Acute Assessment and Plan: Patient was transition to long-acting insulin and sliding scale insulin -currently on dextrose 5% infusion -continue to monitor blood sugars closely (2) DKA (diabetic ketoacidosis): Code(s): E11.10 - Type 2 diabetes mellitus with ketoacidosis without coma Status: Acute Assessment and Plan: Patient presented from the shelter with altered mental status, hyperglycemia with blood sugars in the ED of 797 with elevated beta hydroxybutyrate, a anion gap of 28 and CO2 of 13. -was given adequate IV fluids, was on insulin infusion which was transitioned to long-acting insulin and sliding scale insulin after the anion gap closed. -will start diabetic diet -hemoglobin A1c is 8.9 this admission (3) Acute encephalopathy: Code(s): G93.40 - Encephalopathy, unspecified Status: Acute Assessment and Plan: Encephalopathy could be related to DKA, herpes encephalitis as her CSF herpes PCR was positive on 02/21/2021 -continue acyclovir IV -patient is more awake, continues to give one-word answers to questions, according the bedside RN this is her baseline according to the shelter and her son (4) Hypothyroidism: Code(s): E03.9 - Hypothyroidism, unspecified Status: Chronic Assessment and Plan: Continue levothyroxine (5) Elevated LFTs: Code(s): R79.89 - Other specified abnormal findings of blood chemistry Status: Acute Assessment and Plan: LFTs improving, -right upper quadrant ultrasound was unremarkable -hepatitis panel was negative (6) Insulin dependent diabetes mellitus: Code(s): E11.9 - Type 2 diabetes mellitus without complications; Z79.4 - care home (current) use of insulin Status: Chronic Assessment and Plan: -hemoglobin A1c on this admission is 8.9 Patient on sliding scale insulin at shelter Additional Plan Code status: Full code Critical care time spent: 33 minutes This dictation may have been done utilizing a voice recognition system. Attempts have been made to correct errors. However, there may be uncorrected grammatical, spelling, and recognition errors present. Due to a high probability of clinically significant, life threatening deterioration, the patient required my highest level of preparedness to intervene emergently and I personally spent this critical care time directly and personally managing the patient. This critical care time included obtaining a history; examining the patient; pulse oximetry; ordering and review of studies; arranging urgent treatment with development of a management plan; evaluation of patient's response to treatment; frequent reassessment; and discussions with other providers. It was exclusive of separately billable procedures and treating other patients and teaching time. Please see Assessment and Plan section and the rest of the note for further information on patient assessment and treatment Subjective Date/time seen: 03/09/21 09:35 Interval history: Reason for consult: DKA, altered mental status 03/09/2021: Patient seen and examined the ICU, is pain hypoglycemic overnight requiring D5 infusion. Opens her eyes, gives one-word answers to questions. Denies any chest pain, shortness of with abdominal pain, nausea, vomiting. States she is not hungry when asked. Hemodynamically stable, patient was transition to long-acting insulin and sliding scale insulin after which she was found to be hypoglycemic. Patient is afebrile, urine output is low, potassium was 2.9 lactic acid is 0.7 and LFTs trending down Review of Systems Review of Systems: All systems reviewed & are unremarkable except as noted in HPI and below Exam Const: General: comfortable and no acute distress HENMT: Mouth: Yes dry mucous membranes Eyes: Sclera: sclerae normal Pupils:
[2021-03-09 09:42] LABS: Glucose Point of Care 88 mg/dl (65-105)
[2021-03-09 11:37] LABS: Glucose Point of Care 138 mg/dl (65-105)
[2021-03-09 12:22] LABS: Glucose Point of Care 158 mg/dl (65-105)
[2021-03-09 14:20] LABS: Glucose Point of Care 182 mg/dl (65-105)
[2021-03-09] MEDS: DEXTROSE 5% 1,000 ML 1,000 ML 50 ML IV CONT (14:30)
[2021-03-09 17:51] LABS: Glucose Point of Care 131 mg/dl (65-105)
[2021-03-09] MEDS: ATORVASTATIN 40 MG TABLET PO (20:07)
[2021-03-09] MEDS: ENOXAPARIN 40 MG/0.4 ML SYRINGE SUB-Q (20:07)
[2021-03-09 20:58] LABS: Glucose Point of Care 105 mg/dl (65-105)
[2021-03-09 22:27] LABS: Glucose Point of Care 111 mg/dl (65-105)
[2021-03-10] VITALS (18 sets, daily range): BP systolic 120–164; BP diastolic 64–91; PULSE 75–95; RESP 15–21; TEMP 36.6–37.5; O2SAT 88–97
[2021-03-10 00:15] LABS: Glucose Point of Care 108 mg/dl (65-105)
[2021-03-10 02:20] LABS: Glucose Point of Care 87 mg/dl (65-105)
[2021-03-10 04:01] LABS: Glucose Point of Care 81 mg/dl (65-105)
[2021-03-10 05:09] LABS: Basophils Percent Auto 0.2 % (0.2-1.2); Eosinophils Percent Auto 0.6 % (0-4.4); Hematocrit 29.5 % (37.0-47.0); Hemoglobin 9.9 g/dL (12.0-15.0); Immature Granulocyte Absolute 0.01 K/mm3 (0.00-0.031); Immature Granulocyte Percent A 0.2 % (0-0.5); Lymphocytes Absolute Auto 0.76 K/mm3 (0.9-3.2); Lymphocytes Percent Auto 13.9 % (18.3-44.2); Mean Corpuscular HGB Conc 33.6 g/dl (32-36); Mean Corpuscular Hemoglobin 30.8 pg (26-34); Mean Corpuscular Volume 91.9 fl (80-100); Mean Platelet Volume 10.1 fl (7.4-10.4); Monocytes Absolute Auto 0.6 K/mm3 (0.1-0.6); Monocytes Percent Auto 11.6 % (2.6-8.5); Neutrophils Percent Auto 73.5 % (45.5-73.1); Platelet Count Result 166 k/mm3 (150-375); Red Blood Count 3.21 M/mm3 (4.2-5.4); Red Cell Distribution Width 14.3 % (11.5-14.5); White Blood Count 5.5 K/mm3 (4.5-10.0)
[2021-03-10 05:21] LABS: Alanine Aminotransferase 38 U/L (4-35); Albumin Level 1.9 g/dL (3.5-5.1); Alkaline Phosphatase 109 U/L (38-126); Anion Gap 1 mmol/L (8-16); Aspartate Amino Transferase 42 U/L (14-36); Bilirubin,Total 0.2 mg/dL (0.2-1.3); Blood Urea Nitrogen 22 mg/dL (7-17); Calcium 7.5 mg/dL (8.4-10.2); Carbon Dioxide 26 mmol/L (22-30); Chloride 109 mmol/L (98-107); Estimated CRCL calculation 56 ml/min; Estimated Glomerular Filt Rate > 60; Glucose 108 mg/dL (65-110); Magnesium 1.4 mg/dL (1.6-2.3); Phosphorus 2.7 mg/dL (2.5-4.5); Potassium 3.3 mmol/L (3.4-5.0); Sodium 136 mmol/L (137-145)
[2021-03-10 05:22] LABS: Ammonia < 9 umol/L (9-30)
[2021-03-10] MEDS: LEVOTHYROXINE SODIUM 100 MCG TABLET PO (05:44)
[2021-03-10 05:52] LABS: Glucose Point of Care 100 mg/dl (65-105)
[2021-03-10] MEDS: FLUTICASONE/SALMETEROL 115-21 MCG INHALER 1 PUFF 2 PUFF INHALATION ×2 (08:01→20:05)
[2021-03-10] MEDS: MAGNESIUM SULF 2 GM/WATER 50ML 2 GM/50 ML BAG IVPB (08:19)
[2021-03-10] MEDS: ASPIRIN 81 MG ENTERIC TABLET PO (09:19)
[2021-03-10] MEDS: ESCITALOPRAM OXALATE 10 MG TABLET PO (09:19)
[2021-03-10] MEDS: CLOPIDOGREL BISULFATE 75 MG TABLET PO (09:19)
[2021-03-10 10:40] LABS: Glucose Point of Care 89 mg/dl (65-105)
[2021-03-10 11:00] LABS: Glucose Point of Care 138 mg/dl (65-105)
--- NOTE | 2021-03-10 11:25 | WPDINTPN ---
Progress Note: A&P Assessment and Plan (1) Hypoglycemia: Code(s): E16.2 - Hypoglycemia, unspecified Status: Acute Assessment and Plan: Patient was transition to long-acting insulin and sliding scale insulin -currently on dextrose 5% infusion at 50 mL per hour -continue to monitor blood sugars closely (2) DKA (diabetic ketoacidosis): Code(s): E11.10 - Type 2 diabetes mellitus with ketoacidosis without coma Status: Acute Assessment and Plan: Patient [facility] from the [facility] with altered mental status, hyperglycemia with blood sugars in the ED of 797 with elevated beta hydroxybutyrate, a anion gap of 28 and CO2 of 13. -was given adequate IV fluids, was on insulin infusion which was transitioned to long-acting insulin and sliding scale insulin after the anion gap closed. -will start diabetic diet -hemoglobin A1c is 8.9 this admission (3) Acute encephalopathy: Code(s): G93.40 - Encephalopathy, unspecified Status: Acute Assessment and Plan: Encephalopathy could be related to DKA, herpes encephalitis as her CSF herpes PCR was positive on 02/21/2021 -continue acyclovir IV -encephalopathy improving daily, patient is more awake, able to hold a small conversation. according the bedside RN this is her baseline according to the [facility] and her son (4) Hypothyroidism: Code(s): E03.9 - Hypothyroidism, unspecified Status: Chronic Assessment and Plan: Continue levothyroxine (5) Elevated LFTs: Code(s): R79.89 - Other specified abnormal findings of blood chemistry Status: Acute Assessment and Plan: LFTs improving, -right upper quadrant ultrasound was unremarkable -hepatitis panel was negative (6) Insulin dependent diabetes mellitus: Code(s): E11.9 - Type 2 diabetes mellitus without complications; Z79.4 - terminal superintendent (current) use of insulin Status: Chronic Assessment and Plan: -hemoglobin A1c on this admission is 8.9 Patient on sliding scale insulin at [facility] Additional Plan Code status: Full code Critical care time spent: 32 minutes This dictation may have been done utilizing a voice recognition system. Attempts have been made to correct errors. However, there may be uncorrected grammatical, spelling, and recognition errors present. Due to a high probability of clinically significant, life threatening deterioration, the patient required my highest level of preparedness to intervene emergently and I personally spent this critical care time directly and personally managing the patient. This critical care time included obtaining a history; examining the patient; pulse oximetry; ordering and review of studies; arranging urgent treatment with development of a management plan; evaluation of patient's response to treatment; frequent reassessment; and discussions with other providers. It was exclusive of separately billable procedures and treating other patients and teaching time. Please see Assessment and Plan section and the rest of the note for further information on patient assessment and treatment Subjective Date/time seen: 03/10/21 11:25 Interval history: Reason for consult: DKA, altered mental status 03/10/2021: Patient seen and examined the ICU, remains on D5 infusion at 50 mL/hour. More awake this morning and able to have a short conversation. Denies any chest pain, shortness of with abdominal pain, nausea, vomiting. She is not hungry. Hemodynamically stable, patient was transition to long-acting insulin and sliding scale insulin after which she was found to be hypoglycemic. Patient is afebrile, urine output is low, potassium was 3.5 and LFTs trending down Review of Systems Review of Systems: All systems reviewed & are unremarkable except as noted in HPI and below Exam Const: General: comfortable and no acute distress HENMT: Mouth: Yes dry mucous membranes Eyes: Sclera: sclerae normal Pupils: Equal,
--- NOTE | 2021-03-10 11:45 | PCFNICU ---
ICU Rounding Note: Pt current nutrition is diabetic consistent carbohydrate diet. Last recorded weight is 49.5 kg. Bowel Motility: No BM documented. Labs Reviewed: Hgb 9.9, Hct 29.5, Alb 1.9, Na 136, K 3.3, BUN 22 Meds Noted: Lipitor, Plavix, Lovenox, Lexapro, Glucagon, Synthroid, Prinivil Skin: No skin breakdown at this time. WNL. Additional Notes: Patient appears to be slightly more awake and aware than previously. Still slightly confused. She has a decreased appetite but no issues chewing or swallowing.Takes medications with no issues. Patient is down grading to IMU. Following daily in ICU rounds. Assessing/reassessing every 3 days.
[2021-03-10] MEDS: DEXTROSE 5% 1,000 ML 1,000 ML 50 ML IV CONT (12:17)
[2021-03-10 12:26] LABS: Glucose Point of Care 142 mg/dl (65-105)
[2021-03-10 15:24] LABS: Glucose Point of Care 138 mg/dl (65-105)
[2021-03-10 17:43] LABS: Glucose Point of Care 139 mg/dl (65-105)
[2021-03-10 19:15] LABS: Glucose Point of Care 146 mg/dl (65-105)
[2021-03-10] MEDS: ENOXAPARIN 40 MG/0.4 ML SYRINGE SUB-Q (20:16)
[2021-03-10] MEDS: lisinopriL 10 MG TABLET PO (20:16)
[2021-03-10] MEDS: ATORVASTATIN 40 MG TABLET PO (20:16)
[2021-03-10 22:09] LABS: Glucose Point of Care 286 mg/dl (65-105)
[2021-03-11] VITALS (12 sets, daily range): BP systolic 140–159; BP diastolic 73–80; PULSE 75–87; RESP 15–28; TEMP 36.4–37.4; O2SAT 94–98; BMI 20.8
[2021-03-11 00:39] LABS: Glucose Point of Care 346 mg/dl (65-105)
[2021-03-11 02:38] LABS: Glucose Point of Care 365 mg/dl (65-105)
[2021-03-11] MEDS: INSULIN ASPART (*BKC) 100 UNITS/ML SUB-Q ×3 (03:30→08:54)
[2021-03-11 04:26] LABS: Basophils Percent Auto 0.2 % (0.2-1.2); Eosinophils Percent Auto 0.2 % (0-4.4); Hematocrit 30.2 % (37.0-47.0); Hemoglobin 10.5 g/dL (12.0-15.0); Immature Granulocyte Absolute 0.01 K/mm3 (0.00-0.031); Immature Granulocyte Percent A 0.2 % (0-0.5); Lymphocytes Percent Auto 17.4 % (18.3-44.2); Mean Corpuscular HGB Conc 34.8 g/dl (32-36); Mean Corpuscular Hemoglobin 32.1 pg (26-34); Mean Corpuscular Volume 92.4 fl (80-100); Monocytes Absolute Auto 0.5 K/mm3 (0.1-0.6); Monocytes Percent Auto 12.9 % (2.6-8.5); Neutrophils Absolute Auto 2.8 K/mm3 (1.3-6.7); Neutrophils Percent Auto 69.1 % (45.5-73.1); Platelet Count Result 148 k/mm3 (150-375); Red Blood Count 3.27 M/mm3 (4.2-5.4); Red Cell Distribution Width 13.9 % (11.5-14.5)
[2021-03-11 04:41] LABS: Alanine Aminotransferase 42 U/L (4-35); Albumin Level 2.1 g/dL (3.5-5.1); Alkaline Phosphatase 126 U/L (38-126); Anion Gap 1 mmol/L (8-16); Aspartate Amino Transferase 63 U/L (14-36); Bilirubin,Total 0.4 mg/dL (0.2-1.3); Blood Urea Nitrogen 25 mg/dL (7-17); Calcium 7.6 mg/dL (8.4-10.2); Carbon Dioxide 27 mmol/L (22-30); Chloride 104 mmol/L (98-107); Estimated CRCL calculation 45 ml/min; Estimated Glomerular Filt Rate > 60; Glucose 362 mg/dL (65-110); Magnesium 1.9 mg/dL (1.6-2.3); Phosphorus 2.9 mg/dL (2.5-4.5); Potassium 4.2 mmol/L (3.4-5.0); Sodium 132 mmol/L (137-145)
[2021-03-11] MEDS: LEVOTHYROXINE SODIUM 100 MCG TABLET PO (05:13)
[2021-03-11 05:24] LABS: Glucose Point of Care 303 mg/dl (65-105)
--- NOTE | 2021-03-11 07:37 | PCNSR ---
On 03/11/21, the student, Sherrell Michaels, provided care and completed [facility] documentation on this patient. I have reviewed the student's documentation and agree with the findings.
[2021-03-11] MEDS: FLUTICASONE/SALMETEROL 115-21 MCG INHALER 1 PUFF 2 PUFF INHALATION ×2 (08:04→21:05)
[2021-03-11 08:05] LABS: Glucose Point of Care 223 mg/dl (65-105)
[2021-03-11] MEDS: CLOPIDOGREL BISULFATE 75 MG TABLET PO (08:54)
[2021-03-11] MEDS: ASPIRIN 81 MG ENTERIC TABLET PO (08:54)
[2021-03-11] MEDS: ESCITALOPRAM OXALATE 10 MG TABLET PO (08:54)
--- NOTE | 2021-03-11 10:44 | PCNFU ---
Nutrition Follow-Up Complete: Inadequate Oral Intake as related to AMS as evidenced by poor po intake reported. Goal: Meet estimated nutritional needs Progressing towards goal. We will continue current goal. Pt current nutrition is DBCC. Last recorded weight is 48.4 kg, up from 44.1 kg on admit. Bowel Motility:+BM reported 03/11 Labs Reviewed:Cr 0.6,BUN 23, Na 132, Alb 2.1, Hct 31.4,Hgb 10.2 Meds Noted:Advair,Lipitor,Plavix, Lovenox, Lexapro, Synthroid, Advair. Skin: Stage 2 PU-medical sacrum. Additional Notes: Nutrition follow up. Patient has advanced to a diabetic diet today, oral intake improving. She did eat breakfast today. Diet supplements of Glucerna shakes have been added 220 kcals and 10 gms protein. Po intake continues to be encouraged. Monitoring: RD will monitor every 3 days.
--- NOTE | 2021-03-11 10:47 | PM.IMPN ---
Progress Note: A&P Assessment and Plan (1) Hypoglycemia: Code(s): E16.2 - Hypoglycemia, unspecified Status: Acute Assessment and Plan: RESOLVED -patient is off D5 infusion -transition her to oral sliding scale insulin only and that she takes at the longterm -appetite has improved -continue to monitor blood sugars closely (2) DKA (diabetic ketoacidosis): Code(s): E11.10 - Type 2 diabetes mellitus with ketoacidosis without coma Status: Acute Assessment and Plan: RESOLVED Patient presented from the longterm with altered mental status, hyperglycemia with blood sugars in the ED of 797 with elevated beta hydroxybutyrate, a anion gap of 28 and CO2 of 13. -was given adequate IV fluids, was on insulin infusion which was transitioned to long-acting insulin and sliding scale insulin after the anion gap closed. -will start diabetic diet -hemoglobin A1c is 8.9 this admission (3) Acute encephalopathy: Code(s): G93.40 - Encephalopathy, unspecified Status: Acute Assessment and Plan: IMPROVED Encephalopathy could be related to DKA, herpes encephalitis as her CSF herpes PCR was positive on 02/21/2021 -continue acyclovir IV -encephalopathy improving daily, patient is more awake, able to hold a small conversation. according the bedside RN this is her baseline according to the longterm and her son (4) Hypothyroidism: Code(s): E03.9 - Hypothyroidism, unspecified Status: Chronic Assessment and Plan: Continue levothyroxine (5) Elevated LFTs: Code(s): R79.89 - Other specified abnormal findings of blood chemistry Status: Acute Assessment and Plan: LFTs improving, -right upper quadrant ultrasound was unremarkable -hepatitis panel was negative (6) Insulin dependent diabetes mellitus: Code(s): E11.9 - Type 2 diabetes mellitus without complications; Z79.4 - superintendent [employer] (current) use of insulin Status: Chronic Assessment and Plan: -hemoglobin A1c on this admission is 8.9 Patient on sliding scale insulin at longterm Additional Plan Patient is a full code Subjective Date/time seen: 03/11/21 10:47 Interval history: Patient was admitted for diabetic ketoacidosis, altered mental status, thereafter developed hypoglycemia 03/11/2021: Patient seen examined, is awake, alert able to answer questions. Her appetite has improved, patient is off high D5 infusion. Blood sugars in elevated, currently on sliding scale insulin. Urine output has been adequate, patient is afebrile. Blood and urine cultures are negative Review of Systems Review of Systems: All systems reviewed & are unremarkable except as noted in HPI and below Exam Const: General: comfortable and no acute distress HENMT: Mouth: Yes moist mucous membranes Eyes: Sclera: sclerae normal Pupils: Equal, round and reactive pupils present Neck: Neck: supple Thyroid: thyroid normal Lymphatic: lymphadenopathy not noted Resp: Effort & Inspection: normal respiratory effort Auscultation: clear to auscultation bilaterally and diminished lung sounds Cardio: Rate: regular rate Rhythm: regular rhythm GI: Inspection: non-distended GI Palp: Yes Soft to palpation and No Tenderness to palpation present (GI) Auscultation: normal bowel sounds : Other: Braun catheter in place Urinary Catheter: Urinary Catheter: patent and draining Skin: General skin exam: normal color and no rashes or lesions noted Neuro: Cranial nerves: Yes Equal, round and reactive pupils present Other: Patient is awake, alert, answers to questions appropriately, moves all extremities hands and spontaneously Extrem: General: normal to inspection, no edema and no pedal edema Psych: Mental Status: mental status grossly normal Objective Data Vital Signs Vital Signs: Vital Signs - 24 hr 03/10/21 12:00 03/10/21 14:00 03/10/21 16:00 Temperature 99.1 F 99.2 F 98.9 F Pulse Rate 84 83 83 Respirato
[2021-03-11 12:03] LABS: Glucose Point of Care 123 mg/dl (65-105)
--- NOTE | 2021-03-11 15:54 | PC.NURSE ---
This patient, Beatrice Espinoza, was transferred to [ ] on 03/11/21 at 1545. Personal belongings sent with patient. Report given to Oanh BAUTISTA. Appropriate documentation sent with patient.
[2021-03-11 16:31] LABS: Glucose Point of Care 181 mg/dl (65-105)
[2021-03-11 20:24] LABS: Glucose Point of Care 319 mg/dl (65-105)
[2021-03-11] MEDS: INSULIN GLARGINE (*BKC) 100 UNITS/ML 8 UNITS SUB-Q (20:42)
[2021-03-11] MEDS: ENOXAPARIN 40 MG/0.4 ML SYRINGE SUB-Q (20:42)
[2021-03-11] MEDS: ATORVASTATIN 40 MG TABLET PO (20:42)
[2021-03-11] MEDS: lisinopriL 10 MG TABLET PO (20:42)
[2021-03-12] VITALS (8 sets, daily range): BP systolic 145–165; BP diastolic 69–79; PULSE 68–87; RESP 12–18; TEMP 36.6–37.1; O2SAT 91–97
[2021-03-12] MEDS: LEVOTHYROXINE SODIUM 100 MCG TABLET PO (05:47)
[2021-03-12 07:51] LABS: Glucose Point of Care 123 mg/dl (65-105)
[2021-03-12] MEDS: CLOPIDOGREL BISULFATE 75 MG TABLET PO (09:57)
[2021-03-12] MEDS: ESCITALOPRAM OXALATE 10 MG TABLET PO (09:57)
[2021-03-12] MEDS: ASPIRIN 81 MG ENTERIC TABLET PO (09:57)
[2021-03-12] MEDS: FLUTICASONE/SALMETEROL 115-21 MCG INHALER 1 PUFF 2 PUFF INHALATION ×2 (10:21→20:22)
--- NOTE | 2021-03-12 12:24 | PM.IMPN ---
Progress Note: A&P Assessment and Plan (1) Hypoglycemia: Code(s): E16.2 - Hypoglycemia, unspecified Status: Acute Assessment and Plan: RESOLVED -patient is off D5 infusion -transition her to oral sliding scale insulin only and that she takes at the [facility] -appetite has improved -continue to monitor blood sugars closely 03/12/2021 Interval history: patient is a resident of [facility] kinesiology internship emergency depart with elevated blood sugars over 700 and was in DKA, patient was started on patient was started on IV insulin infusion and since then patient blood sugar trended down as he acutely became hypoglycemic and was corrected the D10, no patient blood sugar the more close to target patient was seen by inclusion paraeducator recommended to start the patient on Lantus 8 units q.day at bedtime, unfortunately due to cerebral injury patient is not able to provide detailed review of symptom, will continue patient and monitor patient blood sugar remains stable will discharge the patient back to [facility]. (2) DKA (diabetic ketoacidosis): Code(s): E11.10 - Type 2 diabetes mellitus with ketoacidosis without coma Status: Acute Assessment and Plan: RESOLVED Patient presented from the [facility] with altered mental status, hyperglycemia with blood sugars in the ED of 797 with elevated beta hydroxybutyrate, a anion gap of 28 and CO2 of 13. -was given adequate IV fluids, was on insulin infusion which was transitioned to long-acting insulin and sliding scale insulin after the anion gap closed. -will start diabetic diet -hemoglobin A1c is 8.9 this admission (3) Acute encephalopathy: Code(s): G93.40 - Encephalopathy, unspecified Status: Acute Assessment and Plan: IMPROVED Encephalopathy could be related to DKA, herpes encephalitis as her CSF herpes PCR was positive on 02/21/2021 -continue acyclovir IV -encephalopathy improving daily, patient is more awake, able to hold a small conversation. according the bedside RN this is her baseline according to the [facility] and her son (4) Hypothyroidism: Code(s): E03.9 - Hypothyroidism, unspecified Status: Chronic Assessment and Plan: Continue levothyroxine (5) Elevated LFTs: Code(s): R79.89 - Other specified abnormal findings of blood chemistry Status: Acute Assessment and Plan: LFTs improving, -right upper quadrant ultrasound was unremarkable -hepatitis panel was negative (6) Insulin dependent diabetes mellitus: Code(s): E11.9 - Type 2 diabetes mellitus without complications; Z79.4 - assisted (current) use of insulin Status: Chronic Assessment and Plan: -hemoglobin A1c on this admission is 8.9 Patient on sliding scale insulin at [facility] Additional Plan Patient is a full code Subjective Date/time seen: 03/12/21 12:24 HPI this is a 55-year-old female patient who has a history of diabetes, hypothyroidism and hypertension. The patient came to the emergency room to be evaluated for altered mental status. Patient was found by EMS to be responsive after verbal stimuli. Patient's blood sugar was over 500. (The patient was just discharged from here on 02/24/2021 with her chief complaint of altered mental status she had a drug screen and COVID and blood cultures that show no cause for concern. Neurology saw the patient at that time. She also had MRI that showed diffuse pachymeningeal enhancement. This prompted a lumbar puncture and a repeat MRI showed resolution of the abnormal results last MRI. The patient was discharged to [facility] rehab facility). 03/12/2021 Interval history: patient is a resident of [facility] kinesiology internship emergency depart with elevated blood sugars over 700 and was in DKA, patient was started on patient was started on IV insulin infusion and since then patient blood sugar trended down as he acutely became hypoglycemic and was corrected the D10, no patient blood sugar t
[2021-03-12 12:26] LABS: Glucose Point of Care 148 mg/dl (65-105)
[2021-03-12 16:39] LABS: Glucose Point of Care 175 mg/dl (65-105)
[2021-03-12 20:20] LABS: Glucose Point of Care 195 mg/dl (65-105)
[2021-03-12] MEDS: ENOXAPARIN 40 MG/0.4 ML SYRINGE SUB-Q (20:49)
[2021-03-12] MEDS: lisinopriL 10 MG TABLET PO (20:49)
[2021-03-12] MEDS: ATORVASTATIN 40 MG TABLET PO (20:49)
[2021-03-12] MEDS: INSULIN GLARGINE (*BKC) 100 UNITS/ML 8 UNITS SUB-Q (20:50)
[2021-03-13 05:42] VITALS: BP 159/81; PULSE 70; RESP 16; TEMP 36.6; O2SAT 95
[2021-03-13] MEDS: LEVOTHYROXINE SODIUM 100 MCG TABLET PO (05:50)
[2021-03-13 06:12] LABS: Anion Gap 1 mmol/L (8-16); Blood Urea Nitrogen 12 mg/dL (7-17); Calcium 8.1 mg/dL (8.4-10.2); Carbon Dioxide 33 mmol/L (22-30); Chloride 102 mmol/L (98-107); Estimated CRCL calculation 56 ml/min; Estimated Glomerular Filt Rate > 60; Glucose 100 mg/dL (65-110); Magnesium 1.5 mg/dL (1.6-2.3); Potassium 3.5 mmol/L (3.4-5.0); Sodium 136 mmol/L (137-145)
[2021-03-13 08:03] LABS: Glucose Point of Care 90 mg/dl (65-105)
[2021-03-13] MEDS: ASPIRIN 81 MG ENTERIC TABLET PO (08:13)
[2021-03-13] MEDS: CLOPIDOGREL BISULFATE 75 MG TABLET PO (08:13)
[2021-03-13] MEDS: ESCITALOPRAM OXALATE 10 MG TABLET PO (08:13)
[2021-03-13] MEDS: MAGNESIUM SULF 2 GM/WATER 50ML 2 GM/50 ML BAG IVPB (08:31)
[2021-03-13] MEDS: POTASSIUM CHLORIDE 20 MEQ TABLET 40 MEQ PO (08:31)
[2021-03-13 09:29] VITALS: PULSE 73; RESP 18; O2SAT 96
[2021-03-13] MEDS: FLUTICASONE/SALMETEROL 115-21 MCG INHALER 1 PUFF 2 PUFF INHALATION ×2 (09:29→21:03)
[2021-03-13 12:03] LABS: Glucose Point of Care 182 mg/dl (65-105)
--- NOTE | 2021-03-13 12:57 | PM.IMPN ---
Progress Note: A&P Assessment and Plan (1) Hypoglycemia: Code(s): E16.2 - Hypoglycemia, unspecified Status: Acute Assessment and Plan: RESOLVED -patient is off D5 infusion -transition her to oral sliding scale insulin only and that she takes at the [facility] -appetite has improved -continue to monitor blood sugars closely 03/12/2021 Interval history: patient is a resident of [facility] planner intern emergency depart with elevated blood sugars over 700 and was in DKA, patient was started on patient was started on IV insulin infusion and since then patient blood sugar trended down as he acutely became hypoglycemic and was corrected the D10, no patient blood sugar the more close to target patient was seen by instrument mechanic weapons system recommended to start the patient on Lantus 8 units q.day at bedtime, unfortunately due to cerebral injury patient is not able to provide detailed review of symptom, will continue patient and monitor patient blood sugar remains stable will discharge the patient back to [facility]. 03/13/2021 Interval history: patient remains clinically stable has no new complaints, sugars are close to target on current regimen will continue present management, will discussed with social service tomorrow for discharge planning. (2) DKA (diabetic ketoacidosis): Code(s): E11.10 - Type 2 diabetes mellitus with ketoacidosis without coma Status: Acute Assessment and Plan: RESOLVED Patient presented from the [facility] with altered mental status, hyperglycemia with blood sugars in the ED of 797 with elevated beta hydroxybutyrate, a anion gap of 28 and CO2 of 13. -was given adequate IV fluids, was on insulin infusion which was transitioned to long-acting insulin and sliding scale insulin after the anion gap closed. -will start diabetic diet -hemoglobin A1c is 8.9 this admission (3) Acute encephalopathy: Code(s): G93.40 - Encephalopathy, unspecified Status: Acute Assessment and Plan: IMPROVED Encephalopathy could be related to DKA, herpes encephalitis as her CSF herpes PCR was positive on 02/21/2021 -continue acyclovir IV -encephalopathy improving daily, patient is more awake, able to hold a small conversation. according the bedside RN this is her baseline according to the [facility] and her son (4) Hypothyroidism: Code(s): E03.9 - Hypothyroidism, unspecified Status: Chronic Assessment and Plan: Continue levothyroxine (5) Elevated LFTs: Code(s): R79.89 - Other specified abnormal findings of blood chemistry Status: Acute Assessment and Plan: LFTs improving, -right upper quadrant ultrasound was unremarkable -hepatitis panel was negative (6) Insulin dependent diabetes mellitus: Code(s): E11.9 - Type 2 diabetes mellitus without complications; Z79.4 - longterm (current) use of insulin Status: Chronic Assessment and Plan: -hemoglobin A1c on this admission is 8.9 Patient on [facility] insulin at [facility] Additional Plan Patient is a full code Subjective Date/time seen: 03/13/21 12:57 03/12/2021 Interval history: patient is a resident of [facility] planner intern emergency depart with elevated blood sugars over 700 and was in DKA, patient was started on patient was started on IV insulin infusion and since then patient blood sugar trended down as he acutely became hypoglycemic and was corrected the D10, no patient blood sugar the more close to target patient was seen by instrument mechanic weapons system recommended to start the patient on Lantus 8 units q.day at bedtime, unfortunately due to cerebral injury patient is not able to provide detailed review of symptom, will continue patient and monitor patient blood sugar remains stable will discharge the patient back to [facility]. 03/13/2021 Interval history: patient remains clinically stable has no new complaints, sugars are close to target on current regimen will continue present management, will dis
[2021-03-13 13:00] VITALS: BP 168/84; PULSE 90; RESP 16; TEMP 37; O2SAT 91
--- NOTE | 2021-03-13 13:59 | PCOTNOTE ---
Attempted to see pt 3x for occupational therapy, however at each time pt was asleep and would not open her eyes when therapist said her name, would not awake during tactile cueing/sternal rubbing. Pt repeatedly stated to give her a few minutes and that it was too early despite therapist educating pt on benefits and purpose of continued therapy and orienting pt that it was almost lunch time during 1st attempt. RN states that pt has been sleeping all day and not sure if its because she is not eating all her meals. Will continue per POC duration/frequency tomorrow.
--- NOTE | 2021-03-13 14:38 | PCPTNOTE ---
pt refused physical therapy for today. Cont per POC tomorrow
[2021-03-13] MEDS: INSULIN ASPART (*BKC) 100 UNITS/ML SUB-Q (17:14)
[2021-03-13 17:20] LABS: Glucose Point of Care 245 mg/dl (65-105)
[2021-03-13 20:00] VITALS: PULSE 90; RESP 16; O2SAT 93
[2021-03-13 21:05] VITALS: BP 159/79; PULSE 90; RESP 16; TEMP 36.6; O2SAT 93
[2021-03-13] MEDS: lisinopriL 10 MG TABLET PO (21:13)
[2021-03-13] MEDS: ATORVASTATIN 40 MG TABLET PO (21:13)
[2021-03-13] MEDS: ENOXAPARIN 40 MG/0.4 ML SYRINGE SUB-Q (21:13)
[2021-03-13 21:16] LABS: Glucose Point of Care 290 mg/dl (65-105)
[2021-03-13] MEDS: INSULIN GLARGINE (*BKC) 100 UNITS/ML 8 UNITS SUB-Q (21:17)
[2021-03-14 04:55] VITALS: BP 145/78; PULSE 73; RESP 17; TEMP 36.6; O2SAT 98
[2021-03-14] MEDS: LEVOTHYROXINE SODIUM 100 MCG TABLET PO (05:56)
[2021-03-14 07:06] LABS: Anion Gap 0 mmol/L (8-16); Blood Urea Nitrogen 10 mg/dL (7-17); Calcium 7.9 mg/dL (8.4-10.2); Carbon Dioxide 34 mmol/L (22-30); Chloride 98 mmol/L (98-107); Estimated CRCL calculation 63 ml/min; Estimated Glomerular Filt Rate > 60; Glucose 237 mg/dL (65-110); Magnesium 1.7 mg/dL (1.6-2.3); Potassium 3.8 mmol/L (3.4-5.0); Sodium 132 mmol/L (137-145)
[2021-03-14] MEDS: FLUTICASONE/SALMETEROL 115-21 MCG INHALER 1 PUFF 2 PUFF INHALATION (07:47)
[2021-03-14 07:48] LABS: Glucose Point of Care 237 mg/dl (65-105)
[2021-03-14] MEDS: INSULIN ASPART (*BKC) 100 UNITS/ML SUB-Q ×2 (08:31→12:08)
[2021-03-14] MEDS: ESCITALOPRAM OXALATE 10 MG TABLET PO (08:35)
[2021-03-14] MEDS: CLOPIDOGREL BISULFATE 75 MG TABLET PO (08:35)
[2021-03-14] MEDS: ASPIRIN 81 MG ENTERIC TABLET PO (08:35)
--- NOTE | 2021-03-14 09:59 | PM.DS ---
DS: Admitting Diagnosis Discharge Date 03/14/2021 Admitting Diagnosis Lethargic DS: Discharge Diagnosis Discharge Diagnosis (1) Hypoglycemia: Code(s): E16.2 - Hypoglycemia, unspecified Status: Acute Assessment and Plan: RESOLVED -patient is off D5 infusion -transition her to oral sliding scale insulin only and that she takes at the skilled nursing -appetite has improved -continue to monitor blood sugars closely 03/12/2021 Interval history: patient is a resident of skilled nursing sports broadcasting internship emergency depart with elevated blood sugars over 700 and was in DKA, patient was started on patient was started on IV insulin infusion and since then patient blood sugar trended down as he acutely became hypoglycemic and was corrected the D10, no patient blood sugar the more close to target patient was seen by community educator recommended to start the patient on Lantus 8 units q.day at bedtime, unfortunately due to cerebral injury patient is not able to provide detailed review of symptom, will continue patient and monitor patient blood sugar remains stable will discharge the patient back to skilled nursing. 03/13/2021 Interval history: patient remains clinically stable has no new complaints, sugars are close to target on current regimen will continue present management, will discussed with social service tomorrow for discharge planning. (2) DKA (diabetic ketoacidosis): Code(s): E11.10 - Type 2 diabetes mellitus with ketoacidosis without coma Status: Acute Assessment and Plan: RESOLVED Patient presented from the skilled nursing with altered mental status, hyperglycemia with blood sugars in the ED of 797 with elevated beta hydroxybutyrate, a anion gap of 28 and CO2 of 13. -was given adequate IV fluids, was on insulin infusion which was transitioned to long-acting insulin and sliding scale insulin after the anion gap closed. -will start diabetic diet -hemoglobin A1c is 8.9 this admission (3) Acute encephalopathy: Code(s): G93.40 - Encephalopathy, unspecified Status: Acute Assessment and Plan: IMPROVED Encephalopathy could be related to DKA, herpes encephalitis as her CSF herpes PCR was positive on 02/21/2021 -continue acyclovir IV -encephalopathy improving daily, patient is more awake, able to hold a small conversation. according the bedside RN this is her baseline according to the skilled nursing and her son (4) Hypothyroidism: Code(s): E03.9 - Hypothyroidism, unspecified Status: Chronic Assessment and Plan: Continue levothyroxine (5) Elevated LFTs: Code(s): R79.89 - Other specified abnormal findings of blood chemistry Status: Acute Assessment and Plan: LFTs improving, -right upper quadrant ultrasound was unremarkable -hepatitis panel was negative (6) Insulin dependent diabetes mellitus: Code(s): E11.9 - Type 2 diabetes mellitus without complications; Z79.4 - prison (current) use of insulin Status: Chronic Assessment and Plan: -hemoglobin A1c on this admission is 8.9 Patient on sliding scale insulin at skilled nursing DS: Summary Hospital Course Reason for hospitalization: this is a 55-year-old female patient who has a history of diabetes, hypothyroidism and hypertension. The patient came to the emergency room to be evaluated for altered mental status. Patient was found by EMS to be responsive after verbal stimuli. Patient's blood sugar was over 500. (The patient was just discharged from here on 02/24/2021 with her chief complaint of altered mental status she had a drug screen and COVID and blood cultures that show no cause for concern. Neurology saw the patient at that time. She also had MRI that showed diffuse pachymeningeal enhancement. This prompted a lumbar puncture and a repeat MRI showed resolution of the abnormal results last MRI. The patient was discharged to skilled nursing rehab facility) The patient's pH was noted to be 7.222 under ABG wit
[2021-03-14 12:15] LABS: Glucose Point of Care 214 mg/dl (65-105)
[2021-03-14 14:00] VITALS: BP 141/72; PULSE 75; RESP 16; TEMP 36.6; O2SAT 96
--- NOTE | 2021-03-14 15:55 | PCOTNOTE ---
Attempted to see patient this pm, however patient declined. Pt sleeping upon entering and declined upon awakening stating, Later. Pt reported feeling agitated with interruptions. Pt not seen for this reason.
[2021-03-14 16:52] LABS: Glucose Point of Care 189 mg/dl (65-105)
== END 2021-03-14 17:10 | DRG 637 ==
LOC: ANHED 08:09 → ANHICU 12:49 → ANH3MED 03-14 09:58 → ANHICU 03-16 14:24
PROVIDERS: Internal Medicine; Nurse Practitioner; Admitting Provider Internal Medicine; Emergency Provider General Practice; PCP Internal Medicine; Visit Provider Family Medicine
DX: E11.10 Type 2 diabetes mellitus with ketoacidosis without coma (principal); B00.4 Herpesviral encephalitis; J96.11 Chronic respiratory failure with hypoxia; G93.40 Encephalopathy, unspecified; F32.1 Major depressive disorder, single episode, moderate; Z99.81 Dependence on supplemental oxygen; E11.319 Type 2 diabetes mellitus with unspecified diabetic retinopathy without macular edema; E11.43 Type 2 diabetes mellitus with diabetic autonomic (poly)neuropathy; K31.84 Gastroparesis; E11.649 Type 2 diabetes mellitus with hypoglycemia without coma; J44.9 Chronic obstructive pulmonary disease, unspecified; F17.210 Nicotine dependence, cigarettes, uncomplicated; I25.10 Atherosclerotic heart disease of native coronary artery without angina pectoris; I25.2 Old myocardial infarction; F41.8 Other specified anxiety disorders; E78.5 Hyperlipidemia, unspecified; I10 Essential (primary) hypertension; E03.9 Hypothyroidism, unspecified; R79.89 Other specified abnormal findings of blood chemistry; Z79.4 Long term (current) use of insulin; Z79.82 Long term (current) use of aspirin; Z79.899 Other long term (current) drug therapy; Z95.5 Presence of coronary angioplasty implant and graft
CPT/HCPCS: 36415; 36600; 51702; 70450; 71045; 76705; 80048; 80053; 80074; 80307; 81001; 82010; 82140; 82375; 82728; 82805; 82948; 83036; 83050; 83605; 83615; 83690; 83735; 84100; 84443; 84484; 85025; 85610; 85730; 86140; 87040; 87086; 93005; 94640; 96361; 96365; 96366; 97110; 97162; 97165; 97535; 99285; A9270; J0133; J1650; J1815; J3475; J3480; J7030; J7070

== ENCOUNTER 2021-03-24 06:08 | Inpatient (IN) | payer MEDICARE, MEDICAID, SELFPAY ==
[2021-03-24] VITALS (28 sets, daily range): BP systolic 91–139; BP diastolic 52–75; PULSE 48–97; RESP 14–20; TEMP 33.7–37.5; O2SAT 91–100; BMI 18.8
--- NOTE | ~2021-03-24 | XR_ITS ---
EXAMINATION: XR chest 1V portable INDICATION: Weakness, hypoglycemia TECHNIQUE: Portable AP chest at 0651 hours COMPARISON: 03/08/2021 FINDINGS: The lungs are free of acute opacities. There is no pleural effusion or pneumothorax. Calcif ied pulmonary nodules and calcified bilateral hilar lymph nodes are consistent with old granulomatous disease. IMPRESSION: 1. No acute cardiopulmonary abnormality. Reviewed, dictated and finalized at location A. [employer]
--- NOTE | 2021-03-24 06:16 | PC.NURSE ---
ED blood sugar 191.
[2021-03-24 06:18] LABS: Glucose Point of Care 191 mg/dl (65-105)
--- NOTE | 2021-03-24 06:19 | PC.NURSE ---
Warm blankets and bear hugger applied to pt at this time.
--- NOTE | 2021-03-24 06:35 | ECG_ITS ---
Measurements Intervals [place] Rate: 59 P: 69 MS: 119 QRS: 85 QRSD: 97 T: 57 QT: 461 QTc: 459 Interpretive Statements SINUS BRADYCARDIA WITH SINUS ARRHYTHMIA FREQUENT ATRIAL PREMATURE COMPLEXES DELAYED PRECORDIAL R/S TRANSITION BORDERLINE T WAVE ABNORMALITY- ANTERIOR LEADS BASELINE ARTIFACT- I, II, III, AVR, AVL, AVF, V1-V6 ABNORMAL ECG Electronically Signed On 03-24-2021 7:39:35 DELINQUENT TAX COLLECTOR by Thad Rea D.O.
[2021-03-24 07:05] LABS: Glucose Point of Care 145 mg/dl (65-105)
--- NOTE | 2021-03-24 07:07 | ED.RECABL ---
HPI - Recheck/Abnormal Lab/Rx General Chief Complaint: Recheck/Abnormal Lab/Rx Stated Complaint: hypoglycemia Time Seen by Provider: 03/24/21 06:13 Source: patient, EMS, RN notes reviewed and old records reviewed Mode of arrival: EMS Limitations: dementia History of Present Illness HPI narrative: This is a 55 year old female with history of DM, hypothyroid, acute encephalopathy who presents via EMS for evaluation of hypoglycemia. EMS states they were called because patient found to have BS of 30. She was given glucagon 1 mg IM but her Blood sugar did not increase. EMS found patient to have BS of 29 so they started d10 IV infusion. Her blood sugar increased to 300. On arrival to ER patient was found to be hypothermia. She is oriented to person and she denies any complaints other being cold. Patient was recently hospitalized for acute encephalopathy with HSV . Her mental status is much improved from that hospitalization. Related Data Home Medications Medication Instructions Recorded Confirmed escitalopram oxalate 10 mg PO DAILY 02/14/21 03/08/21 glucagon (human recombinant) 1 mg SUBCUT PRN PRN 02/14/21 03/08/21 acyclovir 800 mg PO DAILY 03/08/21 03/08/21 acyclovir 800 mg PO QID 03/08/21 03/08/21 Allergies Allergy/AdvReac Type Severity Reaction Status Date / Time metformin AdvReac Intermediate Diarrhea Verified 03/24/21 06:28 Review of Systems Review of Systems: All systems reviewed & are unremarkable except as noted in HPI and below PMFSH Past Medical History Medical History Arthritis Chronic respiratory failure with hypoxia, on home oxygen therapy COPD with asthma Coronary artery disease Reported myocardial infarction in 1999 requiring stent. Depression with anxiety Hyperlipidemia Hypertension Hypothyroidism Insulin dependent diabetes mellitus Complicated by diabetic retinopathy and gastroparesis. Hemoglobin A1c was 8.3% on 02/13/2021. Tobacco abuse Surgical History Surgical History Status post arthroscopy of right knee Status post section Family History Family History Mother Family history of alcoholism Family history of congestive heart failure, Onset Age: 70 Family history of osteoporosis Family history of chronic obstructive pulmonary disease Grandparent Family history of Alzheimer's disease, Onset Age: 90 Hypertension, Onset Age: 80 Sibling Hypertension, Onset Age: 53 Family history of alcoholism Family history of malignant neoplasm Patient's sister is in good health Father Hypertension, Onset Age: 79 Family history of thyroid disease Family history of cataracts Malignant neoplasm of prostate Other Diabetes mellitus Family history of arthritis Social History Social History (Updated 03/08/21 @ 15:00 by Lexy Bhatt NP) Social History: Surrogate decision maker: Tierakrishna Montgomery (sister) or Ho Espinoza (son). Patient currently in a rehab facility. Code status: Full code. Smoking packs per day: 1.5 Smoking cigarettes per day: 30.0 Years smoked: 40 Smoking pack-years: 60.00 Smoking status: Unknown if ever smoked Tobacco type: cigarettes Second hand tobacco smoke exposure: Yes Alcohol intake: unknown Substance use: unknown Substance use type: does not use Additional living arrangements comments: Patient lives at home alone. Additional occupation/education comments: Disabled. Spiritual care concerns: No Exam Const: General: no acute distress and alert HENMT: Head: normocephalic and atraumatic Face and sinus: face symmetric Eyes: Pupils: Equal, round and reactive pupils present EOM: EOMs intact bilaterally Resp: Effort & Inspection: normal respiratory effort and no retractions Auscultation: clear to auscu
[2021-03-24 07:23] LABS: Basophils Percent Auto 0.7 % (0.2-1.2); Eosinophils Percent Auto 0.6 % (0-4.4); Hematocrit 32.7 % (37.0-47.0); Hemoglobin 10.9 g/dL (12.0-15.0); Immature Granulocyte Absolute 0.03 K/mm3 (0.00-0.031); Immature Granulocyte Percent A 0.6 % (0-0.5); Lymphocytes Absolute Auto 0.98 K/mm3 (0.9-3.2); Lymphocytes Percent Auto 18.4 % (18.3-44.2); Mean Corpuscular HGB Conc 33.3 g/dl (32-36); Mean Corpuscular Hemoglobin 32.3 pg (26-34); Mean Platelet Volume 10.1 fl (7.4-10.4); Monocytes Absolute Auto 0.6 K/mm3 (0.1-0.6); Monocytes Percent Auto 10.5 % (2.6-8.5); Neutrophils Absolute Auto 3.7 K/mm3 (1.3-6.7); Neutrophils Percent Auto 69.2 % (45.5-73.1); Platelet Count Result 220 k/mm3 (150-375); Red Blood Count 3.37 M/mm3 (4.2-5.4); Red Cell Distribution Width 16.8 % (11.5-14.5); White Blood Count 5.3 K/mm3 (4.5-10.0)
[2021-03-24 07:27] LABS: Add Urine Microscopic? YES; Appearance Urine Cloudy (Clear); Bacteria Urine Trace /hpf; Bilirubin Urine Negative (Negative); Blood Urine Negative (Negative); Calcium Oxalate Crystals Urine Present /hpf; Color Urine Amber (Yellow); Glucose Urine UA 3+ mg/dL (Negative); Ketones Urine Negative (Negative); Leukocyte Esterase Ur Negative LEU/UL (Negative); Mucus Urine Rare /lpf; Nitrate Urine Positive (Negative); Protein Urine Negative (Negative); Specific Grav Ur 1.016 (1.001-1.035); Squamous Epithelial Cell Urine Occasional /hpf (Few)
[2021-03-24 07:33] LABS: Lactic Acid Reflex 1.7 mmol/L (0.7-2.1)
[2021-03-24 07:35] LABS: Alanine Aminotransferase 50 U/L (4-35); Alkaline Phosphatase 136 U/L (38-126); Aspartate Amino Transferase 40 U/L (14-36); Bilirubin,Total 0.5 mg/dL (0.2-1.3); Blood Urea Nitrogen 12 mg/dL (7-17); Calcium 8.5 mg/dL (8.4-10.2); Carbon Dioxide > 40 mmol/L (22-30); Chloride 99 mmol/L (98-107); Estimated Glomerular Filt Rate > 60; Glucose 132 mg/dL (65-110); Sodium 139 mmol/L (137-145)
[2021-03-24 07:59] LABS: Alveolar/Arterial O2 Gradient 35.4 mmHg; Base Excess ABG 6.7 mEq/l (+/-2.0); Fractional Inspired Oxygen 28 %; HCO3 ABG 31.5 mEq/l (22.0-26.0); Oxygen Content ABG 15.7 %vol (16.0-22.0); Oxygen Saturation ABG 98.1 % (95.0-100.0); Oxyhemoglobin 96.7 % THb (90.0-100.0); PCO2 ABG 46.4 mmHg (35.0-45.0); PO2 ABG 109.5 mmHg (80.0-100.0); PO2 FiO2 Ratio Arterial Blood 3.91 %; Total Hemoglobin 11.4 g/dL (12.0-18.0)
[2021-03-24 08:00] LABS: Site Drawn LEFT RADIAL
[2021-03-24 08:01] LABS: Device NASAL CANNULA; Liters per Minute 1.5 LPM; Modified Allen's Test Pass
[2021-03-24 08:07] LABS: Glucose Point of Care 110 mg/dl (65-105)
[2021-03-24 09:02] LABS: Free T4 Free Thyroxine Reflex 0.91 ng/dL (0.78-2.19)
--- NOTE | 2021-03-24 09:45 | ADMGEN ---
This patient, Beatrice Espinoza, was admitted to IMU Room 206-02 at 0935. Patient/family oriented to hospital policies and general routines including ID bracelet, bed and alarms, visiting hours, pain management, procedures, bathroom and other care routines, personal items, smoking policy, room service/diet, and visiting hours. Information on how to activate the Rapid Response Team has been discussed. Patient/Family are encouraged to report perceived risks to care and to ask questions if they do not understand what they are told or what they should do.
[2021-03-24 10:14] LABS: Total Triiodothyronine (T3) 1.01 NG/ML (0.97-1.69)
[2021-03-24 10:16] LABS: Glucose Point of Care 320 mg/dl (65-105)
[2021-03-24] MEDS: SODIUM CHLORIDE 0.9% IV 1,000 ML 125 ML IV CONT ×2 (12:27→15:29)
[2021-03-24 12:31] LABS: Glucose Point of Care 474 mg/dl (65-105)
[2021-03-24 13:28] LABS: Anion Gap 0 mmol/L (8-16); Blood Urea Nitrogen 17 mg/dL (7-17); Calcium 8.4 mg/dL (8.4-10.2); Carbon Dioxide 36 mmol/L (22-30); Chloride 97 mmol/L (98-107); Estimated CRCL calculation 81 ml/min; Estimated Glomerular Filt Rate > 60; Glucose 560 mg/dL (65-110); Potassium 4.5 mmol/L (3.4-5.0); Sodium 133 mmol/L (137-145)
--- NOTE | 2021-03-24 13:50 | PM.IMHP ---
H&P: HPI History of Present Illness Date/Time: 03/24/21 13:50 Chief Complaint: Hypoglycemia. Narrative: This is a 55-year-old female with insulin-dependent diabetes, chronic respiratory failure on oxygen, COPD, and hypothyroidism who presented to the emergency department earlier today via EMS from a a local rehab facility for further treatment and evaluation of hypoglycemia. She is known to the hospitalist service and this will be her 4th admission in the last 5 weeks or so. Initially she was admitted on 02/13/2021 for evaluation of encephalopathy felt to be of metabolic etiology with recurrent issues with hypoglycemia. A brain MRI at that time demonstrated an old lacunar infarct in the left thalamus with nonspecific cerebral white matter disease and no acute findings. There was some diffuse parenchymal meningeal enhancement and the radiologist commented that could be seen with prior lumbar puncture or spine surgery and may persist for years with less common etiologies to include meningitis and intracranial hypotension. She was evaluated by Neurology who felt the imaging findings were not clinically significant. Throughout her stay she had recurrent episodes of hypoglycemia and family members report that this is not unusual for the patient and that it is also not unusual for her to remain confused for upwards of 1 to 2 weeks after hypoglycemic events. She was readmitted to the hospital a little over 24 hours after discharge, once again with altered mental status. Lumbar puncture was largely unremarkable with 12 nucleated cells and a repeat brain MRI showed resolution of previous abnormality and she was discharged to rehab on doxycycline and metronidazole for possible aspiration pneumonia and malodorous vaginal discharge (positive for Trichomonas). Sometime thereafter CSF herpes simplex 1 PCR came back positive and she was started on acyclovir. She was once again admitted to the hospital on 03/08/2021 with diabetic ketoacidosis and was discharged back to rehab on 03/14/2021. It is my understanding that she has been participating in therapy however this morning she was once again found to be confused with a glucose of 30. She was given glucagon 1 mg IM without improvement and she was then started on a D10 infusion per EMS. On arrival to the ED her glucose was 300 and she was alert and seemed to be close to her baseline. Temperature in the emergency department was as low as 92.6 ? F and she has since been started on a Karl Hugger admitted to IMU for closer monitoring. At the time my evaluation she is alert and oriented x2 however she is not a great historian and does not really remember why she was brought to the hospital today however she is whom is a it is probably related to her glucose. She has no complaints at the time my evaluation and she specifically denies headache, fever, chills, sweats, chest pain, shortness of breath, nausea, vomiting, diarrhea, and dysuria. Review of Systems Review of Systems: Twelve systems were reviewed. She is not the best historian and seems to have short-term memory loss thus the reliability of such is questionable. Except as documented above all systems were reviewed and are negative. [facility] Past Medical History Medical History Arthritis Chronic respiratory failure with hypoxia, on home oxygen therapy COPD with asthma Coronary artery disease Reported myocardial infarction in 1999 requiring stent. 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 Hemoglobin A1c was 8.3% on 02/13/2021. Tobacco abuse Surgical History Surgical History Status post arthroscopy of right knee Status post section Family History Family History (Reviewed 03/24/21 @ 14:20 by Zahraa Wood PA-C
[2021-03-24] MEDS: INSULIN ASPART (*BKC) 100 UNITS/ML 8 UNITS SUB-Q (13:58)
[2021-03-24 15:18] LABS: Glucose Point of Care 372 mg/dl (65-105)
[2021-03-24] MEDS: ALBUTEROL SULFATE (*SP) AEROSOL 1 PUFF 2 PUFF INHALATION ×2 (15:39→21:15)
[2021-03-24 17:08] LABS: Glucose Point of Care 383 mg/dl (65-105)
[2021-03-24] MEDS: INSULIN ASPART (*BKC) 100 UNITS/ML SUB-Q (17:08)
[2021-03-24 20:06] LABS: Glucose Point of Care 200 mg/dl (65-105)
[2021-03-24] MEDS: FLUTICASONE/SALMETEROL 45-21 MCG INHALER 1 PUFF 2 PUFF INHALATION (21:14)
[2021-03-24] MEDS: clonazePAM (*CRX) 0.5 MG TABLET PO (21:28)
[2021-03-24] MEDS: lisinopriL 10 MG TABLET PO (21:29)
[2021-03-24] MEDS: INSULIN GLARGINE (*BKC) 100 UNITS/ML 10 UNITS SUB-Q (21:29)
[2021-03-24] MEDS: ATORVASTATIN 40 MG TABLET PO (21:39)
[2021-03-25] VITALS (10 sets, daily range): BP systolic 120–160; BP diastolic 57–74; PULSE 63–92; RESP 16–22; TEMP 36–36.9; O2SAT 91–96
[2021-03-25] MEDS: ALBUTEROL SULFATE (*SP) AEROSOL 1 PUFF 2 PUFF INHALATION ×5 (00:01→21:11)
[2021-03-25 02:51] LABS: Glucose Point of Care 64 mg/dl (65-105)
[2021-03-25 03:22] LABS: Glucose Point of Care 74 mg/dl (65-105)
[2021-03-25 05:04] LABS: Hematocrit 27.6 % (37.0-47.0); Hemoglobin 9.2 g/dL (12.0-15.0); Mean Corpuscular HGB Conc 33.3 g/dl (32-36); Mean Corpuscular Hemoglobin 32.5 pg (26-34); Mean Corpuscular Volume 97.5 fl (80-100); Mean Platelet Volume 10.3 fl (7.4-10.4); Platelet Count Result 187 k/mm3 (150-375); Red Blood Count 2.83 M/mm3 (4.2-5.4); Red Cell Distribution Width 17.3 % (11.5-14.5); White Blood Count 4.8 K/mm3 (4.5-10.0)
[2021-03-25 05:08] LABS: Glucose Point of Care 128 mg/dl (65-105)
[2021-03-25 05:16] LABS: Alanine Aminotransferase 35 U/L (4-35); Albumin Level 2.4 g/dL (3.5-5.1); Alkaline Phosphatase 101 U/L (38-126); Anion Gap 0 mmol/L (8-16); Aspartate Amino Transferase 37 U/L (14-36); Bilirubin,Total 0.3 mg/dL (0.2-1.3); Blood Urea Nitrogen 14 mg/dL (7-17); Calcium 8.1 mg/dL (8.4-10.2); Carbon Dioxide 33 mmol/L (22-30); Chloride 103 mmol/L (98-107); Estimated CRCL calculation 126 ml/min; Estimated Glomerular Filt Rate > 60; Glucose 123 mg/dL (65-110); Magnesium 1.6 mg/dL (1.6-2.3); Potassium 3.3 mmol/L (3.4-5.0); Sodium 136 mmol/L (137-145)
[2021-03-25] MEDS: FLUTICASONE/SALMETEROL 45-21 MCG INHALER 1 PUFF 2 PUFF INHALATION ×2 (08:41→21:11)
[2021-03-25] MEDS: LEVOTHYROXINE SODIUM 100 MCG TABLET PO (08:42)
[2021-03-25] MEDS: ASPIRIN 81 MG ENTERIC TABLET PO (08:42)
[2021-03-25] MEDS: ESCITALOPRAM OXALATE 10 MG TABLET PO (08:43)
[2021-03-25] MEDS: CLOPIDOGREL BISULFATE 75 MG TABLET PO (08:43)
[2021-03-25 09:48] LABS: Glucose Point of Care 86 mg/dl (65-105)
[2021-03-25 12:49] LABS: Glucose Point of Care 246 mg/dl (65-105)
[2021-03-25] MEDS: INSULIN ASPART (*BKC) 100 UNITS/ML SUB-Q ×2 (12:57→17:46)
--- NOTE | 2021-03-25 15:36 | PM.IMPN ---
Progress Note: A&P Assessment and Plan (1) Hypoglycemia: Code(s): E16.2 - Hypoglycemia, unspecified Status: Acute Assessment and Plan: 03/25/2021 Interval history: patient is well known to me I had discharge the patient recently and patient was treated the DKA not see presented with hypoglycemia most likely secondary to poor p.o. intake, patient was treated for hypoglycemia her blood sugar climb to 500, it is now trending will continue to monitor with low-dose sliding scale and Lantus 10 units daily, patient has poor appetite resulting in hypoglycemia, will continue to monitor. (2) Hypothermia: Qualifiers: Encounter type: initial encounter Qualified Code(s): T68.XXXA - Hypothermia, initial encounter Code(s): T68.XXXA - Hypothermia, initial encounter Status: Acute (3) Abnormal urinalysis: Code(s): R82.90 - Unspecified abnormal findings in urine Status: Acute (4) Normocytic anemia: Code(s): D64.9 - Anemia, unspecified Status: Acute (5) Elevated LFTs: Code(s): R79.89 - Other specified abnormal findings of blood chemistry Status: Acute (6) Insulin dependent diabetes mellitus: Code(s): E11.9 - Type 2 diabetes mellitus without complications; Z79.4 - exterminator termite (current) use of insulin Status: Chronic (7) Hypertension: Code(s): I10 - Essential (primary) hypertension Status: Chronic (8) Hypothyroidism: Code(s): E03.9 - Hypothyroidism, unspecified Status: Chronic (9) Cognitive impairment: Code(s): R41.89 - Other symptoms and signs involving cognitive functions and awareness Status: Acute Additional Plan The patient was brought in today as she was found with decreased levels of consciousness and a glucose of around 30. Despite receiving glucagon she remained hypoglycemic and was started on D10 by EMS. Since she has been admitted to the hospital her glucose has been creeping up and in fact got up to 560 this afternoon. She has been started on sliding scale insulin and we will monitor her glucose closely as she is a brittle diabetic. For now we will continue Lantus 10 units at bedtime though I think I will ask the nurses to check her glucose in the rivet thrower hours to ensure that she is not dropping. She was placed on a Karl Hugger for a brief period of time given hypothermia but that has since corrected. While she does have an abnormal urinalysis I doubt that she is septic and she was probably hypothermic due to her hypoglycemic episode. Her lactic acid level was within normal limits. Blood cultures have been obtained and are pending. We will continue with ceftriaxone, pending urine culture as her urinalysis is abnormal. Her hemoglobin and hematocrit are stable on review of previous labs. LFTs are also mildly elevated but this has been a trend and they appear stable as well. Blood pressures were reviewed and they were soft earlier this morning but have improved with IV fluids. Her antihypertensives will be reviewed and resumed as appropriate. Continue levothyroxine and check TSH. 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 03/25/2021 Interval history: patient is well known to me I had discharge the patient recently and patient was treated the DKA not see presented with hypoglycemia most likely secondary to poor p.o. intake, patient was treated for hypoglycemia her blood sugar climb to 500, it is now trending will continue to monitor with low-dose sliding scale and Lantus 10 units daily, patient has poor appetite resulting in hypoglycemia, will continue to monitor. Subjective Date/time seen: 03/25/21 15:36 03/25/2021 Interval history: patient is well known to me I had discharge the patient recently and patient was treated the DKA not see presented with hypoglycemia most likely secondary to poor p.o. intake, patient was treated for hypoglycem
[2021-03-25 17:03] LABS: Glucose Point of Care 280 mg/dl (65-105)
[2021-03-25] MEDS: POTASSIUM CHLORIDE 20 MEQ PACKET (FOR LIQUID) 40 MEQ PO (17:45)
[2021-03-25] MEDS: MAGNESIUM OXIDE 400 MG TABLET PO (17:45)
--- NOTE | 2021-03-25 18:35 | PC.NURSE ---
This patient, Beatrice Espinoza, was transferred to [[id number]] on 03/25/21 at 1835. Personal belongings sent with patient. Report given to [Shandra BAUTISTA]. Appropriate documentation sent with patient.
--- NOTE | 2021-03-25 18:40 | PC.NURSE ---
pt transferred in to room 257 via bed, oriented to new room and environment, reviewed plan of care, pt resting comfortably
[2021-03-25] MEDS: INSULIN GLARGINE (*BKC) 100 UNITS/ML 10 UNITS SUB-Q (21:01)
[2021-03-25] MEDS: clonazePAM (*CRX) 0.5 MG TABLET PO (21:03)
[2021-03-25] MEDS: lisinopriL 10 MG TABLET PO (21:03)
[2021-03-25] MEDS: ATORVASTATIN 40 MG TABLET PO (21:03)
[2021-03-25 21:11] LABS: Glucose Point of Care 177 mg/dl (65-105)
[2021-03-26] MEDS: ALBUTEROL SULFATE (*SP) AEROSOL 1 PUFF 2 PUFF INHALATION ×6 (01:12→19:59)
[2021-03-26 05:18] VITALS: BMI 18.8
[2021-03-26] MEDS: LEVOTHYROXINE SODIUM 100 MCG TABLET PO (05:57)
[2021-03-26 06:31] VITALS: BP 140/83; PULSE 70; RESP 16; TEMP 36.8; O2SAT 97
--- NOTE | 2021-03-26 06:44 | PCNSR ---
On 03/26/21, the student, Sherrell Michaels, provided care and completed [facility] documentation on this patient. I have reviewed the student's documentation and agree with the findings.
[2021-03-26 08:00] VITALS: BP 144/76; PULSE 88; RESP 18; TEMP 36.7; O2SAT 94
[2021-03-26] MEDS: FLUTICASONE/SALMETEROL 45-21 MCG INHALER 1 PUFF 2 PUFF INHALATION ×2 (08:17→20:00)
[2021-03-26 08:27] LABS: Glucose Point of Care 131 mg/dl (65-105)
[2021-03-26] MEDS: MAGNESIUM OXIDE 400 MG TABLET PO (09:23)
[2021-03-26] MEDS: CLOPIDOGREL BISULFATE 75 MG TABLET PO (09:23)
[2021-03-26] MEDS: ASPIRIN 81 MG ENTERIC TABLET PO (09:23)
[2021-03-26] MEDS: ESCITALOPRAM OXALATE 10 MG TABLET PO (09:23)
[2021-03-26 09:32] LABS: Hematocrit 29.5 % (37.0-47.0); Hemoglobin 10.1 g/dL (12.0-15.0); Mean Corpuscular HGB Conc 34.2 g/dl (32-36); Mean Corpuscular Hemoglobin 33.6 pg (26-34); Mean Platelet Volume 9.6 fl (7.4-10.4); Platelet Count Result 178 k/mm3 (150-375); Red Blood Count 3.01 M/mm3 (4.2-5.4); Red Cell Distribution Width 17.4 % (11.5-14.5); White Blood Count 4.1 K/mm3 (4.5-10.0)
[2021-03-26 10:15] LABS: Anion Gap -1 mmol/L (8-16); Blood Urea Nitrogen 7 mg/dL (7-17); Calcium 8.4 mg/dL (8.4-10.2); Carbon Dioxide 33 mmol/L (22-30); Chloride 99 mmol/L (98-107); Estimated CRCL calculation 118 ml/min; Estimated Glomerular Filt Rate > 60; Glucose 172 mg/dL (65-110); Magnesium 1.8 mg/dL (1.6-2.3); Potassium 4.1 mmol/L (3.4-5.0); Sodium 131 mmol/L (137-145)
[2021-03-26 11:46] LABS: Glucose Point of Care 193 mg/dl (65-105)
--- NOTE | 2021-03-26 13:18 | PM.IMPN ---
Progress Note: A&P Assessment and Plan (1) Hypoglycemia: Code(s): E16.2 - Hypoglycemia, unspecified Status: Acute Assessment and Plan: 03/25/2021 Interval history: patient is well known to me I had discharge the patient recently and patient was treated the DKA not see presented with hypoglycemia most likely secondary to poor p.o. intake, patient was treated for hypoglycemia her blood sugar climb to 500, it is now trending will continue to monitor with low-dose sliding scale and Lantus 10 units daily, patient has poor appetite resulting in hypoglycemia, will continue to monitor. 03/26/2021 Interval history:Patient remains clinically stable has no new complaints, her blood sugars a close to target, patient with cerebral injury will not be able to manage her blood sugar and will need a nursing help with her insulin, will discuss with the lawn care worker further recommendation and management. (2) Hypothermia: Qualifiers: Encounter type: initial encounter Qualified Code(s): T68.XXXA - Hypothermia, initial encounter Code(s): T68.XXXA - Hypothermia, initial encounter Status: Acute (3) Abnormal urinalysis: Code(s): R82.90 - Unspecified abnormal findings in urine Status: Acute (4) Normocytic anemia: Code(s): D64.9 - Anemia, unspecified Status: Acute (5) Elevated LFTs: Code(s): R79.89 - Other specified abnormal findings of blood chemistry Status: Acute (6) Insulin dependent diabetes mellitus: Code(s): E11.9 - Type 2 diabetes mellitus without complications; Z79.4 - strategy associate (current) use of insulin Status: Chronic (7) Hypertension: Code(s): I10 - Essential (primary) hypertension Status: Chronic (8) Hypothyroidism: Code(s): E03.9 - Hypothyroidism, unspecified Status: Chronic (9) Cognitive impairment: Code(s): R41.89 - Other symptoms and signs involving cognitive functions and awareness Status: Acute Subjective Date/time seen: 03/26/21 13:18 03/25/2021 Interval history: patient is well known to me I had discharge the patient recently and patient was treated the DKA not see presented with hypoglycemia most likely secondary to poor p.o. intake, patient was treated for hypoglycemia her blood sugar climb to 500, it is now trending will continue to monitor with low-dose sliding scale and Lantus 10 units daily, patient has poor appetite resulting in hypoglycemia, will continue to monitor. 03/26/2021 Interval history:Patient remains clinically stable has no new complaints, her blood sugars a close to target, patient with cerebral injury will not be able to manage her blood sugar and will need a nursing help with her insulin, will discuss with the lawn care worker further recommendation and management. Exam Narrative: Patient is comfortable, NAD HEENT: eyes are clear and none icteric LUNGS: normal respiratory effort ABD: not distended Lower extremities: no edema SKIN: nonjaundiced Neuro: grossly intact. Objective Data Vital Signs Vital Signs: Vital Signs - 24 hr 03/25/21 16:00 03/25/21 21:30 03/26/21 06:31 Temperature 98.4 F 97.3 F L 98.2 F Pulse Rate 84 82 70 Respiratory Rate 22 H 20 16 Blood Pressure 120/67 160/74 H 140/83 Pulse Oximetry 94 95 97 Intake/Output Intake/Output: Intake & Output 03/23/21 03/24/21 03/25/21 03/26/21 23:59 23:59 23:59 23:59 Intake Total 2550 810 580 Output Total 775 1000 1500 Balance 6158 -375 -122 Meds/Results Medications: Active Medications Generic Name Dose Route Start Last Admin Trade Name Freq PRN Reason Stop Dose Admin Albuterol 2 puff 03/24/21 16:00 03/26/21 11:27 Albuterol Sulfate (*Sp) Aerosol 1 Puff INHALATION 2 puff Q4HRT PAULY Administration Aspirin 81 mg 03/25/21 09:00 03/26/21 09:23 Aspirin 81 Mg Enteric Tablet PO 81 mg QAM PAULY Administration Atorvastatin Calcium 40 mg 03/24/21 21:00
[2021-03-26 16:00] VITALS: BP 144/76; PULSE 88; RESP 18; TEMP 36.7; O2SAT 94
[2021-03-26 16:31] LABS: Glucose Point of Care 290 mg/dl (65-105)
[2021-03-26] MEDS: INSULIN ASPART (*BKC) 100 UNITS/ML SUB-Q (17:08)
[2021-03-26 20:16] VITALS: BP 130/55; PULSE 86; RESP 18; TEMP 36.8; O2SAT 98
[2021-03-26] MEDS: INSULIN GLARGINE (*BKC) 100 UNITS/ML 10 UNITS SUB-Q (20:55)
[2021-03-26] MEDS: clonazePAM (*CRX) 0.5 MG TABLET PO (20:55)
[2021-03-26] MEDS: ATORVASTATIN 40 MG TABLET PO (20:55)
[2021-03-26] MEDS: lisinopriL 10 MG TABLET PO (20:56)
[2021-03-26 21:29] LABS: Glucose Point of Care 238 mg/dl (65-105)
[2021-03-26 23:46] VITALS: BP 140/81; PULSE 78; RESP 16; TEMP 36.4; O2SAT 96
[2021-03-27] MEDS: ALBUTEROL SULFATE (*SP) AEROSOL 1 PUFF 2 PUFF INHALATION ×7 (00:49→21:02)
[2021-03-27 04:13] VITALS: BP 129/72; PULSE 65; RESP 18; TEMP 36; O2SAT 98
[2021-03-27 05:29] LABS: Hematocrit 30.6 % (37.0-47.0); Hemoglobin 10.2 g/dL (12.0-15.0); Mean Corpuscular HGB Conc 33.3 g/dl (32-36); Mean Corpuscular Hemoglobin 32.7 pg (26-34); Mean Corpuscular Volume 98.1 fl (80-100); Platelet Count Result 194 k/mm3 (150-375); Red Blood Count 3.12 M/mm3 (4.2-5.4); Red Cell Distribution Width 17.6 % (11.5-14.5); White Blood Count 4.1 K/mm3 (4.5-10.0)
[2021-03-27 05:49] LABS: Anion Gap 3 mmol/L (8-16); Blood Urea Nitrogen 17 mg/dL (7-17); Calcium 8.4 mg/dL (8.4-10.2); Carbon Dioxide 31 mmol/L (22-30); Chloride 99 mmol/L (98-107); Estimated CRCL calculation 110 ml/min; Estimated Glomerular Filt Rate > 60; Glucose 170 mg/dL (65-110); Magnesium 1.9 mg/dL (1.6-2.3); Potassium 3.6 mmol/L (3.4-5.0); Sodium 133 mmol/L (137-145)
[2021-03-27] MEDS: LEVOTHYROXINE SODIUM 100 MCG TABLET PO (06:39)
[2021-03-27] MEDS: FLUTICASONE/SALMETEROL 45-21 MCG INHALER 1 PUFF 2 PUFF INHALATION ×2 (07:44→21:02)
[2021-03-27 07:49] LABS: Glucose Point of Care 167 mg/dl (65-105)
[2021-03-27] MEDS: ESCITALOPRAM OXALATE 10 MG TABLET PO (08:23)
[2021-03-27] MEDS: ASPIRIN 81 MG ENTERIC TABLET PO (08:23)
[2021-03-27] MEDS: MAGNESIUM OXIDE 400 MG TABLET PO (08:23)
[2021-03-27] MEDS: CLOPIDOGREL BISULFATE 75 MG TABLET PO (08:24)
--- NOTE | 2021-03-27 09:59 | PCOTNOTE ---
Attempted to see patient at this time for skilled OT session. Patient asleep upon entry and easily aroused with call of name. Patient states she is tired and asks WING if session could be trialed again later. Patient declined participation in therapy at this time. Will attempt to see patient a second time if able. Continue per OT POC.
--- NOTE | 2021-03-27 11:35 | PM.IMPN ---
Progress Note: A&P Assessment and Plan (1) Hypoglycemia: Code(s): E16.2 - Hypoglycemia, unspecified Status: Acute Assessment and Plan: 03/27/21 11:35 03/25/2021 Interval history: patient is well known to me I had discharge the patient recently and patient was treated the DKA not see presented with hypoglycemia most likely secondary to poor p.o. intake, patient was treated for hypoglycemia her blood sugar climb to 500, it is now trending will continue to monitor with low-dose sliding scale and Lantus 10 units daily, patient has poor appetite resulting in hypoglycemia, will continue to monitor. 03/26/2021 Interval history:Patient remains clinically stable has no new complaints, her blood sugars a close to target, patient with cerebral injury will not be able to manage her blood sugar and will need a nursing help with her insulin, will discuss with the long term care phlebotomist further recommendation and management. 03/27/2021 Interval history:Patient remains clinically stable has no new complaints, her blood sugars a close to target, patient with cerebral injury will not be able to manage her blood sugar and will need a nursing help with her insulin, as this is her 2nd or 3rd admission due to uncontrolled diabetes, will discuss with the long term care phlebotomist further recommendation and management. (2) Hypothermia: Qualifiers: Encounter type: initial encounter Qualified Code(s): T68.XXXA - Hypothermia, initial encounter Code(s): T68.XXXA - Hypothermia, initial encounter Status: Acute (3) Abnormal urinalysis: Code(s): R82.90 - Unspecified abnormal findings in urine Status: Acute (4) Normocytic anemia: Code(s): D64.9 - Anemia, unspecified Status: Acute (5) Elevated LFTs: Code(s): R79.89 - Other specified abnormal findings of blood chemistry Status: Acute (6) Insulin dependent diabetes mellitus: Code(s): E11.9 - Type 2 diabetes mellitus without complications; Z79.4 - [facility] (current) use of insulin Status: Chronic (7) Hypertension: Code(s): I10 - Essential (primary) hypertension Status: Chronic (8) Hypothyroidism: Code(s): E03.9 - Hypothyroidism, unspecified Status: Chronic (9) Cognitive impairment: Code(s): R41.89 - Other symptoms and signs involving cognitive functions and awareness Status: Acute Additional Plan The patient was brought in today as she was found with decreased levels of consciousness and a glucose of around 30. Despite receiving glucagon she remained hypoglycemic and was started on D10 by EMS. Since she has been admitted to the hospital her glucose has been creeping up and in fact got up to 560 this afternoon. She has been started on sliding scale insulin and we will monitor her glucose closely as she is a brittle diabetic. For now we will continue Lantus 10 units at bedtime though I think I will ask the nurses to check her glucose in the log operations coordinator hours to ensure that she is not dropping. She was placed on a Karl Hugger for a brief period of time given hypothermia but that has since corrected. While she does have an abnormal urinalysis I doubt that she is septic and she was probably hypothermic due to her hypoglycemic episode. Her lactic acid level was within normal limits. Blood cultures have been obtained and are pending. We will continue with ceftriaxone, pending urine culture as her urinalysis is abnormal. Her hemoglobin and hematocrit are stable on review of previous labs. LFTs are also mildly elevated but this has been a trend and they appear stable as well. Blood pressures were reviewed and they were soft earlier this morning but have improved with IV fluids. Her antihypertensives will be reviewed and resumed as appropriate. Continue levothyroxine and check TSH. 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
[2021-03-27 12:04] LABS: Glucose Point of Care 294 mg/dl (65-105)
[2021-03-27 12:06] LABS: Glucose Point of Care 317 mg/dl (65-105)
[2021-03-27] MEDS: INSULIN ASPART (*BKC) 100 UNITS/ML SUB-Q ×2 (12:12→17:27)
[2021-03-27 16:00] VITALS: BP 114/64; PULSE 83; RESP 18; TEMP 37.2; O2SAT 95
[2021-03-27 16:37] LABS: Glucose Point of Care 209 mg/dl (65-105)
[2021-03-27 20:11] VITALS: BP 136/71; PULSE 80; RESP 18; TEMP 36.8; O2SAT 93
[2021-03-27] MEDS: INSULIN GLARGINE (*BKC) 100 UNITS/ML 10 UNITS SUB-Q (20:42)
[2021-03-27] MEDS: ATORVASTATIN 40 MG TABLET PO (20:43)
[2021-03-27] MEDS: lisinopriL 10 MG TABLET PO (20:43)
[2021-03-27] MEDS: clonazePAM (*CRX) 0.5 MG TABLET PO (20:44)
[2021-03-27 21:22] VITALS: O2SAT 97
[2021-03-27 21:36] LABS: Glucose Point of Care 241 mg/dl (65-105)
[2021-03-28] MEDS: ALBUTEROL SULFATE (*SP) AEROSOL 1 PUFF 2 PUFF INHALATION ×7 (00:34→23:04)
[2021-03-28 04:29] VITALS: BP 119/68; PULSE 50; RESP 18; TEMP 36.7; O2SAT 98
[2021-03-28 06:12] LABS: Hemoglobin 10.9 g/dL (12.0-15.0); Mean Corpuscular HGB Conc 34.1 g/dl (32-36); Mean Corpuscular Hemoglobin 33.5 pg (26-34); Mean Corpuscular Volume 98.5 fl (80-100); Mean Platelet Volume 9.7 fl (7.4-10.4); Platelet Count Result 216 k/mm3 (150-375); Red Blood Count 3.25 M/mm3 (4.2-5.4); Red Cell Distribution Width 17.4 % (11.5-14.5); White Blood Count 3.8 K/mm3 (4.5-10.0)
[2021-03-28 06:40] LABS: Anion Gap 2 mmol/L (8-16); Blood Urea Nitrogen 17 mg/dL (7-17); Calcium 8.7 mg/dL (8.4-10.2); Carbon Dioxide 32 mmol/L (22-30); Chloride 101 mmol/L (98-107); Estimated CRCL calculation 103 ml/min; Estimated Glomerular Filt Rate > 60; Glucose 45 mg/dL (65-110); Potassium 3.4 mmol/L (3.4-5.0); Sodium 135 mmol/L (137-145)
[2021-03-28] MEDS: DEXTROSE 50% 25 GM/50 ML SYRINGE IV PUSH (06:42)
[2021-03-28] MEDS: LEVOTHYROXINE SODIUM 100 MCG TABLET PO (06:49)
[2021-03-28 07:24] LABS: Glucose Point of Care 112 mg/dl (65-105)
[2021-03-28] MEDS: ASPIRIN 81 MG ENTERIC TABLET PO (07:53)
[2021-03-28] MEDS: ESCITALOPRAM OXALATE 10 MG TABLET PO (07:53)
[2021-03-28] MEDS: MAGNESIUM OXIDE 400 MG TABLET PO (07:53)
[2021-03-28] MEDS: CLOPIDOGREL BISULFATE 75 MG TABLET PO (07:54)
[2021-03-28] MEDS: FLUTICASONE/SALMETEROL 45-21 MCG INHALER 1 PUFF 2 PUFF INHALATION ×2 (09:28→21:08)
[2021-03-28 11:55] LABS: Glucose Point of Care 294 mg/dl (65-105)
[2021-03-28] MEDS: INSULIN ASPART (*BKC) 100 UNITS/ML SUB-Q ×2 (11:59→16:36)
--- NOTE | 2021-03-28 13:50 | PM.IMPN ---
Progress Note: A&P Assessment and Plan (1) Hypoglycemia: Code(s): E16.2 - Hypoglycemia, unspecified Status: Acute Assessment and Plan: 03/28/21 13:50 03/25/2021 Interval history: patient is well known to me I had discharge the patient recently and patient was treated the DKA not see presented with hypoglycemia most likely secondary to poor p.o. intake, patient was treated for hypoglycemia her blood sugar climb to 500, it is now trending will continue to monitor with low-dose sliding scale and Lantus 10 units daily, patient has poor appetite resulting in hypoglycemia, will continue to monitor. 03/26/2021 Interval history:Patient remains clinically stable has no new complaints, her blood sugars a close to target, patient with cerebral injury will not be able to manage her blood sugar and will need a nursing help with her insulin, will discuss with the career agent further recommendation and management. 03/27/2021 Interval history:Patient remains clinically stable has no new complaints, her blood sugars a close to target, patient with cerebral injury will not be able to manage her blood sugar and will need a nursing help with her insulin, as this is her 2nd or 3rd admission due to uncontrolled diabetes, will discuss with the career agent further recommendation and management. 03/28/2021 Interval history:Patient remains clinically stable has no new complaints, her blood sugars a close to target, however this monrning her blood sugar was low, patient with cerebral injury will not be able to manage her blood sugar and will need a nursing help with her insulin, as this is her 2nd or 3rd admission due to uncontrolled diabetes, today I spoke with her son Ho and gave updaes, will discuss with the career agent further recommendation and management. (2) Hypothermia: Qualifiers: Encounter type: initial encounter Qualified Code(s): T68.XXXA - Hypothermia, initial encounter Code(s): T68.XXXA - Hypothermia, initial encounter Status: Acute (3) Abnormal urinalysis: Code(s): R82.90 - Unspecified abnormal findings in urine Status: Acute (4) Normocytic anemia: Code(s): D64.9 - Anemia, unspecified Status: Acute (5) Elevated LFTs: Code(s): R79.89 - Other specified abnormal findings of blood chemistry Status: Acute (6) Insulin dependent diabetes mellitus: Code(s): E11.9 - Type 2 diabetes mellitus without complications; Z79.4 - [facility] (current) use of insulin Status: Chronic (7) Hypertension: Code(s): I10 - Essential (primary) hypertension Status: Chronic (8) Hypothyroidism: Code(s): E03.9 - Hypothyroidism, unspecified Status: Chronic (9) Cognitive impairment: Code(s): R41.89 - Other symptoms and signs involving cognitive functions and awareness Status: Acute Subjective Date/time seen: 03/28/21 13:50 03/25/2021 Interval history: patient is well known to me I had discharge the patient recently and patient was treated the DKA not see presented with hypoglycemia most likely secondary to poor p.o. intake, patient was treated for hypoglycemia her blood sugar climb to 500, it is now trending will continue to monitor with low-dose sliding scale and Lantus 10 units daily, patient has poor appetite resulting in hypoglycemia, will continue to monitor. 03/26/2021 Interval history:Patient remains clinically stable has no new complaints, her blood sugars a close to target, patient with cerebral injury will not be able to manage her blood sugar and will need a nursing help with her insulin, will discuss with the career agent further recommendation and management. 03/27/2021 Interval history:Patient remains clinically stable has no new complaints, her blood sugars a close to target, patient with cerebral injury will not be able to manage her blood sugar and will need a nursing help with her insulin, as this is h
[2021-03-28 14:08] VITALS: BP 110/64; PULSE 88; RESP 16; TEMP 36.8; O2SAT 96
[2021-03-28 16:29] LABS: Glucose Point of Care 311 mg/dl (65-105)
[2021-03-28 21:11] VITALS: PULSE 86; RESP 20
[2021-03-28 21:38] VITALS: BP 102/60; PULSE 73; RESP 16; TEMP 37; O2SAT 96
[2021-03-28] MEDS: clonazePAM (*CRX) 0.5 MG TABLET PO (22:01)
[2021-03-28] MEDS: ATORVASTATIN 40 MG TABLET PO (22:01)
[2021-03-28] MEDS: INSULIN GLARGINE (*BKC) 100 UNITS/ML 10 UNITS SUB-Q (22:03)
[2021-03-28 22:10] LABS: Glucose Point of Care 243 mg/dl (65-105)
[2021-03-28 23:05] VITALS: PULSE 82; RESP 18
[2021-03-29] MEDS: ALBUTEROL SULFATE (*SP) AEROSOL 1 PUFF 2 PUFF INHALATION ×5 (03:05→20:17)
[2021-03-29 04:50] VITALS: BP 135/55; PULSE 56; RESP 16; TEMP 36.7; O2SAT 96
[2021-03-29 06:31] LABS: Glucose Point of Care 160 mg/dl (65-105)
[2021-03-29] MEDS: LEVOTHYROXINE SODIUM 100 MCG TABLET PO (06:38)
[2021-03-29 07:49] LABS: Glucose Point of Care 125 mg/dl (65-105)
[2021-03-29] MEDS: ESCITALOPRAM OXALATE 10 MG TABLET PO (09:14)
[2021-03-29] MEDS: MAGNESIUM OXIDE 400 MG TABLET PO (09:14)
[2021-03-29] MEDS: ASPIRIN 81 MG ENTERIC TABLET PO (09:14)
[2021-03-29] MEDS: CLOPIDOGREL BISULFATE 75 MG TABLET PO (09:14)
--- NOTE | 2021-03-29 10:34 | PCRCNOTE ---
Window of time for administration has passed. See next scheduled administration.
--- NOTE | 2021-03-29 10:59 | PM.IMPN ---
Progress Note: A&P Assessment and Plan (1) Hypoglycemia: Code(s): E16.2 - Hypoglycemia, unspecified Status: Acute Assessment and Plan: 03/25/2021 Interval history: patient is well known to me I had discharge the patient recently and patient was treated the DKA not see presented with hypoglycemia most likely secondary to poor p.o. intake, patient was treated for hypoglycemia her blood sugar climb to 500, it is now trending will continue to monitor with low-dose sliding scale and Lantus 10 units daily, patient has poor appetite resulting in hypoglycemia, will continue to monitor. 03/26/2021 Interval history:Patient remains clinically stable has no new complaints, her blood sugars a close to target, patient with cerebral injury will not be able to manage her blood sugar and will need a nursing help with her insulin, will discuss with the coronary care unit nurse further recommendation and management. 03/27/2021 Interval history:Patient remains clinically stable has no new complaints, her blood sugars a close to target, patient with cerebral injury will not be able to manage her blood sugar and will need a nursing help with her insulin, as this is her 2nd or 3rd admission due to uncontrolled diabetes, will discuss with the coronary care unit nurse further recommendation and management. 03/28/2021 Interval history:Patient remains clinically stable has no new complaints, her blood sugars a close to target, however this monrning her blood sugar was low, patient with cerebral injury will not be able to manage her blood sugar and will need a nursing help with her insulin, as this is her 2nd or 3rd admission due to uncontrolled diabetes, today I spoke with her son Ho and gave updaes, will discuss with the coronary care unit nurse further recommendation and management. 03/29/2021 Interval history : pt is still very confused ? unsure if this is her baseline. ? early dementia related to recent herpes encephalitis or dementia secondary to frequent hypoglycemia episodes, sugars still low at 45 (2) Hypothermia: Qualifiers: Encounter type: initial encounter Qualified Code(s): T68.XXXA - Hypothermia, initial encounter Code(s): T68.XXXA - Hypothermia, initial encounter Status: Resolved (3) Abnormal urinalysis: Code(s): R82.90 - Unspecified abnormal findings in urine Status: Acute (4) Normocytic anemia: Code(s): D64.9 - Anemia, unspecified Status: Acute (5) Elevated LFTs: Code(s): R79.89 - Other specified abnormal findings of blood chemistry Status: Acute (6) Insulin dependent diabetes mellitus: Code(s): E11.9 - Type 2 diabetes mellitus without complications; Z79.4 - termite treater (current) use of insulin Status: Chronic (7) Hypertension: Code(s): I10 - Essential (primary) hypertension Status: Chronic (8) Hypothyroidism: Code(s): E03.9 - Hypothyroidism, unspecified Status: Chronic (9) Cognitive impairment: Code(s): R41.89 - Other symptoms and signs involving cognitive functions and awareness Status: Acute Subjective Date/time seen: 03/29/21 10:59 Interval history: 55-year-old female with insulin-dependent diabetes, chronic respiratory failure on oxygen, COPD, and hypothyroidism who presented to the emergency department earlier today via EMS from a a local rehab facility for further treatment and evaluation of hypoglycemia. She is known to the hospitalist service and this will be her 4th admission in the last 5 weeks or so. Initially she was admitted on 02/13/2021 for evaluation of encephalopathy felt to be of metabolic etiology with recurrent issues with hypoglycemia. A brain MRI at that time demonstrated an old lacunar infarct in the left thalamus with nonspecific cerebral white matter disease and no acute findings. PT is still very confused in the hospital. eating better in the room, but disorientedx3. Review of Systems Review of Systems:
[2021-03-29 11:25] LABS: Glucose Point of Care 380 mg/dl (65-105)
[2021-03-29] MEDS: INSULIN ASPART (*BKC) 100 UNITS/ML SUB-Q (11:38)
[2021-03-29] MEDS: FLUTICASONE/SALMETEROL 45-21 MCG INHALER 1 PUFF 2 PUFF INHALATION ×2 (13:03→20:17)
[2021-03-29 14:00] VITALS: BP 125/71; PULSE 74; RESP 20; TEMP 37.1; O2SAT 100
--- NOTE | 2021-03-29 15:47 | PCOTNOTE ---
On 03/29/21, the student, [Elizabeth SÁNCHEZ ], provided care and completed [facility] documentation on this patient. I have reviewed the student's documentation and agree with the findings.
[2021-03-29 16:47] LABS: Glucose Point of Care 171 mg/dl (65-105)
[2021-03-29] MEDS: ATORVASTATIN 40 MG TABLET PO (20:32)
[2021-03-29] MEDS: lisinopriL 10 MG TABLET PO (20:32)
[2021-03-29] MEDS: clonazePAM (*CRX) 0.5 MG TABLET PO (20:33)
[2021-03-29] MEDS: INSULIN GLARGINE (*BKC) 100 UNITS/ML 10 UNITS SUB-Q (20:33)
[2021-03-29 21:01] VITALS: BP 128/53; PULSE 73; RESP 14; TEMP 36.6; O2SAT 95
[2021-03-29 22:02] LABS: Glucose Point of Care 422 mg/dl (65-105)
[2021-03-30] MEDS: ALBUTEROL SULFATE (*SP) AEROSOL 1 PUFF 2 PUFF INHALATION ×6 (00:10→23:46)
[2021-03-30 00:13] VITALS: O2SAT 97
[2021-03-30 00:16] LABS: Glucose Point of Care 240 mg/dl (65-105)
[2021-03-30 05:50] VITALS: BP 109/62; PULSE 59; RESP 16; TEMP 36.3; O2SAT 95
[2021-03-30] MEDS: LEVOTHYROXINE SODIUM 100 MCG TABLET PO (06:39)
[2021-03-30 07:45] LABS: Glucose Point of Care 72 mg/dl (65-105)
--- NOTE | 2021-03-30 08:19 | PM.IMPN ---
Progress Note: A&P Assessment and Plan (1) Hypoglycemia: Code(s): E16.2 - Hypoglycemia, unspecified Status: Acute Assessment and Plan: 03/25/2021 Interval history: patient is well known to me I had discharge the patient recently and patient was treated the DKA not see presented with hypoglycemia most likely secondary to poor p.o. intake, patient was treated for hypoglycemia her blood sugar climb to 500, it is now trending will continue to monitor with low-dose sliding scale and Lantus 10 units daily, patient has poor appetite resulting in hypoglycemia, will continue to monitor. 03/26/2021 Interval history:Patient remains clinically stable has no new complaints, her blood sugars a close to target, patient with cerebral injury will not be able to manage her blood sugar and will need a nursing help with her insulin, will discuss with the client care coordinator further recommendation and management. 03/27/2021 Interval history:Patient remains clinically stable has no new complaints, her blood sugars a close to target, patient with cerebral injury will not be able to manage her blood sugar and will need a nursing help with her insulin, as this is her 2nd or 3rd admission due to uncontrolled diabetes, will discuss with the client care coordinator further recommendation and management. 03/28/2021 Interval history:Patient remains clinically stable has no new complaints, her blood sugars a close to target, however this monrning her blood sugar was low, patient with cerebral injury will not be able to manage her blood sugar and will need a nursing help with her insulin, as this is her 2nd or 3rd admission due to uncontrolled diabetes, today I spoke with her son Ho and gave updaes, will discuss with the client care coordinator further recommendation and management. 03/29/2021 Interval history : pt is still very confused ? unsure if this is her baseline. ? early dementia related to recent herpes encephalitis or dementia secondary to frequent hypoglycemia episodes, sugars still low at 45. 03/30/2021. Interval history: Patient remains clinically stable. She is awake alert oriented to self. She requested discharge home. Her blood sugars are monitored and have been on the high side today. Fasting blood sugar was 109. Accu-Cheks are in the 340-368 range. (2) Hypothermia: Qualifiers: Encounter type: initial encounter Qualified Code(s): T68.XXXA - Hypothermia, initial encounter Code(s): T68.XXXA - Hypothermia, initial encounter Status: Resolved Assessment and Plan: Hypothermia is likely the sign of for hypoglycemia. This is currently resolved. (3) Abnormal urinalysis: Code(s): R82.90 - Unspecified abnormal findings in urine Status: Acute Assessment and Plan: Patient was appropriately started on Rocephin. Urine culture grew E coli sensitive to ceftriaxone. Continue dose if in. (4) Normocytic anemia: Code(s): D64.9 - Anemia, unspecified Status: Acute Assessment and Plan: Macrocytic anemia mild and well tolerated. Check B12 and folate level. Hemoglobin is stable at 11 today (5) Elevated LFTs: Code(s): R79.89 - Other specified abnormal findings of blood chemistry Status: Acute Assessment and Plan: Mild elevation of liver function tests, currently trending toward normal. Continue clinical monitoring. (6) Insulin dependent diabetes mellitus: Code(s): E11.9 - Type 2 diabetes mellitus without complications; Z79.4 - group home (current) use of insulin Status: Chronic Assessment and Plan: Patient with recurrent severe hypoglycemia and issues at self managing blood sugars at home. Currently of blood sugars are in the 300 range in we are up titrating her insulin. Currently patient being evaluated for discharge to acute rehabilitation. Given her challenges, she will likely need him to manage her blood sugars upon discharge. (7) Hypertension: Co
[2021-03-30] MEDS: FLUTICASONE/SALMETEROL 45-21 MCG INHALER 1 PUFF 2 PUFF INHALATION ×2 (08:43→23:46)
[2021-03-30 08:48] LABS: Basophils Absolute Auto 0.1 K/mm3 (0.0-0.1); Eosinophils Absolute Auto 0.2 K/mm3 (0-0.3); Eosinophils Percent Auto 4.1 % (0-4.4); Hematocrit 33.2 % (37.0-47.0); Immature Granulocyte Absolute 0.02 K/mm3 (0.00-0.031); Immature Granulocyte Percent A 0.4 % (0-0.5); Lymphocytes Absolute Auto 1.49 K/mm3 (0.9-3.2); Lymphocytes Percent Auto 30.5 % (18.3-44.2); Mean Corpuscular HGB Conc 33.1 g/dl (32-36); Mean Corpuscular Hemoglobin 33.2 pg (26-34); Mean Corpuscular Volume 100.3 fl (80-100); Mean Platelet Volume 9.7 fl (7.4-10.4); Monocytes Absolute Auto 0.6 K/mm3 (0.1-0.6); Monocytes Percent Auto 11.3 % (2.6-8.5); Neutrophils Absolute Auto 2.6 K/mm3 (1.3-6.7); Neutrophils Percent Auto 52.7 % (45.5-73.1); Platelet Count Result 240 k/mm3 (150-375); Red Blood Count 3.31 M/mm3 (4.2-5.4); Red Cell Distribution Width 17.8 % (11.5-14.5); White Blood Count 4.9 K/mm3 (4.5-10.0)
[2021-03-30 09:03] LABS: Anion Gap 2 mmol/L (8-16); Blood Urea Nitrogen 18 mg/dL (7-17); Calcium 8.8 mg/dL (8.4-10.2); Carbon Dioxide 35 mmol/L (22-30); Chloride 99 mmol/L (98-107); Estimated CRCL calculation 80 ml/min; Estimated Glomerular Filt Rate > 60; Glucose 109 mg/dL (65-110); Potassium 3.8 mmol/L (3.4-5.0); Sodium 136 mmol/L (137-145)
[2021-03-30] MEDS: CLOPIDOGREL BISULFATE 75 MG TABLET PO (09:42)
[2021-03-30] MEDS: MAGNESIUM OXIDE 400 MG TABLET PO (09:42)
[2021-03-30] MEDS: ESCITALOPRAM OXALATE 10 MG TABLET PO (09:42)
[2021-03-30] MEDS: ASPIRIN 81 MG ENTERIC TABLET PO (09:42)
[2021-03-30 09:50] VITALS: O2SAT 95
[2021-03-30 11:39] LABS: Glucose Point of Care 349 mg/dl (65-105)
[2021-03-30 11:47] LABS: Glucose Point of Care 340 mg/dl (65-105)
[2021-03-30] MEDS: INSULIN ASPART (*BKC) 100 UNITS/ML SUB-Q ×2 (11:50→16:53)
[2021-03-30 14:00] VITALS: BP 102/57; PULSE 82; RESP 16; TEMP 36.8; O2SAT 98
--- NOTE | 2021-03-30 15:50 | WPDNEURCNPN ---
Assessment and Plan Additional Plan 1. Diabetic neuropathy with autonomic dysfunction 2. Recurrent hypoglycemic episode 3. 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 Insulin-dependent diabetes mellitus 3. Chronic respiratory failure for which she is on oxygen 3. COPD 4. Hypothyroidism Review of Systems Review of Systems: All systems reviewed & are unremarkable except as noted in HPI and below PMFSH Past Medical History Medical History Arthritis Chronic respiratory failure with hypoxia, on home oxygen therapy COPD with asthma Coronary artery disease Reported myocardial infarction in 1999 requiring stent. 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 Hemoglobin A1c was 8.3% on 02/13/2021. Tobacco abuse Surgical History Surgical History Status post arthroscopy of right knee Status post section Family History Family History Mother Family history of alcoholism Family history of congestive heart failure, Onset Age: 70 Family history of osteoporosis Family history of chronic obstructive pulmonary disease Grandparent Family history of Alzheimer's disease, Onset Age: 90 Hypertension, Onset Age: 80 Sibling Hypertension, Onset Age: 53 Family history of alcoholism Family history of malignant neoplasm Patient's sister is in good health Father Hypertension, Onset Age: 79 Family history of thyroid disease Family history of cataracts Malignant neoplasm of prostate Other Diabetes mellitus Family history of arthritis Social History Social History Social History: Surrogate decision maker: Tiera Montgomery (sister) or Ho Espinoza (son). Code status: Full code. Smoking packs per day: 1.5 Smoking cigarettes per day: 30.0 Years smoked: 40 Smoking pack-years: 60.00 Smoking status: Former smoker Tobacco type: cigarettes Second hand tobacco smoke exposure: Yes Alcohol intake: unknown Substance use: unknown Substance use type: does not use Additional living arrangements comments: The patient lives in her own home in [place] though she is currently undergoing rehab. Additional occupation/education comments: Disabled. Spiritual care concerns: No Meds Home Medications and Allergies Home Medications Medication Instructions Recorded Confirmed Type atorvastatin 40 mg tablet 40 mg PO HS #90 tablet 06/07/20 03/24/21 Rx clonazepam 0.5 mg tablet 0.5 mg PO HS #30 tablet 09/28/20 03/24/21 Rx levothyroxine 100 mcg tablet 100 mcg PO DAILY #90 tablet 10/22/20 03/24/21 Rx lisinopril 10 mg tablet 10 mg PO HS #90 tablet 10/22/20 03/24/21 Rx escitalopram oxalate 10 mg PO DAILY 02/14/21 03/24/21 History glucagon (human recombinant) 1 mg SUBCUT PRN PRN 02/14/21 03/24/21 History aspirin 81 mg PO QAM 90 Days #90 tablet 02/20/21 03/24/21 Rx clopidogrel 75 mg PO DAILY #90 tablet 02/20/21 03/24/21 Rx albuterol sulfate 90 mcg/actuation 2 puff INHALATION Q4H #54 g 02/21/21 03/24/21 Rx aerosol inhaler insulin lispro 100 unit/mL See Protocol SUBCUT TID #15 ml MDD 02/21/21 03/24/21 Rx subcutaneous pen 30 acyclovir 800 mg PO USEASDIRECTD 03/08/21 03/08/21 History insulin aspart U-100 [[place]ossman
[2021-03-30 16:53] LABS: Glucose Point of Care 368 mg/dl (65-105)
[2021-03-30] MEDS: clonazePAM (*CRX) 0.5 MG TABLET PO (21:43)
[2021-03-30] MEDS: ATORVASTATIN 40 MG TABLET PO (21:43)
[2021-03-30] MEDS: INSULIN GLARGINE (*BKC) 100 UNITS/ML 12 UNITS SUB-Q (21:51)
[2021-03-30] MEDS: lisinopriL 10 MG TABLET PO (21:56)
[2021-03-30 22:00] VITALS: BP 152/71; PULSE 69; RESP 16; TEMP 36.4; O2SAT 98
[2021-03-30 23:32] LABS: Glucose Point of Care 350 mg/dl (65-105)
[2021-03-30 23:47] VITALS: PULSE 68; O2SAT 98
[2021-03-31 04:20] LABS: Glucose Point of Care 198 mg/dl (65-105)
[2021-03-31 06:00] VITALS: BP 108/61; PULSE 59; RESP 16; TEMP 36.4; O2SAT 97
[2021-03-31] MEDS: LEVOTHYROXINE SODIUM 100 MCG TABLET PO (06:15)
[2021-03-31 06:22] LABS: Hematocrit 29.8 % (37.0-47.0); Mean Corpuscular HGB Conc 33.6 g/dl (32-36); Mean Corpuscular Hemoglobin 33.7 pg (26-34); Mean Corpuscular Volume 100.3 fl (80-100); Mean Platelet Volume 10.2 fl (7.4-10.4); Platelet Count Result 218 k/mm3 (150-375); Red Blood Count 2.97 M/mm3 (4.2-5.4); Red Cell Distribution Width 17.3 % (11.5-14.5); White Blood Count 3.7 K/mm3 (4.5-10.0)
--- NOTE | 2021-03-31 06:25 | PCRCNOTE ---
Pt did not receive 04:00 inhaler. RT not available to administer due to other priorities in the hospital.
[2021-03-31 06:45] LABS: Anion Gap 4 mmol/L (8-16); Blood Urea Nitrogen 20 mg/dL (7-17); Calcium 8.5 mg/dL (8.4-10.2); Carbon Dioxide 29 mmol/L (22-30); Chloride 101 mmol/L (98-107); Estimated CRCL calculation 102 ml/min; Estimated Glomerular Filt Rate > 60; Glucose 162 mg/dL (65-110); Potassium 3.8 mmol/L (3.4-5.0); Sodium 134 mmol/L (137-145)
[2021-03-31 08:01] LABS: Glucose Point of Care 120 mg/dl (65-105)
[2021-03-31] MEDS: MAGNESIUM OXIDE 400 MG TABLET PO (08:32)
[2021-03-31] MEDS: CLOPIDOGREL BISULFATE 75 MG TABLET PO (08:32)
[2021-03-31] MEDS: ASPIRIN 81 MG ENTERIC TABLET PO (08:32)
[2021-03-31] MEDS: ESCITALOPRAM OXALATE 10 MG TABLET PO (08:32)
[2021-03-31] MEDS: ALBUTEROL SULFATE (*SP) AEROSOL 1 PUFF 2 PUFF INHALATION ×3 (09:51→17:18)
[2021-03-31] MEDS: FLUTICASONE/SALMETEROL 45-21 MCG INHALER 1 PUFF 2 PUFF INHALATION (09:51)
[2021-03-31 09:55] VITALS: O2SAT 97
[2021-03-31 11:19] LABS: Glucose Point of Care 356 mg/dl (65-105)
[2021-03-31] MEDS: INSULIN ASPART (*BKC) 100 UNITS/ML SUB-Q ×2 (12:26→17:00)
--- NOTE | 2021-03-31 13:13 | PCNFU ---
Nutrition Follow-Up Complete: Increased protein needs related to wound as evidenced by stage III medial spine thoracic pressure ulcer Goal: Pt. to meet estimated nutritional needs. Patient is progressing towards goal. We will continue current goal. Pt current nutrition is DBCC with Ash BID and Glucerna shakes BID. Last recorded weight is 39.1 kg down from 39.4 kg 03/30. Bowel Motility:Last BM documented 03/24. Patient is reporting BM on 03/29 per EMR. Labs Reviewed: Na 134, Cr 0.3,BUN 20, Glu 162, Hct 29.8,Hgb 10.0 Meds Noted:Advair, NovoLog, Lexapro, Lipitor, Proventil, Rocephin Skin: stage 3 PU-Medical spine, Deep Tissue-Matteo Hips. Additional Notes: Patient remains on a DBCC diet with Ash BID and Glucerna shakes BID. Oral Intake has been greater than 75% of meals. Agree with diet orders. Monitoring: Monitor pt. labs, medications, weight and oral intake every 5 days.
--- NOTE | 2021-03-31 13:45 | PM.IMPN ---
Progress Note: A&P Assessment and Plan (1) Hypoglycemia: Code(s): E16.2 - Hypoglycemia, unspecified Status: Acute Assessment and Plan: 03/25/2021 Interval history: patient is well known to me I had discharge the patient recently and patient was treated the DKA not see presented with hypoglycemia most likely secondary to poor p.o. intake, patient was treated for hypoglycemia her blood sugar climb to 500, it is now trending will continue to monitor with low-dose sliding scale and Lantus 10 units daily, patient has poor appetite resulting in hypoglycemia, will continue to monitor. 03/26/2021 Interval history:Patient remains clinically stable has no new complaints, her blood sugars a close to target, patient with cerebral injury will not be able to manage her blood sugar and will need a nursing help with her insulin, will discuss with the intensive care medicine specialist further recommendation and management. 03/27/2021 Interval history:Patient remains clinically stable has no new complaints, her blood sugars a close to target, patient with cerebral injury will not be able to manage her blood sugar and will need a nursing help with her insulin, as this is her 2nd or 3rd admission due to uncontrolled diabetes, will discuss with the intensive care medicine specialist further recommendation and management. 03/28/2021 Interval history:Patient remains clinically stable has no new complaints, her blood sugars a close to target, however this monrning her blood sugar was low, patient with cerebral injury will not be able to manage her blood sugar and will need a nursing help with her insulin, as this is her 2nd or 3rd admission due to uncontrolled diabetes, today I spoke with her son Ho and gave updaes, will discuss with the intensive care medicine specialist further recommendation and management. 03/29/2021 Interval history : pt is still very confused ? unsure if this is her baseline. ? early dementia related to recent herpes encephalitis or dementia secondary to frequent hypoglycemia episodes, sugars still low at 45. 03/30/2021. Interval history: Patient remains clinically stable. She is awake alert oriented to self. She requested discharge home. Her blood sugars are monitored and have been on the high side today. Fasting blood sugar was 109. Accu-Cheks are in the 340-368 range. 03/31/2021. Interval history. Improvement of blood sugars today. Unfortunately patient remains confused, oriented to self only. She has risk worsen to return home and take care of her dogs. Blood sugar control is improving. To improve fasting blood sugar was 62. Fingerstick in the 120-356 range. (2) Hypothermia: Qualifiers: Encounter type: initial encounter Qualified Code(s): T68.XXXA - Hypothermia, initial encounter Code(s): T68.XXXA - Hypothermia, initial encounter Status: Resolved Assessment and Plan: Hypothermia was likely secondary to her hypoglycemia. This is currently resolved. (3) Abnormal urinalysis: Code(s): R82.90 - Unspecified abnormal findings in urine Status: Acute Assessment and Plan: Patient was appropriately started on Rocephin. Urine culture grew E coli sensitive to ceftriaxone. Continue rocephin. (4) Normocytic anemia: Code(s): D64.9 - Anemia, unspecified Status: Acute Assessment and Plan: Macrocytic anemia mild and well tolerated. Check B12 and folate level. Hemoglobin is stable at 11 today (5) Elevated LFTs: Code(s): R79.89 - Other specified abnormal findings of blood chemistry Status: Acute Assessment and Plan: Mild elevation of liver function tests, currently trending toward normal. Continue clinical monitoring. (6) Insulin dependent diabetes mellitus: Code(s): E11.9 - Type 2 diabetes mellitus without complications; Z79.4 - prison (current) use of insulin Status: Chronic Assessment and Plan: Patient with recurrent severe hypoglycemia and issues at self managi
[2021-03-31 14:20] VITALS: BP 122/61; PULSE 88; RESP 16; TEMP 36.7; O2SAT 95
--- NOTE | 2021-03-31 14:44 | WPDNEUROPN ---
Progress Note: A&P Additional Plan continue the medical treatment as such will benefit from the physical therapy Subjective Date/time seen: 03/31/21 14:44 follow-up with autonomic neuropathy, autonomic neuropathy and recurrent hypoglycemia in addition to the white matter disease Review of Systems Review of Systems: All systems reviewed & are unremarkable except as noted in HPI and below Exam Const: General: in distress, anxious, confusion and ill appearing Nutritional Appearance: average body habitus Orientation/consciousness: oriented to person Limitations: physical limitations HENMT: Head: normal to inspection and normocephalic Ears: hearing grossly normal bilaterally General nose exam: Normal external nose present Face and sinus: normal facial exam Mouth: Yes Normal oral and palatal mucosa present Eyes: General: appearance normal, both eyes and all related structures Visual Higginbotham: normal visual higginbotham by confrontation Alignment and Position: alignment normal Periorbital: periorbital findings normal Eyelids: eyelids normal Conjunctivae: conjunctivae normal Sclera: sclerae normal Cornea: corneas normal Pupils: Equal, round and reactive pupils present Neck: Neck: full ROM, no lymphadenopathy and no meningeal signs Resp: Effort & Inspection: normal respiratory effort Auscultation: clear to auscultation bilaterally Cardio: Jugular venous distension: no JVD Rate: regular rate Rhythm: regular rhythm GI: GI Palp: Yes Soft to palpation Skin: General skin exam: no rashes or lesions noted Neuro: General: oriented to person and oriented to place Cranial nerves: Yes CN's II-XII intact bilaterally Cognition (Neuro): normal cognition Gait exam (Neuro): Unable to assess gait Motor exam (neuro): Pronator motor function not present, No tremor noted and Abnormal motor strength present ( decreased generally) Sensory Exam: normal sensation Deep tendon reflexes (DTR's): Right triceps reflex intensity grade: 1+, Left triceps reflex intensity grade: 1+, Rt Biceps (C5, C6): 1+, Left biceps reflex intensity grade: 1+, Right brachioradialis reflex intensity grade: 1+, Left brachioradialis reflex intensity grade: 1+, Right patellar reflex intensity grade: 1+, Left patellar reflex intensity grade: 1+, Right ankle reflex intensity grade: 1+ and Left ankle reflex intensity grade: 1+ Plantar Reflex Responses: downgoing: bilateral Coordination: [id number] test normal Psych: Appearance: disheveled Speech and movement: Slowed speech present (Psych) Affect: Labile affect present and Sad affect present Attitude: Guarded attititude/behavior present Thought process: Circumstantial thought process present Thought content: Yes Normal thought content present Insight: Fair insight present (Psych) Judgement: Fair judgement present (Psych) Objective Data Vital Signs Vital Signs: Vital Signs - 24 hr 03/30/21 22:00 03/30/21 23:47 03/31/21 06:00 Temperature 36.4 C L 36.4 C L Pulse Rate 69 68 59 L Respiratory Rate 16 16 Blood Pressure 152/71 H 108/61 Pulse Oximetry 98 98 97 03/31/21 09:55 Temperature Pulse Rate Respiratory Rate Blood Pressure Pulse Oximetry 97 Intake/Output Intake/Output: Intake & Output 03/28/21 03/29/21 03/30/21 03/31/21 23:59 23:59 23:59 23:59 Intake Total 1410 1350 1700 1010 Output Total 1450 1150 1000 Balance -40 200 1700 10 Meds/Results Medications: Active Medications Generic Name Dose Route Start Last Admin Trade Name Freq PRN Reason Stop Dose Admin Albuterol 2 puff 03/24/21 16:00 03/31/21 13:29 Albuterol Sulfate (*Sp) Aerosol 1 Puff INHALATION 2 puff Q4HRT PAULY Administration Aspirin 81 mg 03/25/21 09:00 03/31/21 08:32 Aspirin 81 Mg Enteric Tablet PO 81 mg QAM PAULY Administration Atorvastatin Calcium 40 mg 03/24/21 21:00 03/30/21 21:43 Atorvastatin 40 Mg Tablet PO 40 mg HS PAULY Administration Clonazepam 0.5 mg 03/24/21 21:00 03/30/21 21:43
[2021-03-31 16:34] LABS: Glucose Point of Care 278 mg/dl (65-105)
[2021-03-31 20:55] VITALS: BP 125/66; PULSE 68; RESP 16; TEMP 37.1; O2SAT 100
[2021-03-31] MEDS: ATORVASTATIN 40 MG TABLET PO (21:48)
[2021-03-31] MEDS: clonazePAM (*CRX) 0.5 MG TABLET PO (21:48)
[2021-03-31] MEDS: lisinopriL 10 MG TABLET PO (21:48)
[2021-03-31] MEDS: INSULIN GLARGINE (*BKC) 100 UNITS/ML 12 UNITS SUB-Q (21:52)
[2021-03-31 23:46] LABS: Glucose Point of Care 349 mg/dl (65-105)
--- NOTE | 2021-04-01 00:15 | PCRCNOTE ---
Window of time for administration has passed. See next scheduled administration.
[2021-04-01] MEDS: ALBUTEROL SULFATE (*SP) AEROSOL 1 PUFF 2 PUFF INHALATION ×3 (00:18→15:01)
[2021-04-01 04:24] VITALS: BP 109/55; PULSE 56; RESP 16; TEMP 36.9; O2SAT 94
[2021-04-01 06:03] LABS: Hematocrit 30.6 % (37.0-47.0); Hemoglobin 10.1 g/dL (12.0-15.0); Mean Corpuscular Hemoglobin 32.7 pg (26-34); Mean Platelet Volume 10.2 fl (7.4-10.4); Platelet Count Result 240 k/mm3 (150-375); Red Blood Count 3.09 M/mm3 (4.2-5.4); Red Cell Distribution Width 17.2 % (11.5-14.5); White Blood Count 4.3 K/mm3 (4.5-10.0)
[2021-04-01] MEDS: LEVOTHYROXINE SODIUM 100 MCG TABLET PO (06:10)
[2021-04-01 06:13] LABS: Anion Gap 1 mmol/L (8-16); Blood Urea Nitrogen 26 mg/dL (7-17); Calcium 8.6 mg/dL (8.4-10.2); Carbon Dioxide 32 mmol/L (22-30); Chloride 100 mmol/L (98-107); Estimated CRCL calculation 95 ml/min; Estimated Glomerular Filt Rate > 60; Glucose 189 mg/dL (65-110); Potassium 4.1 mmol/L (3.4-5.0); Sodium 133 mmol/L (137-145)
[2021-04-01 06:38] LABS: Rapid Plasma Reagin Non-Reactive (NonReactive)
[2021-04-01 07:43] LABS: Glucose Point of Care 157 mg/dl (65-105)
--- NOTE | 2021-04-01 07:50 | PM.IMPN ---
Progress Note: A&P Assessment and Plan (1) Hypoglycemia: Code(s): E16.2 - Hypoglycemia, unspecified Status: Acute Assessment and Plan: 03/25/2021 Interval history: patient is well known to me I had discharge the patient recently and patient was treated the DKA not see presented with hypoglycemia most likely secondary to poor p.o. intake, patient was treated for hypoglycemia her blood sugar climb to 500, it is now trending will continue to monitor with low-dose sliding scale and Lantus 10 units daily, patient has poor appetite resulting in hypoglycemia, will continue to monitor. 03/26/2021 Interval history:Patient remains clinically stable has no new complaints, her blood sugars a close to target, patient with cerebral injury will not be able to manage her blood sugar and will need a nursing help with her insulin, will discuss with the animal care giver further recommendation and management. 03/27/2021 Interval history:Patient remains clinically stable has no new complaints, her blood sugars a close to target, patient with cerebral injury will not be able to manage her blood sugar and will need a nursing help with her insulin, as this is her 2nd or 3rd admission due to uncontrolled diabetes, will discuss with the animal care giver further recommendation and management. 03/28/2021 Interval history:Patient remains clinically stable has no new complaints, her blood sugars a close to target, however this monrning her blood sugar was low, patient with cerebral injury will not be able to manage her blood sugar and will need a nursing help with her insulin, as this is her 2nd or 3rd admission due to uncontrolled diabetes, today I spoke with her son Ho and gave updaes, will discuss with the animal care giver further recommendation and management. 03/29/2021 Interval history : pt is still very confused ? unsure if this is her baseline. ? early dementia related to recent herpes encephalitis or dementia secondary to frequent hypoglycemia episodes, sugars still low at 45. 03/30/2021. Interval history: Patient remains clinically stable. She is awake alert oriented to self. She requested discharge home. Her blood sugars are monitored and have been on the high side today. Fasting blood sugar was 109. Accu-Cheks are in the 340-368 range. 03/31/2021. Interval history. Improvement of blood sugars today. Unfortunately patient remains confused, oriented to self only. She has risk worsen to return home and take care of her dogs. Blood sugar control is improving. To improve fasting blood sugar was 62. Fingerstick in the 120-356 range. 04/01/2021. Interval history. Improvement of blood sugars today. Insulin was uptitrated based on improvement of oral intake and elevated blood sugar. AM measurements are at target. Patient is still experiencing hyperglycemia during the afternoon. Increase lantus to BID. Unfortunately patient remains confused, oriented to self only. She has risk worsen to return home and take care of her dogs. Blood sugar control is improving. To improve fasting blood sugar was 62. Fingerstick in the 157-343 range. (2) Hypothermia: Qualifiers: Encounter type: initial encounter Qualified Code(s): T68.XXXA - Hypothermia, initial encounter Code(s): T68.XXXA - Hypothermia, initial encounter Status: Resolved Assessment and Plan: Hypothermia was likely secondary to her hypoglycemia. This is currently resolved. (3) Abnormal urinalysis: Code(s): R82.90 - Unspecified abnormal findings in urine Status: Acute Assessment and Plan: Patient was appropriately started on Rocephin. Urine culture grew E coli sensitive to ceftriaxone. Continue rocephin. (4) Normocytic anemia: Code(s): D64.9 - Anemia, unspecified Status: Acute Assessment and Plan: Macrocytic anemia mild and well tolerated. Check B12 and folate level. Hemoglobin is stable at 11 today (5) Elevated LFTs:
--- NOTE | 2021-04-01 07:52 | PM.DS ---
DS: Admitting Diagnosis Discharge Date 04/01/2021 Admitting Diagnosis Hypoglycemia. Altered mental status. DS: Discharge Diagnosis Discharge Diagnosis (1) Hypoglycemia: Code(s): E16.2 - Hypoglycemia, unspecified Status: Acute Assessment and Plan: 03/25/2021 Interval history: patient is well known to me I had discharge the patient recently and patient was treated the DKA not see presented with hypoglycemia most likely secondary to poor p.o. intake, patient was treated for hypoglycemia her blood sugar climb to 500, it is now trending will continue to monitor with low-dose sliding scale and Lantus 10 units daily, patient has poor appetite resulting in hypoglycemia, will continue to monitor. 03/26/2021 Interval history:Patient remains clinically stable has no new complaints, her blood sugars a close to target, patient with cerebral injury will not be able to manage her blood sugar and will need a nursing help with her insulin, will discuss with the transitional care liaison further recommendation and management. 03/27/2021 Interval history:Patient remains clinically stable has no new complaints, her blood sugars a close to target, patient with cerebral injury will not be able to manage her blood sugar and will need a nursing help with her insulin, as this is her 2nd or 3rd admission due to uncontrolled diabetes, will discuss with the transitional care liaison further recommendation and management. 03/28/2021 Interval history:Patient remains clinically stable has no new complaints, her blood sugars a close to target, however this monrning her blood sugar was low, patient with cerebral injury will not be able to manage her blood sugar and will need a nursing help with her insulin, as this is her 2nd or 3rd admission due to uncontrolled diabetes, today I spoke with her son Ho and gave updaes, will discuss with the transitional care liaison further recommendation and management. 03/29/2021 Interval history : pt is still very confused ? unsure if this is her baseline. ? early dementia related to recent herpes encephalitis or dementia secondary to frequent hypoglycemia episodes, sugars still low at 45. 03/30/2021. Interval history: Patient remains clinically stable. She is awake alert oriented to self. She requested discharge home. Her blood sugars are monitored and have been on the high side today. Fasting blood sugar was 109. Accu-Cheks are in the 340-368 range. 03/31/2021. Interval history. Improvement of blood sugars today. Unfortunately patient remains confused, oriented to self only. She has risk worsen to return home and take care of her dogs. Blood sugar control is improving. To improve fasting blood sugar was 62. Fingerstick in the 120-356 range. 03/31/2021. Interval history. Improvement of blood sugars today. Insulin was uptitrated based on improvement of oral intake and elevated blood sugar. AM measurements are at target. Patient is still experiencing hyperglycemia during the afternoon. Incease lantus to BID. Unfortunately patient remains confused, oriented to self only. She has risk worsen to return home and take care of her dogs. Blood sugar control is improving. To improve fasting blood sugar was 62. Fingerstick in the 157-343 range. (2) Hypothermia: Qualifiers: Encounter type: initial encounter Qualified Code(s): T68.XXXA - Hypothermia, initial encounter Code(s): T68.XXXA - Hypothermia, initial encounter Status: Resolved Assessment and Plan: Hypothermia was likely secondary to her hypoglycemia. This is currently resolved. (3) Abnormal urinalysis: Code(s): R82.90 - Unspecified abnormal findings in urine Status: Acute Assessment and Plan: Patient was appropriately started on Rocephin. Urine culture grew E coli sensitive to ceftriaxone. Continue rocephin. (4) Normocytic anemia: Code(s): D64.9 - Anemia, unspecified Status: Acute Assessment and Plan: Macrocytic a
[2021-04-01] MEDS: CLOPIDOGREL BISULFATE 75 MG TABLET PO (08:53)
[2021-04-01] MEDS: ASPIRIN 81 MG ENTERIC TABLET PO (08:53)
[2021-04-01] MEDS: ESCITALOPRAM OXALATE 10 MG TABLET PO (08:53)
[2021-04-01] MEDS: MAGNESIUM OXIDE 400 MG TABLET PO (08:53)
--- NOTE | 2021-04-01 10:56 | WPDNEUROPN ---
Progress Note: A&P Additional Plan improving neurological status general medical treatment will be continued as such SARS-CoV-2 COVID is negative on April 01, 2021 and urine culture positive for the E coli treatment accordingly Time Spent With Patient Time with patient: less than 15 minutes Subjective Date/time seen: 04/01/21 10:56 55 years old without anomic neuropathy and also recurrent hypoglycemia most recent lab revealed WBC 4.3 with hemoglobin 10.1, blood sugar 157, UA abnormal with 3+ glucose glycosuria and cloudy, starts COVID pending, urine culture positive for E coli Review of Systems Review of Systems: All systems reviewed & are unremarkable except as noted in HPI and below Exam Narrative: this morning she is awake alert cooperative in no obvious acute distress following the instructions fairly well his speech nor dysphasic no dysarthric not dysphonic she is able to move both upper and lower extremities very well pupils round regular feels the vision full extraocular movements full face symmetrical tongue midline reflexes symmetrical heart regular with no murmur lungs clear abdomen is soft Objective Data Vital Signs Vital Signs: Vital Signs - 24 hr 03/31/21 14:20 03/31/21 20:55 04/01/21 04:24 Temperature 36.7 C 37.1 C 36.9 C Pulse Rate 88 68 56 L Respiratory Rate 16 16 16 Blood Pressure 122/61 125/66 109/55 L Pulse Oximetry 95 100 94 Intake/Output Intake/Output: Intake & Output 03/29/21 03/30/21 03/31/21 04/01/21 23:59 23:59 23:59 23:59 Intake Total 1350 1700 2070 370 Output Total 1150 2550 500 Balance 200 1700 -480 -130 Meds/Results Medications: Active Medications Generic Name Dose Route Start Last Admin Trade Name Freq PRN Reason Stop Dose Admin Albuterol 2 puff 03/24/21 16:00 04/01/21 10:05 Albuterol Sulfate (*Sp) Aerosol 1 Puff INHALATION 2 puff Q4HRT PAULY Administration Aspirin 81 mg 03/25/21 09:00 04/01/21 08:53 Aspirin 81 Mg Enteric Tablet PO 81 mg QAM PAULY Administration Atorvastatin Calcium 40 mg 03/24/21 21:00 03/31/21 21:48 Atorvastatin 40 Mg Tablet PO 40 mg HS PAULY Administration Clonazepam 0.5 mg 03/24/21 21:00 03/31/21 21:48 Clonazepam (*Crx) 0.5 Mg Tablet PO 0.5 mg HS PAULY Administration Clopidogrel Bisulfate 75 mg 03/25/21 09:00 04/01/21 08:53 Clopidogrel Bisulfate 75 Mg Tablet PO 75 mg DAILY PAULY Administration Dextrose 12.5 gm 03/24/21 06:35 03/28/21 06:42 Dextrose 50% 25 Gm/50 Ml Syringe IV PUSH 12.5 gm PRN PRN Administration Hypoglycemia Protocol Escitalopram Oxalate 10 mg 03/25/21 09:00 04/01/21 08:53 Escitalopram Oxalate 10 Mg Tablet PO 10 mg DAILY PAULY Administration Glucagon 1 mg 03/24/21 06:35 Glucagon For Inj 1 Mg Vial IM PRN PRN Hypoglycemia Protocol Glucose 15 gm 03/24/21 06:35 Glucose Oral Gel 15 Gm Of Glucse In 37.5 Gm Tube PO PRN PRN Hypoglycemia Protocol Dextrose 1,000 mls @ 100 mls/hr 03/24/21 06:35 Dextrose 5% 1,000 Ml IVPB PRN PRN Hypoglycemia Protocol Ceftriaxone Sodium/Dextrose 1 gm in 50 mls @ 100 mls/hr 03/25/21 09:00 04/01/21 08:53 Rocephin 1 Gm/D5w 50 Ml IVPB Not Given Q24H [facility] Insulin Aspart 4 - 7 units 03/30/21 17:00 04/01/21 08:52 Insulin Aspart (*Bkc) 100 Units/Ml SUB-Q Not Given TIDWM [facility] Protocol Insulin Glargine 15 units 04/01/21 21:00 Insulin Glargine (*Bkc) 100 Units/Ml SUB-Q HS [facility] Levothyroxine Sodium 100 mcg 04/01/21 06:30 04/01/21 06:10 Levothyroxine Sodium 100 Mcg Tablet PO 100 mcg DAILY@0630 PAULY Administration Lisinopril 10 mg 03/24/21 21:00 03/31/21 21:48 Lisinopril 10 Mg Tablet PO 10 mg HS PAULY Administration Magnesium Oxide 400 mg 03/25/21 09:00 04/01/21 08:53 Magnesium Oxide 400 Mg Tablet PO 400 mg DAILY PAULY Administration Ondansetron HCl 4 mg 03/24/21 08:07 Ondansetron Inj 4 Mg/2 Ml Vial IV PUSH
[2021-04-01 10:58] LABS: EDCOVIDSCREEN Negative (Negative)
[2021-04-01 11:37] LABS: Glucose Point of Care 304 mg/dl (65-105)
[2021-04-01] MEDS: INSULIN ASPART (*BKC) 100 UNITS/ML SUB-Q ×2 (12:32→18:18)
[2021-04-01 14:00] VITALS: BP 92/46; PULSE 80; RESP 16; TEMP 37.3; O2SAT 97
[2021-04-01 16:30] LABS: Glucose Point of Care 343 mg/dl (65-105)
[2021-04-03 07:25] LABS: Red Blood Cell Folate 651 ng/mL RBC (>280)
== END 2021-04-01 19:05 | DRG 638 ==
LOC: ANHED 08:23 → ANHIMU 08:40 → ANH2MED 03-25 18:48
PROVIDERS: Family Medicine; General Practice; Physician Assistant; Admitting Provider Internal Medicine; Emergency Provider Emergency Medicine; PCP Internal Medicine; Visit Provider Internal Medicine
DX: E11.649 Type 2 diabetes mellitus with hypoglycemia without coma (principal); J96.11 Chronic respiratory failure with hypoxia; Z20.822 Contact with and (suspected) exposure to COVID-19; E03.9 Hypothyroidism, unspecified; M19.90 Unspecified osteoarthritis, unspecified site; Z99.81 Dependence on supplemental oxygen; J44.9 Chronic obstructive pulmonary disease, unspecified; I25.10 Atherosclerotic heart disease of native coronary artery without angina pectoris; Z95.5 Presence of coronary angioplasty implant and graft; F32.A Depression, unspecified; F41.9 Anxiety disorder, unspecified; E78.5 Hyperlipidemia, unspecified; I10 Essential (primary) hypertension; Z79.4 Long term (current) use of insulin; E11.319 Type 2 diabetes mellitus with unspecified diabetic retinopathy without macular edema; E11.43 Type 2 diabetes mellitus with diabetic autonomic (poly)neuropathy; K31.84 Gastroparesis; F17.210 Nicotine dependence, cigarettes, uncomplicated; R68.0 Hypothermia, not associated with low environmental temperature; Z86.73 Personal history of transient ischemic attack (TIA), and cerebral infarction without residual deficits; D64.9 Anemia, unspecified; R79.89 Other specified abnormal findings of blood chemistry; G31.84 Mild cognitive impairment of uncertain or unknown etiology; G09 Sequelae of inflammatory diseases of central nervous system
CPT/HCPCS: 36415; 36600; 71045; 80048; 80053; 81001; 82607; 82747; 82805; 82948; 83605; 83735; 84439; 84443; 84480; 85025; 85027; 86592; 87040; 87077; 87086; 87186; 87426; 93005; 94640; 96361; 96365; 96366; 96375; 96376; 97110; 97162; 97166; 97530; 97535; 99285; A9270; C9803; G0378; J0696; J1815; J7030

== ENCOUNTER 2021-04-15 13:06 | Inpatient (IN) | payer MEDICARE, MEDICAID, SELFPAY ==
--- NOTE | ~2021-04-15 | CT_ITS ---
EXAMINATION: CT brain wo con DATE: 04/15/2021 20:03 INDICATION: Altered mental status. Hyperglycemia. TECHNIQUE: Computed tomography (CT) of the head was performed without intravenous contrast. The mA wa s adjusted according to patient size. Iterative reconstruction technique was employed. Exam dose: 52 9.67 mGy-cm total exam DLP. COMPARISON: 03/18/2021 CT brain FINDINGS: No intracranial mass lesion or hemorrhage or recent cerebrovascular accident. No midline sh ift or mass effect. Bilateral vertebral artery and carotid siphon internal carotid artery calcifications. No subdural or epidural hematoma. Old left medial orbital wall blowout fracture. No skull fracture or bone destruction is detected. Included paranasal sinuses and mastoid air cells are unremarkable. IMPRESSION: Cerebral atherosclerosis; no acute intracranial finding or significant change since 03/08 Reviewed, dictated and finalized at [facility] Reviewed, dictated and finalized at [facility]. PROGRAMMER REMOTE IMPRESSION: Cerebral atherosclerosis; no acute intracranial finding or signifi cant change since 03/08/2021
--- NOTE | ~2021-04-15 | XR_ITS ---
XR chest 1V portable DATE: 04/15/2021 21:32 INDICATION: Lactic acidosis. Confusion. History of COPD, asthma. Smoker. Hypertension. TECHNIQUE: Portable AP chest on 04/15/2021 at 2127 hours COMPARISON: 03/24/2021 portable AP chest FINDINGS: Bilateral hyperinflation consistent with COPD. No pulmonary consolidation. No pleural effus ion or pulmonary vascular congestion or pneumothorax. Normal heart size. Evidence of old pulmonary granulomatous disease. No hilar or mediastinal enlargeme nt. Diffuse osteopenia. IMPRESSION: Bilateral hyperinflation consistent with COPD No active cardiopulmonary disease Osteopenia Reviewed, dictated and finalized at [facility]. MIXER
[2021-04-15 13:42] VITALS: BP 114/69; PULSE 80; RESP 16; TEMP 36.2; O2SAT 100
[2021-04-15 14:01] LABS: Glucose Point of Care > 500 mg/dl (65-105)
[2021-04-15 18:34] LABS: Glucose Point of Care 246 mg/dl (65-105)
[2021-04-15 19:00] VITALS: BP 100/64; PULSE 71; RESP 14; O2SAT 98
--- NOTE | 2021-04-15 19:40 | ED.RECABL ---
HPI - Recheck/Abnormal Lab/Rx General Chief Complaint: Recheck/Abnormal Lab/Rx <Angelica Davis PA-C - Last Filed: 04/15/21 22:29> Stated Complaint: ELEVATED BLOOD SUGAR <Angelica Davis PA-C - Last Filed: 04/15/21 22:29> Time Seen by Provider: 04/15/21 19:22 <Angelica Davis PA-C - Last Filed: 04/15/21 22:29> Source: patient <Angelica Davis PA-C - Last Filed: 04/15/21 22:29> Mode of arrival: EMS <Angelica Davis PA-C - Last Filed: 04/15/21 22:29> Limitations: other (poor historian) <Angelica Davis PA-C - Last Filed: 04/15/21 22:29> History of Present Illness HPI narrative: This is a 55 year old female that presents to the ER via EMS for hyperglycemia. Reportedly was reading high at nursing facility so they gave her 8 unites of insulin. Patient reports she was feeling very lightheaded when her blood sugar was high. She currently has no complaints. Denies fever, chest pain, shortness of breath, abdominal pain, vomiting, or dysuria. <Angelica Davis PA-C - Last Filed: 04/15/21 22:29> Related Data Home Medications: Home Medications Medication Instructions Recorded Confirmed escitalopram oxalate 10 mg PO DAILY 02/14/21 03/24/21 glucagon (human recombinant) 1 mg SUBCUT PRN PRN 02/14/21 03/24/21 acyclovir 800 mg PO USEASDIRECTD 03/08/21 03/08/21 ergocalciferol (vitamin D2) 1,250 mcg PO WEEKLY 03/24/21 03/24/21 <Angelica Davis PA-C - Last Filed: 04/15/21 22:29> Allergies/Adverse Reactions: Allergies Allergy/AdvReac Type Severity Reaction Status Date / Time metformin AdvReac Intermediate Diarrhea Verified 03/24/21 06:28 <EVERARDO Kasper Last Filed: 04/15/21 22:29> Review of Systems Review of Systems: CONSTITUTIONAL: Denies fever CARDIOVASCULAR: Denies chest pain RESPIRATORY: Denies dyspnea. GASTROINTESTINAL: Denies abdominal pain, nausea, vomiting GENITOURINARY: Denies dysuria <Angelica Davis PA-C - Last Filed: 04/15/21 22:29> All systems reviewed & are unremarkable except as noted in HPI and below <Angelica Davis PA-C - Last Filed: 04/15/21 22:29> [facility] Past Medical History Medical History: Medical History Arthritis Chronic respiratory failure with hypoxia, on home oxygen therapy COPD with asthma Coronary artery disease Reported myocardial infarction in 1999 requiring stent. 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 Hemoglobin A1c was 8.3% on 02/13/2021. Tobacco abuse <Angelica Davis PA-C - Last Filed: 04/15/21 22:29> Surgical History Surgical History: Surgical History Status post arthroscopy of right knee Status post section <Angelica Davis PA-C - Last Filed: 04/15/21 22:29> Family History Family History: Family History Mother Family history of alcoholism Family history of congestive heart failure, Onset Age: 70 Family history of osteoporosis Family history of chronic obstructive pulmonary disease Grandparent Family history of Alzheimer's disease, Onset Age: 90 Hypertension, Onset Age: 80 Sibling Hypertension, Onset Age: 53 Family history of alcoholism Family history of malignant neoplasm Patient's sister is in good health Father Hypertension, Onset Age: 79 Family history of thyroid disease Family history of cataracts Malignant neoplasm of prostate Other Diabetes mellitus Family history of arthritis <Angelica Davis PA-C - Last Filed: 04/15/21 22:29> Social History Social History: Social History Social History: Surrogate decision maker: Tiera Montgomery (sister) or Ho Espinoza (son).
[2021-04-15 19:49] LABS: Glucose Point of Care 203 mg/dl (65-105)
[2021-04-15 19:50] LABS: Basophils Absolute Auto 0.1 K/mm3 (0.0-0.1); Basophils Percent Auto 0.9 % (0.2-1.2); Eosinophils Absolute Auto 0.1 K/mm3 (0-0.3); Eosinophils Percent Auto 1.8 % (0-4.4); Hematocrit 40.3 % (37.0-47.0); Hemoglobin 12.9 g/dL (12.0-15.0); Immature Granulocyte Absolute 0.01 K/mm3 (0.00-0.031); Immature Granulocyte Percent A 0.2 % (0-0.5); Lymphocytes Absolute Auto 1.57 K/mm3 (0.9-3.2); Mean Corpuscular Hemoglobin 32.4 pg (26-34); Mean Corpuscular Volume 101.3 fl (80-100); Mean Platelet Volume 10.5 fl (7.4-10.4); Monocytes Absolute Auto 0.5 K/mm3 (0.1-0.6); Monocytes Percent Auto 8.3 % (2.6-8.5); Neutrophils Absolute Auto 3.2 K/mm3 (1.3-6.7); Neutrophils Percent Auto 59.8 % (45.5-73.1); Platelet Count Result 209 k/mm3 (150-375); Red Blood Count 3.98 M/mm3 (4.2-5.4); Red Cell Distribution Width 14.4 % (11.5-14.5); White Blood Count 5.4 K/mm3 (4.5-10.0)
[2021-04-15 20:01] LABS: Lactic Acid Reflex 3.2 mmol/L (0.7-2.1)
[2021-04-15 20:02] LABS: Anion Gap 7 mmol/L (8-16); Blood Urea Nitrogen 21 mg/dL (7-17); Calcium 9.5 mg/dL (8.4-10.2); Carbon Dioxide 34 mmol/L (22-30); Chloride 97 mmol/L (98-107); Estimated CRCL calculation 106 ml/min; Estimated Glomerular Filt Rate > 60; Glucose 234 mg/dL (65-110); Phosphorus 4.3 mg/dL (2.5-4.5); Potassium 3.9 mmol/L (3.4-5.0); Sodium 138 mmol/L (137-145)
[2021-04-15 20:03] LABS: Alanine Aminotransferase 35 U/L (4-35); Albumin Level 4.2 g/dL (3.5-5.1); Alkaline Phosphatase 113 U/L (38-126); Aspartate Amino Transferase 29 U/L (14-36); Bilirubin,Total 0.3 mg/dL (0.2-1.3); Magnesium 2.1 mg/dL (1.6-2.3)
[2021-04-15 20:06] LABS: Beta-Hydroxybutyrate/Acetoacetate 0.12 mmol/L (0.02-0.27)
[2021-04-15 20:08] LABS: Add Urine Microscopic? YES; Appearance Urine Clear (Clear); Bilirubin Urine Negative (Negative); Color Urine Straw (Yellow); Glucose Urine UA 3+ mg/dL (Negative); Ketones Urine Negative (Negative); Leukocyte Esterase Ur Trace LEU/UL (Negative); Mucus Urine Rare /lpf; Nitrate Urine Negative (Negative); Protein Urine Negative (Negative); Squamous Epithelial Cell Urine Many /hpf (Few); Urobilinogen Urine Negative mg/dL (<2.0); WBC Urine 21-30 /hpf
[2021-04-15 20:09] LABS: Blood Urine Negative (Negative); Specific Grav Ur 1.033 (1.001-1.035)
[2021-04-15 20:41] LABS: Base Excess ABG 1.5 mEq/l (+/-2.0); Carboxyhemoglobin 0.2 % THb (0-2.0); Device ROOM AIR; Fractional Inspired Oxygen 21 %; HCO3 ABG 27.1 mEq/l (22.0-26.0); Methemoglobin ABG 0.1 %THb (0-1.5); Modified Allen's Test Pass; Oxygen Saturation ABG 91.1 % (95.0-100.0); Oxyhemoglobin 90.5 % THb (90.0-100.0); PCO2 ABG 46.8 mmHg (35.0-45.0); PO2 ABG 61.7 mmHg (80.0-100.0); PO2 FiO2 Ratio Arterial Blood 2.94 %; Reduced Hemoglobin 9.2 %THb (0-5.0); Site Drawn LEFT RADIAL; Total Hemoglobin 11.8 g/dL (12.0-18.0)
--- NOTE | 2021-04-15 21:58 | ECG_ITS ---
Measurements Intervals [place] Rate: 56 P: 99 ND: 126 QRS: 88 QRSD: 85 T: 74 QT: 419 QTc: 407 Interpretive Statements SINUS BRADYCARDIA WITH SINUS ARRHYTHMIA ATRIAL PREMATURE COMPLEX BORDERLINE R WAVE PROGRESSION, ANTERIOR LEADS BASELINE ARTIFACT- I, II, AVR, AVL, AVF BORDERLINE ECG Electronically Signed On 04-16-2021 6:48:27 VICE PRESIDENT OF INSTRUCTION by Thad Rea D.O.
[2021-04-15 22:51] LABS: Glucose Point of Care 116 mg/dl (65-105)
[2021-04-15 22:53] LABS: Reflex Lactic Acid Yes or No Add Lactic
[2021-04-16] VITALS (33 sets, daily range): BP systolic 120–150; BP diastolic 50–76; PULSE 59–91; RESP 14–20; TEMP 36.2–36.8; O2SAT 95–100; BMI 17.2
--- NOTE | 2021-04-16 02:03 | ADMGEN ---
This patient, Beatrice Espinoza, was admitted to Medical Room 258-01. Patient/family oriented to hospital policies and general routines including ID bracelet, bed and alarms, visiting hours, pain management, procedures, bathroom and other care routines, personal items, smoking policy, room service/diet, and visiting hours. Information on how to activate the Rapid Response Team has been discussed. Patient/Family are encouraged to report perceived risks to care and to ask questions if they do not understand what they are told or what they should do. Report received from MICHELE Liang.
[2021-04-16 03:07] LABS: Glucose Point of Care 20 mg/dl (65-105)
[2021-04-16] MEDS: DEXTROSE 50% 25 GM/50 ML SYRINGE IV PUSH (03:14)
--- NOTE | 2021-04-16 03:16 | PM.IMHP ---
H&P: HPI History of Present Illness Date/Time: 04/16/21 03:16 Chief Complaint: Altered mental status hyperglycemia Narrative: This is a 55 year old female who presents to the ER by EMS for hyperglycemia. She is reported to have high blood sugar at the shelter and hence she got 8 units of insulin. She reports billing lightheaded and also has been intermittently confused. She however reports that she has been running low until yesterday but she ran high and blood sugar here in the ER was noted to be more than 500 on arrival. She was given IV fluids that brought her blood sugar down to 200s. She received only 8 units of insulin in the shelter. She denies any other complaint no fever chills chest pain shortness of breath abdominal pain nausea vomiting or any urinary complaints. In the ED evaluation she was noted to have elevated lactic acid at 3.2 CBC CMP unremarkable. UA suggested possible urinary tract infection was started on IV antibiotics. Chest x-ray without acute cardiopulmonary abnormality and CT head was without any acute findings. She is admitted for for further evaluation and management. Review of Systems Review of Systems: - CONSTITUTIONAL: Denies weight loss, fever and chills. - HEENT: Denies changes in vision and hearing - RESPIRATORY: Denies SOB and cough. - CV: Denies palpitations and CP. - GI: Denies abdominal pain, nausea, vomiting and diarrhea. - : Denies dysuria and urinary frequency. - MSK: Denies myalgia and joint pain. - SKIN: Denies rash and pruritus. - NEUROLOGICAL: Denies headache and syncope. - PSYCHIATRIC: Denies recent changes in mood. Denies anxiety and depression. All systems reviewed & are unremarkable except as noted in HPI and below Constitutional: Constitutional: Reports fatigue and Reports weakness Neurologic: Reports weakness Endocrine: Endocrine: Reports fatigue PMF Past Medical History Medical History Arthritis Chronic respiratory failure with hypoxia, on home oxygen therapy COPD with asthma Coronary artery disease Reported myocardial infarction in 1999 requiring stent. 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 Hemoglobin A1c was 8.3% on 02/13/2021. Tobacco abuse Surgical History Surgical History Status post arthroscopy of right knee Status post section Family History Family History Mother Family history of alcoholism Family history of congestive heart failure, Onset Age: 70 Family history of osteoporosis Family history of chronic obstructive pulmonary disease Grandparent Family history of Alzheimer's disease, Onset Age: 90 Hypertension, Onset Age: 80 Sibling Hypertension, Onset Age: 53 Family history of alcoholism Family history of malignant neoplasm Patient's sister is in good health Father Hypertension, Onset Age: 79 Family history of thyroid disease Family history of cataracts Malignant neoplasm of prostate Other Diabetes mellitus Family history of arthritis Social History Social History Social History: Surrogate decision maker: Tiera Montgomery (sister) or Ho Alexis (son). Code status: Full code. Smoking packs per day: 1.5 Smoking cigarettes per day: 30.0 Years smoked: 40 Smoking pack-years: 60.00 Smoking status: Former smoker Tobacco type: cigarettes Second hand tobacco smoke exposure: Yes Alcohol intake: unknown Substance use: unknown Additional living arrangements comments: The patient lives in her own home in [place] though she is currently undergoing rehab. Additional occupation/education comm
[2021-04-16] MEDS: SODIUM CHLORIDE 0.9% IV 1,000 ML 75 ML IV CONT ×2 (03:21→16:59)
[2021-04-16 03:31] LABS: Glucose Point of Care 176 mg/dl (65-105)
[2021-04-16 03:32] LABS: Lactic Acid < 0.5 mmol/L (0.7-2.1)
[2021-04-16 04:22] LABS: Hemoglobin A1C 8.8 % (<5.7)
[2021-04-16 04:24] LABS: Basophils Percent Auto 0.9 % (0.2-1.2); Eosinophils Absolute Auto 0.2 K/mm3 (0-0.3); Hematocrit 35.5 % (37.0-47.0); Hemoglobin 11.7 g/dL (12.0-15.0); Immature Granulocyte Absolute 0.01 K/mm3 (0.00-0.031); Immature Granulocyte Percent A 0.2 % (0-0.5); Mean Corpuscular Hemoglobin 32.3 pg (26-34); Mean Corpuscular Volume 98.1 fl (80-100); Mean Platelet Volume 10.9 fl (7.4-10.4); Monocytes Absolute Auto 0.5 K/mm3 (0.1-0.6); Monocytes Percent Auto 11.4 % (2.6-8.5); Neutrophils Absolute Auto 1.8 K/mm3 (1.3-6.7); Neutrophils Percent Auto 39.5 % (45.5-73.1); Platelet Count Result 197 k/mm3 (150-375); Red Blood Count 3.62 M/mm3 (4.2-5.4); Red Cell Distribution Width 14.3 % (11.5-14.5); White Blood Count 4.6 K/mm3 (4.5-10.0)
[2021-04-16 04:32] LABS: Glucose Point of Care 188 mg/dl (65-105)
[2021-04-16 04:43] LABS: Alanine Aminotransferase 30 U/L (4-35); Albumin Level 3.4 g/dL (3.5-5.1); Alkaline Phosphatase 96 U/L (38-126); Anion Gap 2 mmol/L (8-16); Aspartate Amino Transferase 23 U/L (14-36); Bilirubin,Total 0.3 mg/dL (0.2-1.3); Blood Urea Nitrogen 20 mg/dL (7-17); Calcium 9.1 mg/dL (8.4-10.2); Carbon Dioxide 31 mmol/L (22-30); Chloride 102 mmol/L (98-107); Estimated CRCL calculation 148 ml/min; Estimated Glomerular Filt Rate > 60; Glucose 32 mg/dL (65-110); Potassium 3.4 mmol/L (3.4-5.0); Sodium 135 mmol/L (137-145)
[2021-04-16 04:47] LABS: Cortisol Baseline 8.84 ug/dL
[2021-04-16 05:38] LABS: Glucose Point of Care 273 mg/dl (65-105)
[2021-04-16] MEDS: LEVOTHYROXINE SODIUM 100 MCG TABLET PO (06:18)
[2021-04-16 06:34] LABS: Glucose Point of Care 319 mg/dl (65-105)
[2021-04-16] MEDS: FLUTICASONE/SALMETEROL 45-21 MCG INHALER 1 PUFF 2 PUFF INHALATION ×2 (08:30→20:37)
[2021-04-16] MEDS: ESCITALOPRAM OXALATE 10 MG TABLET PO (09:48)
[2021-04-16] MEDS: ENOXAPARIN 40 MG/0.4 ML SYRINGE SUB-Q (09:48)
[2021-04-16] MEDS: MAGNESIUM OXIDE 400 MG TABLET PO (09:48)
[2021-04-16] MEDS: ASPIRIN 81 MG ENTERIC TABLET PO (09:48)
[2021-04-16] MEDS: INSULIN GLARGINE (*BKC) 100 UNITS/ML 10 UNITS SUB-Q (09:48)
[2021-04-16] MEDS: CLOPIDOGREL BISULFATE 75 MG TABLET PO (09:48)
[2021-04-16] MEDS: INSULIN ASPART (*BKC) 100 UNITS/ML SUB-Q ×3 (09:49→18:21)
--- NOTE | 2021-04-16 10:42 | PM.EVENT ---
Event Note Event Note Event Note: Follow-up rounding note from this morning admission patient doing okay requested to go home she is advised that this might be possible tomorrow however her sugars have not been stabilized plan of care reviewed will continue current medical therapy discharge plan will be to return to her residential of residence
[2021-04-16 12:23] LABS: Glucose Point of Care 342 mg/dl (65-105)
[2021-04-16 18:21] LABS: Glucose Point of Care 279 mg/dl (65-105)
[2021-04-16] MEDS: clonazePAM (*CRX) 0.5 MG TABLET PO (21:14)
[2021-04-16] MEDS: ATORVASTATIN 40 MG TABLET PO (21:14)
[2021-04-16] MEDS: lisinopriL 10 MG TABLET PO (21:36)
[2021-04-16 21:40] LABS: Glucose Point of Care 109 mg/dl (65-105)
[2021-04-17] VITALS (36 sets, daily range): BP systolic 154–156; BP diastolic 68–77; PULSE 54–74; RESP 16–17; TEMP 36.1–36.6; O2SAT 96–100
[2021-04-17 00:10] LABS: Glucose Point of Care 132 mg/dl (65-105)
[2021-04-17] MEDS: LEVOTHYROXINE SODIUM 100 MCG TABLET PO (05:35)
[2021-04-17 07:47] LABS: Glucose Point of Care 263 mg/dl (65-105)
[2021-04-17] MEDS: SODIUM CHLORIDE 0.9% IV 1,000 ML 75 ML IV CONT (08:01)
[2021-04-17] MEDS: ENOXAPARIN 40 MG/0.4 ML SYRINGE SUB-Q (08:04)
[2021-04-17] MEDS: INSULIN ASPART (*BKC) 100 UNITS/ML SUB-Q ×2 (08:04→12:17)
[2021-04-17] MEDS: INSULIN GLARGINE (*BKC) 100 UNITS/ML 10 UNITS SUB-Q (08:06)
[2021-04-17] MEDS: ESCITALOPRAM OXALATE 10 MG TABLET PO (08:07)
[2021-04-17] MEDS: MAGNESIUM OXIDE 400 MG TABLET PO (08:07)
[2021-04-17] MEDS: CLOPIDOGREL BISULFATE 75 MG TABLET PO (08:07)
[2021-04-17] MEDS: ASPIRIN 81 MG ENTERIC TABLET PO (08:07)
--- NOTE | 2021-04-17 10:00 | PM.IMPN ---
Progress Note: A&P Assessment and Plan (1) Urinary tract infection: Qualifiers: Hematuria presence: without hematuria Urinary tract infection type: acute cystitis Qualified Code(s): N30.00 - Acute cystitis without hematuria Code(s): N39.0 - Urinary tract infection, site not specified Status: Acute Assessment and Plan: Currently asymptomatic. Continue antibiotic to complete a 5 day course of treatment (2) Acute metabolic encephalopathy: Code(s): G93.41 - Metabolic encephalopathy Status: Acute Assessment and Plan: Altered mental status acute metabolic encephalopathy CT head is negative. Presence of UTI and hyperglycemia lactic acidosis likely from dehydration/UTI. 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 (3) Acidosis, lactic: Code(s): E87.2 - Acidosis Status: Acute Assessment and Plan: Resolved with repeat lactate is in [id number]. (4) Cognitive impairment: Code(s): R41.89 - Other symptoms and signs involving cognitive functions and awareness Status: Acute Assessment and Plan: This likely related to be her new baseline, unfortunately. (5) Normocytic anemia: Code(s): D64.9 - Anemia, unspecified Status: Acute Assessment and Plan: Mild and well tolerated with a hemoglobin of 11.7 today. Continue to monitor. (6) Hypoglycemia: Code(s): E16.2 - Hypoglycemia, unspecified Status: Acute (7) Diabetes mellitus with hyperglycemia: Qualifiers: Diabetes mellitus type: type 2 Diabetes mellitus basin operator insulin use: with chcf use Qualified Code(s): E11.65 - Type 2 diabetes mellitus with hyperglycemia; Z79.4 - USP (current) use of insulin Code(s): E11.65 - Type 2 diabetes mellitus with hyperglycemia Status: Acute (8) Multiple episodes of hypoglycemia: Code(s): E16.2 - Hypoglycemia, unspecified Status: Acute Assessment and Plan: This has been a recurrent issue for this patient. Currently she is on low-dose long-acting insulin. Will monitor her blood sugar closely and manage on a sliding scale of insulin. (9) Coronary artery disease: Code(s): I25.10 - Atherosclerotic heart disease of [place] coronary artery without angina pectoris Status: Chronic Assessment and Plan: Continue aspirin and lisinopril. Currently patient is asymptomatic. (10) Hypertension: Code(s): I10 - Essential (primary) hypertension Status: Chronic Assessment and Plan: Blood pressure moderately control in the 123/73-50/71 range. . Continue home regimen. Currently patient on lisinopril 10 mg p.o. daily. (11) Hypothyroidism: Code(s): E03.9 - Hypothyroidism, unspecified Status: Chronic Assessment and Plan: Continue levothyroxine supplementation. (12) Insulin dependent diabetes mellitus: Code(s): E11.9 - Type 2 diabetes mellitus without complications; Z79.4 - USP (current) use of insulin Status: Chronic Assessment and Plan: Hyperglycemia. Accu-Chek in the 130-2- to 63 range today. Continue Low-dose long-acting insulin and sliding scale coverage. At the time of admission,patient states was running low and has been admitted recurrently for hypoglycemic episodes. She only [facility] her hyperglycemia was noted to be more than 500. Her blood sugar has dropped down to 20 without any further insulin treatment. She also has history of diabetic ketoacidosis due to hyperglycemia in the past. Her diabetes seems very brittle and will require cautious management of her hyperglycemia. Last A1c on 03/08/2021 8.9. With history of DKA in the past is suspect she is in an insulin deficient state and also is very sensitive to insulin. Plan of long-acting insulin to titrate to control her hyperglycemia in DKA. Will continue t
[2021-04-17 12:21] LABS: Glucose Point of Care 294 mg/dl (65-105)
[2021-04-17 16:44] LABS: Glucose Point of Care 128 mg/dl (65-105)
[2021-04-17] MEDS: FLUTICASONE/SALMETEROL 45-21 MCG INHALER 1 PUFF 2 PUFF INHALATION (20:39)
[2021-04-17] MEDS: lisinopriL 10 MG TABLET PO (21:40)
[2021-04-17] MEDS: clonazePAM (*CRX) 0.5 MG TABLET PO (21:40)
[2021-04-17] MEDS: ATORVASTATIN 40 MG TABLET PO (21:40)
[2021-04-17 21:52] LABS: Glucose Point of Care 301 mg/dl (65-105)
[2021-04-18] VITALS (11 sets, daily range): BP systolic 137–145; BP diastolic 63–68; PULSE 62–87; RESP 14–18; TEMP 36.6–36.8; O2SAT 96–100; BMI 17.2
[2021-04-18] MEDS: SODIUM CHLORIDE 0.9% IV 1,000 ML 75 ML IV CONT ×2 (04:23→18:24)
[2021-04-18 06:14] LABS: Basophils Percent Auto 0.8 % (0.2-1.2); Eosinophils Absolute Auto 0.2 K/mm3 (0-0.3); Eosinophils Percent Auto 5.8 % (0-4.4); Hematocrit 32.9 % (37.0-47.0); Hemoglobin 10.8 g/dL (12.0-15.0); Immature Granulocyte Absolute 0.01 K/mm3 (0.00-0.031); Immature Granulocyte Percent A 0.3 % (0-0.5); Lymphocytes Absolute Auto 1.59 K/mm3 (0.9-3.2); Lymphocytes Percent Auto 39.8 % (18.3-44.2); Mean Corpuscular HGB Conc 32.8 g/dl (32-36); Mean Corpuscular Hemoglobin 31.7 pg (26-34); Mean Corpuscular Volume 96.5 fl (80-100); Mean Platelet Volume 10.9 fl (7.4-10.4); Monocytes Absolute Auto 0.4 K/mm3 (0.1-0.6); Monocytes Percent Auto 10.5 % (2.6-8.5); Neutrophils Absolute Auto 1.7 K/mm3 (1.3-6.7); Neutrophils Percent Auto 42.8 % (45.5-73.1); Platelet Count Result 169 k/mm3 (150-375); Red Blood Count 3.41 M/mm3 (4.2-5.4); Red Cell Distribution Width 13.7 % (11.5-14.5)
[2021-04-18 06:25] LABS: Anion Gap 4 mmol/L (8-16); Blood Urea Nitrogen 10 mg/dL (7-17); Calcium 8.3 mg/dL (8.4-10.2); Carbon Dioxide 29 mmol/L (22-30); Chloride 101 mmol/L (98-107); Estimated CRCL calculation 107 ml/min; Estimated Glomerular Filt Rate > 60; Glucose 337 mg/dL (65-110); Potassium 3.6 mmol/L (3.4-5.0); Sodium 134 mmol/L (137-145)
[2021-04-18] MEDS: LEVOTHYROXINE SODIUM 100 MCG TABLET PO (06:43)
--- NOTE | 2021-04-18 07:50 | PM.IMPN ---
Progress Note: A&P Assessment and Plan (1) Urinary tract infection: Qualifiers: Hematuria presence: without hematuria Urinary tract infection type: acute cystitis Qualified Code(s): N30.00 - Acute cystitis without hematuria Code(s): N39.0 - Urinary tract infection, site not specified Status: Acute Assessment and Plan: Currently asymptomatic. Continue antibiotic to complete a 5 day course of treatment (2) Acute metabolic encephalopathy: Code(s): G93.41 - Metabolic encephalopathy Status: Acute Assessment and Plan: Altered mental status acute metabolic encephalopathy CT head is negative. Presence of UTI and hyperglycemia lactic acidosis likely from dehydration/UTI. 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 (3) Acidosis, lactic: Code(s): E87.2 - Acidosis Status: Acute Assessment and Plan: Resolved with repeat lactate is in 0.51 on 04/16/2021. (4) Cognitive impairment: Code(s): R41.89 - Other symptoms and signs involving cognitive functions and awareness Status: Acute Assessment and Plan: This likely related to be her new baseline, unfortunately. (5) Normocytic anemia: Code(s): D64.9 - Anemia, unspecified Status: Acute Assessment and Plan: Mild and well tolerated with a hemoglobin of 11.7 today. Continue to monitor. (6) Hypoglycemia: Code(s): E16.2 - Hypoglycemia, unspecified Status: Acute Assessment and Plan: REsolved. (7) Diabetes mellitus with hyperglycemia: Qualifiers: Diabetes mellitus type: type 2 Diabetes mellitus usp insulin use: with usp use Qualified Code(s): E11.65 - Type 2 diabetes mellitus with hyperglycemia; Z79.4 - lobsterman (current) use of insulin Code(s): E11.65 - Type 2 diabetes mellitus with hyperglycemia Status: Acute Assessment and Plan: Fasting blood glucose was 337. (8) Multiple episodes of hypoglycemia: Code(s): E16.2 - Hypoglycemia, unspecified Status: Acute Assessment and Plan: This has been a recurrent issue for this patient. Currently she is on low-dose long-acting insulin. Will monitor her blood sugar closely and manage on a sliding scale of insulin. (9) Coronary artery disease: Code(s): I25.10 - Atherosclerotic heart disease of [place] coronary artery without angina pectoris Status: Chronic Assessment and Plan: Continue aspirin and lisinopril. Currently patient is asymptomatic. (10) Hypertension: Code(s): I10 - Essential (primary) hypertension Status: Chronic Assessment and Plan: Blood pressure moderately control in the 154/77-156/68 range. . Continue home regimen. Currently patient on lisinopril 10 mg p.o. daily. (11) Hypothyroidism: Code(s): E03.9 - Hypothyroidism, unspecified Status: Chronic Assessment and Plan: Continue levothyroxine supplementation. (12) Insulin dependent diabetes mellitus: Code(s): E11.9 - Type 2 diabetes mellitus without complications; Z79.4 - lobsterman (current) use of insulin Status: Chronic Assessment and Plan: Hyperglycemia. Accu-Chek in the 132- 263 range yesterday. Continue Low-dose long-acting insulin and sliding scale coverage. At the time of admission,patient states was running low and has been admitted recurrently for hypoglycemic episodes. She only received 8 units of insulin in the skilled nursing for her hyperglycemia was noted to be more than 500. Her blood sugar has dropped down to 20 without any further insulin treatment. She also has history of diabetic ketoacidosis due to hyperglycemia in the past. Her diabetes seems very brittle and will require cautious management of her hyperglycemia. Last A1c on 03/08/2021 8.9. With history of DKA in the past is suspect she is in an insulin deficient state and also is very sensi
--- NOTE | 2021-04-18 08:03 | PCOTNOTE ---
Attempted to see patient for OT, patient sleeping upon therapist's entry. Pt. stated , I'll get there eventually...I'm going back for a snooze regarding whether patient was ready to participate in OT. Will attempt again later if time allows.
[2021-04-18 08:17] LABS: Glucose Point of Care 328 mg/dl (65-105)
[2021-04-18] MEDS: ESCITALOPRAM OXALATE 10 MG TABLET PO (08:28)
[2021-04-18] MEDS: CLOPIDOGREL BISULFATE 75 MG TABLET PO (08:28)
[2021-04-18] MEDS: ENOXAPARIN 40 MG/0.4 ML SYRINGE SUB-Q (08:28)
[2021-04-18] MEDS: ASPIRIN 81 MG ENTERIC TABLET PO (08:28)
[2021-04-18] MEDS: MAGNESIUM OXIDE 400 MG TABLET PO (08:28)
[2021-04-18] MEDS: INSULIN GLARGINE (*BKC) 100 UNITS/ML 10 UNITS SUB-Q (08:29)
[2021-04-18] MEDS: INSULIN ASPART (*BKC) 100 UNITS/ML SUB-Q ×2 (08:31→11:57)
[2021-04-18] MEDS: FLUTICASONE/SALMETEROL 45-21 MCG INHALER 1 PUFF 2 PUFF INHALATION ×2 (08:50→19:26)
[2021-04-18 12:00] LABS: Glucose Point of Care 309 mg/dl (65-105)
[2021-04-18 16:39] LABS: Glucose Point of Care 175 mg/dl (65-105)
[2021-04-18] MEDS: clonazePAM (*CRX) 0.5 MG TABLET PO (20:03)
[2021-04-18] MEDS: lisinopriL 10 MG TABLET PO (20:03)
[2021-04-18] MEDS: ATORVASTATIN 40 MG TABLET PO (20:03)
[2021-04-18 23:36] LABS: Glucose Point of Care 350 mg/dl (65-105)
[2021-04-19] VITALS (11 sets, daily range): BP systolic 131–176; BP diastolic 63–80; PULSE 51–85; RESP 16; TEMP 36.2–36.4; O2SAT 94–100
[2021-04-19] MEDS: LEVOTHYROXINE SODIUM 100 MCG TABLET PO (06:08)
[2021-04-19 08:16] LABS: Glucose Point of Care 349 mg/dl (65-105)
[2021-04-19] MEDS: ENOXAPARIN 40 MG/0.4 ML SYRINGE SUB-Q (08:33)
[2021-04-19] MEDS: ASPIRIN 81 MG ENTERIC TABLET PO (08:34)
[2021-04-19] MEDS: ESCITALOPRAM OXALATE 10 MG TABLET PO (08:34)
[2021-04-19] MEDS: CLOPIDOGREL BISULFATE 75 MG TABLET PO (08:34)
[2021-04-19] MEDS: MAGNESIUM OXIDE 400 MG TABLET PO (08:34)
[2021-04-19] MEDS: SODIUM CHLORIDE 0.9% IV 1,000 ML 75 ML IV CONT ×2 (08:34→20:21)
[2021-04-19] MEDS: INSULIN GLARGINE (*BKC) 100 UNITS/ML 10 UNITS SUB-Q (08:35)
[2021-04-19] MEDS: INSULIN ASPART (*BKC) 100 UNITS/ML SUB-Q ×3 (08:36→16:50)
--- NOTE | 2021-04-19 09:08 | PM.IMPN ---
Progress Note: A&P Assessment and Plan (1) Urinary tract infection: Qualifiers: Hematuria presence: without hematuria Urinary tract infection type: acute cystitis Qualified Code(s): N30.00 - Acute cystitis without hematuria Code(s): N39.0 - Urinary tract infection, site not specified Status: Acute Assessment and Plan: Currently asymptomatic. Continue antibiotic to complete a 5 day course of treatment (2) Acute metabolic encephalopathy: Code(s): G93.41 - Metabolic encephalopathy Status: Acute Assessment and Plan: Altered mental status acute metabolic encephalopathy CT head is negative. Presence of UTI and hyperglycemia lactic acidosis likely from dehydration/UTI. 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 (3) Acidosis, lactic: Code(s): E87.2 - Acidosis Status: Acute Assessment and Plan: Resolved with repeat lactate is in 0.51 on 04/16/2021. (4) Cognitive impairment: Code(s): R41.89 - Other symptoms and signs involving cognitive functions and awareness Status: Acute Assessment and Plan: This likely related to be her new baseline, unfortunately. (5) Normocytic anemia: Code(s): D64.9 - Anemia, unspecified Status: Acute Assessment and Plan: Mild and well tolerated with a hemoglobin of 11.7 today. Continue to monitor. (6) Hypoglycemia: Code(s): E16.2 - Hypoglycemia, unspecified Status: Acute Assessment and Plan: REsolved. (7) Diabetes mellitus with hyperglycemia: Qualifiers: Diabetes mellitus type: type 2 Diabetes mellitus alf insulin use: with alf use Qualified Code(s): E11.65 - Type 2 diabetes mellitus with hyperglycemia; Z79.4 - intermodal dispatcher (current) use of insulin Code(s): E11.65 - Type 2 diabetes mellitus with hyperglycemia Status: Acute Assessment and Plan: Uncontrolled diabetes mellitus with Accu-Cheks Fasting blood glucose was 337 Yesterday. Accu-Chek in the 175-349 range today. Currently patient on Lantus 10 units q.a.m.. Start Lantus 10 units at bedtime daily. Continue insulin sliding scale coverage. (8) Multiple episodes of hypoglycemia: Code(s): E16.2 - Hypoglycemia, unspecified Status: Acute Assessment and Plan: This has been a recurrent issue for this patient. Currently she is on low-dose long-acting insulin. Will monitor her blood sugar closely and manage on a sliding scale of insulin. (9) Coronary artery disease: Code(s): I25.10 - Atherosclerotic heart disease of [place] coronary artery without angina pectoris Status: Chronic Assessment and Plan: Continue aspirin and lisinopril. Currently patient is asymptomatic. (10) Hypertension: Code(s): I10 - Essential (primary) hypertension Status: Chronic Assessment and Plan: Blood pressure moderately control in the 137/68-158/90 range. . Continue home regimen. Currently patient on lisinopril 10 mg p.o. daily. (11) Hypothyroidism: Code(s): E03.9 - Hypothyroidism, unspecified Status: Chronic Assessment and Plan: Continue levothyroxine supplementation. (12) Insulin dependent diabetes mellitus: Code(s): E11.9 - Type 2 diabetes mellitus without complications; Z79.4 - detention (current) use of insulin Status: Chronic Assessment and Plan: Hyperglycemia. Accu-Chek in the 132- 263 range on admission Continue Low-dose long-acting insulin and sliding scale coverage. At the time of admission,patient states was running low and has been admitted recurrently for hypoglycemic episodes. She only received 8 units of insulin in the halfway for her hyperglycemia was noted to be more than 500. Her blood sugar has dropped down to 20 without any further insulin treatment. She also has history of diabetic ketoacidosis due to hyperglycemia in the
[2021-04-19] MEDS: FLUTICASONE/SALMETEROL 45-21 MCG INHALER 1 PUFF 2 PUFF INHALATION ×2 (10:50→22:10)
[2021-04-19 12:40] LABS: Glucose Point of Care 272 mg/dl (65-105)
[2021-04-19 16:45] LABS: Glucose Point of Care 293 mg/dl (65-105)
[2021-04-19] MEDS: ATORVASTATIN 40 MG TABLET PO (20:19)
[2021-04-19] MEDS: clonazePAM (*CRX) 0.5 MG TABLET PO (20:21)
[2021-04-19] MEDS: INSULIN GLARGINE (*BKC) 100 UNITS/ML 12 UNITS SUB-Q (20:23)
[2021-04-19] MEDS: lisinopriL 10 MG TABLET PO (20:24)
[2021-04-19 20:53] LABS: Glucose Point of Care 383 mg/dl (65-105)
[2021-04-20] VITALS: PULSE 62
[2021-04-20 04:00] VITALS: PULSE 55
[2021-04-20 04:41] VITALS: BP 141/67; PULSE 60; RESP 18; TEMP 36.3; O2SAT 100
[2021-04-20] MEDS: LEVOTHYROXINE SODIUM 100 MCG TABLET PO (06:23)
[2021-04-20 07:56] LABS: Glucose Point of Care 70 mg/dl (65-105)
[2021-04-20 08:00] VITALS: PULSE 74
--- NOTE | 2021-04-20 08:00 | PM.IMPN ---
Progress Note: A&P Assessment and Plan (1) Urinary tract infection: Qualifiers: Hematuria presence: without hematuria Urinary tract infection type: acute cystitis Qualified Code(s): N30.00 - Acute cystitis without hematuria Code(s): N39.0 - Urinary tract infection, site not specified Status: Acute Assessment and Plan: Currently asymptomatic. Continue antibiotic to complete a 5 day course of treatment. Discharge to alf today. (2) Acute metabolic encephalopathy: Code(s): G93.41 - Metabolic encephalopathy Status: Acute Assessment and Plan: Altered mental status acute metabolic encephalopathy CT head is negative. Presence of UTI and hyperglycemia lactic acidosis likely from dehydration/UTI. 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 No Kamysz even prove mint throughout this admission. (3) Acidosis, lactic: Code(s): E87.2 - Acidosis Status: Acute Assessment and Plan: Resolved with repeat lactate is in 0.51 on 04/16/2021. (4) Cognitive impairment: Code(s): R41.89 - Other symptoms and signs involving cognitive functions and awareness Status: Acute Assessment and Plan: This likely related to be her new baseline, unfortunately. (5) Normocytic anemia: Code(s): D64.9 - Anemia, unspecified Status: Acute Assessment and Plan: Mild and well tolerated with a hemoglobin of 11.7 today. Continue to monitor. (6) Hypoglycemia: Code(s): E16.2 - Hypoglycemia, unspecified Status: Acute Assessment and Plan: REsolved. (7) Diabetes mellitus with hyperglycemia: Qualifiers: Diabetes mellitus type: type 2 Diabetes mellitus superintendent container terminal insulin use: with assisted use Qualified Code(s): E11.65 - Type 2 diabetes mellitus with hyperglycemia; Z79.4 - shelter (current) use of insulin Code(s): E11.65 - Type 2 diabetes mellitus with hyperglycemia Status: Acute Assessment and Plan: Uncontrolled diabetes mellitus with Accu-Checks. Accu-Chek in the 70-249 range today. Currently patient on Lantus 10 units q.a.m.. Start Lantus 10 units at bedtime daily. Continue insulin sliding scale coverage. (8) Multiple episodes of hypoglycemia: Code(s): E16.2 - Hypoglycemia, unspecified Status: Acute Assessment and Plan: This has been a recurrent issue for this patient. Currently she is on low-dose long-acting insulin. Will monitor her blood sugar closely and manage on a sliding scale of insulin. (9) Coronary artery disease: Code(s): I25.10 - Atherosclerotic heart disease of [place] coronary artery without angina pectoris Status: Chronic Assessment and Plan: Continue aspirin and lisinopril. Currently patient is asymptomatic. (10) Hypertension: Code(s): I10 - Essential (primary) hypertension Status: Chronic Assessment and Plan: Blood pressure moderately control in the 137/68-158/90 range. . Continue home regimen. Currently patient on lisinopril 10 mg p.o. daily. (11) Hypothyroidism: Code(s): E03.9 - Hypothyroidism, unspecified Status: Chronic Assessment and Plan: Continue levothyroxine supplementation. (12) Insulin dependent diabetes mellitus: Code(s): E11.9 - Type 2 diabetes mellitus without complications; Z79.4 - shelter (current) use of insulin Status: Chronic Assessment and Plan: Hyperglycemia. Accu-Chek in the 132- 263 range on admission Continue Low-dose long-acting insulin and sliding scale coverage. At the time of admission,patient states was running low and has been admitted recurrently for hypoglycemic episodes. She only received 8 units of insulin in the alf for her hyperglycemia was noted to be more than 500. Her blood sugar has dropped down to 20 without any further insulin treatment. She also has history of diab
[2021-04-20 09:00] LABS: Glucose Point of Care 129 mg/dl (65-105)
[2021-04-20] MEDS: ENOXAPARIN 40 MG/0.4 ML SYRINGE SUB-Q (09:27)
[2021-04-20] MEDS: ESCITALOPRAM OXALATE 10 MG TABLET PO (09:27)
[2021-04-20] MEDS: MAGNESIUM OXIDE 400 MG TABLET PO (09:27)
[2021-04-20] MEDS: ASPIRIN 81 MG ENTERIC TABLET PO (09:27)
[2021-04-20] MEDS: CLOPIDOGREL BISULFATE 75 MG TABLET PO (09:27)
[2021-04-20] MEDS: INSULIN GLARGINE (*BKC) 100 UNITS/ML 15 UNITS SUB-Q (09:35)
[2021-04-20 10:59] LABS: EDCOVIDSCREEN Negative (Negative)
--- NOTE | 2021-04-20 11:05 | WPDNEUROLOGY ---
Neurology EEG Report General Information Date of Study: 04/18/21 TEST eeg DIAGNOSIS change in the mental status CONDITION OF RECORDING awake and drowsy EEG NUMBER 21-17 CLINICAL HISTORY change in the mental status EEG DESCRIPTION background rhythm consists of low to medium voltage 5 to 7 hertz per 2nd theta activity admixed with low to medium voltage 3 to 4 hertz per 2nd delta. Hyperventilation not done. Photic stimulation not done. Non paroxysmal. Nonfocal. Nonlateralizing. IMPRESSION Abnormal record due to the absence of the normal background rhythm and due to the presence of bihemispheric theta and delta activity. These abnormalities are suggestive of organic a metabolic encephalopathy. Clinical correlation recommended. There is no evidence of any seizure-like activity.
[2021-04-20 11:30] LABS: Glucose Point of Care 249 mg/dl (65-105)
[2021-04-20] MEDS: INSULIN ASPART (*BKC) 100 UNITS/ML SUB-Q (11:53)
[2021-04-20 12:00] VITALS: PULSE 75
[2021-04-20 13:04] LABS: C-Peptide <0.10 ng/mL (0.80-3.85)
--- NOTE | 2021-04-20 16:00 | PM.DS ---
DS: Admitting Diagnosis Discharge Date 04/20/21 Admitting Diagnosis (1) Urinary tract infection: (2) Acute metabolic encephalopathy: (3) Acidosis, lactic: (4) Cognitive impairment: (5) Normocytic anemia: (6) Hypoglycemia: (7) Diabetes mellitus with hyperglycemia: (8) Multiple episodes of hypoglycemia: (9) Coronary artery disease: (10) Hypertension: (11) Hypothyroidism: (12) Insulin dependent diabetes mellitus: (13) Cerebrovascular accident: (14) Chronic respiratory failure with hypoxia, on home oxygen therapy: (15) COPD (chronic obstructive pulmonary disease): (16) Hyperlipidemia LDL goal <100: DS: Discharge Diagnosis Discharge Diagnosis (1) Urinary tract infection: Qualifiers: Hematuria presence: without hematuria Urinary tract infection type: acute cystitis Qualified Code(s): N30.00 - Acute cystitis without hematuria Code(s): N39.0 - Urinary tract infection, site not specified Status: Acute Assessment and Plan: Currently asymptomatic. Continue antibiotic to complete a 5 day course of treatment. Discharge to [facility] today. (2) Acute metabolic encephalopathy: Code(s): G93.41 - Metabolic encephalopathy Status: Acute Assessment and Plan: Altered mental status acute metabolic encephalopathy CT head is negative. Presence of UTI and hyperglycemia lactic acidosis likely from dehydration/UTI. 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 No Kamysz even prove mint throughout this admission. (3) Acidosis, lactic: Code(s): E87.2 - Acidosis Status: Acute Assessment and Plan: Resolved with repeat lactate is in 0.51 on 04/16/2021. (4) Cognitive impairment: Code(s): R41.89 - Other symptoms and signs involving cognitive functions and awareness Status: Acute Assessment and Plan: This likely related to be her new baseline, unfortunately. (5) Normocytic anemia: Code(s): D64.9 - Anemia, unspecified Status: Acute Assessment and Plan: Mild and well tolerated with a hemoglobin of 11.7 today. Continue to monitor. (6) Hypoglycemia: Code(s): E16.2 - Hypoglycemia, unspecified Status: Acute Assessment and Plan: REsolved. (7) Diabetes mellitus with hyperglycemia: Qualifiers: Diabetes mellitus type: type 2 Diabetes mellitus customer complaint service supervisor insulin use: with jail use Qualified Code(s): E11.65 - Type 2 diabetes mellitus with hyperglycemia; Z79.4 - retirement (current) use of insulin Code(s): E11.65 - Type 2 diabetes mellitus with hyperglycemia Status: Acute Assessment and Plan: Uncontrolled diabetes mellitus with Accu-Checks. Accu-Chek in the 70-249 range today. Currently patient on Lantus 10 units q.a.m.. Start Lantus 10 units at bedtime daily. Continue insulin sliding scale coverage. (8) Multiple episodes of hypoglycemia: Code(s): E16.2 - Hypoglycemia, unspecified Status: Acute Assessment and Plan: This has been a recurrent issue for this patient. Currently she is on low-dose long-acting insulin. Will monitor her blood sugar closely and manage on a sliding scale of insulin. (9) Coronary artery disease: Code(s): I25.10 - Atherosclerotic heart disease of [place] coronary artery without angina pectoris Status: Chronic Assessment and Plan: Continue aspirin and lisinopril. Currently patient is asymptomatic. (10) Hypertension: Code(s): I10 - Essential (primary) hypertension Status: Chronic Assessment and Plan: Blood pressure moderately control in the 137/68-158/90 range. . Continue home regimen. Currently patient on lisinopril 10 mg p.o. daily. (11) Hypothyroidism: Code(s): E03.9 - Hypothyroidism, unspecified Status: Chronic Assessment and Plan: Continue levothyroxine supplementation. (12) Insulin dependent diabetes mellitus:
[2021-04-21 00:43] LABS: Insulin Level Total 4.7 uIU/mL (<=19.6)
== END 2021-04-20 13:00 | DRG 637 ==
LOC: ANHED 21:55 → ANH2MED 21:59
PROVIDERS: General Practice; Physician Assistant; Admitting Provider Internal Medicine; Emergency Provider Emergency Medicine; PCP Internal Medicine; Visit Provider Internal Medicine
DX: E11.65 Type 2 diabetes mellitus with hyperglycemia (principal); G93.41 Metabolic encephalopathy; N39.0 Urinary tract infection, site not specified; J96.11 Chronic respiratory failure with hypoxia; Z20.822 Contact with and (suspected) exposure to COVID-19; E86.0 Dehydration; D64.9 Anemia, unspecified; E11.319 Type 2 diabetes mellitus with unspecified diabetic retinopathy without macular edema; E11.43 Type 2 diabetes mellitus with diabetic autonomic (poly)neuropathy; K31.84 Gastroparesis; I25.10 Atherosclerotic heart disease of native coronary artery without angina pectoris; E03.9 Hypothyroidism, unspecified; J44.9 Chronic obstructive pulmonary disease, unspecified; E78.5 Hyperlipidemia, unspecified; I10 Essential (primary) hypertension; F03.90 Unspecified dementia, unspecified severity, without behavioral disturbance, psychotic disturbance, mood disturbance, and anxiety; Z66 Do not resuscitate; Z86.73 Personal history of transient ischemic attack (TIA), and cerebral infarction without residual deficits; Z79.4 Long term (current) use of insulin; Z99.81 Dependence on supplemental oxygen; Z95.5 Presence of coronary angioplasty implant and graft; I25.2 Old myocardial infarction; Z87.891 Personal history of nicotine dependence
CPT/HCPCS: 36415; 36600; 70450; 71045; 80048; 80053; 81001; 82010; 82375; 82533; 82805; 82948; 83036; 83050; 83525; 83605; 83735; 84100; 84681; 85025; 87040; 87086; 87088; 87426; 93005; 94640; 95816; 96361; 96365; 96366; 96372; 96375; 97110; 97161; 97165; 97530; 97535; 99285; A9270; C9803; G0378; J0696; J1650; J1815; J7030

== ENCOUNTER 2021-05-02 14:40 | Emergency (ER) | payer MEDICARE, MEDICAID, SELFPAY ==
[2021-05-02] VITALS (10 sets, daily range): BP systolic 124–178; BP diastolic 72–92; PULSE 83–93; RESP 16–26; TEMP 37.7; O2SAT 97–100
--- NOTE | 2021-05-02 | ECG_ITS ---
Measurements Intervals [place] Rate: 88 P: 78 CT: 141 QRS: 83 QRSD: 85 T: 74 QT: 356 QTc: 432 Interpretive Statements SINUS RHYTHM BASELINE ARTIFACT- I, II, III, AVR, AVL, AVF, V3 NORMAL ECG Electronically Signed On 05-02-2021 16:08:56 APNS by Thad Rea D.O.
--- NOTE | ~2021-05-02 | XR_ITS ---
EXAMINATION: XR chest 1V portable EXAM DATE: 05/02/2021 15:23 INDICATION: Fever. TECHNIQUE: Portable AP frontal chest x-ray was obtained. Comparison is made to prior examination from 04/15/2021. FINDINGS: Mild hyperinflation. Scattered left lung calcified granulomata. No confluent consolidation, pneumothorax or pleural effusion suspected. Cardiomediastinal silhouette is normal. There are bony d egenerative changes. There is no significant interval change. IMPRESSION: 1. No acute cardiac pulmonary findings. Reviewed, dictated and finalized at location A. EN TRACTOR MECHANIC
--- NOTE | ~2021-05-02 | CT_ITS ---
EXAMINATION: CT brain wo con EXAM DATE: 05/02/2021 15:20 INDICATION: Agitation. TECHNIQUE: Spiral CT of the head was performed without contrast. Axial, coronal and sagittal images were reviewed. The dose-length product (DLP) for this examination was 605.33 mGy-cm. The exposure w as tailored according to patient size, and iterative reconstruction (ASIR) was used as additional dos e reduction technique. Comparison is made to prior examination from 04/15/2021. FINDINGS: There is mild microangiopathy. There is no acute intraparenchymal hemorrhage. No evidence of intraparenchymal brain mass lesion. No evidence of acute infarction. There is no mass effect or midline shift. The ventricles are normal in size. There are no extra-axial collections. There are no acute calvarial fractures. The orbits are unremarkable. Soft tissue is unremarkable. The visuali zed sinuses and mastoid air cells are well aerated. IMPRESSION: No acute intracranial findings. Reviewed, dictated and finalized at location A. MACHINE OPERATOR
--- NOTE | 2021-05-02 14:37 | ED.AMS ---
HPI - Altered Mental Status General Chief Complaint: Altered Mental Status <Allison Almanzar MD - Last Filed: 05/02/21 17:46> Stated Complaint: AGGITATION <Allison Almanzar MD - Last Filed: 05/02/21 17:46> Time Seen by Provider: 05/02/21 18:55 <Allison Almanzar MD - Last Filed: 05/02/21 17:46> Source: EMS <Allison Almanzar MD - Last Filed: 05/02/21 17:46> Mode of arrival: EMS <Allison Almanzar MD - Last Filed: 05/02/21 17:46> Limitations: altered mental status (pt with a history of encephalopathy) <Allison Almanzar MD - Last Filed: 05/02/21 17:46> History of Present Illness HPI narrative: Patient is a 55-year-old female with a history of encephalopathy, type 2 diabetes, hypertension, presenting for evaluation of agitation. History is completely provided by EMS, patient is alert and oriented to person, place at baseline. Patient was found by custodial today with increasing aggressive behavior, agitation and tearfulness. They state she is acting at her baseline, but seemed more upset than normal. Patient resides at [facility]. EMS was called as the staff at the facility were concerned for a possible urinary tract infection. Patient was then transported to our hospital via EMS. At the time of assessment, patient is alert and oriented to person, place, which is her baseline. She is an unreliable historian otherwise. She cannot accurately state if she has any pain. She is moving all extremities spontaneously. Eyes are closed on the bed. She is tearful but directable. <Allison Almanzar MD - Last Filed: 05/02/21 17:46> Related Data Home Medications: Home Medications Medication Instructions Recorded Confirmed escitalopram oxalate 10 mg PO DAILY 02/14/21 04/16/21 glucagon (human recombinant) 1 mg SUBCUT PRN PRN 02/14/21 04/16/21 ergocalciferol (vitamin D2) 1,250 mcg PO WEEKLY 03/24/21 04/16/21 Lantus U-100 Insulin 15 unit SUBCUT BID 04/16/21 04/16/21 <Allison Almanzar MD - Last Filed: 05/02/21 17:46> Allergies/Adverse Reactions: Allergies Allergy/AdvReac Type Severity Reaction Status Date / Time metformin AdvReac Intermediate Diarrhea Verified 04/16/21 01:59 <Allison Almanzar MD - Last Filed: 05/02/21 17:46> Review of Systems Review of Systems: ROS unobtainable: Yes unobtainable due to mental status <Allison Almanzar MD - Last Filed: 05/02/21 17:46> [facility] Past Medical History Medical History: Medical History Arthritis Chronic respiratory failure with hypoxia, on home oxygen therapy COPD with asthma Coronary artery disease Reported myocardial infarction in 1999 requiring stent. 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 Hemoglobin A1c was 8.3% on 02/13/2021. Tobacco abuse <Allison Almanzar MD - Last Filed: 05/02/21 17:46> Surgical History Surgical History: Surgical History Status post arthroscopy of right knee Status post section <Allison Almanzar MD - Last Filed: 05/02/21 17:46> Family History Family History: Family History Mother Family history of alcoholism Family history of congestive heart failure, Onset Age: 70 Family history of osteoporosis Family history of chronic obstructive pulmonary disease Grandparent Family history of Alzheimer's disease, Onset Age: 90 Hypertension, Onset Age: 80 Sibling Hypertension, Onset Age: 53 Family history of alcoholism Family history of malignant neoplasm Patient's sister is in good health Father Hypertension, Onset Age: 79 Family history of thyroid disease Family history of cataracts Malignant neoplasm
[2021-05-02 15:07] LABS: Alveolar/Arterial O2 Gradient 38.8 mmHg; Base Excess ABG 2.4 mEq/l (+/-2.0); Carboxyhemoglobin 0.6 % THb (0-2.0); Fractional Inspired Oxygen 21 %; HCO3 ABG 26.8 mEq/l (22.0-26.0); Methemoglobin ABG 0.1 %THb (0-1.5); Oxygen Content ABG 13.7 %vol (16.0-22.0); Oxygen Saturation ABG 92.5 % (95.0-100.0); Oxyhemoglobin 90.9 % THb (90.0-100.0); PCO2 ABG 40.9 mmHg (35.0-45.0); PO2 FiO2 Ratio Arterial Blood 2.95 %; Reduced Hemoglobin 8.4 %THb (0-5.0); Total Hemoglobin 10.7 g/dL (12.0-18.0); pH ABG 7.435 (7.350-7.450)
[2021-05-02 15:09] LABS: Device ROOM AIR; Modified Allen's Test Pass; Site Drawn RIGHT RADIAL
[2021-05-02 15:16] LABS: Eosinophils Percent Auto 1.4 % (0-4.4); Hemoglobin 10.6 g/dL (12.0-15.0); Immature Granulocyte Absolute 0.01 K/mm3 (0.00-0.031); Immature Granulocyte Percent A 0.3 % (0-0.5); Lymphocytes Absolute Auto 0.48 K/mm3 (0.9-3.2); Lymphocytes Percent Auto 16.4 % (18.3-44.2); Mean Corpuscular HGB Conc 32.1 g/dl (32-36); Mean Corpuscular Hemoglobin 31.3 pg (26-34); Mean Corpuscular Volume 97.3 fl (80-100); Mean Platelet Volume 10.8 fl (7.4-10.4); Monocytes Absolute Auto 0.6 K/mm3 (0.1-0.6); Monocytes Percent Auto 20.5 % (2.6-8.5); Neutrophils Absolute Auto 1.8 K/mm3 (1.3-6.7); Neutrophils Percent Auto 60.4 % (45.5-73.1); Platelet Count Result 164 k/mm3 (150-375); Red Blood Count 3.39 M/mm3 (4.2-5.4); Red Cell Distribution Width 12.7 % (11.5-14.5); White Blood Count 2.9 K/mm3 (4.5-10.0)
[2021-05-02 15:20] LABS: Lactic Acid Reflex 2.5 mmol/L (0.7-2.1)
[2021-05-02 15:25] LABS: Add Urine Microscopic? YES; Appearance Urine Clear (Clear); Bilirubin Urine Negative (Negative); Blood Urine 1+ (Negative); Color Urine Yellow (Yellow); Glucose Urine UA 3+ mg/dL (Negative); Ketones Urine Negative (Negative); Leukocyte Esterase Ur Negative LEU/UL (Negative); Mucus Urine Rare /lpf; Nitrate Urine Negative (Negative); Protein Urine Negative (Negative); RBC Urine 21-50 /hpf (0-2); Squamous Epithelial Cell Urine Rare /hpf (Few); WBC Urine 0-3 /hpf
[2021-05-02 15:26] LABS: Alanine Aminotransferase 24 U/L (4-35); Albumin Level 3.4 g/dL (3.5-5.1); Alkaline Phosphatase 88 U/L (38-126); Anion Gap 6 mmol/L (8-16); Aspartate Amino Transferase 27 U/L (14-36); Bilirubin,Total 0.4 mg/dL (0.2-1.3); Blood Urea Nitrogen 16 mg/dL (7-17); Calcium 8.5 mg/dL (8.4-10.2); Carbon Dioxide 28 mmol/L (22-30); Chloride 101 mmol/L (98-107); Estimated CRCL calculation 118 ml/min; Estimated Glomerular Filt Rate > 60; Glucose 402 mg/dL (65-110); Magnesium 1.9 mg/dL (1.6-2.3); Phosphorus 3.8 mg/dL (2.5-4.5); Potassium 3.9 mmol/L (3.4-5.0); Sodium 135 mmol/L (137-145)
[2021-05-02 15:28] LABS: Specific Grav Ur 1.039 (1.001-1.035)
[2021-05-02] MEDS: SODIUM CHLORIDE 0.9% IV 1,000 ML 999 ML IV CONT ×2 (15:30→17:49)
[2021-05-02 15:32] LABS: Beta-Hydroxybutyrate/Acetoacetate 0.12 mmol/L (0.02-0.27)
[2021-05-02 16:09] LABS: EDCOVIDSCREEN Positive (Negative)
[2021-05-02 16:27] LABS: Glucose Point of Care 386 mg/dl (65-105)
[2021-05-02 17:07] LABS: Glucose Point of Care 388 mg/dl (65-105)
[2021-05-02 17:10] LABS: Lactic Acid Reflex 2.3 mmol/L (0.7-2.1)
[2021-05-02 18:06] LABS: Reflex Lactic Acid Yes or No Add Lactic
[2021-05-02 18:52] LABS: Glucose Point of Care 413 mg/dl (65-105)
[2021-05-02] MEDS: INSULIN HUMAN REGULAR (*BKC) 100 UNITS/ML 10 UNITS IV PUSH (18:55)
[2021-05-02 19:35] LABS: Lactic Acid 2.1 mmol/L (0.7-2.1)
== END 2021-05-02 20:30 ==
PROVIDERS: Emergency Medicine; Emergency Provider Emergency Medicine; PCP Internal Medicine
DX: U07.1 COVID-19 (principal); E11.65 Type 2 diabetes mellitus with hyperglycemia; I10 Essential (primary) hypertension; J96.11 Chronic respiratory failure with hypoxia; Z99.81 Dependence on supplemental oxygen; J44.9 Chronic obstructive pulmonary disease, unspecified; I25.2 Old myocardial infarction; E78.5 Hyperlipidemia, unspecified; I25.10 Atherosclerotic heart disease of native coronary artery without angina pectoris; Z95.5 Presence of coronary angioplasty implant and graft; E03.9 Hypothyroidism, unspecified; Z79.4 Long term (current) use of insulin; G93.40 Encephalopathy, unspecified; Z87.891 Personal history of nicotine dependence; E86.0 Dehydration
CPT/HCPCS: 36415; 36600; 51701; 70450; 71045; 80053; 81001; 81025; 82010; 82375; 82805; 82948; 83050; 83605; 83735; 84100; 85025; 87426; 93005; 96361; 96374; 99284; C9803; J1815; J7030

== ENCOUNTER 2021-05-12 06:03 | Inpatient (IN) | payer MEDICARE, MEDICAID, SELFPAY ==
[2021-05-12] VITALS (51 sets, daily range): BP systolic 84–135; BP diastolic 43–71; PULSE 41–80; RESP 13–22; TEMP 35.9–36.6; O2SAT 96–100; BMI 15.2
[2021-05-12 06:17] LABS: Glucose Point of Care 122 mg/dl (65-105)
[2021-05-12] MEDS: SODIUM CHLORIDE 0.9% IV 1,000 ML 999 ML IV CONT (06:53)
--- NOTE | 2021-05-12 07:09 | ED.GENADULT ---
HPI - General Adult General Chief complaint: Recheck/Abnormal Lab/Rx Stated complaint: low blood sugar Time Seen by Provider: 05/12/21 07:05 Source: patient and EMS Mode of arrival: EMS Limitations: clinical condition History of Present Illness HPI narrative: Patient is a 55-year-old female, with a history of cognitive impairment, encephalopathy, insulin-dependent diabetes, and multiple past episodes of hypoglycemia, brought in from the residential due to hypoglycemia, had a blood sugar of 37 when it was checked this morning, was given glucagon by residential staff, rechecked by EMS upon arrival and it was 87. Patient is alert and oriented x2, to place and name, which is her baseline. Related Data Home Medications Medication Instructions Recorded Confirmed escitalopram oxalate 10 mg PO DAILY 02/14/21 04/16/21 glucagon (human recombinant) 1 mg SUBCUT PRN PRN 02/14/21 04/16/21 ergocalciferol (vitamin D2) 1,250 mcg PO WEEKLY 03/24/21 04/16/21 Lantus U-100 Insulin 15 unit SUBCUT BID 04/16/21 04/16/21 Allergies Allergy/AdvReac Type Severity Reaction Status Date / Time metformin AdvReac Intermediate Diarrhea Verified 05/12/21 06:16 Review of Systems Review of Systems: ROS unobtainable: Yes unobtainable due to mental status PMFSH Past Medical History Medical History Arthritis Chronic respiratory failure with hypoxia, on home oxygen therapy COPD with asthma Coronary artery disease Reported myocardial infarction in 1999 requiring stent. 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 Hemoglobin A1c was 8.3% on 02/13/2021. Tobacco abuse Surgical History Surgical History Status post arthroscopy of right knee Status post section Family History Family History Mother Family history of alcoholism Family history of congestive heart failure, Onset Age: 70 Family history of osteoporosis Family history of chronic obstructive pulmonary disease Grandparent Family history of Alzheimer's disease, Onset Age: 90 Hypertension, Onset Age: 80 Sibling Hypertension, Onset Age: 53 Family history of alcoholism Family history of malignant neoplasm Patient's sister is in good health Father Hypertension, Onset Age: 79 Family history of thyroid disease Family history of cataracts Malignant neoplasm of prostate Other Diabetes mellitus Family history of arthritis Social History Social History Social History: Surrogate decision maker: Tiera Montgomery (sister) or Ho Espinoza (son). Code status: Full code. Smoking packs per day: 1.5 Smoking cigarettes per day: 30.0 Years smoked: 40 Smoking pack-years: 60.00 Smoking status: Former smoker Tobacco type: cigarettes Second hand tobacco smoke exposure: Yes Alcohol intake: unknown Substance use: unknown Additional living arrangements comments: The patient lives in her own home in [place] though she is currently undergoing rehab. Additional occupation/education comments: Disabled. Spiritual care concerns: No Exam Const: General: cooperative, comfortable, no acute distress, well developed, alert, awake and confusion Orientation/consciousness: oriented to person, oriented to place and No confusion Limitations: no limitations HENMT: Head: normal to inspection, normocephalic and atraumatic Ears: hearing grossly normal bilaterally, TM normal on the right and TM normal on the left General nose exam: Normal external nose present, Normal nares present and No nasal discharge present Face and sinus: normal facial exam Mouth: Yes Normal oral
[2021-05-12 07:10] LABS: Basophils Percent Auto 0.2 % (0.2-1.2); Eosinophils Absolute Auto 0.1 K/mm3 (0-0.3); Hematocrit 36.7 % (37.0-47.0); Hemoglobin 11.5 g/dL (12.0-15.0); Immature Granulocyte Absolute 0.01 K/mm3 (0.00-0.031); Immature Granulocyte Percent A 0.2 % (0-0.5); Lymphocytes Absolute Auto 1.38 K/mm3 (0.9-3.2); Lymphocytes Percent Auto 30.9 % (18.3-44.2); Mean Corpuscular HGB Conc 31.3 g/dl (32-36); Mean Corpuscular Hemoglobin 30.7 pg (26-34); Mean Corpuscular Volume 97.9 fl (80-100); Mean Platelet Volume 10.3 fl (7.4-10.4); Monocytes Absolute Auto 0.7 K/mm3 (0.1-0.6); Monocytes Percent Auto 15.4 % (2.6-8.5); Neutrophils Absolute Auto 2.3 K/mm3 (1.3-6.7); Neutrophils Percent Auto 51.3 % (45.5-73.1); Platelet Count Result 207 k/mm3 (150-375); Red Blood Count 3.75 M/mm3 (4.2-5.4); Red Cell Distribution Width 12.5 % (11.5-14.5); White Blood Count 4.5 K/mm3 (4.5-10.0)
[2021-05-12 07:19] LABS: Add Urine Microscopic? YES; Appearance Urine Cloudy (Clear); Bacteria Urine Trace /hpf; Bilirubin Urine Negative (Negative); Blood Urine Negative (Negative); Color Urine Yellow (Yellow); Glucose Urine UA 3+ mg/dL (Negative); Ketones Urine Negative (Negative); Leukocyte Esterase Ur 1+ LEU/UL (Negative); Mucus Urine Heavy /lpf; Nitrate Urine Positive (Negative); Protein Urine Negative (Negative); Squamous Epithelial Cell Urine Rare /hpf (Few); Urobilinogen Urine Negative mg/dL (<2.0); WBC Urine 51-75 /hpf
--- NOTE | 2021-05-12 07:34 | PC.NURSE ---
dietary called for breakfast tray
[2021-05-12 07:35] LABS: Alanine Aminotransferase 15 U/L (4-35); Albumin Level 3.6 g/dL (3.5-5.1); Alkaline Phosphatase 90 U/L (38-126); Anion Gap 5 mmol/L (8-16); Aspartate Amino Transferase 18 U/L (14-36); Bilirubin,Total 0.2 mg/dL (0.2-1.3); Blood Urea Nitrogen 26 mg/dL (7-17); Calcium 9.3 mg/dL (8.4-10.2); Carbon Dioxide 35 mmol/L (22-30); Chloride 104 mmol/L (98-107); Estimated CRCL calculation 77 ml/min; Estimated Glomerular Filt Rate > 60; Glucose 101 mg/dL (65-110); Potassium 3.7 mmol/L (3.4-5.0); Sodium 144 mmol/L (137-145)
[2021-05-12 08:31] LABS: Glucose Point of Care 75 mg/dl (65-105)
[2021-05-12] MEDS: DEXTROSE 10% 500 ML 80 ML (09:04)
--- NOTE | 2021-05-12 09:14 | ECG_ITS ---
Measurements Intervals [place] Rate: 52 P: 104 UT: 146 QRS: 91 QRSD: 96 T: 116 QT: 493 QTc: 461 Interpretive Statements SINUS BRADYCARDIA WITH SINUS ARRHYTHMIA HIGH LATERAL INFARCT, AGE INDETERMINATE ANTEROSEPTAL INFARCT, AGE INDETERMINATE BASELINE ARTIFACT- I, II, III, AVR, AVL, AVF, V1-V2, V4-V6 ABNORMAL ECG Electronically Signed On 05-12-2021 9:49:09 [employer] by Thad Rea D.O.
--- NOTE | 2021-05-12 12:45 | PM.IMHP ---
H&P: HPI History of Present Illness Date/Time: 05/12/21 12:45 this is a 55-year-old female patient who is a brittle diabetic. The patient has been admitted in the past for hypoglycemic events. The patient stated that she is in a rehab facility and she has been eating poorly recently. She still continues to take her routine insulin now. The patient was sent to the emergency room due to cognitive impairment and multiple episodes of hypoglycemia. The patient was found have a blood sugar of 37 when checked this morning. She was given glucagon by the nursing staff and once EMS was activated they re checked her blood sugar nose 87. The patient was alert orientated x2 by time she reached the hospital which is her baseline. Her H&H is 11.5 and 36.7. Her blood sugar was 120 to than 75 and then 195. The patient was given IV fluids and then D10 in the emergency room. The patient was started on Rocephin for urinary tract infection with 1+ leukocyte esterase 51-75 wbc's. Last known hemoglobin A1c was 8.8 on 04/16/2021. The patient is currently awake and talkative. The patient does have a loose cough and she stated that is common for her. She does have COPD. The patient is being admitted for observation status on the date of service 05/12/2021. Chief Complaint: Confusion and hypoglycemia Review of Systems Review of Systems: All systems reviewed & are unremarkable except as noted in HPI and below Constitutional: Constitutional: Reports as per HPI and Reports no additional constitutional complaints Eyes: Eyes: Reports as per HPI and Reports no additional eye complaints ENT: Reports system reviewed and no additional complaints, except as documented and Reports Normal hearing present Cardiovascular: Cardiovascular: Reports no additional cardiovascular complaints Respiratory: Respiratory: Reports no additional respiratory complaints and Reports no additional respiratory complaints Gastrointestinal: Gastrointestinal: Reports as per HPI and Reports no additional gastrointestinal complaints Musculoskeletal: Musculoskeletal: Reports no additional musculoskeletal complaints Integumentary/Breasts: Skin/Breast: Reports system reviewed and no additional complaints, except as docu and Reports as per HPI Neurologic: Reports system reviewed and no additional complaints, except as documented, Reports as per HPI and Reports Normal hearing present Psychiatric: Psychiatric: Reports no additional psychiatric complaints and Reports as per HPI Endocrine: Endocrine: Reports no additional endocrine complaints Hematologic/Lymphatic: Hematologic/Lymphatic: Reports no additional hematologic/lymphatic complaints Allergic/Immunologic: Allergic/Immunologic: Reports no additional allergic/immunologic complaints [facility] Past Medical History Medical History Arthritis Chronic respiratory failure with hypoxia, on home oxygen therapy COPD with asthma Coronary artery disease Reported myocardial infarction in 1999 requiring stent. 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 Hemoglobin A1c was 8.3% on 02/13/2021. Tobacco abuse Surgical History Surgical History Status post arthroscopy of right knee Status post section Family History Family History Mother Family history of alcoholism Family history of congestive heart failure, Onset Age: 70 Family history of osteoporosis Family history of chronic obstructive pulmonary disease Grandparent Family history of Alzheimer's disease, Onset Age: 90 Hypertension, Onset Age: 80 Sibling Hypertension, Onset Age: 53 Family history of alcoholism Family history of malignant neoplasm [place]
[2021-05-12 12:49] LABS: Glucose Point of Care 195 mg/dl (65-105)
[2021-05-12 15:57] LABS: Glucose Point of Care 214 mg/dl (65-105)
[2021-05-12 16:37] LABS: Glucose Point of Care 194 mg/dl (65-105)
[2021-05-12] MEDS: LACTATED RINGERS 1,000 ML 90 ML IV CONT (18:10)
--- NOTE | 2021-05-12 18:35 | PC.NURSE ---
1556: Recieved report from Manda BAUTISTA at this time. 1625: Patient arrived at this time, by bogdan.
[2021-05-12] MEDS: ALBUTEROL SULFATE (*SP) AEROSOL 1 PUFF 2 PUFF INHALATION (19:57)
[2021-05-12] MEDS: FLUTICASONE/SALMETEROL 45-21 MCG INHALER 1 PUFF 2 PUFF INHALATION (19:57)
[2021-05-12] MEDS: ATORVASTATIN 40 MG TABLET PO (20:33)
[2021-05-12] MEDS: clonazePAM (*CRX) 0.5 MG TABLET PO (20:33)
[2021-05-12] MEDS: lisinopriL 10 MG TABLET PO (20:33)
[2021-05-12 20:44] LABS: Glucose Point of Care 475 mg/dl (65-105)
[2021-05-12 20:44] LABS: Glucose Point of Care 470 mg/dl (65-105)
[2021-05-12] MEDS: INSULIN ASPART (*BKC) 100 UNITS/ML SUB-Q (21:22)
[2021-05-12 22:58] LABS: Glucose Point of Care 393 mg/dl (65-105)
[2021-05-13] VITALS (10 sets, daily range): BP systolic 123–176; BP diastolic 63–77; PULSE 52–88; RESP 16; TEMP 35.9–38.1; O2SAT 94–100
[2021-05-13 00:34] LABS: Glucose Point of Care 349 mg/dl (65-105)
[2021-05-13] MEDS: ALBUTEROL SULFATE (*SP) AEROSOL 1 PUFF 2 PUFF INHALATION ×5 (01:00→16:10)
[2021-05-13 05:05] LABS: Glucose Point of Care 394 mg/dl (65-105)
[2021-05-13] MEDS: LEVOTHYROXINE SODIUM 100 MCG TABLET PO (05:45)
[2021-05-13] MEDS: INSULIN ASPART (*BKC) 100 UNITS/ML SUB-Q ×5 (05:50→17:24)
[2021-05-13] MEDS: LACTATED RINGERS 1,000 ML 90 ML IV CONT (05:55)
[2021-05-13 06:22] LABS: Basophils Percent Auto 0.2 % (0.2-1.2); Eosinophils Absolute Auto 0.1 K/mm3 (0-0.3); Eosinophils Percent Auto 2.1 % (0-4.4); Hematocrit 32.2 % (37.0-47.0); Hemoglobin 10.2 g/dL (12.0-15.0); Immature Granulocyte Absolute 0.01 K/mm3 (0.00-0.031); Immature Granulocyte Percent A 0.2 % (0-0.5); Lymphocytes Absolute Auto 1.13 K/mm3 (0.9-3.2); Lymphocytes Percent Auto 26.2 % (18.3-44.2); Mean Corpuscular HGB Conc 31.7 g/dl (32-36); Mean Corpuscular Hemoglobin 30.4 pg (26-34); Mean Corpuscular Volume 96.1 fl (80-100); Mean Platelet Volume 10.5 fl (7.4-10.4); Monocytes Absolute Auto 0.4 K/mm3 (0.1-0.6); Neutrophils Absolute Auto 2.6 K/mm3 (1.3-6.7); Neutrophils Percent Auto 61.3 % (45.5-73.1); Platelet Count Result 190 k/mm3 (150-375); Red Blood Count 3.35 M/mm3 (4.2-5.4); Red Cell Distribution Width 12.4 % (11.5-14.5); White Blood Count 4.3 K/mm3 (4.5-10.0)
[2021-05-13 06:42] LABS: Lactic Acid Reflex 0.8 mmol/L (0.7-2.1)
[2021-05-13 06:43] LABS: Alanine Aminotransferase 13 U/L (4-35); Alkaline Phosphatase 104 U/L (38-126); Anion Gap 4 mmol/L (8-16); Aspartate Amino Transferase 16 U/L (14-36); Bilirubin,Total 0.3 mg/dL (0.2-1.3); Blood Urea Nitrogen 19 mg/dL (7-17); Calcium 8.4 mg/dL (8.4-10.2); Carbon Dioxide 32 mmol/L (22-30); Chloride 101 mmol/L (98-107); Estimated CRCL calculation 104 ml/min; Estimated Glomerular Filt Rate > 60; Glucose 388 mg/dL (65-110); Magnesium 1.7 mg/dL (1.6-2.3); Sodium 137 mmol/L (137-145)
[2021-05-13 07:22] LABS: Glucose Point of Care 331 mg/dl (65-105)
[2021-05-13] MEDS: FLUTICASONE/SALMETEROL 45-21 MCG INHALER 1 PUFF 2 PUFF INHALATION (07:46)
[2021-05-13 08:24] LABS: Glucose Point of Care 244 mg/dl (65-105)
[2021-05-13] MEDS: MAGNESIUM OXIDE 400 MG TABLET PO (08:56)
[2021-05-13] MEDS: CLOPIDOGREL BISULFATE 75 MG TABLET PO (08:56)
[2021-05-13] MEDS: ENOXAPARIN 40 MG/0.4 ML SYRINGE SUB-Q (08:56)
[2021-05-13] MEDS: ESCITALOPRAM OXALATE 10 MG TABLET PO (08:56)
[2021-05-13] MEDS: ERGOCALCIFEROL 50,000 UNIT CAPSULE 50000 UNITS PO (08:56)
[2021-05-13] MEDS: ASPIRIN 81 MG ENTERIC TABLET PO (08:56)
[2021-05-13 11:40] LABS: Glucose Point of Care 290 mg/dl (65-105)
--- NOTE | 2021-05-13 13:51 | PM.IMPN ---
Progress Note: A&P Assessment and Plan (1) Urinary tract infection: Qualifiers: Hematuria presence: without hematuria Urinary tract infection type: site unspecified Qualified Code(s): N39.0 - Urinary tract infection, site not specified Code(s): N39.0 - Urinary tract infection, site not specified Status: Acute Assessment and Plan: The patient was started on Rocephin. Blood and urine cultures are pending. (2) Hypoglycemia: Code(s): E16.2 - Hypoglycemia, unspecified Status: Acute Assessment and Plan: -Patient has been having a poor appetite and was still continuing to get her [facility] the [facility]. We are holding her long-acting insulin and will continue with sliding scale insulin for now. Reportedly it was 30 when they checked it at the [facility] but was 122 on arrival after treatment by the [facility] or EMS -blood sugar was 388 this morning, I have increased her sliding scale to high dose. Still holding her long acting insulin at this time. Will continue monitoring closely. (3) Hypertension: Code(s): I10 - Essential (primary) hypertension Status: Chronic Assessment and Plan: Continue with her lisinopril. Stable. (4) Hypothyroidism: Code(s): E03.9 - Hypothyroidism, unspecified Status: Chronic Assessment and Plan: Continue with her levothyroxine. (5) COPD (chronic obstructive pulmonary disease): Qualifiers: COPD type: COPD with acute exacerbation Qualified Code(s): J44.1 - Chronic obstructive pulmonary disease with (acute) exacerbation Code(s): J44.9 - Chronic obstructive pulmonary disease, unspecified Status: Acute Assessment and Plan: Continue with home inhalers, supplemental oxygen as needed Subjective Date/time seen: 05/13/21 13:51 Interval history: 55-year-old female patient who is a brittle diabetic admitted for hypoglycemia and UTI. Today patient is alert to person only. She has no complaints. Further hx limited secondary to mental status. Review of Systems Review of Systems: ROS unobtainable: Yes unobtainable due to mental status Exam Narrative: General: No acute distress, chronically ill appearing Eyes: PERRL, no scleral icterus HEENT: NCAT, external ears normal, dry mucous membranes Respiratory: No respiratory distress, scattered wheezing Cardiovascular: RRR, no murmur Abdominal: Soft, nontender, non distended, no rebound or guarding Musculoskeletal: Moves all 4 extremities, no edema Neurological: A/Ox1, speech clear, no facial asymmetry Skin: dry flaky skin noted to forehead Psychiatric: confused Objective Data Vital Signs Vital Signs: Vital Signs - 24 hr 05/12/21 14:00 05/12/21 14:01 05/12/21 16:00 Temperature Pulse Rate 58 L 57 L 56 L Respiratory Rate 20 21 H 16 Blood Pressure 125/70 116/64 Pulse Oximetry 99 98 99 05/12/21 16:36 05/12/21 20:00 05/12/21 22:00 Temperature 97.9 F 96.6 F L Pulse Rate 62 80 80 Respiratory Rate 18 16 Blood Pressure 110/70 135/66 Pulse Oximetry 96 96 96 05/13/21 00:00 05/13/21 04:00 05/13/21 06:00 Temperature 96.7 F L Pulse Rate 68 67 88 Respiratory Rate 16 Blood Pressure 176/77 H Pulse Oximetry 94 05/13/21 07:46 05/13/21 08:00 05/13/21 12:00 Temperature Pulse Rate 60 73 Respiratory Rate Blood Pressure Pulse Oximetry 94 Intake/Output Intake/Output: Intake & Output 05/10/21 05/11/21 05/12/21 05/13/21 23:59 23:59 23:59 23:59 Intake Total 1790 1200 Balance 1790 1200 Meds/Results Medications: Active Medications Generic Name Dose Route Start Last Admin Trade Name Freq PRN Reason Stop Dose Admin Albuterol 2 puff 05/12/21 20:00 05/13/21 07:46 Albuterol Sulfate (*Sp) Aerosol 1 Puff INHALATION 2 puff Q4HRT PAULY Administration Aspirin 81 mg 05/13/21 09:00 05/13/21 08:56 Aspirin 81 Mg Enteric Tablet PO
[2021-05-13 16:31] LABS: Glucose Point of Care 424 mg/dl (65-105)
[2021-05-13] MEDS: lisinopriL 10 MG TABLET PO (21:53)
[2021-05-13] MEDS: ATORVASTATIN 40 MG TABLET PO (21:53)
[2021-05-13] MEDS: clonazePAM (*CRX) 0.5 MG TABLET PO (21:53)
[2021-05-14] VITALS (7 sets, daily range): BP systolic 129–154; BP diastolic 65–81; PULSE 59–89; RESP 14–20; TEMP 35.9–37.3; O2SAT 95–100
[2021-05-14] MEDS: ALBUTEROL SULFATE (*SP) AEROSOL 1 PUFF 2 PUFF INHALATION ×6 (01:12→21:06)
[2021-05-14] MEDS: LACTATED RINGERS 1,000 ML 90 ML IV CONT ×2 (01:20→08:20)
[2021-05-14] MEDS: INSULIN ASPART (*BKC) 100 UNITS/ML 6 UNITS SUB-Q ×2 (04:10→18:19)
[2021-05-14 06:05] LABS: Basophils Percent Auto 0.3 % (0.2-1.2); Eosinophils Absolute Auto 0.1 K/mm3 (0-0.3); Hematocrit 31.9 % (37.0-47.0); Hemoglobin 10.7 g/dL (12.0-15.0); Immature Granulocyte Absolute 0.01 K/mm3 (0.00-0.031); Immature Granulocyte Percent A 0.3 % (0-0.5); Lymphocytes Absolute Auto 1.13 K/mm3 (0.9-3.2); Lymphocytes Percent Auto 30.5 % (18.3-44.2); Mean Corpuscular HGB Conc 33.5 g/dl (32-36); Mean Corpuscular Hemoglobin 30.5 pg (26-34); Mean Corpuscular Volume 90.9 fl (80-100); Mean Platelet Volume 10.5 fl (7.4-10.4); Monocytes Absolute Auto 0.4 K/mm3 (0.1-0.6); Monocytes Percent Auto 9.4 % (2.6-8.5); Neutrophils Absolute Auto 2.1 K/mm3 (1.3-6.7); Neutrophils Percent Auto 56.5 % (45.5-73.1); Platelet Count Result 219 k/mm3 (150-375); Red Blood Count 3.51 M/mm3 (4.2-5.4); White Blood Count 3.7 K/mm3 (4.5-10.0)
[2021-05-14 06:28] LABS: Glucose Point of Care 231 mg/dl (65-105)
[2021-05-14 06:28] LABS: Glucose Point of Care 490 mg/dl (65-105)
[2021-05-14] MEDS: LEVOTHYROXINE SODIUM 100 MCG TABLET PO (06:28)
[2021-05-14 06:30] LABS: Alanine Aminotransferase 15 U/L (4-35); Alkaline Phosphatase 97 U/L (38-126); Anion Gap 15 mmol/L (8-16); Aspartate Amino Transferase 17 U/L (14-36); Bilirubin,Total 0.3 mg/dL (0.2-1.3); Blood Urea Nitrogen 13 mg/dL (7-17); Calcium 8.3 mg/dL (8.4-10.2); Carbon Dioxide 30 mmol/L (22-30); Chloride 100 mmol/L (98-107); Estimated CRCL calculation 104 ml/min; Estimated Glomerular Filt Rate > 60; Glucose 317 mg/dL (65-110); Potassium 3.7 mmol/L (3.4-5.0); Sodium 145 mmol/L (137-145)
[2021-05-14 06:45] LABS: Glucose Point of Care 296 mg/dl (65-105)
[2021-05-14] MEDS: ASPIRIN 81 MG ENTERIC TABLET PO (08:15)
[2021-05-14] MEDS: MAGNESIUM OXIDE 400 MG TABLET PO (08:15)
[2021-05-14] MEDS: ENOXAPARIN 40 MG/0.4 ML SYRINGE SUB-Q (08:15)
[2021-05-14] MEDS: ESCITALOPRAM OXALATE 10 MG TABLET PO (08:15)
[2021-05-14] MEDS: CLOPIDOGREL BISULFATE 75 MG TABLET PO (08:15)
[2021-05-14] MEDS: INSULIN ASPART (*BKC) 100 UNITS/ML SUB-Q ×4 (08:17→21:43)
[2021-05-14] MEDS: FLUTICASONE/SALMETEROL 45-21 MCG INHALER 1 PUFF 2 PUFF INHALATION ×2 (09:29→21:07)
[2021-05-14 10:34] LABS: Glucose Point of Care 246 mg/dl (65-105)
--- NOTE | 2021-05-14 14:01 | PM.IMPN ---
Progress Note: A&P Assessment and Plan (1) Urinary tract infection: Qualifiers: Hematuria presence: without hematuria Urinary tract infection type: site unspecified Qualified Code(s): N39.0 - Urinary tract infection, site not specified Code(s): N39.0 - Urinary tract infection, site not specified Status: Acute Assessment and Plan: -IV Rocephin #2 -Urine culture positive for e coli, sensitivity report pending -BC no growth to date (2) Hypoglycemia: Code(s): E16.2 - Hypoglycemia, unspecified Status: Acute Assessment and Plan: -Patient has been having a poor appetite and was still continuing to get her insulin at the senior care. We are holding her long-acting insulin and will continue with sliding scale insulin for now. Reportedly it was 30 when they checked it at the senior care but was 122 on arrival after treatment by the senior care or EMS -blood sugar was 317 this morning, I have increased her sliding scale to high dose. She is 246 this afternoon. Will add back in some of her Lantus tonight at 12 units. Will continue monitoring closely and make small adjustments to avoid additional hypoglycemic episodes. (3) Hypertension: Code(s): I10 - Essential (primary) hypertension Status: Chronic Assessment and Plan: Continue with her lisinopril. Stable. (4) Hypothyroidism: Code(s): E03.9 - Hypothyroidism, unspecified Status: Chronic Assessment and Plan: Continue with her levothyroxine. (5) COPD (chronic obstructive pulmonary disease): Qualifiers: COPD type: COPD with acute exacerbation Qualified Code(s): J44.1 - Chronic obstructive pulmonary disease with (acute) exacerbation Code(s): J44.9 - Chronic obstructive pulmonary disease, unspecified Status: Acute Assessment and Plan: Continue with home inhalers, supplemental oxygen as needed Subjective Date/time seen: 05/14/21 14:01 Interval history: 55-year-old female patient who is a brittle diabetic admitted for hypoglycemia and UTI. Today patient is alert to person only. She has no complaints. Further hx limited secondary to mental status. Review of Systems Review of Systems: ROS unobtainable: Yes unobtainable due to mental status Exam Narrative: General: No acute distress, chronically ill appearing Eyes: PERRL, no scleral icterus HEENT: NCAT, external ears normal, dry mucous membranes Respiratory: No respiratory distress, scattered wheezing Cardiovascular: RRR, no murmur Abdominal: Soft, nontender, non distended, no rebound or guarding Musculoskeletal: Moves all 4 extremities, no edema Neurological: A/Ox1, speech clear, no facial asymmetry Skin: dry flaky skin noted to forehead Psychiatric: confused Objective Data Vital Signs Vital Signs: Vital Signs - 24 hr 05/13/21 16:00 05/13/21 20:00 05/13/21 21:52 Temperature 100.5 F H Pulse Rate 62 69 52 L Respiratory Rate 16 Blood Pressure 151/75 H Pulse Oximetry 97 05/14/21 00:00 05/14/21 01:11 05/14/21 05:19 Temperature 97.0 F L Pulse Rate 69 89 65 Respiratory Rate 20 16 Blood Pressure 129/65 Pulse Oximetry 96 99 05/14/21 08:00 05/14/21 09:29 Temperature Pulse Rate Respiratory Rate Blood Pressure Pulse Oximetry 95 97 Intake/Output Intake/Output: Intake & Output 05/11/21 05/12/21 05/13/21 05/14/21 23:59 23:59 23:59 23:59 Intake Total 1790 2970 1290 Balance 1790 2970 1290 Meds/Results Medications: Active Medications Generic Name Dose Route Start Last Admin Trade Name Freq PRN Reason Stop Dose Admin Albuterol 2 puff 05/12/21 20:00 05/14/21 12:30 Albuterol Sulfate (*Sp) Aerosol 1 Puff INHALATION 2 puff Q4HRT PAULY Administration Aspirin 81 mg 05/13/21 09:00 05/14/21 08:15 Aspirin 81 Mg Enteric Tablet PO 81 mg QAM PAULY Administration Atorvastatin Calcium 40 mg
[2021-05-14 14:34] LABS: Glucose Point of Care 295 mg/dl (65-105)
[2021-05-14 17:53] LABS: Glucose Point of Care 405 mg/dl (65-105)
[2021-05-14] MEDS: INSULIN GLARGINE (*BKC) 100 UNITS/ML 12 UNITS SUB-Q (20:25)
[2021-05-14] MEDS: clonazePAM (*CRX) 0.5 MG TABLET PO (20:27)
[2021-05-14] MEDS: ATORVASTATIN 40 MG TABLET PO (20:28)
[2021-05-14] MEDS: lisinopriL 10 MG TABLET PO (20:29)
[2021-05-14 20:37] LABS: Glucose Point of Care 314 mg/dl (65-105)
[2021-05-15] VITALS (7 sets, daily range): BP systolic 127–147; BP diastolic 61–99; PULSE 68–86; RESP 14–19; TEMP 36.1–36.6; O2SAT 96–100
[2021-05-15] MEDS: ALBUTEROL SULFATE (*SP) AEROSOL 1 PUFF 2 PUFF INHALATION ×7 (00:40→23:36)
[2021-05-15 00:42] LABS: Glucose Point of Care 173 mg/dl (65-105)
[2021-05-15 05:45] LABS: Basophils Percent Auto 0.6 % (0.2-1.2); Eosinophils Absolute Auto 0.1 K/mm3 (0-0.3); Eosinophils Percent Auto 2.3 % (0-4.4); Hemoglobin 10.3 g/dL (12.0-15.0); Immature Granulocyte Absolute 0.01 K/mm3 (0.00-0.031); Immature Granulocyte Percent A 0.3 % (0-0.5); Lymphocytes Absolute Auto 1.05 K/mm3 (0.9-3.2); Lymphocytes Percent Auto 29.7 % (18.3-44.2); Mean Corpuscular HGB Conc 32.2 g/dl (32-36); Mean Corpuscular Hemoglobin 30.2 pg (26-34); Mean Corpuscular Volume 93.8 fl (80-100); Mean Platelet Volume 10.3 fl (7.4-10.4); Monocytes Absolute Auto 0.4 K/mm3 (0.1-0.6); Monocytes Percent Auto 12.5 % (2.6-8.5); Neutrophils Absolute Auto 1.9 K/mm3 (1.3-6.7); Neutrophils Percent Auto 54.6 % (45.5-73.1); Platelet Count Result 220 k/mm3 (150-375); Red Blood Count 3.41 M/mm3 (4.2-5.4); Red Cell Distribution Width 12.3 % (11.5-14.5); White Blood Count 3.5 K/mm3 (4.5-10.0)
[2021-05-15 06:10] LABS: Alanine Aminotransferase 12 U/L (4-35); Albumin Level 3.1 g/dL (3.5-5.1); Alkaline Phosphatase 94 U/L (38-126); Anion Gap 5 mmol/L (8-16); Aspartate Amino Transferase 15 U/L (14-36); Bilirubin,Total 0.2 mg/dL (0.2-1.3); Blood Urea Nitrogen 16 mg/dL (7-17); Calcium 8.5 mg/dL (8.4-10.2); Carbon Dioxide 31 mmol/L (22-30); Chloride 101 mmol/L (98-107); Estimated CRCL calculation 104 ml/min; Estimated Glomerular Filt Rate > 60; Glucose 114 mg/dL (65-110); Potassium 3.3 mmol/L (3.4-5.0); Sodium 137 mmol/L (137-145)
[2021-05-15 08:15] LABS: Glucose Point of Care 116 mg/dl (65-105)
[2021-05-15] MEDS: ASPIRIN 81 MG ENTERIC TABLET PO (08:15)
[2021-05-15] MEDS: MAGNESIUM OXIDE 400 MG TABLET PO (08:15)
[2021-05-15] MEDS: ENOXAPARIN 40 MG/0.4 ML SYRINGE SUB-Q (08:15)
[2021-05-15] MEDS: ESCITALOPRAM OXALATE 10 MG TABLET PO (08:15)
[2021-05-15] MEDS: CLOPIDOGREL BISULFATE 75 MG TABLET PO (08:15)
[2021-05-15] MEDS: FLUTICASONE/SALMETEROL 45-21 MCG INHALER 1 PUFF 2 PUFF INHALATION ×2 (08:29→19:32)
[2021-05-15] MEDS: POTASSIUM CHLORIDE 20 MEQ TABLET 40 MEQ PO (09:22)
[2021-05-15 11:31] LABS: Glucose Point of Care 119 mg/dl (65-105)
[2021-05-15 11:55] LABS: Glucose Point of Care 326 mg/dl (65-105)
[2021-05-15] MEDS: INSULIN ASPART (*BKC) 100 UNITS/ML SUB-Q (11:55)
--- NOTE | 2021-05-15 14:32 | PM.IMPN ---
Progress Note: A&P Assessment and Plan (1) Urinary tract infection: Qualifiers: Hematuria presence: without hematuria Urinary tract infection type: site unspecified Qualified Code(s): N39.0 - Urinary tract infection, site not specified Code(s): N39.0 - Urinary tract infection, site not specified Status: Acute Assessment and Plan: -IV Rocephin #3 -Urine culture positive for e coli, sensitivity report pending -BC no growth to date (2) Hypoglycemia: Code(s): E16.2 - Hypoglycemia, unspecified Status: Acute Assessment and Plan: -Patient has been having a poor appetite and was still continuing to get her insulin at the [facility]. We were holding her long-acting insulin and started with sliding scale insulin. Reportedly blood sugar was 30 when they checked it at the [facility] but was 122 on arrival to ED after treatment by EMS -we have been titrating her insulin carefully as she is an extremely brittle diabetic and goes from being hypoglycemic to being in the 400s. she is back to her normal high dose sliding scale insulin and was still running high with only 12 units of her lantus. Now that she is eating well again I will try to switch her back to her home doses today in preparation for discharge soon. (3) Hypertension: Code(s): I10 - Essential (primary) hypertension Status: Chronic Assessment and Plan: Continue with her lisinopril. Stable. (4) Hypothyroidism: Code(s): E03.9 - Hypothyroidism, unspecified Status: Chronic Assessment and Plan: Continue with her levothyroxine. (5) COPD (chronic obstructive pulmonary disease): Qualifiers: COPD type: COPD with acute exacerbation Qualified Code(s): J44.1 - Chronic obstructive pulmonary disease with (acute) exacerbation Code(s): J44.9 - Chronic obstructive pulmonary disease, unspecified Status: Acute Assessment and Plan: Continue with home inhalers, supplemental oxygen as needed Subjective Date/time seen: 05/15/21 14:32 Interval history: 55-year-old female patient who is a brittle diabetic admitted for hypoglycemia and UTI. Today patient is alert to person only. She has no complaints. Further hx limited secondary to mental status. Review of Systems Review of Systems: ROS unobtainable: Yes unobtainable due to mental status Exam Narrative: General: No acute distress, chronically ill appearing Eyes: PERRL, no scleral icterus HEENT: NCAT, external ears normal, dry mucous membranes Respiratory: No respiratory distress, scattered wheezing Cardiovascular: RRR, no murmur Abdominal: Soft, nontender, non distended, no rebound or guarding Musculoskeletal: Moves all 4 extremities, no edema Neurological: A/Ox1, speech clear, no facial asymmetry Skin: dry flaky skin noted to forehead Psychiatric: confused Objective Data Vital Signs Vital Signs: Vital Signs - 24 hr 05/14/21 14:45 05/14/21 20:35 05/15/21 00:41 Temperature 96.6 F L 99.1 F Pulse Rate 59 L 75 80 Respiratory Rate 14 14 19 Blood Pressure 153/78 H 154/81 H Pulse Oximetry 100 96 97 05/15/21 08:00 05/15/21 08:24 05/15/21 08:30 Temperature 97.8 F Pulse Rate 68 Respiratory Rate 16 Blood Pressure 138/72 Pulse Oximetry 98 98 96 05/15/21 14:00 Temperature 97 F L Pulse Rate 73 Respiratory Rate 14 Blood Pressure 127/61 Pulse Oximetry 100 Intake/Output Intake/Output: Intake & Output 05/12/21 05/13/21 05/14/21 05/15/21 23:59 23:59 23:59 23:59 Intake Total 1790 2970 1650 170 Balance 1790 2970 1650 170 Meds/Results Medications: Active Medications Generic Name Dose Route Start Last Admin Trade Name Freq PRN Reason Stop Dose Admin Albuterol 2 puff 05/12/21 20:00 05/15/21 11:21 Albuterol Sulfate (*Sp) Aerosol 1 Puff INHALATION 2 puff Q4HRT PAULY Administration Aspirin 81 mg 05/13/21 09:00 05/15/21 08:15
[2021-05-15] MEDS: INSULIN GLARGINE (*BKC) 100 UNITS/ML 20 UNITS SUB-Q (16:40)
[2021-05-15 16:42] LABS: Glucose Point of Care 166 mg/dl (65-105)
[2021-05-15] MEDS: clonazePAM (*CRX) 0.5 MG TABLET PO (20:10)
[2021-05-15] MEDS: ATORVASTATIN 40 MG TABLET PO (20:10)
[2021-05-15] MEDS: lisinopriL 10 MG TABLET PO (20:10)
[2021-05-15 20:19] LABS: Glucose Point of Care 154 mg/dl (65-105)
[2021-05-16] MEDS: ALBUTEROL SULFATE (*SP) AEROSOL 1 PUFF 2 PUFF INHALATION ×6 (03:55→23:27)
[2021-05-16 04:48] VITALS: BP 152/82; PULSE 77; RESP 16; TEMP 36.2; O2SAT 98
[2021-05-16 06:05] LABS: Basophils Percent Auto 0.4 % (0.2-1.2); Eosinophils Absolute Auto 0.1 K/mm3 (0-0.3); Eosinophils Percent Auto 1.9 % (0-4.4); Hematocrit 32.6 % (37.0-47.0); Hemoglobin 10.7 g/dL (12.0-15.0); Immature Granulocyte Absolute 0.02 K/mm3 (0.00-0.031); Immature Granulocyte Percent A 0.4 % (0-0.5); Lymphocytes Absolute Auto 1.25 K/mm3 (0.9-3.2); Lymphocytes Percent Auto 26.5 % (18.3-44.2); Mean Corpuscular HGB Conc 32.8 g/dl (32-36); Mean Corpuscular Hemoglobin 30.2 pg (26-34); Mean Corpuscular Volume 92.1 fl (80-100); Monocytes Absolute Auto 0.5 K/mm3 (0.1-0.6); Neutrophils Absolute Auto 2.8 K/mm3 (1.3-6.7); Neutrophils Percent Auto 59.8 % (45.5-73.1); Platelet Count Result 243 k/mm3 (150-375); Red Blood Count 3.54 M/mm3 (4.2-5.4); Red Cell Distribution Width 12.1 % (11.5-14.5); White Blood Count 4.7 K/mm3 (4.5-10.0)
[2021-05-16 06:27] LABS: Alanine Aminotransferase 12 U/L (4-35); Alkaline Phosphatase 103 U/L (38-126); Anion Gap 4 mmol/L (8-16); Aspartate Amino Transferase 16 U/L (14-36); Bilirubin,Total 0.3 mg/dL (0.2-1.3); Blood Urea Nitrogen 13 mg/dL (7-17); Calcium 8.5 mg/dL (8.4-10.2); Carbon Dioxide 30 mmol/L (22-30); Chloride 101 mmol/L (98-107); Estimated CRCL calculation 82 ml/min; Estimated Glomerular Filt Rate > 60; Glucose 300 mg/dL (65-110); Potassium 3.9 mmol/L (3.4-5.0); Sodium 135 mmol/L (137-145)
[2021-05-16] MEDS: LEVOTHYROXINE SODIUM 100 MCG TABLET PO (06:53)
[2021-05-16] MEDS: MAGNESIUM OXIDE 400 MG TABLET PO (08:08)
[2021-05-16] MEDS: ESCITALOPRAM OXALATE 10 MG TABLET PO (08:08)
[2021-05-16] MEDS: ASPIRIN 81 MG ENTERIC TABLET PO (08:08)
[2021-05-16] MEDS: CLOPIDOGREL BISULFATE 75 MG TABLET PO (08:08)
[2021-05-16] MEDS: ENOXAPARIN 40 MG/0.4 ML SYRINGE SUB-Q (08:08)
[2021-05-16] MEDS: INSULIN ASPART (*BKC) 100 UNITS/ML SUB-Q ×2 (08:19→12:00)
[2021-05-16] MEDS: FLUTICASONE/SALMETEROL 45-21 MCG INHALER 1 PUFF 2 PUFF INHALATION ×2 (08:22→20:17)
[2021-05-16 08:23] LABS: Glucose Point of Care 283 mg/dl (65-105)
[2021-05-16 08:25] VITALS: O2SAT 96
[2021-05-16] MEDS: INSULIN GLARGINE (*BKC) 100 UNITS/ML 20 UNITS SUB-Q ×2 (08:42→20:40)
[2021-05-16 11:41] LABS: Glucose Point of Care 264 mg/dl (65-105)
--- NOTE | 2021-05-16 14:19 | PM.DS ---
DS: Admitting Diagnosis Discharge Date 05/16/21 Admitting Diagnosis UTI DS: Discharge Diagnosis Discharge Diagnosis (1) Urinary tract infection: Qualifiers: Hematuria presence: without hematuria Urinary tract infection type: site unspecified Qualified Code(s): N39.0 - Urinary tract infection, site not specified Code(s): N39.0 - Urinary tract infection, site not specified Status: Acute Assessment and Plan: -IV Rocephin #4 -Urine culture positive for e coli, sensitive to Rocephin, will send on cefdinir for a total of 10 days abx treatment -BC no growth to date -pt at her baseline mental status, no signs of sepsis (2) Hypoglycemia: Code(s): E16.2 - Hypoglycemia, unspecified Status: Acute Assessment and Plan: -Patient has been having a poor appetite and was still continuing to get her insulin at the alf. We were holding her long-acting insulin and started with sliding scale insulin. Reportedly blood sugar was 30 when they checked it at the alf but was 122 on arrival to ED after treatment by EMS -we have been titrating her insulin carefully as she is an extremely brittle diabetic and goes from being hypoglycemic to being in the 400s. she is back to her normal high dose sliding scale insulin and was still running high with only 12 units of her lantus. Now that she is eating well again I will try to switch her back to her home doses today in preparation for discharge soon. -blood sugars have been reasonably well controlled back on her current regimen of insulin. She is an extremely brittle diabetic that will continue to need close monitoring of her blood sugars at the alf. (3) Hypertension: Code(s): I10 - Essential (primary) hypertension Status: Chronic Assessment and Plan: Continued with her lisinopril. Stable. (4) Hypothyroidism: Code(s): E03.9 - Hypothyroidism, unspecified Status: Chronic Assessment and Plan: Continued with her levothyroxine. (5) COPD (chronic obstructive pulmonary disease): Qualifiers: COPD type: COPD with acute exacerbation Qualified Code(s): J44.1 - Chronic obstructive pulmonary disease with (acute) exacerbation Code(s): J44.9 - Chronic obstructive pulmonary disease, unspecified Status: Acute Assessment and Plan: Continued with home inhalers, supplemental oxygen as needed DS: Summary Hospital Course Reason for hospitalization: 55-year-old female patient who is a brittle diabetic admitted for hypoglycemia and UTI. Please see HPI for further details. Hospital Course: Please see above for details of hospital course. Status at Discharge Cognitive/behavioral status at discharge: stable Functional status at discharge: independent ambulation Overall status at discharge: patient is progressing back to baseline Time Spent with Patient Time attestation: Total time spent providing and/or coordinating discharge services: 32 Time spent: Greater than 30 minutes Exam Narrative: General: No acute distress, chronically ill appearing Eyes: PERRL, no scleral icterus HEENT: NCAT, external ears normal, dry mucous membranes Respiratory: No respiratory distress, scattered wheezing Cardiovascular: RRR, no murmur Abdominal: Soft, nontender, non distended, no rebound or guarding Musculoskeletal: Moves all 4 extremities, no edema Neurological: A/Ox1-2, speech clear, no facial asymmetry Skin: dry flaky skin noted to forehead Psychiatric: confused DS: Data Data Completed and Pending Labs on day of discharge: Labs from last 24 hours 05/16/21 05/16/21 05/16/21 11:29 08:11 05:53 WBC RBC Hgb Hct MCV MCH MCHC RDW Plt Count MPV Immature Gran % (Auto) Neut % (Auto) Lymph % (Auto) [place] % (Auto) Eos % (Auto) Baso % (Auto) Lymph # (Auto) [place] # (Auto) Eos
[2021-05-16 14:50] VITALS: BP 143/75; PULSE 78; RESP 18; TEMP 36; O2SAT 98
[2021-05-16 15:51] LABS: EDCOVIDSCREEN Negative (Negative)
--- NOTE | 2021-05-16 16:00 | PC.NURSE ---
16:00 Report given to Paz ARMENDARIZ at [facility] at this time.
--- NOTE | 2021-05-16 16:39 | PM.IMPN ---
Progress Note: A&P Assessment and Plan (1) Urinary tract infection: Qualifiers: Hematuria presence: without hematuria Urinary tract infection type: site unspecified Qualified Code(s): N39.0 - Urinary tract infection, site not specified Code(s): N39.0 - Urinary tract infection, site not specified Status: Acute Assessment and Plan: -IV Rocephin #4 -Urine culture positive for e coli, sensitive to Rocephin, will switch to cefdinir on discharge for a total of 10 days abx treatment -BC no growth to date -pt at her baseline mental status, no signs of sepsis (2) Hypoglycemia: Code(s): E16.2 - Hypoglycemia, unspecified Status: Acute Assessment and Plan: -Patient has been having a poor appetite and was still [facility] We were holding her long-acting insulin and started with sliding scale insulin. Reportedly blood sugar was 30 when they checked it [facility] the [facility] but was 122 on arrival to ED after treatment by EMS -we have been titrating her insulin carefully as she is an extremely brittle diabetic and goes from being hypoglycemic to being in the 400s. she is back to her normal high dose sliding scale insulin and was still running high with only 12 units of her lantus. Now that she is eating well again I will try to switch her back to her home doses today in preparation for discharge soon. 05/16/21 -blood sugars had been reasonably well controlled back on her current regimen of insulin. Just prior to discharge today patient had a blood sugar of 45. she is an extremely brittle diabetic and will go from 30 to 500 with only small changes. Her regular dose of insulin is high sliding scale and Lantus 20 units BID. I will try switching it to high sliding scale with 10 of Lantus qAM and 20 of Lantus qPM. -As she is such a brittle diabetic and has had frequent admissions for both hypo- and hyper- glycemia, I think the next step is going to be her seeing an mangle feeder outpatient. (3) Hypertension: Code(s): I10 - Essential (primary) hypertension Status: Chronic Assessment and Plan: Continue her lisinopril. Stable. (4) Hypothyroidism: Code(s): E03.9 - Hypothyroidism, unspecified Status: Chronic Assessment and Plan: Continue her levothyroxine. (5) COPD (chronic obstructive pulmonary disease): Qualifiers: COPD type: COPD with acute exacerbation Qualified Code(s): J44.1 - Chronic obstructive pulmonary disease with (acute) exacerbation Code(s): J44.9 - Chronic obstructive pulmonary disease, unspecified Status: Acute Assessment and Plan: Continue home inhalers, supplemental oxygen as needed Subjective Date/time seen: 05/16/21 16:39 Interval history: 55-year-old female patient who is a brittle diabetic admitted for hypoglycemia and UTI. Today patient is alert to person only. She has no complaints. Further hx limited secondary to mental status. Review of Systems Review of Systems: ROS unobtainable: Yes unobtainable due to mental status Exam Narrative: General: No acute distress, chronically ill appearing Eyes: PERRL, no scleral icterus HEENT: NCAT, external ears normal, dry mucous membranes Respiratory: No respiratory distress, scattered wheezing Cardiovascular: RRR, no murmur Abdominal: Soft, nontender, non distended, no rebound or guarding Musculoskeletal: Moves all 4 extremities, no edema Neurological: A/Ox1-2, speech clear, no facial asymmetry Skin: dry flaky skin noted to forehead Psychiatric: confused Objective Data Vital Signs Vital Signs: Vital Signs - 24 hr 05/15/21 19:33 05/15/21 20:09 05/16/21 04:48 Temperature 97.1 F L 97.2 F L Pulse Rate 86 72 77 Respiratory Rate 18 16 16 Blood Pressure 147/99 H 152/82 H Pulse Oximetry 97 97 98 05/16/21 08:25 05/16/21 14:50 Temperature 96.8 F L Pulse Rate 7
[2021-05-16] MEDS: GLUCOSE ORAL GEL 15 GM OF GLUCSE IN 37.5 GM TUBE PO (16:42)
[2021-05-16] MEDS: DEXTROSE 50% 25 GM/50 ML SYRINGE IV PUSH (17:02)
[2021-05-16 17:09] LABS: Glucose Point of Care 40 mg/dl (65-105)
[2021-05-16 17:09] LABS: Glucose Point of Care 39 mg/dl (65-105)
[2021-05-16 17:09] LABS: Glucose Point of Care 45 mg/dl (65-105)
[2021-05-16 17:09] LABS: Glucose Point of Care 44 mg/dl (65-105)
[2021-05-16 17:29] LABS: Glucose Point of Care 131 mg/dl (65-105)
--- NOTE | 2021-05-16 18:16 | PC.NURSE ---
1636: Checked BS at this time. Low BS at 45. 1637: Called Daja VELASQUEZ at this time, aware of low BS. Stated to give Dextrose 50 and stated that discharge with be cancelled until tomorrow. 1638: Gave PO gluagon at this moment, do to not having an IV at this time. Daja VELASQUEZ, is aware of the PO glucagon given to to no IV access. 1653: Rechecked BS at this time. BS decreased more at 40, rechecked with different glucometer BS dropped at 39. 1655: Gave Dextrose 50% at this time. 1730: BS rechecked at 131
[2021-05-16 20:17] VITALS: PULSE 89; RESP 19; O2SAT 97
[2021-05-16 20:17] LABS: Glucose Point of Care 202 mg/dl (65-105)
[2021-05-16 20:23] VITALS: BP 109/66; PULSE 79; RESP 18; TEMP 36.2; O2SAT 90
[2021-05-16] MEDS: lisinopriL 10 MG TABLET PO (20:41)
[2021-05-16] MEDS: ATORVASTATIN 40 MG TABLET PO (20:41)
[2021-05-16] MEDS: clonazePAM (*CRX) 0.5 MG TABLET PO (20:41)
[2021-05-17] VITALS (7 sets, daily range): BP systolic 108–157; BP diastolic 56–81; PULSE 67–80; RESP 14–18; TEMP 36.2–36.8; O2SAT 95–100; BMI 15.2
[2021-05-17] MEDS: ALBUTEROL SULFATE (*SP) AEROSOL 1 PUFF 2 PUFF INHALATION ×5 (05:15→20:36)
[2021-05-17] MEDS: LEVOTHYROXINE SODIUM 100 MCG TABLET PO (06:02)
[2021-05-17 06:07] LABS: Basophils Percent Auto 0.8 % (0.2-1.2); Eosinophils Absolute Auto 0.1 K/mm3 (0-0.3); Eosinophils Percent Auto 2.9 % (0-4.4); Hematocrit 32.8 % (37.0-47.0); Hemoglobin 10.6 g/dL (12.0-15.0); Immature Granulocyte Absolute 0.01 K/mm3 (0.00-0.031); Immature Granulocyte Percent A 0.3 % (0-0.5); Lymphocytes Absolute Auto 1.25 K/mm3 (0.9-3.2); Lymphocytes Percent Auto 32.6 % (18.3-44.2); Mean Corpuscular HGB Conc 32.3 g/dl (32-36); Mean Corpuscular Hemoglobin 29.8 pg (26-34); Mean Corpuscular Volume 92.1 fl (80-100); Mean Platelet Volume 10.1 fl (7.4-10.4); Monocytes Absolute Auto 0.6 K/mm3 (0.1-0.6); Monocytes Percent Auto 14.4 % (2.6-8.5); Neutrophils Absolute Auto 1.9 K/mm3 (1.3-6.7); Platelet Count Result 268 k/mm3 (150-375); Red Blood Count 3.56 M/mm3 (4.2-5.4); Red Cell Distribution Width 12.3 % (11.5-14.5); White Blood Count 3.8 K/mm3 (4.5-10.0)
[2021-05-17 06:43] LABS: Alanine Aminotransferase 12 U/L (4-35); Albumin Level 3.2 g/dL (3.5-5.1); Alkaline Phosphatase 90 U/L (38-126); Anion Gap 6 mmol/L (8-16); Aspartate Amino Transferase 16 U/L (14-36); Bilirubin,Total 0.3 mg/dL (0.2-1.3); Blood Urea Nitrogen 11 mg/dL (7-17); Carbon Dioxide 31 mmol/L (22-30); Chloride 103 mmol/L (98-107); Estimated CRCL calculation 82 ml/min; Estimated Glomerular Filt Rate > 60; Glucose 50 mg/dL (65-110); Potassium 3.6 mmol/L (3.4-5.0); Sodium 140 mmol/L (137-145)
[2021-05-17] MEDS: DEXTROSE 50% 25 GM/50 ML SYRINGE IV PUSH (06:59)
[2021-05-17 07:20] LABS: Glucose Point of Care 183 mg/dl (65-105)
[2021-05-17] MEDS: FLUTICASONE/SALMETEROL 45-21 MCG INHALER 1 PUFF 2 PUFF INHALATION ×2 (08:01→20:36)
[2021-05-17 08:11] LABS: Glucose Point of Care 45 mg/dl (65-105)
[2021-05-17] MEDS: MAGNESIUM OXIDE 400 MG TABLET PO (10:04)
[2021-05-17] MEDS: ENOXAPARIN 40 MG/0.4 ML SYRINGE SUB-Q (10:04)
[2021-05-17] MEDS: ASPIRIN 81 MG ENTERIC TABLET PO (10:04)
[2021-05-17] MEDS: ESCITALOPRAM OXALATE 10 MG TABLET PO (10:04)
[2021-05-17] MEDS: CLOPIDOGREL BISULFATE 75 MG TABLET PO (10:04)
[2021-05-17 10:07] LABS: Glucose Point of Care 340 mg/dl (65-105)
[2021-05-17] MEDS: INSULIN GLARGINE (*BKC) 100 UNITS/ML 10 UNITS SUB-Q (10:21)
[2021-05-17] MEDS: INSULIN ASPART (*BKC) 100 UNITS/ML SUB-Q ×3 (10:21→16:31)
[2021-05-17 11:26] LABS: Glucose Point of Care 340 mg/dl (65-105)
--- NOTE | 2021-05-17 14:25 | PM.IMPN ---
Progress Note: A&P Assessment and Plan (1) Urinary tract infection: Qualifiers: Hematuria presence: without hematuria Urinary tract infection type: site unspecified Qualified Code(s): N39.0 - Urinary tract infection, site not specified Code(s): N39.0 - Urinary tract infection, site not specified Status: Acute Assessment and Plan: -IV Rocephin #5 -Urine culture positive for e coli, sensitive to Rocephin, will switch to cefdinir on discharge for a total of 7 days abx treatment -BC no growth to date -pt at her baseline mental status, no signs of sepsis (2) Hypoglycemia: Code(s): E16.2 - Hypoglycemia, unspecified Status: Acute Assessment and Plan: -Patient has been having a poor appetite and was still continuing to get her insulin at the shelter. We were holding her long-acting insulin and started with sliding scale insulin. Reportedly blood sugar was 30 when they checked it at the shelter but was 122 on arrival to ED after treatment by EMS -we have been titrating her insulin carefully as she is an extremely brittle diabetic and goes from being hypoglycemic to being in the 400s. she is back to her normal high dose sliding scale insulin and was still running high with only 12 units of her lantus. Now that she is eating well again I will try to switch her back to her home doses today in preparation for discharge soon. 05/17/21 -the patient had been restarted on her home Lantus which is 20 units b.i.d.. She became hypoglycemic and so the previous provider adjusted her Lantus to 20 units in the evening and 15 units during the day. The patient became hypoglycemic this morning with a glucose of 45. I made further adjustments with Lantus 10 units in the morning and 15 units HS. The patient is feeling well at this time without any hypoglycemia episodes. She has been eating intermittently throughout the day continues to remain hungry. -As she is such a brittle diabetic and has had frequent admissions for both hypo- and hyper- glycemia, I think the next step is going to be her seeing an database security administrator outpatient. (3) Hypertension: Code(s): I10 - Essential (primary) hypertension Status: Chronic Assessment and Plan: Continue her lisinopril. Stable. (4) Hypothyroidism: Code(s): E03.9 - Hypothyroidism, unspecified Status: Chronic Assessment and Plan: Continue her levothyroxine. (5) COPD (chronic obstructive pulmonary disease): Qualifiers: COPD type: COPD with acute exacerbation Qualified Code(s): J44.1 - Chronic obstructive pulmonary disease with (acute) exacerbation Code(s): J44.9 - Chronic obstructive pulmonary disease, unspecified Status: Acute Assessment and Plan: Continue home inhalers, supplemental oxygen as needed Time Spent With Patient Time with patient: 25 - 35 minutes Subjective Date/time seen: 05/17/21 14:25 Interval history: Date of service 05/17/2021: Patient states she is doing well today, just tired. She is eating and drinking without any issues. Denies a feeling of any low glucose is this afternoon. Denies any fevers, chills, nausea, vomiting, abdominal pain, chest pain, shortness of breath, cough, leg swelling, calf pain, or any other symptoms at this time. Review of Systems Review of Systems: All systems reviewed & are unremarkable except as noted in HPI and below Exam Narrative: General: 55-year-old woman laying flat in bed on her right side sleeping. Appears comfortable on 2 L via nasal cannula. Easily arousable. In no acute distress. Skin: No jaundice or cyanosis. Good skin turgor. Neck: Full range of motion. Supple. Respiratory: Decreased lung sounds bilaterally, no wheezing, rales or rhonchi auscultated. No bony chest wall tenderness. Cardiovascular: The heart has a regular rate and rhythm without murmur. Lower extremities: No lower
--- NOTE | 2021-05-17 15:49 | PC.NURSE ---
On 05/17/21, the student, Beckie Foster, provided care and completed [facility] documentation on this patient. I have reviewed the student's documentation and agree with the findings.
[2021-05-17 16:03] LABS: Glucose Point of Care 254 mg/dl (65-105)
[2021-05-17 20:54] LABS: Glucose Point of Care 90 mg/dl (65-105)
[2021-05-17] MEDS: clonazePAM (*CRX) 0.5 MG TABLET PO (21:16)
[2021-05-17] MEDS: ATORVASTATIN 40 MG TABLET PO (21:16)
[2021-05-17] MEDS: INSULIN GLARGINE (*BKC) 100 UNITS/ML 15 UNITS SUB-Q (21:16)
[2021-05-17] MEDS: lisinopriL 10 MG TABLET PO (21:16)
[2021-05-18] MEDS: ALBUTEROL SULFATE (*SP) AEROSOL 1 PUFF 2 PUFF INHALATION ×3 (00:20→12:31)
[2021-05-18 04:34] VITALS: BP 126/59; PULSE 62; RESP 16; TEMP 36.1; O2SAT 100
[2021-05-18 05:14] LABS: Hematocrit 32.5 % (37.0-47.0); Hemoglobin 10.4 g/dL (12.0-15.0); Mean Corpuscular Hemoglobin 29.9 pg (26-34); Mean Corpuscular Volume 93.4 fl (80-100); Mean Platelet Volume 10.6 fl (7.4-10.4); Platelet Count Result 271 k/mm3 (150-375); Red Blood Count 3.48 M/mm3 (4.2-5.4); Red Cell Distribution Width 12.3 % (11.5-14.5); White Blood Count 5.5 K/mm3 (4.5-10.0)
[2021-05-18 05:26] LABS: Anion Gap 4 mmol/L (8-16); Blood Urea Nitrogen 15 mg/dL (7-17); Calcium 8.9 mg/dL (8.4-10.2); Carbon Dioxide 36 mmol/L (22-30); Chloride 99 mmol/L (98-107); Estimated CRCL calculation 67 ml/min; Estimated Glomerular Filt Rate > 60; Glucose 198 mg/dL (65-110); Potassium 4.1 mmol/L (3.4-5.0); Sodium 139 mmol/L (137-145)
[2021-05-18] MEDS: LEVOTHYROXINE SODIUM 100 MCG TABLET PO (06:12)
[2021-05-18 07:42] LABS: Glucose Point of Care 211 mg/dl (65-105)
[2021-05-18 08:05] VITALS: PULSE 78; RESP 18; O2SAT 97
[2021-05-18] MEDS: FLUTICASONE/SALMETEROL 45-21 MCG INHALER 1 PUFF 2 PUFF INHALATION (08:05)
[2021-05-18] MEDS: INSULIN ASPART (*BKC) 100 UNITS/ML SUB-Q ×2 (09:38→13:09)
[2021-05-18] MEDS: INSULIN GLARGINE (*BKC) 100 UNITS/ML 10 UNITS SUB-Q (09:39)
[2021-05-18] MEDS: ASPIRIN 81 MG ENTERIC TABLET PO (09:40)
[2021-05-18] MEDS: CLOPIDOGREL BISULFATE 75 MG TABLET PO (09:40)
[2021-05-18] MEDS: ESCITALOPRAM OXALATE 10 MG TABLET PO (09:41)
[2021-05-18] MEDS: MAGNESIUM OXIDE 400 MG TABLET PO (09:41)
[2021-05-18] MEDS: ENOXAPARIN 40 MG/0.4 ML SYRINGE SUB-Q (09:41)
--- NOTE | 2021-05-18 10:41 | PM.DS ---
DS: Admitting Diagnosis Discharge Date 05/18/21 Admitting Diagnosis Hypoglycemia DS: Discharge Diagnosis Discharge Diagnosis (1) Urinary tract infection: Qualifiers: Hematuria presence: without hematuria Urinary tract infection type: site unspecified Qualified Code(s): N39.0 - Urinary tract infection, site not specified Code(s): N39.0 - Urinary tract infection, site not specified Status: Acute Assessment and Plan: Patient is a 55-year-old woman with a history of diabetes, chronic respiratory failure with hypoxemia, COPD with asthma, CAD, herpes encephalitis, who presented to the emergency room for hypoglycemia from her rehab facility. The patient not been feeling well for the last few days and not eating much but she was still getting her insulin causing hypoglycemia. She was sent to the emergency room for further evaluation workup. Initial vitals showed she was hypotensive at 86/56, non tachycardic at 64 beats per minute, afebrile, 97% on her chronic 2 L via nasal cannula. Initial labs showed normal white blood cell count, normocytic anemia with a hemoglobin of 11, hematocrit 36%, normal differential. Initial labs showed normal creatinine, BUN slightly elevated at 26, normal LFTs, normal TSH. Urinalysis was cloudy with positive nitrites, 1+ leukocyte esterase and WBCs 50 1-75 concerning for a UTI. She was admitted into the hospital for acute UTI and hypoglycemia and started on IV Rocephin. She received total of 7 days of Rocephin which is full treatment for her E coli infection that grew on her culture. While here her appetite improved and we were able to make adjustments to her insulin regimen. She was discharged on Lantus 10 units in the morning and Lantus 15 units in the evening. Her glucose is very did between 363-180. The patient has been very hungry and eating multiple snacks and meals throughout the day which I am sure is causing her glucose is to be all over the place. I told the patient she needs to eat the same amount of food and snacks each day to trying better control her sugars. Recommend her facility continue monitoring glucoses very carefully and to hold Lantus at the patient is not feeling well or eating to prevent hypoglycemia episodes. Otherwise at this time the patient states she is feeling well without any concerns. Her UTI was treated in full. She is stable for discharge for these adjustments to her insulin regimen. Follow-up with PCP. Return to ER warnings given. Patient understands and agrees the plan all questions answered. (2) Hypoglycemia: Code(s): E16.2 - Hypoglycemia, unspecified Status: Acute Assessment and Plan: (3) Hypertension: Code(s): I10 - Essential (primary) hypertension Status: Chronic Assessment and Plan: (4) Hypothyroidism: Code(s): E03.9 - Hypothyroidism, unspecified Status: Chronic Assessment and Plan: (5) COPD (chronic obstructive pulmonary disease): Qualifiers: COPD type: COPD with acute exacerbation Qualified Code(s): J44.1 - Chronic obstructive pulmonary disease with (acute) exacerbation Code(s): J44.9 - Chronic obstructive pulmonary disease, unspecified Status: Acute Assessment and Plan: DS: Summary Hospital Course Hospital Course: See above Status at Discharge Cognitive/behavioral status at discharge: Stable, improved. Time Spent with Patient Time attestation: Total time spent providing and/or coordinating discharge services: 42 Time spent: Greater than 30 minutes Exam Narrative: General: 55-year-old woman laying flat in bed talking to the nurse. Appears comfortable on 2 L via nasal cannula. In no acute distress. Skin: No jaundice or cyanosis. Good skin turgor. Neck: Full range of motion. Supple. Respiratory: Decreased lung sounds bilaterally, no wheezing, rales or rhonchi auscultated. No bony lyndsey
[2021-05-18 11:40] LABS: EDCOVIDSCREEN Negative (Negative)
[2021-05-18 12:59] LABS: Glucose Point of Care 363 mg/dl (65-105)
== END 2021-05-18 14:20 | DRG 690 ==
LOC: ANHED 10:08 → ANH3MEDSUR 11:43 → ANH3MED 15:17
PROVIDERS: Emergency Medicine; Nurse Practitioner; Physician Assistant; Admitting Provider Internal Medicine; Emergency Provider Emergency Medicine; PCP Internal Medicine; Visit Provider Internal Medicine
DX: N39.0 Urinary tract infection, site not specified (principal); J96.11 Chronic respiratory failure with hypoxia; E11.649 Type 2 diabetes mellitus with hypoglycemia without coma; B96.20 Unspecified Escherichia coli [E. coli] as the cause of diseases classified elsewhere; E11.319 Type 2 diabetes mellitus with unspecified diabetic retinopathy without macular edema; E11.43 Type 2 diabetes mellitus with diabetic autonomic (poly)neuropathy; E03.9 Hypothyroidism, unspecified; E78.5 Hyperlipidemia, unspecified; F41.9 Anxiety disorder, unspecified; F32.9 Major depressive disorder, single episode, unspecified; G31.84 Mild cognitive impairment of uncertain or unknown etiology; I25.10 Atherosclerotic heart disease of native coronary artery without angina pectoris; I25.2 Old myocardial infarction; I10 Essential (primary) hypertension; J44.9 Chronic obstructive pulmonary disease, unspecified; K31.84 Gastroparesis; M19.90 Unspecified osteoarthritis, unspecified site; Z87.891 Personal history of nicotine dependence; Z79.4 Long term (current) use of insulin; Z79.82 Long term (current) use of aspirin; Z79.02 Long term (current) use of antithrombotics/antiplatelets; Z88.8 Allergy status to other drugs, medicaments and biological substances; Z99.81 Dependence on supplemental oxygen; Z20.822 Contact with and (suspected) exposure to COVID-19; Z86.19 Personal history of other infectious and parasitic diseases
CPT/HCPCS: 36415; 51701; 80048; 80053; 81001; 82728; 82948; 83605; 83735; 84443; 85025; 85027; 87040; 87077; 87086; 87186; 87426; 93005; 94640; 96361; 96365; 96366; 96368; 96372; 99285; A9270; C9803; G0378; J0696; J1650; J1815; J7030; J7120

== ENCOUNTER 2021-05-19 06:35 | Emergency (ER) | payer MEDICARE, MEDICAID, SELFPAY ==
[2021-05-19] VITALS (7 sets, daily range): BP systolic 149–168; BP diastolic 87–94; PULSE 60–89; RESP 11–20; TEMP 36.7; O2SAT 96–100
--- NOTE | 2021-05-19 06:46 | PC.NURSE ---
BS 147
[2021-05-19 06:49] LABS: Glucose Point of Care 147 mg/dl (65-105)
--- NOTE | 2021-05-19 07:26 | ED.GENADULT ---
HPI - General Adult General Chief complaint: Recheck/Abnormal Lab/Rx Stated complaint: Low Blood sugar Time Seen by Provider: 05/19/21 06:52 History of Present Illness HPI narrative: 55-year-old female with history of diabetes, chronic respiratory failure with hypoxemia, COPD with asthma, CAD, herpes encephalitis presenting [facility] the emergency department [facility] for evaluation of low blood sugar. At the jail patient's blood sugar was 33. Patient was treated with D10 by EMS and upon recheck her blood sugar was up to 308. Upon arrival department patient's blood sugar is 147. Patient denies any complaints at this time. Related Data Home Medications Medication Instructions Recorded Confirmed escitalopram oxalate 10 mg PO DAILY 02/14/21 05/14/21 glucagon (human recombinant) 1 mg SUBCUT PRN PRN 02/14/21 05/14/21 ergocalciferol (vitamin D2) 1,250 mcg PO WEEKLY 03/24/21 05/14/21 Allergies Allergy/AdvReac Type Severity Reaction Status Date / Time metformin AdvReac Intermediate Diarrhea Verified 05/19/21 07:37 [facility] Past Medical History Medical History Arthritis Chronic respiratory failure with hypoxia, on home oxygen therapy COPD with asthma Coronary artery disease Reported myocardial infarction in 1999 requiring stent. 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 Hemoglobin A1c was 8.3% on 02/13/2021. Tobacco abuse Surgical History Surgical History Status post arthroscopy of right knee Status post section Family History Family History Mother Family history of alcoholism Family history of congestive heart failure, Onset Age: 70 Family history of osteoporosis Family history of chronic obstructive pulmonary disease Grandparent Family history of Alzheimer's disease, Onset Age: 90 Hypertension, Onset Age: 80 Sibling Hypertension, Onset Age: 53 Family history of alcoholism Family history of malignant neoplasm Patient's sister is in good health Father Hypertension, Onset Age: 79 Family history of thyroid disease Family history of cataracts Malignant neoplasm of prostate Other Diabetes mellitus Family history of arthritis Social History Social History (Updated 05/12/21 @ 16:03 by Lexy Bhatt NP) Social History: Surrogate decision maker: Tiera Montgomery (sister) or Ho Espinoza (son). Code status: Full code. She stated that she quit smoking 2 yrs ago. The patient is . Smoking packs per day: 1.5 Smoking cigarettes per day: 30.0 Years smoked: 40 Smoking pack-years: 60.00 Smoking status: Former smoker Second hand tobacco smoke exposure: Yes Alcohol intake: unknown Substance use: former Substance use type: other Other substance usage details: cigarettes Additional living arrangements comments: The patient lives in her own home in [place] though she is currently undergoing rehab. Additional occupation/education comments: Disabled. Spiritual care concerns: No Course Reevaluation(s) Reevaluation #1: Patient is resting comfortably at this time and continues to deny any complaint. Patient's blood sugar has improved and is more stable. Patient has a breakfast tray available and a tech is going to assist her eat. Patient is tolerating p.o. and is more alert and appropriate. Patient denies any complaints at this time. Patient's repeat blood glucoses have been stable. Patient will be discharged back to the jail. Clinical impression: Hypoglycemia Discharge back to jail Clinical condition is improved Vital Signs Vital signs: Vital Signs Temperature 98.0 F
[2021-05-19 07:47] LABS: Glucose Point of Care 105 mg/dl (65-105)
--- NOTE | 2021-05-19 07:54 | PC.NURSE ---
ordered pt a diabetic breakfast tray per MAXWELL Lehman.
--- NOTE | 2021-05-19 09:41 | PC.NURSE ---
blood sugar was 165 at 0940
[2021-05-19 09:43] LABS: Glucose Point of Care 165 mg/dl (65-105)
[2021-05-19 12:14] LABS: Glucose Point of Care 325 mg/dl (65-105)
== END 2021-05-19 13:42 ==
PROVIDERS: Emergency Provider Emergency Medicine; PCP Internal Medicine
DX: E11.649 Type 2 diabetes mellitus with hypoglycemia without coma (principal); E11.319 Type 2 diabetes mellitus with unspecified diabetic retinopathy without macular edema; E11.43 Type 2 diabetes mellitus with diabetic autonomic (poly)neuropathy; K31.84 Gastroparesis; J44.9 Chronic obstructive pulmonary disease, unspecified; I25.10 Atherosclerotic heart disease of native coronary artery without angina pectoris; J96.11 Chronic respiratory failure with hypoxia; I25.2 Old myocardial infarction; E78.5 Hyperlipidemia, unspecified; E03.9 Hypothyroidism, unspecified; I10 Essential (primary) hypertension; M19.90 Unspecified osteoarthritis, unspecified site; F41.8 Other specified anxiety disorders; Z79.4 Long term (current) use of insulin; Z95.5 Presence of coronary angioplasty implant and graft; Z99.81 Dependence on supplemental oxygen; Z87.891 Personal history of nicotine dependence
CPT/HCPCS: 82948; 99282

== ENCOUNTER 2021-06-10 14:15 | Emergency (ER) | payer MEDICARE, MEDICAID, SELFPAY ==
[2021-06-10] VITALS (9 sets, daily range): BP systolic 118–128; BP diastolic 61–73; PULSE 94; RESP 14; TEMP 36.5; O2SAT 95–100
--- NOTE | ~2021-06-10 | XR_ITS ---
EXAMINATION: XR hip BI 2V w AP pelvis EXAM DATE: 06/10/2021 15:55 INDICATION: Fall, bilateral hip pain. TECHNIQUE: Each hip imaged independently (separate right and also left hip) 'frog leg' and frontal p rojections for interpretation. Frontal projection pelvis. There is no prior study for comparison. FINDINGS: No radiographic evidence of hip avascular necrosis. There is mild to moderate symmetric bi lateral hip primary osteoarthritis. There are no acute pelvic or hip fractures or dislocations identi fied. There is no subcutaneous gas. The soft tissue is unremarkable. There are no radiopaque fore ign bodies. IMPRESSION: 1. Pelvis, hip exam without acute osseous findings. Reviewed, dictated and finalized at location B. RVISOR PIPELINES
--- NOTE | ~2021-06-10 | XR_ITS ---
XR shoulder RT min 2V DATE: 06/10/2021 15:55 INDICATION: Fall, right shoulder injury, pain TECHNIQUE: 4 views COMPARISON: 12/25/2011 right shoulder FINDINGS: There is mild degenerative change of the right, clavicular joint. No fracture or dislocation, periosteal reaction or bone destruction or abnormal right shoulder soft t issue calcification is detected. IMPRESSION: No fracture or dislocation Reviewed, dictated and finalized at location A. L TRIM ERECTOR IMPRESSION: No fracture or dislocation
--- NOTE | ~2021-06-10 | XR_ITS ---
EXAMINATION: XR wrist RT min 3V EXAM DATE: 06/10/2021 15:54 INDICATION: right wrist pain, fall . TECHNIQUE: Right wrist frontal, frontal with ulnar deviation, oblique and lateral projections obtain ed and reviewed. Comparison is made to prior examination from 07/26/2018. FINDINGS: Right wrist scapholunate joint space is maintained. There are no acute fractures or disloca tions identified. There is no subcutaneous gas. The soft tissue is unremarkable. There are no rad iopaque foreign bodies. IMPRESSION: 1. XR wrist RT min 3V exam without acute osseous findings. Reviewed, dictated and finalized at location B. SHOP SUPERVISOR
--- NOTE | ~2021-06-10 | XR_ITS ---
EXAMINATION: XR chest 2V DATE: 06/10/2021 15:55 INDICATION: Fall. TECHNIQUE: Frontal and lateral views of the chest were obtained. COMPARISON: Chest single view 05/02/2021, chest CT 05/24/2019 FINDINGS: The lungs are hyperexpanded with lucencies and interstitial opacities, consistent with emph ysema. Calcified left lung nodules and calcified left hilar and mediastinal lymph nodes are consisten t with old granulomatous disease. There is mild atelectasis versus scarring at the lung bases. No ple ural effusion or pneumothorax. The heart size is normal. IMPRESSION: 1. Severe emphysema. 2. Mild atelectasis versus scarring at the lung bases. Reviewed, dictated and finalized at location E. ER PRODUCTION MACHINE OPERATOR
--- NOTE | ~2021-06-10 | CT_ITS ---
EXAMINATION: CT cervical spine wo con DATE: 06/10/2021 15:29 INDICATION: Head injury. TECHNIQUE: Computed tomography (CT) of the cervical spine was performed without intravenous contrast. Automated exposure control and iterative reconstruction technique were employed. The dose-length pro duct was 83.72 mGy-cm. COMPARISON: Cervical spine CT 12/25/2011 FINDINGS: The visualized portions of the lung apices demonstrate emphysema. There is kyphosis of cerv ical spine. There is 2 mm retrolisthesis of C5 on C6. Vertebral body heights are normal. There is a b enign bone island in T2 vertebral body. There is mildly decreased disc height at C4-C5 and severely d ecreased disc height at C5-C6 and C6-C7. The following disc levels are specifically discussed: C2-C3: There is no uncovertebral joint osteoarthritis. There is severe bilateral facet joint osteoart hritis. There is mild right neural foraminal stenosis. There is no central canal stenosis. C3-C4: There is mild bilateral uncovertebral joint osteoarthritis. There is severe bilateral facet joaquín int osteoarthritis. There is mild right neural foraminal stenosis. There is no central canal stenosis . C4-C5: There is moderate and severe left uncovertebral joint osteoarthritis. There is severe bilatera l facet joint osteoarthritis. There is mild bilateral neural foraminal stenosis. There is mild centra l canal stenosis. C5-C6: There is severe bilateral uncovertebral joint osteoarthritis. There is moderate bilateral face t joint osteoarthritis. There is mild right and moderate left neural foraminal stenosis. There is mil d central canal stenosis. C6-C7: There is severe bilateral uncovertebral joint osteoarthritis. There is severe bilateral facet joint osteoarthritis. There is mild bilateral neural foraminal stenosis. There is mild central canal stenosis. C7-T1: There is no uncovertebral joint osteoarthritis. There is severe right and moderate left facet joint osteoarthritis. There is mild right neural foraminal stenosis. There is no central canal stenos is. IMPRESSION: 1. No fracture. 2. Severe cervical spondylosis. Reviewed, dictated and finalized at location E. [employer]
--- NOTE | ~2021-06-10 | CT_ITS ---
EXAMINATION: CT brain wo con DATE: 06/10/2021 15:29 INDICATION: Head injury. TECHNIQUE: Computed tomography (CT) of the head was performed without intravenous contrast. The mA wa s adjusted according to patient size. Iterative reconstruction technique was employed. The dose-lengt h product was 605.33 mGy-cm. COMPARISON: Head CT 05/02/2021 FINDINGS: There is no intracranial hemorrhage, acute infarction, or abnormal intracranial mass lesion . There are scattered areas of low attenuation in the cerebral white matter. There is an old lacunar infarct in left thalamus. The ventricles are normal in size. There is an old blowout fracture of medi al wall of left orbit. There is a right mastoid effusion. IMPRESSION: 1. Old lacunar infarct in left thalamus. 2. Mild nonspecific cerebral white matter disease, which likely represents chronic small vessel ische claudia disease. Reviewed, dictated and finalized at location E. [employer] IMPRESSION: 1. Old lacunar infarct in left thalamus. 2. 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
--- NOTE | 2021-06-10 15:09 | ECG_ITS ---
Measurements Intervals [place] Rate: 85 P: 105 DE: 119 QRS: 94 QRSD: 86 T: 121 QT: 357 QTc: 426 Interpretive Statements SINUS RHYTHM WITH SHORT DE INTERVAL HIGH LATERAL INFARCT, AGE INDETERMINATE BASELINE ARTIFACT- I, II, III, AVR, AVL, V3 ABNORMAL ECG Electronically Signed On 06-10-2021 16:20:43 DEPARTMENT ADMINISTRATOR by Thad Rea D.O.
--- NOTE | 2021-06-10 15:14 | ED.FALL ---
HPI - Fall General Chief Complaint: Fall Stated Complaint: fall Time Seen by Provider: 06/10/21 15:03 Source: patient and EMS Mode of arrival: EMS Limitations: dementia History of Present Illness HPI Narrative: This is a 55 year old female that presents to the ER via EMS for a ground level fall. Patient had unwitnessed fall at facility. Reportedly patient has not supposed ambulate without assistance. She attempted to ambulate and reports she lost her balance and fell and hit her head on a drawer. She does not think that she lost consciousness. Has a laceration to the right eyebrow. Also reports right arm pain. Denies vision changes, chest pain, shortness of breath, vomiting, numbness, or weakness. Related Data Home Medications Medication Instructions Recorded Confirmed escitalopram oxalate 10 mg PO DAILY 02/14/21 05/14/21 glucagon (human recombinant) 1 mg SUBCUT PRN PRN 02/14/21 05/14/21 ergocalciferol (vitamin D2) 1,250 mcg PO WEEKLY 03/24/21 05/14/21 Allergies Allergy/AdvReac Type Severity Reaction Status Date / Time metformin AdvReac Intermediate Diarrhea Verified 05/19/21 07:37 Review of Systems Review of Systems: CONSTITUTIONAL: Denies fever EYES: Denies visual changes CARDIOVASCULAR: Denies chest pain RESPIRATORY: Denies dyspnea. GASTROINTESTINAL: Denies vomiting MUSCULOSKELETAL: Reports joint pain and myalgia. Denies back pain NEUROLOGIC: Denies numbness, or weakness. All systems reviewed & are unremarkable except as noted in HPI and below PMFSH Past Medical History Medical History Arthritis Chronic respiratory failure with hypoxia, on home oxygen therapy COPD with asthma Coronary artery disease Reported myocardial infarction in 1999 requiring stent. 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 Hemoglobin A1c was 8.3% on 02/13/2021. Tobacco abuse Surgical History Surgical History Status post arthroscopy of right knee Status post section Family History Family History Mother Family history of alcoholism Family history of congestive heart failure, Onset Age: 70 Family history of osteoporosis Family history of chronic obstructive pulmonary disease Grandparent Family history of Alzheimer's disease, Onset Age: 90 Hypertension, Onset Age: 80 Sibling Hypertension, Onset Age: 53 Family history of alcoholism Family history of malignant neoplasm Patient's sister is in good health Father Hypertension, Onset Age: 79 Family history of thyroid disease Family history of cataracts Malignant neoplasm of prostate Other Diabetes mellitus Family history of arthritis Social History Social History (Updated 05/12/21 @ 16:03 by Lexy Bhatt NP) Social History: Surrogate decision maker: Tierakrishna Montgomery (sister) or Ho Espinoza (son). Code status: Full code. She stated that she quit smoking 2 yrs ago. The patient is . Smoking packs per day: 1.5 Smoking cigarettes per day: 30.0 Years smoked: 40 Smoking pack-years: 60.00 Smoking status: Former smoker Second hand tobacco smoke exposure: Yes Alcohol intake: unknown Substance use: former Substance use type: other Other substance usage details: cigarettes Additional living arrangements comments: The patient lives in her own home in [place] though she is currently undergoing rehab. Additional occupation/education comments: Disabled. Spiritual care concerns: No Exam Narrative: GENERAL: Well-appearing, well-nourished, and in no acute distress. HEAD: Normocephalic. Contusion with overlying 1cm superficial laceration to the right eyebrow EYE
[2021-06-10 15:24] LABS: Basophils Percent Auto 0.5 % (0.2-1.2); Eosinophils Absolute Auto 0.2 K/mm3 (0-0.3); Eosinophils Percent Auto 2.4 % (0-4.4); Hematocrit 33.3 % (37.0-47.0); Immature Granulocyte Absolute 0.03 K/mm3 (0.00-0.031); Immature Granulocyte Percent A 0.4 % (0-0.5); Lymphocytes Absolute Auto 0.85 K/mm3 (0.9-3.2); Lymphocytes Percent Auto 10.7 % (18.3-44.2); Mean Corpuscular Hemoglobin 28.3 pg (26-34); Mean Corpuscular Volume 94.3 fl (80-100); Mean Platelet Volume 9.9 fl (7.4-10.4); Monocytes Absolute Auto 0.9 K/mm3 (0.1-0.6); Monocytes Percent Auto 10.9 % (2.6-8.5); Neutrophils Percent Auto 75.1 % (45.5-73.1); Platelet Count Result 286 k/mm3 (150-375); Red Blood Count 3.53 M/mm3 (4.2-5.4)
[2021-06-10 15:32] LABS: Alanine Aminotransferase 13 U/L (4-35); Albumin Level 3.5 g/dL (3.5-5.1); Alkaline Phosphatase 139 U/L (38-126); Anion Gap 1 mmol/L (8-16); Aspartate Amino Transferase 19 U/L (14-36); Bilirubin,Total 0.2 mg/dL (0.2-1.3); Blood Urea Nitrogen 22 mg/dL (7-17); Calcium 8.9 mg/dL (8.4-10.2); Carbon Dioxide 35 mmol/L (22-30); Chloride 97 mmol/L (98-107); Estimated CRCL calculation 65 ml/min; Estimated Glomerular Filt Rate > 60; Glucose 465 mg/dL (65-110); Potassium 4.6 mmol/L (3.4-5.0); Sodium 133 mmol/L (137-145)
[2021-06-10 15:42] LABS: Partial Thromboplastin Time 28.3 SECONDS (22.3-36.8); Prothrombin Time 12.7 Seconds (11.1-14.7)
[2021-06-10] MEDS: SODIUM CHLORIDE 0.9% IV 500 ML 999 ML IV CONT (16:12)
[2021-06-10 16:40] LABS: Add Urine Microscopic? YES; Appearance Urine Clear (Clear); Bilirubin Urine Negative (Negative); Blood Urine Negative (Negative); Color Urine Straw (Yellow); Glucose Urine UA 3+ mg/dL (Negative); Ketones Urine Negative (Negative); Leukocyte Esterase Ur Negative LEU/UL (Negative); Mucus Urine Rare /lpf; Nitrate Urine Negative (Negative); Protein Urine Negative (Negative); RBC Urine 0-2 /hpf (0-2); Squamous Epithelial Cell Urine Few /hpf (Few); Urobilinogen Urine Negative mg/dL (<2.0); WBC Urine 0-3 /hpf
[2021-06-10 16:50] LABS: Specific Grav Ur 1.036 (1.001-1.035)
[2021-06-10 17:01] LABS: Glucose Point of Care 409 mg/dl (65-105)
--- NOTE | 2021-06-10 17:22 | PC.NURSE ---
Circle Edger called [facility] and provided patient report and informed facility staff that patient would be discharged back to their facility.
--- NOTE | 2021-06-10 19:28 | PC.NURSE ---
Patient ambulated to ED restroom with stand by assist. Patient was able to ambulate to the restroom and back with sheet writer. Patient felt short of breath on the way back. Patient placed back on her oxygen at 2L per nasal cannula in her room and felt better. Patient sat back on the bed and laid down.
--- NOTE | 2021-06-10 20:06 | PC.NURSE ---
[facility]
--- NOTE | 2021-06-10 20:08 | PC.NURSE ---
EMS here for patient transport to [facility]. Metal Products Viewer gave report to EMS crew, song writer also provided EMS crew with patient's discharge paperwork, facesheet, and PCS. Patient alert and awake upon leaving with ED.
== END 2021-06-10 20:15 ==
PROVIDERS: Physician Assistant; Emergency Provider Emergency Medicine; PCP Internal Medicine
DX: S01.111A Laceration without foreign body of right eyelid and periocular area, initial encounter (principal); J43.9 Emphysema, unspecified; J96.11 Chronic respiratory failure with hypoxia; I25.10 Atherosclerotic heart disease of native coronary artery without angina pectoris; I25.2 Old myocardial infarction; E78.5 Hyperlipidemia, unspecified; I10 Essential (primary) hypertension; E03.9 Hypothyroidism, unspecified; E11.319 Type 2 diabetes mellitus with unspecified diabetic retinopathy without macular edema; E11.43 Type 2 diabetes mellitus with diabetic autonomic (poly)neuropathy; K31.84 Gastroparesis; M19.90 Unspecified osteoarthritis, unspecified site; M79.601 Pain in right arm; Z99.81 Dependence on supplemental oxygen; Z95.5 Presence of coronary angioplasty implant and graft; Z79.4 Long term (current) use of insulin; Z79.899 Other long term (current) drug therapy; Z87.891 Personal history of nicotine dependence; R94.31 Abnormal electrocardiogram [ECG] [EKG]; R90.82 White matter disease, unspecified; M47.812 Spondylosis without myelopathy or radiculopathy, cervical region; W01.190A Fall on same level from slipping, tripping and stumbling with subsequent striking against furniture, initial encounter
CPT/HCPCS: 12011; 36415; 70450; 71046; 72125; 73030; 73110; 73521; 80053; 81001; 82948; 85025; 85610; 85730; 93005; 96360; 99284; J7040